=== PATIENT | male | born 1950 | race Caucasian/White ===

== ENCOUNTER 2019-10-02 00:32 | Outpatient (CLI) | payer BC, SELFPAY ==
[2019-10-02 18:07] LABS: SARS-CoV-2 RNA PCR Negative
== END 2019-10-02 00:33 | disposition home or self-care (01) ==
LOC: ANHCOVIDDT 00:34
PROVIDERS: PCP Family Medicine Adolescent Medicine; Visit Provider Internal Medicine Gastroenterology
DX: Z01.812 Encounter for preprocedural laboratory examination (principal); Z11.59 Encounter for screening for other viral diseases
CPT/HCPCS: 87635; C9803; U0003

== ENCOUNTER 2019-10-04 02:11 | Day surgery (SDC) | payer BC, SELFPAY ==
[2019-09-30 14:53] VITALS: BMI 40.6
[2019-10-04 06:29] VITALS: BMI 42.0
[2019-10-04] MEDS: LACTATED RINGERS 1,000 ML 150 ML IV CONT (06:42)
--- NOTE | 2019-10-04 07:08 | WPDANESEPPF ---
Anes - Initial Pre Proc Eval Procedure: Operation Date: 10/04/19 07:30 Proposed Procedures p Esophagogastroduodenoscopy - Jethro Hand MD Date/Time: 10/04/19 07:08 Surgeon: Jethro Hand MD Pre Op Diagnosis: dyspepsia, GERD Patient Data Age: 69 Gender: M Height: 5 ft 9 in Weight: 129 kg Allergies Allergy/AdvReac Type Severity Reaction Status Date / Time Penicillins Allergy Severe PASSED Verified 10/04/19 06:27 OUT codeine Allergy Unknown SEVERE Verified 10/04/19 06:27 ITCHING Home Medications Medication Instructions Recorded Confirmed Type aspirin [Adult Low Dose Aspirin] 81 mg PO DAILY 09/30/19 09/30/19 History buprenorphine-naloxone 1 tablet SUBLINGUAL DAILY 09/30/19 09/30/19 History bupropion HCl 450 mg PO DAILY 09/30/19 09/30/19 History carvedilol 6.25 mg PO BID 09/30/19 09/30/19 History lisinopril 5 mg PO DAILY 09/30/19 09/30/19 History lorazepam [Ativan] 1 mg PO TID PRN 09/30/19 09/30/19 History pantoprazole 40 mg PO BID 09/30/19 09/30/19 History tamsulosin 0.4 mg PO DAILY 09/30/19 09/30/19 History Patient hx anesthesia problems: none Family hx anesthesia problems: none PMFSH Past Medical History Medical History Arthritis Colonic polyp Depression DVT (deep venous thrombosis) GERD (gastroesophageal reflux disease) Gout Hemorrhoids Hiatal hernia Melena Pulmonary embolism Shingles Ulcer Surgical History Surgical History H/O hemorrhoidectomy History of right hip replacement Hx of appendectomy Hx of tonsillectomy Social History Social History Smoking status: Never smoker Anes - Eval Final PreProcedure Day of Procedure 10/04/19 07:08 Patient weight: morbidly obese Heart: regular rate and rhythm Lungs: clear to auscultation Airway: Mallampati scale class II Neurological: alert and oriented Last oral intake: >/= 8 hours ASA classification: III Emergent: no Anesthetic plan: proceed Anesthesia type and monitoring: general GIVS and standard monitoring Informed Consent: The patient's anesthetic plan and its attendant risks and benefits were discussed with the patient/family/POA. Questions were solicited and answers provided to the satisfaction of the patient/family/POA.
--- NOTE | 2019-10-04 07:36 | WPDGICN ---
Assessment and Plan Assessment and plan (1) Dyspepsia: Code(s): R10.13 - Epigastric pain Status: Acute Assessment and Plan: Patient has ongoing acid indigestion nocturnal regurgitation heartburn and nausea despite taking Protonix 40 mg p.o. b.i.d.. Plan is to evaluate further with an EGD. Alternate PPI may be of some benefit. Current we will allow an acid supplementation in addition to PPI. Strict anti-reflux measures encouraged. (2) GERD (gastroesophageal reflux disease): Code(s): K21.9 - Gastro-esophageal reflux disease without esophagitis Status: Acute (3) Colonic polyp: Code(s): K63.5 - Polyp of colon Status: Acute Assessment and Plan: Patient has a history of colon polyps in follow-up colonoscopy every 5 years is anticipated. GI Consult Note Consult date/time: 10/04/19 07:36 HPI: Robinson Mendoza is a 69 year old male seen in evaluation at the request of Dr Almazan.Patient has a history of GE reflux disease. She has a long history of abdominal pain acid indigestion. He has been treated with Protonix for 4 years. Symptoms have persisted despite taking this medication. He will supplement with oral an acids however this fails to control his symptoms he has rather persistent nausea. Briefly improved with oral an acids. He notices acid regurgitation at night. For these reasons he presents for follow-up EGD. Patient denies any bleeding or weight loss. Review of Systems Review of Systems: All systems reviewed & are unremarkable except as noted in HPI and below PMFSH Past Medical History Medical History Arthritis Colonic polyp Depression DVT (deep venous thrombosis) GERD (gastroesophageal reflux disease) Gout Hemorrhoids Hiatal hernia Melena Pulmonary embolism Shingles Ulcer Surgical History Surgical History H/O hemorrhoidectomy History of right hip replacement Hx of appendectomy Hx of tonsillectomy Social History Social History Smoking status: Never smoker Meds Home Medications and Allergies Home Medications Medication Instructions Recorded Confirmed Type aspirin [Adult Low Dose Aspirin] 81 mg PO DAILY 09/30/19 09/30/19 History buprenorphine-naloxone 1 tablet SUBLINGUAL DAILY 09/30/19 09/30/19 History bupropion HCl 450 mg PO DAILY 09/30/19 09/30/19 History carvedilol 6.25 mg PO BID 09/30/19 09/30/19 History lisinopril 5 mg PO DAILY 09/30/19 09/30/19 History lorazepam [Ativan] 1 mg PO TID PRN 09/30/19 09/30/19 History pantoprazole 40 mg PO BID 09/30/19 09/30/19 History tamsulosin 0.4 mg PO DAILY 09/30/19 09/30/19 History Allergies Allergy/AdvReac Type Severity Reaction Status Date / Time Penicillins Allergy Severe PASSED Verified 10/04/19 06:27 OUT codeine Allergy Unknown SEVERE Verified 10/04/19 06:27 ITCHING Exam Narrative: Exam Narrative: Physical exam reveals patient to be alert. Vital signs stable. HEENT exam unremarkable. Lungs are clear to auscultation and percussion. Heart is without murmur or extra sounds. Abdominal exam bowel sounds are present soft nontender with no organomegaly. Digital external rectal exam is deferred today.
[2019-10-04 07:38] VITALS: BP 104/51; PULSE 64; RESP 13; O2SAT 95
[2019-10-04 07:48] VITALS: BP 95/49; PULSE 59; RESP 17; O2SAT 95
[2019-10-04 07:58] VITALS: BP 91/41; PULSE 57; RESP 15; O2SAT 97
== END 2019-10-04 08:24 | disposition home or self-care (01) ==
PROVIDERS: PCP Family Medicine Adolescent Medicine; Visit Provider Internal Medicine Gastroenterology
PROC: 0DJ08ZZ Inspection of Upper Intestinal Tract, Via Natural or Artificial Opening Endoscopic (ICD-10-PCS; CPT 43235; principal; 2019-10-04 07:30)
DX: R11.0 Nausea (principal); K21.9 Gastro-esophageal reflux disease without esophagitis; K30 Functional dyspepsia; M10.9 Gout, unspecified; F32.9 Major depressive disorder, single episode, unspecified; Z79.82 Long term (current) use of aspirin; E66.01 Morbid (severe) obesity due to excess calories; Z68.41 Body mass index [BMI] 40.0-44.9, adult
CPT/HCPCS: 43239; 87081; 87635; C9803; J2704; J7120; U0003

== ENCOUNTER → 2020-12-08 02:47 | Outpatient (CLI) | payer BC, SELFPAY ==
[2020-12-08 20:47] LABS: SARS-CoV-2 RNA PCR Negative
== END ==
PROVIDERS: PCP Family Medicine Adolescent Medicine; Visit Provider Physician Assistant
DX: J02.9 Acute pharyngitis, unspecified (principal); Z20.822 Contact with and (suspected) exposure to COVID-19
CPT/HCPCS: C9803; U0003; U0005

== ENCOUNTER 2021-03-04 10:55 | Emergency (ER) | payer BC, SELFPAY ==
[2021-03-04 11:01] VITALS: BP 166/93; PULSE 78; RESP 16; TEMP 36.6; O2SAT 96
--- NOTE | 2021-03-04 11:07 | ED.NAVMDI ---
HPI - Nausea/Vomiting/Diarrhea General Chief complaint: Nausea/Vomiting/Diarrhea Stated complaint: dizzy/nausea/weak/difficulty eating Time Seen by Provider: 03/04/21 11:08 Source: patient, family and RN notes reviewed Mode of arrival: ambulatory Limitations: no limitations History of Present Illness HPI Narrative: Robinson is a 70-year-old male patient who ambulated into the [facility]. Patient states he has had dizziness and weakness since Monday. Patient has had chronic nausea, weakness and difficulty eating for the last 10 months. Patient has seen Dr. Rosas and been followed up with GI for the same issue. Patient is on Nexium 40 twice daily and Zofran daily. 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 Patient states he felt dizzy when he was driving. It only lasted a few seconds. Patient states he was fine afterwards and continued to drive. Patient states today he has had onset of dizziness with no other symptoms. Patient states he has chronic nausea and just feels extremely weak. MD elicited complaint: nausea Related Data Home Medications Medication Instructions Recorded Confirmed bupropion HCl 450 mg PO DAILY 09/30/19 03/04/21 carvedilol 6.25 mg PO BID 09/30/19 03/04/21 lorazepam [Ativan] 1 mg PO TID PRN 09/30/19 03/04/21 buprenorphine 8 mg-naloxone 2 mg 1 film SUBLINGUAL DAILY 01/19/21 03/04/21 sublingual film losartan 100 mg tablet 100 mg PO DAILY 01/19/21 03/04/21 ondansetron 4 mg disintegrating 4 mg PO Q8H 01/19/21 03/04/21 tablet Allergies Allergy/AdvReac Type Severity Reaction Status Date / Time Penicillins Allergy Severe PASSED Verified 03/04/21 11:01 OUT codeine Allergy Unknown SEVERE Verified 03/04/21 11:01 ITCHING Review of Systems Review of Systems: CONSTITUTIONAL: Denies body aches, fever, chills, or sweats. EYES: Denies visual changes, redness, or discharge. ENT: Denies rhinorrhea, + congestion, sore throat, or otalgia. CARDIOVASCULAR: Denies chest pain, palpitations, or edema. RESPIRATORY: Denies cough or dyspnea. GASTROINTESTINAL: Denies abdominal pain, nausea, vomiting, or diarrhea. GENITOURINARY: Denies dysuria or hematuria. SKIN: Denies rash, itching, or wounds. MUSCULOSKELETAL: Denies back pain, joint pain, or myalgia. NEUROLOGIC: Denies headache, numbness, tingling, or weakness. PSYCH: Denies depression or anxiety + dizziness All systems reviewed & are unremarkable except as noted in HPI and below PMFSH Past Medical History Medical History Arthritis Colonic polyp Depression DVT (deep venous thrombosis) GERD (gastroesophageal reflux disease) Gout Hemorrhoids Hiatal hernia HTN (hypertension) Melena Pulmonary embolism Shingles Ulcer Surgical History Surgical History H/O hemorrhoidectomy History of right hip replacement Hx of appendectomy Hx of tonsillectomy Social History Social History Smoking status: Never smoker Comments At time of signature, I have reviewed and agree with nursing past medical, surgical, social and family history unless otherwise noted. Please see nursing chart for further information. There is no relevant family history pertinent to the presenting complaint Exam Narrative: GENERAL: Well-appearing, over-nourished, and in no acute distress. HEAD: Normocephalic, atraumatic. EYES: EOMI. No redness or drainage. Conjunctivae normal. ENT: Mucous membranes pink and moist. Nares clear. No rhinorrhea. TMs normal bilaterally. Throat normal. Uvula midline. NECK: Normal AROM. Supple. No lymphadenopathy. CHEST: No respiratory distress. Clear to auscultation. HEART: Regular rate and rhythm. No murmur appreciated. Normal peripheral pulses. ABDOMEN: Soft, nontender, nondistended, normal active bowel sounds. MUSCULOSKELETA
--- NOTE | 2021-03-04 15:12 | ECG_ITS ---
Measurements Intervals [place] Rate: 70 P: 22 OK: 192 QRS: -26 QRSD: 105 T: -9 QT: 398 QTc: 430 Interpretive Statements SINUS RHYTHM BORDERLINE ST-T WAVE ABNORMALITY- INFERIOR LEADS BASELINE WANDER- V4-V5 BORDERLINE ECG Electronically Signed On 03-04-2021 16:41:15 NURSERYPERSON by Kaushik Gupta D.O.
== END 2021-03-04 12:27 | disposition home or self-care (01) ==
PROVIDERS: Emergency Provider Nurse Practitioner Family; PCP Family Medicine Adolescent Medicine
DX: R11.0 Nausea (principal); R42 Dizziness and giddiness; Z96.651 Presence of right artificial knee joint; M19.90 Unspecified osteoarthritis, unspecified site; Z86.73 Personal history of transient ischemic attack (TIA), and cerebral infarction without residual deficits; K21.9 Gastro-esophageal reflux disease without esophagitis; M10.9 Gout, unspecified; I10 Essential (primary) hypertension; Z86.711 Personal history of pulmonary embolism
CPT/HCPCS: 81003; 93005; 99213; G0463

== ENCOUNTER 2021-05-27 01:12 | Day surgery (SDC) | payer BC, SELFPAY ==
[2021-05-13 13:43] VITALS: BMI 43.2
[2021-05-27 07:55] VITALS: BP 100/80; PULSE 70; RESP 20; TEMP 36.2; O2SAT 95; BMI 42.2
[2021-05-27] MEDS: LACTATED RINGERS 1,000 ML 150 ML IV CONT (08:09)
--- NOTE | 2021-05-27 08:26 | P.PNAN_ITS ---
Anes - Initial Pre Proc Eval Procedure: Operation Date: 05/27/21 09:15 Proposed Procedures p Esophagogastroduodenoscopy & Screening Colonoscopy - Jethro Hand MD Date/Time: 05/27/21 08:26 Surgeon: Jethro Hand MD Pre Op Diagnosis: neoplasm screening, nausea Patient Data Age: 70 Gender: M Height: 1.75 m Weight: 129.7 kg Last Vital Signs Temp 36.2 C L 05/27/21 07:55 Pulse 70 05/27/21 07:55 Resp 20 05/27/21 07:55 BP 100/80 05/27/21 07:55 Pulse Ox 95 05/27/21 07:55 Allergies Allergy/AdvReac Type Severity Reaction Status Date / Time Penicillins Allergy Severe PASSED Verified 05/27/21 07:55 OUT codeine Allergy Unknown SEVERE Verified 05/27/21 07:55 ITCHING Home Medications Medication Instructions Recorded Confirmed Type bupropion HCl 450 mg PO DAILY 09/30/19 05/13/21 History carvedilol 6.25 mg PO BID 09/30/19 05/13/21 History buprenorphine 8 mg-naloxone 2 mg 1 film SUBLINGUAL DAILY 01/19/21 05/13/21 History sublingual film losartan 100 mg tablet 100 mg PO DAILY 01/19/21 05/13/21 History lorazepam 1 mg tablet 1 mg PO TID PRN #90 tablet 04/27/21 05/13/21 Rx ibuprofen 800 mg PO TID PRN 05/13/21 05/13/21 History ondansetron 4 mg PO Q8H PRN 05/13/21 05/13/21 History Patient hx anesthesia problems: none Family hx anesthesia problems: none Results Review: All pre-operative results and documents have been reviewed as part of the pre-operative evaluation. [facility] Past Medical History Medical History (Updated 05/27/21 @ 08:27 by Lupillo Bartholomew DO) Arthritis Cardiomyopathy Colonic polyp Depression DVT (deep venous thrombosis) GERD (gastroesophageal reflux disease) Gout Hemorrhoids Hiatal hernia HTN (hypertension) Melena Pulmonary embolism Shingles Ulcer Surgical History Surgical History H/O hemorrhoidectomy History of right hip replacement Hx of appendectomy Hx of tonsillectomy Social History Social History (Updated 05/12/21 @ 10:56 by Esther Salazar CMA) Smoking status: Never smoker Alcohol intake: former Substance use: former Last use: 1974 Living arrangements: with family Spiritual care concerns: No Anes - Eval Final PreProcedure Day of Procedure 05/27/21 08:26 Patient weight: morbidly obese Heart: regular rate and rhythm Lungs: clear to auscultation and normal air movement Airway: Mallampati scale class II Neurological: alert and oriented Last oral intake: >/= 8 hours ASA classification: III Emergent: no Anesthetic plan: proceed Anesthesia type and monitoring: general GIVS and standard monitoring Results Review: All pre-operative results and documents have been reviewed as part of the pre-operative evaluation. Informed Consent: The patient's anesthetic plan and its attendant risks and benefits were discussed with the patient/family/POA. Questions were solicited and answers provided to the satisfaction of the patient/family/POA.
--- NOTE | 2021-05-27 08:50 | WPDHPUPDATE1 ---
History and Physical Update Update Date/Time: 05/27/21 08:50 History and Physical has been reviewed, including an updated exam of the patient. There are NO changes in the patient's condition. Risks, benefits, and alternatives have been discussed and questions answered. Patient agrees to proceed with procedure.
[2021-05-27] MEDS: BENZOCAINE (*SP) 60 ML SPRAY CAN (HURRICAINE) 1 SPRAY MUCOUS MEM (09:43)
[2021-05-27 10:14] VITALS: BP 94/61; PULSE 64; RESP 20; O2SAT 97
[2021-05-27 10:24] VITALS: BP 112/71; PULSE 62; RESP 18; O2SAT 98
[2021-05-27 10:34] VITALS: BP 113/69; PULSE 64; RESP 18; O2SAT 98
--- NOTE | 2021-05-27 10:55 | SUR.OPER ---
EGD start 945 end 947, Colon start 956 end 1007.
== END 2021-05-27 10:51 | disposition home or self-care (01) ==
PROVIDERS: PCP Family Medicine Adolescent Medicine; Visit Provider Internal Medicine Gastroenterology
PROC: 0DJ08ZZ Inspection of Upper Intestinal Tract, Via Natural or Artificial Opening Endoscopic (ICD-10-PCS; CPT 43235; principal; 2021-05-27 09:15)
DX: Z12.11 Encounter for screening for malignant neoplasm of colon (principal); D12.2 Benign neoplasm of ascending colon; R11.0 Nausea; K64.8 Other hemorrhoids; Z86.718 Personal history of other venous thrombosis and embolism; F41.8 Other specified anxiety disorders; K21.9 Gastro-esophageal reflux disease without esophagitis; M10.9 Gout, unspecified; K44.9 Diaphragmatic hernia without obstruction or gangrene; I26.99 Other pulmonary embolism without acute cor pulmonale; F41.1 Generalized anxiety disorder; I11.9 Hypertensive heart disease without heart failure; I43 Cardiomyopathy in diseases classified elsewhere; E66.01 Morbid (severe) obesity due to excess calories; Z68.41 Body mass index [BMI] 40.0-44.9, adult; R53.81 Other malaise; R53.1 Weakness
CPT/HCPCS: 45380; 43239; 87081; 88305; J2704; J7120

== ENCOUNTER 2021-11-16 12:36 | Observation (INO) | payer BC, SELFPAY ==
[2021-11-16] VITALS (24 sets, daily range): BP systolic 111–148; BP diastolic 73–105; PULSE 69–102; RESP 7–16; TEMP 36.7–37.5; O2SAT 91–98; BMI 41.3
--- NOTE | ~2021-11-16 | XR_ITS ---
EXAMINATION: XR chest 2V DATE: 11/16/2021 13:44 INDICATION: Chest pain. TECHNIQUE: Frontal and lateral views of the chest were obtained. COMPARISON: Chest 2 views 03/13/2019 FINDINGS: There is no pneumonia, pleural effusion, or pneumothorax. The heart size is normal. IMPRESSION: 1. No acute cardiopulmonary disease. Reviewed, dictated and finalized at location A.
--- NOTE | ~2021-11-16 | CT_ITS ---
EXAMINATION: CTA brain carotid DATE: 11/16/2021 14:08 INDICATION: Dizziness. TECHNIQUE: Computed tomographic angiography (CTA) of the head was performed without and with 100 mL O mnipaque-350 intravenous contrast. CTA of the neck was performed with intravenous contrast. Automated exposure control and iterative reconstruction technique were employed. The dose-length product was 1 776.62 mGy-cm. Maximum intensity projection and volume rendered 3D-reconstructions were created by pradeep howard technologist on a separate workstation. COMPARISON: Head CT 08/17/2005 FINDINGS: HEAD CTA: There is an infarct in left parietal lobe. There is no intracranial hemorrhage or abnormal mass lesion. The ventricles are normal in size. The mastoid air cells are normal. There is mucosal th ickening in the paranasal sinuses. There are likely changes of ocular lens replacement surgeries. Lef t vertebral artery is dominant. There is no significant stenosis of basilar artery or the posterior c erebral arteries. There is no significant stenosis of the intracranial internal carotid arteries or a nterior or middle cerebral arteries. Anterior communicating artery is normal. The posterior communica ting arteries are normal. There is no aneurysm. NECK CTA: A calcified right lung nodule is consistent with old granulomas disc disease. There is a 10 mm nodule left thyroid lobe, likely not clinically significant. There are no pathologically enlarged lymph nodes. There is a senior stenosis of the vertebral arteries. There is plaque in the proximal i nternal carotid arteries. There is 0% stenosis of the proximal right internal carotid artery relative to normal distal artery lumen diameter (NASCET criteria). There is 0% stenosis of the proximal left internal carotid artery relative to normal distal artery lumen diameter. There is severe cervical spo ndylosis. IMPRESSION: 1. Infarct in left parietal lobe, likely acute or subacute. 2. No aneurysm or significant intracranial arterial stenosis. 3. 0% stenosis of the proximal internal carotid arteries relative to normal distal artery lumen diame ters (NASCET criteria). Reviewed, dictated and finalized at location A. IMPRESSION: 1. Infarct in left parietal lobe, likely acute or subacute. 2. No aneurysm or significant intracranial arterial stenosis. 3. 0% stenosis of the proximal internal carotid arteries relative to normal dis magalys artery lumen diameters (NASCET criteria).
--- NOTE | ~2021-11-16 | MR_ITS ---
EXAMINATION: MR brain/brain stem wo/w con DATE: 11/17/2021 08:34 INDICATION: Acute stroke. TECHNIQUE: Magnetic resonance imaging (MRI) of the brain and brainstem was performed without and with 20 mL MultiHance intravenous contrast. COMPARISON: Head CT 11/16/2021 FINDINGS: There is a small old infarct in left parietal lobe. There are scattered areas of nonspecifi c increased T2-weighted signal intensity in the cerebral white matter, which is within normal limits for the patient's age. There is no intracranial hemorrhage, acute infarction, or abnormal intracrania l mass lesion. The ventricles are normal in size. There is mucosal thickening in the paranasal sinuse s. There are likely changes of ocular lens replacement surgeries. The mastoid air cells are normal. IMPRESSION: 1. Small old infarct in left parietal lobe. Reviewed, dictated and finalized at location A.
--- NOTE | 2021-11-16 12:44 | ECG_ITS ---
Measurements Intervals [place] Rate: 82 P: 7 NM: 175 QRS: -41 QRSD: 105 T: -19 QT: 377 QTc: 442 Interpretive Statements SINUS RHYTHM BASELINE ARTIFACT LEFT AXIS DEVIATION ST ABNORMALITY INFERIOR LEADS CONSIDER ISCHEMIA ABNORMAL ECG COMPARED TO ECG 03/04/2021 11:34:13 NO SIGNIFICANT CHANGE Electronically Signed On 11-16-2021 18:27:57 CDT by Brendon Casillas M.D.
[2021-11-16] MEDS: LORazepam (*CRX) 0.5 MG TABLET PO ×2 (13:05→16:13)
[2021-11-16] MEDS: MECLIZINE HCL 25 MG TABLET PO (13:05)
[2021-11-16 13:27] LABS: Basophils Percent Auto 0.5 % (0.2-1.2); Eosinophils Absolute Auto 0.2 K/mm3 (0-0.3); Eosinophils Percent Auto 1.8 % (0-4.4); Hematocrit 46.3 % (42.0-52.0); Hemoglobin 15.2 g/dL (14.0-18.0); Immature Granulocyte Absolute 0.03 K/mm3 (0.00-0.031); Immature Granulocyte Percent A 0.4 % (0-0.5); Lymphocytes Absolute Auto 1.41 K/mm3 (0.9-3.2); Lymphocytes Percent Auto 16.6 % (18.3-44.2); Mean Corpuscular HGB Conc 32.8 g/dl (32-36); Mean Corpuscular Hemoglobin 26.9 pg (26-34); Mean Corpuscular Volume 81.9 fl (80-100); Mean Platelet Volume 8.8 fl (7.4-10.4); Monocytes Absolute Auto 0.5 K/mm3 (0.1-0.6); Monocytes Percent Auto 5.4 % (2.6-8.5); Neutrophils Absolute Auto 6.4 K/mm3 (1.3-6.7); Neutrophils Percent Auto 75.3 % (45.5-73.1); Platelet Count Result 190 k/mm3 (150-375); Red Blood Count 5.65 M/mm3 (4.6-6.20); Red Cell Distribution Width 12.1 % (11.5-14.5); White Blood Count 8.5 K/mm3 (4.5-10.0)
[2021-11-16 13:36] LABS: Alanine Aminotransferase 34 U/L (6-50); Albumin Level 4.4 g/dL (3.5-5.1); Alkaline Phosphatase 90 U/L (38-126); Anion Gap 11 mmol/L (8-16); Aspartate Amino Transferase 33 U/L (17-59); Bilirubin,Total 0.7 mg/dL (0.2-1.3); Blood Urea Nitrogen 14 mg/dL (9-20); Calcium 9.2 mg/dL (8.4-10.2); Carbon Dioxide 28 mmol/L (22-30); Chloride 100 mmol/L (98-107); Estimated CRCL calculation 89 ml/min; Estimated Glomerular Filt Rate > 60; Glucose 121 mg/dL (65-110); INR 1.1; Potassium 4.1 mmol/L (3.4-5.0); Prothrombin Time 13.6 Seconds (11.1-14.7); Sodium 139 mmol/L (137-145)
[2021-11-16 13:37] LABS: Partial Thromboplastin Time 36.7 SECONDS (22.3-36.8)
[2021-11-16 13:48] LABS: Troponin I < 0.012 ng/mL (0.000-0.034)
--- NOTE | 2021-11-16 14:55 | ED.GENADULT ---
HPI - General Adult General Chief complaint: Dizziness Stated complaint: CP, from Time Seen by Provider: 11/16/21 12:39 History of Present Illness HPI narrative: Patient is a 71-year-old male who presents ER with chest pain and dizziness. Patient has history of chronic vertigo and has been seen by PT. He is scheduled to see neurology at [facility] on December 17. Reports he had severe intensity of his dizziness this rotational in nature at 8 AM. He was having difficulty walking and was stumbling. He developed some central chest tightness at that time as well. He went to an urgent care where they referred him here. He was put in the ambulance and given aspirin. Patient has had no imaging of his head or neck. He has been seen by ENT in the past. Patient has no chest pain at this time. Related Data Home Medications Medication Instructions Recorded Confirmed bupropion HCl 150 mg 24 hr tablet, 450 mg PO DAILY 09/30/19 11/16/21 extended release carvedilol 6.25 mg tablet 6.25 mg PO BID 09/30/19 11/16/21 losartan 100 mg tablet 100 mg PO DAILY 01/19/21 11/16/21 ondansetron 4 mg disintegrating 4 mg PO Q8H PRN Nausea 05/13/21 11/16/21 tablet buprenorphine 8 mg-naloxone 2 mg 0.5 tablet sublingual BID 11/16/21 11/16/21 sublingual tablet metoclopramide HCl 10 mg tablet 10 mg PO QHS 11/16/21 11/16/21 Allergies Allergy/AdvReac Type Severity Reaction Status Date / Time Penicillins Allergy Severe PASSED Verified 11/10/21 13:03 OUT codeine Allergy Unknown SEVERE Verified 11/10/21 13:03 ITCHING Review of Systems Review of Systems: All systems reviewed & are unremarkable except as noted in HPI and below Constitutional: Constitutional: Denies chills and Denies fever(s) ENT: Denies nasal congestion and Denies sore throat Cardiovascular: Cardiovascular: Reports chest pain, Denies rapid heart rate and Denies radiating jaw, neck or arm pain Respiratory: Respiratory: Denies cough, Denies dyspnea and Denies wheezing Gastrointestinal: Gastrointestinal: Denies abdominal pain, Denies nausea and Denies vomiting Neurologic: Reports dizziness, Denies headache(s), Denies focal weakness and Reports numbness PMFSH Past Medical History Medical History (Updated 11/16/21 @ 21:50 by Aicha Mulligan PA-C) Anxiety Colonic polyp Deep venous thrombosis Depression Gastroesophageal reflux disease Gout Hemorrhoids Hiatal hernia Hypertension Non-ischemic cardiomyopathy Poorly documented. Pulmonary embolism Shingles Ulcer Surgical History Surgical History (Updated 11/16/21 @ 17:15 by Aicha Mulligan PA-C) History of appendectomy History of hemorrhoidectomy History of right hip replacement History of tonsillectomy Family History Family History Mother Lung cancer Diabetes mellitus Father Lung cancer Depression Social History Social History (Updated 11/16/21 @ 17:18 by Aicha Mulligan PA-C) Social History: Surrogate medical decision maker: Natasha Mendoza, spouse. Code status: Full code. 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 Substance use: former Substance use type: former substance user Last use: 1994 Additional living arrangements comments: Lives with in [place]. Spiritual care concerns: No Agree to blood products: Yes Exam Narrative: GENERAL: Well-appearing, overweight, and in no acute distress. HEAD: Normocephalic, atraumatic. EYES: PERRL and EOMI. ENT: Mucous membranes moist. CHEST: Clear to auscultation. No respiratory distress. HEART: Regular rate and rhythm. Normal peripheral pulses. ABDOMEN: Soft, nontender, nondistended. EXTREMITIES: Normal range of motion. No edema. SKIN: Warm, dry, no rash. NEURO: NIH stroke scale of 0. No upper or lower extremity
--- NOTE | 2021-11-16 15:45 | PM.IMHP ---
H&P: HPI History of Present Illness Date/Time: 11/16/21 15:45 Chief Complaint: Dizziness. Narrative: This is a very pleasant 71-year-old male with history of non-ischemic cardiomyopathy, DVT, pulmonary embolism, hypertension, and anxiety who presented to the ED from home for evaluation of dizziness. He has suffered from dizziness and nausea on a daily basis for going on about 1 year for which he has previously been evaluated by his primary doctor as well as GI and ENT specialties. From the time he opens his eyes in the morning he feels dizzy (further qualify as lightheadedness) and nauseated, some days are much worse than others. On rare occasions he feels as though he may pass out but he has not had a syncopal episode. At times however it sounds like he suffers from vertigo as well which tend to occur with position changes. He has also had tinnitus, mainly on the right side, but that is not very frequent. He was referred for vestibular therapy several months ago and that seemed to help only a little bit. He believes that he has tried meclizine is well without much benefit. He has also been prescribed metoclopramide at nighttime which seems to help somewhat with the nausea. Due to ongoing symptoms, he was referred to Neurology at [facility] and he has an upcoming appointment with them on December 17. 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 Of note he also mentioned an episode this morning where he had left anterior chest pressure briefly while sitting down reading the newspaper. It was self-limiting, did not radiate, and was not associated with any other symptoms. He is not currently having any chest pain. He also denies headache, visual changes, focal weakness, paresthesias, facial droop, dysarthria, and dysphagia. Review of Systems Review of Systems: Twelve systems were reviewed. No fever, chills, or sweats. No recent cold or flu symptoms. No syncope. He has not had any head trauma recently. Appetite has been okay. Occasional nausea as above. No vomiting. No diarrhea. No dysuria. Except as documented, all other systems were reviewed and are negative. [facility] Past Medical History Medical History (Updated 11/16/21 @ 21:50 by Aicha Mulligan PA-C) Anxiety Colonic polyp Deep venous thrombosis Depression Gastroesophageal reflux disease Gout Hemorrhoids Hiatal hernia Hypertension Non-ischemic cardiomyopathy Poorly documented. Pulmonary embolism Shingles Ulcer Surgical History Surgical History (Updated 11/16/21 @ 17:15 by Aicha Mulligan PA-C) History of appendectomy History of hemorrhoidectomy History of right hip replacement History of tonsillectomy Family History Family History Mother Lung cancer Diabetes mellitus Father Lung cancer Depression Social History Social History (Updated 11/16/21 @ 17:18 by Aicha Mulligan PA-C) Social History: Surrogate medical decision maker: Natasha Mendoza, spouse. Code status: Full code. 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 Substance use: former Substance use type: former substance user Last use: 1994 Additional living arrangements comments: Lives with in [place]. Spiritual care concerns: No Agree to blood products: Yes Meds Home Medications and Allergies Home Medications Medication Instructions Recorded Confirmed Type bupropion HCl 150 mg 24 hr tablet, 450 mg PO DAILY 09/30/19 11/16/21 History extended release carvedilol 6.25 mg tablet 6.25 mg PO BID 09/30/19 11/16/21 History losartan 100 mg tablet 100 mg PO DAILY 01/19/21 11/16/21 History ondansetron 4 mg disintegrating 4 mg PO Q8H PRN Nausea 05/13/21 11/16/21 Histor
[2021-11-16] MEDS: CLOPIDOGREL BISULFATE 75 MG TABLET PO (15:53)
[2021-11-16 17:10] LABS: Troponin I < 0.012 ng/mL (0.000-0.034)
--- NOTE | 2021-11-16 17:23 | ADMGEN ---
This patient, Robinson Mendoza, was admitted to IMU Room 213-01 @ 1700 Patient/family oriented to hospital policies and general routines including ID bracelet, bed and alarms, visiting hours, pain management, procedures, bathroom and other care routines, personal items, smoking policy, room service/diet, and visiting hours. Information on how to activate the Rapid Response Team has been discussed. Patient/Family are encouraged to report perceived risks to care and to ask questions if they do not understand what they are told or what they should do.
[2021-11-16 17:58] LABS: Troponin I < 0.012 ng/mL (0.000-0.034)
[2021-11-16] MEDS: ACETAMINOPHEN 325 MG TABLET 650 MG PO (19:21)
[2021-11-16] MEDS: ONDANSETRON INJ 4 MG/2 ML VIAL IV PUSH (19:21)
[2021-11-16] MEDS: HYDROcodone/acetaminophen (*CRX) 5-325 MG TABLET 1 TAB PO (21:02)
[2021-11-16] MEDS: LORazepam (*CRX) 1 MG TABLET PO (21:29)
[2021-11-16] MEDS: carvediloL 6.25 MG TABLET PO (21:50)
[2021-11-16] MEDS: METOCLOPRAMIDE HCL 10 MG TABLET PO (21:50)
--- NOTE | 2021-11-16 22:15 | PHAR ---
Buprenorphine-Naloxone 8-2 mg tablet, sublingual DISSOLVE 1 TAB UNDER THE TONGUE EVERY DAY EVERY MORNING DIRECTED. Verified in pharmacy and sent back to floor. (11/16/21 @ 22:15)
[2021-11-17] VITALS (10 sets, daily range): BP systolic 123–144; BP diastolic 45–82; PULSE 62–83; RESP 15–18; TEMP 36.2–36.8; O2SAT 94–96
--- NOTE | 2021-11-17 | ECHO_ITS ---
Patient Info Name: Robinson Mendoza Age: 71 years : 1950 Gender: Male Ht: 69 in Wt: 283 lbs BSA: 2.56 m2 HR: 71 bpm BP: 123 / 45 mmHg Heart Rhythm: Sinus Rhythm Technical Quality: Fair Exam Date: 11/17/2021 10:09 AM Exam Location: [facility] Card Pulmonary Patient Status: Inpatient Admit Date: 11/16/2021 Staff Ordering Physician: Aicha Mulligan PA-C Customer Associate: Svetlana Henderson RDCS Attending Provider: Gracy Rodriguez MD Referring Physician: Isaak RODRIGUEZ; Exam Type: CA echo doppler w bubble study Study Info Indications - stroke Complete two-dimensional, color flow and Doppler transthoracic echocardiogram is performed with agitated saline. Contrast/Agitated Saline Contrast/Ag. Saline: Agitated Saline Amount: 20.00 ml Administered By: Frances Archuleta RDCS Existing IV Access: Yes IV Access Condition: patent with no signs of infiltration Summary 1. Left ventricular chamber dimension is normal. 2. Left ventricular systolic function is normal, estimated at 65-70%. 3. There is mild asymmetric septal increased left ventricular wall thickness. 4. Left ventricular septal wall motion is abnormal with septal motion related to bundle branch block. 5. The left ventricular diastolic function is grade I diastolic dysfunction. 6. Injection of agitated saline reveals xlwlq-zg-pimu shunt with Valsalva only with faint bubbles crossing at approximately 3-4 beats suggestive of small patent foramen ovale. Clinical correlation advised. 7. There is no aortic valve stenosis. 8. There is trace mitral valve regurgitation. 9. There is trace tricuspid valve regurgitation. 10. No pulmonary hypertension, estimated pulmonary arterial systolic pressure is 16 mmHg. Left Ventricle Left ventricular chamber dimension is normal. Left ventricular systolic function is normal, estimated at 65-70%. There is mild asymmetric septal increased left ventricular wall thickness. Left ventricular septal wall motion is abnormal with septal motion related to bundle branch block. The left ventricular diastolic function is grade I diastolic dysfunction. Right Ventricle Right ventricular chamber dimension is normal. Right ventricular systolic function is normal. Left Atria Left atrial chamber dimension is mildly enlarged. Right Atria Right atrial chamber dimension is mildly enlarged. Atrial Septum Injection of agitated saline reveals fkxbw-gi-oqxk shunt with Valsalva only with faint bubbles crossing at approximately 3-4 beats suggestive of small patent foramen ovale. Clinical correlation advised. Aortic Valve The aortic valve is trileaflet. There is no aortic valve stenosis. There is no aortic valve regurgitation. Pulmonic Valve The pulmonic valve is normal. There is trace pulmonic regurgitation. Mitral Valve The mitral valve has normal leaflets. There is trace mitral valve regurgitation. The mitral valve annulus is mildly calcified. Tricuspid Valve The tricuspid valve leaflets are normal. There is trace tricuspid valve regurgitation. No pulmonary hypertension, estimated pulmonary arterial systolic pressure is 16 mmHg. Pericardium/Pleural The pericardium appears normal. There is trivial pericardial effusion. Inferior Vena Cava Normal inferior vena cava with >50% collapse upon inspiration consistent with normal right atrial pressure, 5 mmHg. Aorta The aortic root size at the sinus of Valsalva is normal.
[2021-11-17 05:17] LABS: Hemoglobin 14.4 g/dL (14.0-18.0); Mean Corpuscular HGB Conc 32.7 g/dl (32-36); Mean Corpuscular Volume 82.4 fl (80-100); Mean Platelet Volume 8.9 fl (7.4-10.4); Platelet Count Result 165 k/mm3 (150-375); Red Blood Count 5.34 M/mm3 (4.6-6.20); Red Cell Distribution Width 12.4 % (11.5-14.5); White Blood Count 7.4 K/mm3 (4.5-10.0)
[2021-11-17 05:30] LABS: Alanine Aminotransferase 28 U/L (6-50); Albumin Level 3.8 g/dL (3.5-5.1); Alkaline Phosphatase 79 U/L (38-126); Anion Gap 7 mmol/L (8-16); Aspartate Amino Transferase 25 U/L (17-59); Bilirubin,Total 0.7 mg/dL (0.2-1.3); Blood Urea Nitrogen 13 mg/dL (9-20); Calcium 8.8 mg/dL (8.4-10.2); Carbon Dioxide 28 mmol/L (22-30); Chloride 100 mmol/L (98-107); Cholesterol 180 mg/dL (0-200); Estimated CRCL calculation 88 ml/min; Estimated Glomerular Filt Rate > 60; Glucose 113 mg/dL (65-110); HDL Direct 34 mg/dL; Magnesium 2.1 mg/dL (1.6-2.3); Potassium 3.4 mmol/L (3.4-5.0); Sodium 135 mmol/L (137-145); Triglycerides 110 mg/dL (<150)
[2021-11-17 05:40] LABS: LDL Cholesterol Direct 93 mg/dL
[2021-11-17] MEDS: ONDANSETRON INJ 4 MG/2 ML VIAL IV PUSH (07:46)
[2021-11-17] MEDS: LORazepam (*CRX) 1 MG TABLET PO (07:48)
[2021-11-17] MEDS: CLOPIDOGREL BISULFATE 75 MG TABLET PO (08:50)
[2021-11-17] MEDS: buPROPion HCL XL (24 HR) 150 MG TABCR 450 MG PO (08:50)
[2021-11-17] MEDS: ENOXAPARIN 40 MG/0.4 ML SYRINGE SUB-Q (08:51)
[2021-11-17] MEDS: LOSARTAN POTASSIUM 100 MG TABLET PO (08:51)
[2021-11-17 09:56] LABS: Hemoglobin A1C 5.8 % (<5.7)
--- NOTE | 2021-11-17 10:21 | PM.IMPN ---
Progress Note: A&P Assessment and Plan (1) Cerebrovascular accident: Code(s): I63.9 - Cerebral infarction, unspecified Status: Acute Assessment and Plan: 11/16 CTA head/neck demonstrating acute versus subacute infarct in left parietal lobe, no LVO. MRI done 11/17 that shows small old infarct in left parietal lobe. Lipid panel done that shows total cholesterol of 180 with an LDL of 93. A1c 5.8%. Telemetry showing normal sinus rhythm. Echo pending. Neurology on consult. Patient started on Plavix, will also start aspirin and low-dose statin. (2) Dizziness: Code(s): R42 - Dizziness and giddiness Status: Acute Assessment and Plan: Orthostatics negative. Neurology following. Patient reports improvement (3) Non-ischemic cardiomyopathy: Code(s): I42.8 - Other cardiomyopathies Status: Acute Assessment and Plan: Echo pending. Continue carb a long losartan (4) Anxiety: Code(s): F41.9 - Anxiety disorder, unspecified Status: Acute Assessment and Plan: Continue bupropion and Ativan p.r.n. Subjective Date/time seen: 11/17/21 10:21 Patient examined, chart reviewed. Patient reports significant improvement and dizziness today, has not had any other episodes. Patient just returned back from MRI. Review of Systems Review of Systems: Ten point ROS reviewed, negative unless otherwise specified in subjective Exam Narrative: General: Well-developed male sitting up in bed no distress. HEENT: Normocephalic, atraumatic. PERRL, EOMI. Conjunctivae anicteric. Oral mucosa moist. Oropharynx is crowded. Neck: Supple. No carotid bruits. Respiratory: Lungs are clear to auscultation bilaterally. Cardiovascular: Regular rate and rhythm with S1-S2. No tenderness to palpation over the chest wall. Gastrointestinal: Abdomen is soft, obese, nontender, and nondistended with positive bowel sounds. Skin: Warm and dry. No rash or lesions on limited exam. Extremities: No cyanosis, clubbing, or edema. Radial and pedal pulses intact. Neurological: Alert and oriented x4 Cranial nerves 2-12 are grossly intact. Speech is clear. No facial asymmetry. No pronator drift. Normal hkiubz-zg-hcid, rapid alternating movements, and heel to morales. Strength 5/5 in upper and lower extremities. Neurovascularly intact. Gait not assessed. Psychiatric: Pleasant and cooperative with normal mood and affect. Judgment and insight intact. Objective Data Vital Signs Vital Signs: Vital Signs - 24 hr 11/16/21 12:36 11/16/21 12:44 11/16/21 13:22 Temperature 98.1 F 98.1 F Pulse Rate 82 77 73 Respiratory Rate 9 L 9 L Blood Pressure 137/97 H 148/91 H 132/78 Pulse Oximetry 95 96 Oxygen Delivery Autopap 11/16/21 13:23 11/16/21 13:25 11/16/21 13:27 Temperature Pulse Rate 72 92 102 H Respiratory Rate 16 Blood Pressure 134/83 147/98 H 147/98 H Pulse Oximetry Oxygen Delivery 11/16/21 14:16 11/16/21 14:40 11/16/21 14:17 Temperature Pulse Rate 69 73 74 Respiratory Rate 14 9 L Blood Pressure 137/73 125/83 Pulse Oximetry 95 94 94 Oxygen Delivery 11/16/21 14:30 11/16/21 14:31 11/16/21 14:45 Temperature Pulse Rate 74 Respiratory Rate 10 L Blood Pressure 125/83 Pulse Oximetry 92 94 95 Oxygen Delivery 11/16/21 15:00 11/16/21 15:49 11/16/21 16:00 Temperature Pulse Rate 79 74 76 Respiratory Rate 7 L 7 L Blood Pressure Pulse Oximetry 96 Oxygen Delivery 11/16/21 16:12 11/16/21 18:00 11/16/21 19:00 Temperature Pulse Rate 76 83 85 Respiratory Rate 11 L Blood Pressure 147/105 H Pulse Oximetry 98 Oxygen Delivery 11/16/21 19:30 11/16/21 20:00 11/16/21 20:00 Temperature 98.9 F Pulse Rate 79 78 Respiratory Rate 14 Blood Pressure 127/74 Pulse Oximetry 91 Oxygen Delivery Room Air 11/16/21 21:50 11/16/21 22:00 11/16/21 23:45 Temperature Pulse Rate 71 73 Respiratory Rate Blood Pressure
--- NOTE | 2021-11-17 12:52 | WPDNEURCNPN ---
Assessment and Plan Assessment and plan (1) Dizziness: Code(s): R42 - Dizziness and giddiness Status: Acute (2) Cerebrovascular accident: Code(s): I63.9 - Cerebral infarction, unspecified Status: Acute (3) Non-ischemic cardiomyopathy: Code(s): I42.8 - Other cardiomyopathies Status: Acute (4) Type 2 diabetes mellitus without complications: Onset Date: ~2016 Code(s): E11.9 - Type 2 diabetes mellitus without complications Status: Acute (5) HTN (hypertension): Code(s): I10 - Essential (primary) hypertension Status: Acute Plan History of chronic dizziness mainly orthostatics after getting out the bed and lasting for several min no dizziness while laying in bed turning from side to side no history of double vision but also concerns about history of so-called cerebellar ataxia in the family at this stage MRI shows only old stroke which clear what time it happened echocardiogram is pending patient does have appointment sent to [facility] for vestibular dysfunction I encouraged him to keep that appointment but all the pros and cons of dizziness were explained he is already getting Antivert while in the hospital once the echocardiogram report is available he will be discharged to be followed by physician at sleep Consult date: 11/17/21 Time Seen: 11:00 HPI: Robinson Mendoza is a 71 year old male admitted to the hospital through the emergency room for the complaints of chest pain with dizziness in addition to the history of chronic vertigo for which he is scheduled to see neurology at [facility] for the complaints of dizziness rotational in nature difficulties in walking and stumbling he was given aspirin in the ambulance has also been seen by the ENT physician in the past and his outpatient medications included Wellbutrin 150 mg daily carvedilol 6.25 mg twice a day losartan 100 mg daily metoclopramide 10 mg at night , carries the diagnosis of anxiety, DVT, depression, gout, hypertension, and nonischemic cardiomyopathy which is poorly documented and history of pulmonary embolism and shingles never a smoker but recovering alcoholic lasting in 1994 and initial exam in the emergency room documented normal with normal vital signs normal CBC and BMP troponin less than 0.012 chest x-ray negative CTA normal with negative stenosis of the vertebral arteries But with subacute left parietal lobe infarct documented by MRI of the head again negatives CTA for the stenosis Review of Systems Review of Systems: All systems reviewed & are unremarkable except as noted in HPI and below PMFSH Past Medical History Medical History Anxiety Colonic polyp Deep venous thrombosis Depression Gastroesophageal reflux disease Gout Hemorrhoids Hiatal hernia Hypertension Non-ischemic cardiomyopathy Poorly documented. Pulmonary embolism Shingles Ulcer Surgical History Surgical History History of appendectomy History of hemorrhoidectomy History of right hip replacement History of tonsillectomy Family History Family History Mother Lung cancer Diabetes mellitus Father Lung cancer Depression Social History Social History Social History: Surrogate medical decision maker: Natasha Mendoza, spouse. Code status: Full code. 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 Substance use: former Substance use type: former substance user Last use: 1994 Additional living arrangements comments: Lives with in [place]. Spiritual care concerns: No Agree to blood products: Yes Meds Home Medications and Allergies Home Medications Medicati
[2021-11-17] MEDS: carvediloL 6.25 MG TABLET PO (13:17)
[2021-11-17] MEDS: MECLIZINE HCL 25 MG TABLET PO (13:17)
--- NOTE | 2021-11-17 15:46 | PM.DS ---
DS: Admitting Diagnosis Discharge Date 11/18/2019 to Admitting Diagnosis Dizziness DS: Summary Hospital Course Hospital Course: Presented with severe dizziness, which has been ongoing for the past year. He reports that this episode was much more severe and came to the emergency room for further evaluation. 11/16 CTA head/neck demonstrated acute versus subacute infarct in the left parietal lobe, no LVO. Neurology consulted, MRI done 11/17 that showed small old infarct in the left parietal lobe. Patient was started on Plavix, to be continued for 3 more weeks. Other lab work remarkable for a total cholesterol of 180 with an LDL of 93, A1c 5.8%. Patient started on low-dose statin and aspirin as well. Echo results pending, telemetry showing normal sinus rhythm. Patient reports his dizziness improved with meclizine. The patient has an appointment with a neurologist at [facility], will follow-up with this neurologist as an outpatient and explore vestibular therapies at their facility. Patient discharged in stable condition. Time Spent with Patient Time attestation: Total time spent providing and/or coordinating discharge services: Exam Const: General: cooperative, comfortable and no acute distress Nutritional Appearance: overweight Orientation/consciousness: oriented to person, oriented to place and oriented to time Limitations: physical limitations HENMT: Head: normocephalic Ears: hearing grossly normal bilaterally General nose exam: Normal external nose present Face and sinus: normal facial exam Eyes: General: appearance normal, both eyes and all related structures Visual Oleary: normal visual oleary by confrontation Alignment and Position: alignment normal Periorbital: periorbital findings normal Eyelids: eyelids normal Conjunctivae: conjunctivae normal Sclera: sclerae normal Cornea: corneas normal Pupils: Equal, round and reactive pupils present EOM: EOMs intact bilaterally Neck: Neck: full ROM Resp: Effort & Inspection: able to speak in complete sentences Auscultation: clear to auscultation bilaterally Cardio: Jugular venous distension: no JVD Rate: regular rate Rhythm: regular rhythm Skin: General skin exam: no rashes or lesions noted Neuro: General: oriented to person, oriented to place and oriented to time Cranial nerves: Yes CN's II-XII intact bilaterally Cognition (Neuro): normal cognition Speech: normal speech Motor exam (neuro): 5/5 motor strength present throughout, Pronator motor function not present, No tremor noted and No asterixis Sensory Exam: normal sensation Deep tendon reflexes (DTR's): Right triceps reflex intensity grade: 1+, Left triceps reflex intensity grade: 1+, Rt Biceps (C5, C6): 1+, Left biceps reflex intensity grade: 1+, Right brachioradialis reflex intensity grade: 1+, Left brachioradialis reflex intensity grade: 1+, Right patellar reflex intensity grade: 1+, Left patellar reflex intensity grade: 1+, Right ankle reflex intensity grade: 1+ and Left ankle reflex intensity grade: 1+ Plantar Reflex Responses: downgoing: bilateral Coordination: [id number] test normal Psych: Appearance: grossly normal Mental Status: mental status grossly normal Speech and movement: Normal speech and movement present Affect: normal affect Attitude: cooperative Thought process: Normal thought process present Thought content: Yes Normal thought content present Insight: Good insight present (Psych) Judgement: Good judgement present (Psych) DS: Data Data Completed and Pending Labs on day of discharge: Labs from last 24 hours 11/17/21 11/17/21 11/17/21 05:03 05:03 05:03 WBC 7.4 RBC 5.34 Hgb 14.4 Hct 44.0 MCV 82.4 MCH 27.0 MCHC 32.7 RDW 12.4 Plt Count 165 MPV 8.9 Sodium 135 L Potassium 3.4 Chloride 100 Carbon Dioxide 28 Anion Gap 7 L BUN 13 Creatinine 0.90 Estim Creat Clear Calc 88 Estimated GFR > 60 Glucose 113 H Hemoglobin A1c 5.8 H
== END 2021-11-17 16:21 | disposition home or self-care (01) ==
LOC: ANHED 15:32 → ANHIMU 16:53
PROVIDERS: Physician Assistant; Admitting Provider Family Medicine; Emergency Provider Emergency Medicine; PCP Family Medicine Adolescent Medicine; Visit Provider Internal Medicine
DX: I63.9 Cerebral infarction, unspecified (principal); R42 Dizziness and giddiness; R07.9 Chest pain, unspecified; K21.9 Gastro-esophageal reflux disease without esophagitis; I10 Essential (primary) hypertension; Z86.711 Personal history of pulmonary embolism; Z86.718 Personal history of other venous thrombosis and embolism; F41.9 Anxiety disorder, unspecified; I42.8 Other cardiomyopathies
CPT/HCPCS: 36415; 70496; 70498; 70553; 71046; 80053; 80061; 83036; 83735; 84484; 85025; 85027; 85610; 85730; 93005; 93306; 96372; 96374; 96375; 96376; 99285; A9270; A9577; G0378; J1650; J2405; Q9967

== ENCOUNTER 2022-11-09 11:37 | Outpatient (CLI) | payer MEDICARE, SELFPAY ==
--- NOTE | ~2022-11-09 | XR_ITS ---
EXAMINATION: XR chest 2V DATE: 11/09/2022 12:12 INDICATION: Dyspnea TECHNIQUE: PA and lateral views of the chest were obtained. COMPARISON: Chest radiograph dated 11/16/2021 FINDINGS: The lungs remain clear with no focal airspace opacities, pulmonary edema, pleural effusion or pneumot horax. The cardiomediastinal silhouette is normal. Visualized bones and soft tissues are unremarkable . IMPRESSION: 1. No acute cardiopulmonary disease. Reviewed, dictated and finalized at location A.
== END 2022-11-09 11:38 ==
PROVIDERS: PCP Family Medicine Adolescent Medicine; Visit Provider Family Medicine Adolescent Medicine
DX: R06.00 Dyspnea, unspecified (principal)
CPT/HCPCS: 71046

== ENCOUNTER 2023-03-27 11:24 | Emergency (ER) | payer MEDICARE, SELFPAY ==
--- NOTE | ~2023-03-27 | XR_ITS ---
EXAMINATION: XR knee RT 3V DATE: 03/27/2023 12:20 INDICATION: Right knee pain and swelling. Fall one week ago. TECHNIQUE: 3 views of right knee were obtained. COMPARISON: None. FINDINGS: There is lateral subluxation of patella. No fracture. There is severe osteoarthritis of pat ellofemoral compartment, moderate osteoarthritis of medial compartment, and mild osteoarthritis of la teral compartment. No knee joint effusion. There is prepatellar and superficial infrapatellar soft ti ssue swelling. IMPRESSION: 1. Severe right knee osteoarthritis. Reviewed, dictated and finalized at location A. L RESEARCHER
[2023-03-27 11:47] VITALS: BP 183/101; PULSE 106; RESP 16; TEMP 36.9; O2SAT 98
--- NOTE | 2023-03-27 11:48 | ED.EXTPRO ---
HPI - Extremity Problem General Chief complaint: Extremity Injury, Lower Stated complaint: rt knee and left ankle swollen, hurting Time Seen by Provider: 03/27/23 12:00 Source: patient and RN notes reviewed Mode of arrival: ambulatory Limitations: no limitations History of Present Illness HPI Narrative: 72-year-old male presents with concern for injury to his right knee. Reports 1 week ago he tripped over his grandchild and fall fell landing on his right knee. He reports he has had swelling, bruising, pain since then that is not getting better. He reports prior to this happening he was recently started on furosemide for swelling in his bilateral ankles. MD Complaint: extremity swelling Related Data Home Medications Medication Instructions Recorded Confirmed carvedilol 6.25 mg tablet 6.25 mg PO BID 09/30/19 03/27/23 losartan 100 mg tablet 100 mg PO DAILY 01/19/21 03/27/23 buprenorphine 8 mg-naloxone 2 mg 0.5 tablet sublingual BID 11/16/21 03/27/23 sublingual tablet bupropion HCl 150 mg 24 hr tablet, 300 mg PO DAILY 03/06/23 03/27/23 extended release atorvastatin 20 mg tablet 20 mg PO DAILY 03/27/23 03/27/23 Allergies Allergy/AdvReac Type Severity Reaction Status Date / Time Penicillins Allergy Severe PASSED Verified 03/27/23 11:42 OUT codeine Allergy Unknown SEVERE Verified 03/27/23 11:42 ITCHING Review of Systems Review of Systems: CONSTITUTIONAL: Denies malaise, chills, sweats, or fever. SKIN: Denies rash or itching, open skin, laceration, abrasion, redness, warmth MUSCULOSKELETAL: Reports right knee pain, swelling, bruising. Reports left ankle swelling NEUROLOGIC: Denies numbness, weakness All systems reviewed & are unremarkable except as noted in HPI and below PMFSH Past Medical History Medical History Cerebrovascular accident Colonic polyp Deep venous thrombosis Depression Gout Hemorrhoids Hiatal hernia Non-ischemic cardiomyopathy Poorly documented. Pulmonary embolism Shingles Ulcer Surgical History Surgical History History of appendectomy History of hemorrhoidectomy History of right hip replacement History of tonsillectomy Family History Family History Mother Lung cancer Diabetes mellitus Father Lung cancer Depression Social History Social History (Updated 11/09/22 @ 10:47 by [place] [facility]) Social History: Surrogate medical decision maker: Natasha Mendoza, spouse. Code status: Full code. 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 Substance use: former Substance use type: former substance user Last use: 1994 Lack of Transportation: No Lack of Food: Never True Current Housing: I Have Housing Concerned About Future Housing: No Difficulty Paying Gas/Electric Bills: No Difficulty Paying for Meds: No Currently Unemployed: No Education: Associate Degree Difficulty w/ Childcare or Family Care: No Living arrangements: with family Additional living arrangements comments: Lives with in [place]. Occupation/Education: retired Spiritual care concerns: No Agree to blood products: Yes Comments At time of signature, agree with nursing past medical, surgical, social and family history. There is no relevant family history pertinent to the presenting complaint Exam Narrative: GENERAL: Well-appearing, well-nourished, and in no acute distress. HEAD: Normocephalic, atraumatic. EYES: PERRLA, conjunctivae clear NECK: Supple. CHEST: Speaks in full sentences. No respiratory distress. HEART: Regular rate and rhythm. Normal and equal peripheral pulses. EXTREMITIES: Right lower extremity has grossly normal sensation, grossly normal range of
[2023-03-27 12:57] VITALS: BP 166/94; O2SAT 89
== END 2023-03-27 13:06 | disposition home or self-care (01) ==
PROVIDERS: Emergency Provider Nurse Practitioner; PCP Family Medicine Adolescent Medicine
DX: S83.011A Lateral subluxation of right patella, initial encounter (principal); W03.XXXA Other fall on same level due to collision with another person, initial encounter; M10.9 Gout, unspecified; I42.8 Other cardiomyopathies; Z86.718 Personal history of other venous thrombosis and embolism; Z86.711 Personal history of pulmonary embolism; Z86.73 Personal history of transient ischemic attack (TIA), and cerebral infarction without residual deficits
CPT/HCPCS: 73562; 99213; G0463

== ENCOUNTER 2023-04-20 11:29 | Outpatient (CLI) | payer MEDICARE, SELFPAY ==
--- NOTE | ~2023-04-20 | XR_ITS ---
Left ankle Technique: AP and lateral views were obtained. Clinical History: Pain Findings: No acute fracture or dislocation is seen. Chronic avulsion fracture present at the medial m alleolus. Osseous alignment is anatomic. Ankle mortise and other visualized joint spaces are preserve d. There is mild diffuse subcutaneous soft tissue edema. Impression: No acute osseous or articular abnormality. Chronic probable avulsion fracture fragment at the tip of the medial malleolus. Diffuse subcutaneous soft tissue edema, nonspecific. Reviewed, dictated and finalized at location . ECTIONS AND ARCHIVES DIRECTOR Impression: No acute osseous or articular abnormality. Chronic probable avulsion fracture fragment at the tip of the medial malleolus. Diffuse subcutaneous soft tissue edema, nonspecific.
== END 2023-04-20 11:30 ==
PROVIDERS: PCP Family Medicine Adolescent Medicine; Visit Provider Family Medicine Adolescent Medicine
DX: M25.572 Pain in left ankle and joints of left foot (principal); E29.1 Testicular hypofunction
CPT/HCPCS: 73600

== ENCOUNTER 2024-04-12 00:25 | Day surgery (SDC) | payer MEDICARE, SELFPAY ==
[2024-04-11 16:00] VITALS: BMI 42.9
--- NOTE | ~2024-04-12 | BM_ITS ---
EXAMINATION: CCL bone marrow asp w bx diag DATE: 04/12/2024 10:24 INDICATION: Monoclonal gammopathies. TECHNIQUE: A time-out was performed to verify the patient's name, date of , and procedure to b e performed. The procedure including the risks, benefits, and alternatives was discussed with the pat ient. Risks discussed included bleeding and infection. The patient understood the risks and agreed to proceed. The skin overlying the right ilium was prepped and draped in usual sterile fashion. Anest hetic was administered with 1% lidocaine subcutaneously. Moderate sedation was achieved with 1 mg Dimple sed IV and 100 mcg fentanyl IV. An 11 gauge needle was inserted into the ilium with fluoroscopic jeyson dance. Bone marrow was aspirated. An 8 gauge needle was then inserted into the ilium with fluoroscopi c guidance. A core bone marrow biopsy was obtained. There were no immediate complications. Fluoroscop y exposure time was 0.0 minutes. The total number of images was 1. FINDINGS: Real-time fluoroscopy demonstrates a marker overlying the right posterior superior iliac sp ine. IMPRESSION: 1. Fluoro-guided bone marrow aspiration. 2. Fluoro-guided bone marrow core biopsy. Reviewed, dictated and finalized at location A. ICATION INTEGRATION ARCHITECT
[2024-04-12 07:56] VITALS: BP 112/83; PULSE 85; RESP 14; TEMP 36.9; O2SAT 95; BMI 42.9
[2024-04-12 08:27] LABS: Basophils Percent Auto 0.5 % (0.2-1.2); Eosinophils Absolute Auto 0.2 K/mm3 (0-0.3); Eosinophils Percent Auto 2.8 % (0-4.4); Hematocrit 53.1 % (42.0-52.0); Hemoglobin 16.4 g/dL (14.0-18.0); Immature Granulocyte Absolute 0.11 K/mm3 (0.00-0.031); Immature Granulocyte Percent A 1.4 % (0-0.5); Lymphocytes Absolute Auto 1.56 K/mm3 (0.9-3.2); Lymphocytes Percent Auto 19.5 % (18.3-44.2); Mean Corpuscular HGB Conc 30.9 g/dl (32-36); Mean Corpuscular Hemoglobin 23.8 pg (26-34); Mean Corpuscular Volume 77.2 fl (80-100); Mean Platelet Volume 9.3 fl (7.4-10.4); Monocytes Absolute Auto 0.6 K/mm3 (0.1-0.6); Monocytes Percent Auto 6.9 % (2.6-8.5); Neutrophils Absolute Auto 5.5 K/mm3 (1.3-6.7); Neutrophils Percent Auto 68.9 % (45.5-73.1); Platelet Count Result 178 k/mm3 (150-375); Red Blood Count 6.88 M/mm3 (4.6-6.20); Red Cell Distribution Width 17.2 % (11.5-14.5)
--- NOTE | 2024-04-12 09:27 | WPDMODSED ---
Moderate Sedation Note-Pt Data Patient Data Diagnosis: Monoclonal gammopathies. Present Complaint: Monoclonal gammopathies. Procedure to be performed/Plan: Fluoro-guided bone marrow biopsy of ilium. Allergies Allergy/AdvReac Type Severity Reaction Status Date / Time Penicillins Allergy Severe PASSED Verified 04/12/24 07:54 OUT codeine Allergy Unknown SEVERE Verified 04/12/24 07:54 ITCHING sacubitril (From Entresto) AdvReac Intermediate Nausea Verified 04/12/24 07:54 valsartan (From Entresto) AdvReac Intermediate Nausea Verified 04/12/24 07:54 Home Medications ?Medication ?Instructions ?Recorded ?Confirmed ?Type carvedilol 6.25 mg tablet 6.25 mg PO BID 09/30/19 04/11/24 History losartan 100 mg tablet 100 mg PO DAILY 01/19/21 04/11/24 History buprenorphine 8 mg-naloxone 2 mg 0.5 tablet sublingual BID 11/16/21 04/11/24 History sublingual tablet bupropion HCl 150 mg 24 hr tablet, 300 mg PO DAILY 03/06/23 04/11/24 History extended release atorvastatin 20 mg tablet 20 mg PO DAILY 03/27/23 04/11/24 History compr.stocking,thigh,reg,x-lrg #2 ea 03/27/23 04/03/24 Rx clopidogrel 75 mg tablet See Rx Instructions .Route 05/27/23 04/11/24 Rx .COMPLEX #90 tabs pantoprazole 40 mg tablet,delayed 40 mg PO DAILY #90 tabs 06/28/23 04/11/24 Rx release ibuprofen 800 mg tablet 800 mg PO TID PRN pain #90 tabs 10/09/23 04/11/24 Rx tamsulosin 0.4 mg capsule 0.4 mg PO DAILY #90 caps 10/13/23 04/12/24 Rx furosemide 20 mg tablet See Rx Instructions .Route 10/23/23 04/12/24 Rx .COMPLEX #90 tabs semaglutide 1 mg/dose (4 mg/3 mL) 1 mg (0.75 mL) subcut WEEKLY #3 mL 11/02/23 04/11/24 Rx subcutaneous pen injector (Ozempic) ondansetron 4 mg disintegrating 4 mg PO Q8H PRN Nausea #30 tabs 12/10/23 04/11/24 Rx tablet spironolactone 50 mg tablet 50 mg PO DAILY #90 tabs 02/07/24 04/11/24 Rx lorazepam 1 mg tablet 1 mg PO TID PRN anxiety #90 tabs 03/09/24 04/11/24 Rx testosterone cypionate 200 mg/mL 300 mg (1.5 mL) IM .every 10 days 03/28/24 04/11/24 Rx intramuscular oil #9 mL empagliflozin 10 mg tablet 10 mg PO DAILY 04/03/24 04/11/24 History (Jardiance) Sedation/Anesthesia: No previous sedation/anesthesia problems (including family history). REPLACED BY [facility] Past Medical History Medical History Cerebrovascular accident Colonic polyp Deep venous thrombosis Depression Gout Hemorrhoids Hiatal hernia Non-ischemic cardiomyopathy Poorly documented. Pulmonary embolism Shingles Ulcer Surgical History Surgical History History of appendectomy History of hemorrhoidectomy History of right hip replacement History of tonsillectomy Family History Family History Mother Lung cancer Diabetes mellitus Father Lung cancer Depression Social History Social History Social History: Surrogate medical decision maker: Natasha Mendoza, spouse. Code status: Full code. 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 Substance use: former Substance use type: former substance user Last use: 1994 Lack of Transportation: No Lack of Food: Never True Current Housing: I Have Housing Concerned About Future Housing: No Difficulty Paying Gas/Electric Bills: No Difficulty Paying for Meds: No Currently Unemployed: No Education: Associate Degree Difficulty w/ Childcare or Family Care: No Living arrangements: with family Additional living arrangements comments: Lives with in [place]. natasha [phone] Occupation/Education: retired Spiritual care concerns: No Agree to blood products: Yes Mod Sed Physical Exam Physical Exam Pre Procedural Exam: Normal: Lungs, Heart Rate, Heart Rhythm and Abdomen and Variation: Appearance (obese) Hours since solid foods: 12 Hours since liquid intake: 12 Mallampati Classification: class II Internal Medicine - PN: Obj Da Vital Signs Vital Signs: Vital Signs - 24 hr 04/12/24 07:56 Temperature 36.9 C Pulse Rate 85 Respiratory Rate 14 Blood Pressure 112/83 Pulse Oximetry 95 Oxygen Delivery Room Air Labs 04/12/24 07:54 Labs: Laboratory Results - last 24 hr 04/12/24 07:54 WBC 8.0 RBC 6.88 H Hgb 16.4 Hct 53.1 H MCV 77.2 L MCH 23.8 L MCHC 30.9 L RDW 17.2 H Plt Count 178 MPV 9.3 Immature Gran % (Auto) 1.4 H Neut % (Auto) 68.9 Lymph % (Auto) 19.5 [place] % (Auto) 6.9 Eos % (Auto) 2.8 Baso % (Auto) 0.5 Lymph # (Auto) 1.56 [place] # (Auto) 0.6 Eos # (Auto) 0.2 Baso # (Auto) 0.0 Abs Immat Gran (auto) 0.11 H Absolute Neuts (auto) 5.5 Absolute Nucleated RBC 0.000 Nucleated RBC % 0.0 ASA Classification/Sedation ASA Classification/Sedation ASA Class: II Emergent: No Risks: Risks, benefits and alternatives explained and patient/family accepted plan for sedation. Patient re-evaluated immediately prior to sedation.
[2024-04-12 09:50] LABS: INR 1.1; Prothrombin Time 14.4 Seconds (11.1-14.7)
[2024-04-12 10:05] VITALS: BP 133/75; PULSE 77; RESP 14; O2SAT 93
[2024-04-12 10:15] VITALS: BP 117/65; PULSE 84; RESP 17; O2SAT 94
[2024-04-12 10:30] VITALS: BP 101/58; PULSE 76; RESP 14; O2SAT 93
[2024-04-12 10:45] VITALS: BP 102/61; PULSE 71; RESP 19; O2SAT 95
[2024-04-12 11:00] VITALS: BP 101/68; PULSE 86; RESP 15; O2SAT 94
--- OUTSIDE RECORDS SUMMARY | 2024-04-18 04:50 | XMS_ITS | Referral Summary ---
Author Organization [facility] Address [address] [place] [address] Care Team Providers Care Jailer Name Role Phone Kamar Almazan MD Primary Care Provider + Source Comments [facility],non-owned Affiliates and Associated Physician Practices is amultiple site organization consisting of ambulatory clinics and hospital sitesin [place], [place], [place] and [place]. This disclosure is being madepursuant to the Care Everywhere program and may not contain all information available regarding this patient. Last updated 17.[facility] Encounters Date Type Department Care Team Description 04/15/2024 Lab Requisition [facility] - Pathology Lab [address] [place] [address] Castro Garza MD Illness, unspecified 04/12/2024 Lab Requisition [facility] - Pathology Lab [address] [place] [address] Castro Garza MD Monoclonal gammopathy from Last 3 Months Allergies Active Allergy Reactions Criticality Noted Date Comments Codeine Urticaria,Itching,Rash,GI Discomfort Medium 08/05/2010 Penicillins Nausea and/or Vomiti ng,Shortness of Breath,Dizziness,Vomiting High 08/05/2010 Medications * Be aware that medications may not be up to date on this document. Alwaysverify current medications with the patient. Medication Sig Dispensed Refills Start Date End Date Status clopidogrel (plaVIX) 75 MG tablet Take 75 mg by mouth every morning 12/13/2021 Active atorvastatin (Lipitor) 20 MG tablet Take 20 mg by mouth once daily 12/13/2021 Active SM Aspirin Adult Low Strength 81 MG tablet Take 81 mg by mouth once daily 11/17/2021 Active buPROPion XL 24hr (Wellbutrin-XL) 150 MG tablet Take 150 mg by mouth every morning 12/10/2021 Active buPROPion XL 24hr (Wellbutrin-XL) 300 MG tablet Take 300 mg by mouth every morning 12/10/2021 Active carvedilol (Coreg) 6.25 MG tablet Take 1 tablet by mouth 2 times daily with morning and evening meal 02/08/2021 Active LORazepam (Ativan) 1 MG tablet Take 1 mg by mouth 3 times daily 12/02/2021 Active ondansetron, disintegrating, (Zofran ODT) 4 MG tablet Take 4 mg by mouth once daily 12/02/2021 Active meclizine (Antivert) 25 MG tablet Take 25 mg by mouth 3 times daily as needed for Dizziness Active Active Problems Problem Noted Date Diagnosed Date Dizziness 07/17/2021 Chronic fatigue 01/04/2021 Excessive daytime sleepiness 01/04/2021 History of 2019 novel coronavirus disease (COVID -19) 04/07/2020 GERD (gastroesophageal reflux disease) Malaise and fatigue 01/18/2020 Hypotension due to drugs 01/13/2020 Anxiety 08/06/2018 Morbid obesity with BMI of 40.0-44.9, adult 07/25 Risk factors for obstructive sleep apnea 019 Abnormal echocardiogram 05/24/2018 Cardiomyopathy 05/24/2018 Precordial pain 05/24/2018 SOB (shortness of breath) 05/24/2018 Arthralgia of hip 08/05/2010 Immunizations Name Administration Dates Next Due INFLUENZA A Q7D4-77 VACCINE 01/25/2009 INFLUENZA VACCINE, QUADR. (A FLURIA, FLUZONE QUADRIVALENT; 6MO+) (IIV4) 01/25/2009 INFLUENZA VACCINE, QUADR. (F LUZONE; FLULAVAL; FLUARIX; AFLURIA QUADRIVALENT; 6MO+), 0.5 ML (IIV4) 01/11/2019 Social History Tobacco Use Types Packs/Day Years Used Date Smoking Tobacco: Never Smokeless Tobacco: Never Alcohol Use Standard Drinks/Week Comments Never 0 (1 standard drink = 0.6 oz pur e alcohol) Sex and Gender Information Value Date Recorded Sex Assigned at Not on file Gender Identity Not on file Sexual Orientation Not on file Last Filed Vital Signs Vital Sign Reading Time Taken Comments Blood Pressure 126/87 12/17/2021 10:32 AM CDT Pulse 92 12/17/2021 10:32 AM CDT Temperature 36.9 ??C (98.4 ??F) 12/17/2021 10:32 AM C DT Respiratory Rate - - Oxygen Saturation 92% 12/17/2021 10:32 AM CDT Inhaled Oxygen Concentration - - Weight 130.2 kg (287 lb) 12/17/2021 10:32 AM CDT Height 172.7 cm (5' 8 ) 12/17/2021 10:32 AM CDT Body Mass Index 43.64 12/17/2021 10:32 AM CDT Plan of Treatment Not on file Procedures Procedure Name Priority Date/Time Associated Diagnosis Comments BONE MARROW BIOPSY (STL) Routine 04/12/2024 9:45 AM [employer] Illness, unspecified FLOW CYTOMETRY BONE MARROW Routine 04/12/2024 9:45 AM [employer] Monoclonal gammopathy from Last 3 Months Results * FLOW CYTOMETRY BONE MARROW (04/12/2024 9:45 AM [employer]) Case Report Flow Cytometry ?Case: [id number] ? Authorizing Provider: ??Castro Garza ? Collected: ? 04/12/2024 09:45 AM ? MD Maximo ? Ordering Location: ? [facility] - ??Received: ?04/12/2024 01:16 PM ? Pathology Lab ? Pathologist: ? Jem Mora MD ? Specimen: ?Bone Marrow ? 04/12/2024 4:06 PM [facility] Final Diagnosis Bone marrow, flow cytometry: - No overtly clonal plasma cell, clonal B-cell, or increased blast population detected 04/12/2024 4:06 PM [facility] Flow Cytometry Interpretation Viability: 98% B-cells: polytypic, kappa:lambda ratio 2:1 T-cells: not increased Blasts: not increased, <2% of overall events. Plasma cells: polytypic, kappa:lambda ratio 2:1 no immunophenotypic aberrancy detected A bone marrow aspirate smear prepared from the flow cytometry specimen has been reviewed for director of quality control purposes. 04/12/2024 4:06 PM [facility] Flow Cytometry Results Differential Result Comment Flow Cell Count /uL 23,000 Total Viability % 98.0 Lymphocytes % 13 Dim CD45 Region % 5 Monocytes % 11 Granulocytes % 71 04/12/2024 4:06 PM [facility] Reason for test Monoclonal gammopathy 273.1 04/12/2024 4:06 PM [facility] Client Specimen ID # [id number] 04/12/2024 4:06 PM [facility] Number of markers 14 were performed. A-2 Flow CD10 A-3 Flow CD13 A-5 Flow CD20 A-13 Flow CD117 A-14 FLOW CD138 A-1 Flow CD5 A-4 Flow CD19 A-6 Flow CD33 A-7 Flow CD34 A-8 Flow CD45 A-11 Flow CD38 A-12 Flow CD56 A-9 [place]+CD19+ A-10 Lambda+CD19+ 04/12/2024 4:06 PM [facility] Pathologist Location at [facility] 04/12/2024 4:06 PM [facility] Disclaimer Test performed at [facility], [address] [place] [address], [facility]. *The established laboratory minimum viability is 70%. Values below the minimum may result in the failure to find an abnormal population of cells. This test was developed and its performance characteristics determined by the Flow Cytometry Laboratory. It has not been cleared by the [place] Food and Drug Administration (FDA). The FDA has determined that such clearance or approval is not necessary. This test is used for clinical purposes. It should not be regarded as investigational or for research. This laboratory is regulated under the Clinical Laboratory Improvement Amendments of 1998 (CLIA) as a qualified to perform high complexity clinical testing. 04/12/2024 4:06 PM [facility] Embedded Images 4:06 PM [facility] Pathology/Cytolo gy BONE MARROW SPECIMEN / Unknown 04/12/2024 9:45 AM [employer] 04/12/2024 1:16 PM [employer] Castro Garza MD LAB - PATHO LOGY/CYTOLOGY ORDERABLES [facility] [address] [place] [address]. [place] [address], [facility] [phone] * BONE MARROW BIOPSY (STL) (04/12/2024 9:45 AM [employer]) Case Report Bone Marrow Patholog y Report ?Case: [id number] ? Authorizing Provider: ??Castro Garza ? Collected: ? 04/12/2024 09:45 AM ? MD Maximo ? Ordering Location: ? [facility] - ??Received: ?04/15/2024 04:19 PM ? Pathology Lab ? Pathologist: ? Marylin Florez MD ? Specimens: ?? A) - Bone Marrow Clot ? B) - Bone Marrow Core ? 04/17/2024 12:36 PM [facility] Final Diagnosis Bone marrow, iliac crest, core biopsy, clot section, and aspirate: - Hypercellular bone marrow (70% cellular) with erythroid hyperplasia and no morphologic or flow cytometric evidence of a plasma cell neoplasm - Trilineage hematopoiesis with no evidence of a high-grade myeloid neoplasm, lymphoma, or metastasis - Markedly decreased iron stores - Patchy and mild increase in reticulin fibrosis (MF-1) 04/17/2024 12:36 PM [facility] Comment Please correlate wit h relevant cytogenetic, FISH, and molecular data. 04/17/2024 12:36 PM [facility] Peripheral Smear Description The patient's CBC performed on 04/12/2024 shows a white count of 8000/mcL, hemoglobin 16.4 g/dL, hematocrit 53.1%, MCV 77.2 fL, and a platelet count of 178,000/mcL. The white cell differential shows 68.9% neutrophils, 19.5% lymphocytes, 6.9% monocytes, 2.8% eosinophils, and 0.5% basophils. 1.4% immature granulocytes are also noted. A peripheral blood smear is not provided for review. 04/17/2024 12:36 PM [facility] Bone Marrow Aspirate Differential count (200 cells): 0.5% blasts, 59.5% maturing myeloid precursors, 21% erythroid progenitors, 5% monocytes, 2.5% eosinophils, 9.5% lymphocytes, 2% plasma cells. Specimen quality: markedly suboptimal. Spicules: present; a single, very small spicule is identified. Trilineage Hematopoiesis: present. Myeloid:Erythroid ratio: normal. Myeloid Maturation: normal. Erythroid Maturation: normal. Megakaryocyte morphology: too few in number to adequately assess morphology. Storage iron (by special stain): decreased. Stain is likely noncontributory due to the lack of cellular spicules. Sideroblastic iron (by special stain): no ring sideroblasts. 04/17/2024 12:36 PM [facility] Bone Marrow Core Biopsy and Clot Section Description Specimen quality: adequate with 2.5 cm of evaluable marrow. Cellularity: 70% Trilineage Hematopoiesis: present. Myeloid to Erythroid ratio: decreased. Myeloid maturation and localization: normal. Erythroid maturation and localization: normal. Megakaryocyte number: increased. Megakaryocyte distribution: small, loose clusters. Lymphoid aggregates: small. Bone trabeculae: normal. Blood vessels: normal. Other: no evidence of lymphoma, granulomata, or extrinsic tumor cells. Plasma cells: normal. Clot section marrow particles: present. Clot section morphology: similar to core biopsy. 04/17/2024 12:36 PM [facility] Flow Cytometry Summary Flow cytometry revealed no overtly clonal plasma cell, clonal B-cell, or increased blast population ([id number]). 04/17/2024 12:36 PM [facility] Clinical History Monoclonal gammopathy. [place] lambda light chain ratio normal at 1.3 04/17/2024 12:36 PM [facility] Materials Received Received are 18 slide(s) labeled and 3 block(s) [id number] along with a copy of the outside pathology report. [place] [address]. All original materials are returned to the referring institution, along with a copy of our final report. 04/17/2024 12:36 PM [facility] Microscopic Description Immunohistochemistry and special stains are performed on the core biopsy and/or clot section to further characterize the marrow. Immunohistochemistry stains are performed in addition to flow cytometry given the cellular heterogeneity marrow. All stains reacted with appropriate controls. Immunohistochemistry and in situ hybridization stains are performed on the core biopsy and clot section, show similar histologic features between the two sites, and are described collectively. CD138, marker of plasma cells, highlights approximately 5% of total cells. Plasma cells are primarily aligned along blood vessels, their normal anatomic distribution. Rare plasma cells percolate through the interstitium. Large sheets of plasma cells are not present. [place] and lambda in situ hybridization stains highlight a polyclonal population of plasma cells in the clot section. In situ hybridization staining is not adequate for evaluation on the core biopsy, likely due to the decalcification process. An iron stain of the core biopsy is essentially negative. A reticulin stain of the core biopsy highlights a patchy and mild increase in reticulin fibrosis. Iron stains of the clot sections highlight markedly decreased stores. 04/17/2024 12:36 PM [facility] Pathologist Location at [facility] 04/17/2024 12:36 PM [facility] Disclaimer The performance characteristics of all immunohistochemical and indirect immunofluorescence stains (if any) cited in this report were determined by the Histopathology Laboratory [facility]. Some of these tests were developed by our own laboratory and have not been cleared or approved by the US Food and Drug Administration. The FDA does not require this test to go through premarket FDA review. These tests are used for clinical purposes. They should not be regarded as investigational or for research. This laboratory is certified under the Clinical Laboratory Improvement Amendments (CLIA) as qualified to perform high complexity clinical laboratory testing. This case has been personally reviewed and interpreted by the attending (teaching) pathologist. 04/17/2024 12:36 PM [facility] Embedded Images 04/17/2024 12:36 PM [facility] Pathology/Cytology BONE MARROW SPECIMEN / Unknown 04/12/2024 9:45 AM [employer] [employer] 04/15/2024 4:19 PM [employer] Miscellaneous samples (specimen) BONE MARROW SPECIMEN / Unknown 04/12/2024 9:45 AM [employer] 04/15/2024 4:19 PM [employer] Castro Garza MD LAB - PATHO LOGY/CYTOLOGY ORDERABLES [facility] [address] [place] [address], [facility] [phone] from Last 3 Months Care Teams Jailer Relationship Specialty Start Date End Date Kamar Almazan MD [address] [facility] [address] [place] [address] PCP - General 05/28/21
--- OUTSIDE RECORDS SUMMARY | 2024-04-18 04:50 | XMS_ITS ---
Author Organization [facility] [employer] [facility] Address [facility] [address] [address] Care Team Providers Care Parent Partner Name Role Phone Kamar Almazan MD Primary Care Provider Lakeisha mehnazlinetteOmar Arias Unavailable [phone] REASON FOR VISIT Test result Social History Sex Assigned At : Social History Observation Description Sex Assigned At Male Encounters Encounter Location Date Provider Diagnosis [facility] [employer] [place] [id number] [facility] [address] [address] 02/23/2024 Omar Hart Plan Of Treatment Next Appt Details Provider Name:Omar Hart , 04/22/2024 01:00:00 PM, [facility] [place] [address], [address], [address], Provider Name:Omar Hart , 08/21/2024 01:00:00 PM, [address] [place] [address], [phone], Progress Notes * NEFTALI BRITT RDOB: [birth year] (73 yo M)Acc No.[id number]:02/23/2024 Patient:?NEFTALI BRITT :1950???Age:73 Y???Sex:Male Address:[address] [place], [address] * true * Date:? Generated for Printi ng/Famehdig/eTransmitting on:?04/18/2024 04:50 AM LOOM INSPECTOR
--- OUTSIDE RECORDS SUMMARY | 2024-04-18 04:50 | XMS_ITS | CONTINUITY OF CARE DOCUMENT ---
Author Name ramyandreahossein Address Unknown Organization [facility] Address [address] [facility] [address] [place] [address] Phone [phone] Care Team Providers Care Piece Worker Name Role Phone Evonne ALICEA, Cecil Unavailable HOLLY KAPLAN MD Unavailable HOLLY KAPLAN MD Unavailable [phone] INSURANCE PROVIDERS Payer name Policy type / Coverage type [employer] party ID [facility] [id number]
--- OUTSIDE RECORDS SUMMARY | 2024-04-18 04:50 | XMS_ITS | Clinical Summary ---
Author Organization [facility] Address [address] [place] [address] Care Team Providers Care Instrument Panel Assembler Name Role Phone Kamar Almazan MD Primary Care Provider + Source Comments [facility],non-owned Affiliates and Associated Physician Practices is amultiple site organization consisting of ambulatory clinics and hospital sitesin [place], [place], [place] and [place]. This disclosure is being madepursuant to the Care Everywhere program and may not contain all information available regarding this patient. Last updated 17.[facility] Allergies Active Allergy Reactions Criticality Noted Date [...] of breath) 05/24/2018 Arthralgia of hip 08/05/2010 Encounters Date Type Department Care Team Description 04/15/2024 Lab Requisition [facility] - Pathology Lab [facility] [place] [address] Castro Garza MD Illness, unspecified 04/12/2024 Lab Requisition [facility] - Pathology Lab [address] [place] [address] Castro Garza MD Monoclonal gammopathy from Last 3 Months Immunizations Name Administration Dates Next Due INFLUENZA A F1P0-41 VACCINE 01/25/2009 INFLUENZA VACCINE, QUADR. (A FLURIA, [...] 12/17/2021 10:32 AM CDT Plan of Treatment Health Maintenance Due Date Last Done Comments COLOGUARD (AGES 45-75) - COL ON CA SCREENING 1950 COLON MONITORING 1950 COLONOSCOPY - COLON CA SCREENING 1950 CT COLONOGRAPHY - COLON CA SCREENING 1950 Colorectal Cancer Screening 1950 FIT - COLON CA SCREENING 1950 FLEX SIG - COLON CA SCREENING 1950 HEPATITIS C SCREENING 07/09/1969 DTAP/TDAP/TD VACCINES (1 - Tdap) 07/13/1970 PNEUMOCOCCAL VACCINE 50+ (1 of 1 - PCV) 07/13/2001 ZOSTER VACCINE (1 of 2) 07/13/2001 Respiratory Syncytial Virus (RSV) Vaccine Pt: or over 60 yrs (1 - Risk 60-74 years 1-dose series) 2011 SCREENING FOR DIABETES 12/17/2021 COVID-19 VACCINE (1 - 2023-2 5 season) 2023 INFLUENZA VACCINE (#1) 2023 9, 01/25/2009, 01/25/2009 DEPRESSION SCREENING 03/27/2024 MEDICARE AWV ? CALENDAR YEAR 2024 HEPATITIS B VACCINE Aged Out No longe r eligible based on patient's age to complete this topic HIB VACCINE Aged Out No longer eligi ble based on patient's age to complete this topic HPV VACCINE Aged Out No longer eligi ble based on patient's age to complete this topic MENINGOCOCCAL (Group B) VACCINE Aged Out No longer eligible b ased on patient's age to complete this topic MENINGOCOCCAL VACCINE Aged Out No ngozi maria victoria eligible based on patient's age to complete this topic Procedures Procedure Name Priority Date/Time Associated Diagnosis Comments BONE MARROW BIOPSY (STL) Routine 04/12/2024 9:45 AM SUPERVISOR FINISHING DEPARTMENT Illness, unspecified FLOW CYTOMETRY BONE MARROW Routine 04/12/2024 9:45 AM SUPERVISOR FINISHING DEPARTMENT Monoclonal gammopathy from Last 3 Months Results * FLOW CYTOMETRY BONE MARROW (04/12/2024 9:45 AM SUPERVISOR FINISHING DEPARTMENT) Case Report Flow Cytometry ?Case: [id number] ? Authorizing Provider: ??Castro Garza ? Collected: ? 04/12/2024 09:45 AM ? MD Maximo ? Ordering Location: ? [facility] - ??Received: ?04/12/2024 01:16 PM ? Pathology Lab ? Pathologist: ? Jem Mora MD ? Specimen: ?Bone Marrow ? 04/12/2024 4:06 PM [facility] Final Diagnosis Bone marrow, flow cytometry: - No overtly clonal plasma cell, clonal B-cell, or increased blast population detected 04/12/2024 4:06 PM [facility] Flow Cytometry Interpretation Viability: 98% B-cells: polytypic, kappa:lambda ratio 2:1 T-cells: not increased Blasts: not increased, <2% of overall events. Plasma cells: polytypic, kappa:lambda ratio 2:1 no immunophenotypic aberrancy detected A bone marrow aspirate smear prepared from the flow cytometry specimen has been reviewed for quality technician purposes. 04/12/2024 4:06 PM [facility] Flow Cytometry Results Differential Result Comment Flow Cell Count /uL 23,000 Total Viability % 98.0 Lymphocytes % 13 Dim CD45 Region % 5 Monocytes % 11 Granulocytes % 71 04/12/2024 4:06 PM [facility] Reason for test Monoclonal gammopathy 273.1 04/12/2024 4:06 PM [facility] Client Specimen ID # [id number] 04/12/2024 4:06 PM [facility] Number of markers 14 were performed. A-2 Flow CD10 A-3 Flow CD13 A-5 Flow CD20 A-13 Flow CD117 A-14 FLOW CD138 A-1 Flow CD5 A-4 Flow CD19 A-6 Flow CD33 A-7 Flow CD34 A-8 Flow CD45 A-11 Flow CD38 A-12 Flow CD56 A-9 [place]+CD19+ A-10 Lambda+CD19+ 04/12/2024 4:06 PM [facility] Pathologist Location at [facility] 04/12/2024 4:06 PM [facility] Disclaimer Test performed at [facility], [address] [place] [address], [id number]. *The established laboratory minimum viability is 70%. [...] high complexity clinical testing. 04/12/2024 4:06 PM [facility] Embedded Images 4:06 PM [facility] Pathology/Cytolo gy BONE MARROW SPECIMEN / Unknown 04/12/2024 9:45 AM SUPERVISOR FINISHING DEPARTMENT 04/12/2024 1:16 PM SUPERVISOR FINISHING DEPARTMENT Castro Garza MD LAB - PATHO LOGY/CYTOLOGY ORDERABLES Performing Organization Address [facility]/State/[facility] Co de Phone Number [facility] [address] [place] [address]. [place] [address], [facility] [phone] * BONE MARROW BIOPSY (STL) (04/12/2024 9:45 AM SUPERVISOR FINISHING DEPARTMENT) Case Report Bone Marrow Patholog y Report ?Case: [id number] ? Authorizing Provider: ??Castro Garza ? Collected: ? 04/12/2024 09:45 AM ? MD Maximo ? Ordering Location: ? [facility] - ??Received: ?04/15/2024 04:19 PM ? Pathology Lab ? Pathologist: ? Marylin Florez, MD ? Specimens: ?? A) - Bone Marrow Clot ? B) - Bone Marrow Core ? 04/17/2024 12:36 PM SUPERVISOR FINISHING DEPARTMENT [facility] Final Diagnosis Bone marrow, iliac [...] in reticulin fibrosis (MF-1) 04/17/2024 12:36 PM [facility] Comment Please correlate wit h relevant cytogenetic, FISH, and molecular data. 04/17/2024 12:36 PM [facility] Peripheral Smear Description The patient's [...] not provided for review. 04/17/2024 12:36 PM [facility] Bone Marrow Aspirate Differential count [...] stain): no ring sideroblasts. 04/17/2024 12:36 PM [facility] Bone Marrow Core Biopsy and [...] similar to core biopsy. 04/17/2024 12:36 PM [facility] Flow Cytometry Summary Flow cytometry revealed no overtly clonal plasma cell, clonal B-cell, or increased blast population ([id number]). 04/17/2024 12:36 PM [facility] Clinical History Monoclonal gammopathy. [place] lambda light chain ratio normal at 1.3 04/17/2024 12:36 PM [facility] Materials Received Received are 18 slide(s) labeled and 3 block(s) [id number] along with a copy of the outside pathology report[place] [address]. All original materials are returned to the referring institution, along with a copy of our final report. 04/17/2024 12:36 PM [facility] Microscopic Description Immunohistochemistry and special [...] sheets of plasma cells are not present. [place] and lambda in situ hybridization stains highlight [...] highlight markedly decreased stores. 04/17/2024 12:36 PM [facility] Pathologist Location at [facility] 04/17/2024 12:36 PM [facility] Disclaimer The performance characteristics of all immunohistochemical and indirect immunofluorescence stains (if any) cited in this report were determined by the Histopathology Laboratory of [facility]. Some of these tests were developed by [...] the attending (teaching) pathologist. 04/17/2024 12:36 PM SUPERVISOR FINISHING DEPARTMENT [facility] Embedded Images 04/17/2024 12:36 PM SUPERVISOR FINISHING DEPARTMENT [facility] Pathology/Cytology BONE MARROW SPECIMEN / Unknown 04/12/2024 9:45 AM SUPERVISOR FINISHING DEPARTMENT 04/15/2024 4:19 PM SUPERVISOR FINISHING DEPARTMENT Miscellaneous samples (specimen) BONE MARROW SPECIMEN / Unknown 04/12/2024 9:45 AM SUPERVISOR FINISHING DEPARTMENT 04/15/2024 4:19 PM SUPERVISOR FINISHING DEPARTMENT Castro Garza MD LAB - PATHO LOGY/CYTOLOGY ORDERABLES Performing Organization Address City/State/[facility] Co de Phone Number [facility] [address] [facility] [phone] from Last 3 Months Care Teams Instrument Panel Assembler Relationship Specialty Start Date End Date Kamar Almazan MD [address] [address] PCP - General 05/28/21
--- OUTSIDE RECORDS SUMMARY | 2024-04-18 04:50 | XMS_ITS | Patient Health Summary ---
Author Organization [facility] Address [address] [place] [address] Care Team Providers Care Gut Snatcher Name Role Phone Kamar Almazan MD Primary Care Provider + Note from [facility],non-owned Affiliates and Associated Physician Practices is amultiple site organization consisting of ambulatory clinics and hospital sitesin [place], [place], [place] and [place]. This disclosure is being madepursuant to the Care Everywhere program and may not contain all information available regarding this patient. Last updated 17.[facility] Allergies * Codeine(Urticaria,Itching,Rash,GI Discomfort) -Medium Criticality * Penicillins(Nausea and/or Vomiting,Shortness of Breath,Dizziness,Vomiting) - High Criticality Medications * Be aware that medications may not be up to date on this document. Alwaysverify current medications with the patient. * clopidogrel (plaVIX) 75 MG tablet(Started 12/13/2021) Take 75 mg by mouth every morning * atorvastatin (Lipitor) 20 MG tablet(Started 12/13/2021) Take 20 mg by mouth once daily * SM Aspirin Adult Low Strength 81 MG tablet(Started 11/17/2021) Take 81 mg by mouth once daily * buPROPion XL 24hr (Wellbutrin-XL) 150 MG tablet(Started 12/10/2021) Take 150 mg by mouth every morning * buPROPion XL 24hr (Wellbutrin-XL) 300 MG tablet(Started 12/10/2021) Take 300 mg by mouth every morning * carvedilol (Coreg) 6.25 MG tablet(Started 02/08/2021) Take 1 tablet by mouth 2 times daily with morning and evening meal * LORazepam (Ativan) 1 MG tablet(Started 12/02/2021) Take 1 mg by mouth 3 times daily * ondansetron, disintegrating, (Zofran ODT) 4 MG tablet(Started 12/02/2021) Take 4 mg by mouth once daily * meclizine (Antivert) 25 MG tablet Take 25 mg by mouth 3 times daily as needed for Dizziness Active Problems Problem Noted Date Diagnosed Date Dizziness 07/17/2021 Chronic fatigue 01/04/2021 Excessive daytime sleepiness 01/04/2021 History of 2019 novel coronavirus disease (COVID -19) 04/07/2020 GERD (gastroesophageal reflux disease) 0 Malaise and fatigue 01/18/2020 Hypotension due to drugs 01/13/2020 Anxiety 08/06/2018 Morbid obesity with BMI of 40.0-44.9, adult 07/25 Risk factors for obstructive sleep apnea 019 Abnormal echocardiogram 05/24/2018 Cardiomyopathy 05/24/2018 Precordial pain 05/24/2018 SOB (shortness of breath) 05/24/2018 Arthralgia of hip 08/05/2010 Immunizations * INFLUENZA A [id number] VACCINE(Given 01/25/2009) * INFLUENZA VACCINE, QUADR. (AFLURIA, FLUZONE QUADRIVALENT; 6MO+) (IIV4)(Given 01/25/2009) * INFLUENZA VACCINE, QUADR. (FLUZONE; FLULAVAL; FLUARIX; AFLURIA QUADRIVALENT; 6MO+), 0.5 ML (IIV4)(Given 01/11/2019) Social History Tobacco Use Types Packs/Day Years [...] Mass Index 43.64 12/17/2021 10:32 AM CDT Procedures * BONE MARROW BIOPSY (STL)(Performed 04/12/2024) Performed for Illness, unspecified * FLOW CYTOMETRY BONE MARROW(Performed 04/12/2024) Performed for Monoclonal gammopathy Results * FLOW CYTOMETRY BONE MARROW (04/12/2024 9:45 AM FIELD SUPPORT REPRESENTATIVE) Case Report Flow Cytometry ?Case: [id number] ? Authorizing Provider: ??Castro Garza ? Collected: ? 04/12/2024 09:45 AM ? MD Maximo ? Ordering Location: ? [facility] - ??Received: ?04/12/2024 01:16 PM ? Pathology Lab ? Pathologist: ? Jem Mora MD ? Specimen: ?Bone Marrow ? 04/12/2024 4:06 PM [facility] Final Diagnosis Bone marrow, flow cytometry: - No overtly clonal plasma cell, clonal B-cell, or increased blast population detected 04/12/2024 4:06 PM [facility] Flow Cytometry Interpretation Viability: 98% B-cells: polytypic, kappa:lambda ratio 2:1 T-cells: not increased Blasts: not increased, <2% of overall events. Plasma cells: polytypic, kappa:lambda ratio 2:1 no immunophenotypic aberrancy detected A bone marrow aspirate smear prepared from the flow cytometry specimen has been reviewed for software quality analyst purposes. 04/12/2024 4:06 PM [facility] Flow Cytometry Results Differential Result Comment Flow Cell Count /uL 23,000 Total Viability % 98.0 Lymphocytes % 13 Dim CD45 Region % 5 Monocytes % 11 Granulocytes % 71 04/12/2024 4:06 PM [facility] Reason for test Monoclonal gammopathy 273.1 04/12/2024 4:06 PM [facility] Client Specimen ID # [id number] 04/12/2024 4:06 PM [facility] Number of markers 14 were performed. A-2 Flow CD10 A-3 Flow CD13 A-5 Flow CD20 A-13 Flow CD117 A-14 FLOW CD138 A-1 Flow CD5 A-4 Flow CD19 A-6 Flow CD33 A-7 Flow CD34 A-8 Flow CD45 A-11 Flow CD38 A-12 Flow CD56 A-9 [place]+CD19+ A-10 Lambda+CD19+ 04/12/2024 4:06 PM [facility] Pathologist Location at [facility] 04/12/2024 4:06 PM [facility] Disclaimer Test performed at [facility], [address] [place] [address], [id number]. *The established laboratory minimum viability is 70%. [...] high complexity clinical testing. 04/12/2024 4:06 PM [facility] Embedded Images 4:06 PM [facility] Pathology/Cytolo gy BONE MARROW SPECIMEN / Unknown 04/12/2024 9:45 AM FIELD SUPPORT REPRESENTATIVE 04/12/2024 1:16 PM FIELD SUPPORT REPRESENTATIVE Castro Garza MD LAB - PATHO LOGY/CYTOLOGY ORDERABLES Performing Organization Address [facility]/State/ZIP Co de Phone Number [facility] [address] [place] [address]. [place] [address], [facility] [phone] * BONE MARROW BIOPSY (STL) (04/12/2024 9:45 AM FIELD SUPPORT REPRESENTATIVE) Case Report Bone Marrow Patholog y Report ?Case: [id number] ? Authorizing Provider: ??Castro Garza ? Collected: ? 04/12/2024 09:45 AM ? MD Maximo ? Ordering Location: ? [facility] - ??Received: ?04/15/2024 04:19 PM ? Pathology Lab ? Pathologist: ? Marylin Florez, ? Specimens: ?? A) - Bone Marrow Clot ? B) - Bone Marrow Core ? 04/17/2024 12:36 PM FIELD SUPPORT REPRESENTATIVE [facility] Final Diagnosis Bone marrow, [...] in reticulin fibrosis (MF-1) 04/17/2024 12:36 PM [facility] Comment Please correlate wit h relevant cytogenetic, FISH, and molecular data. 04/17/2024 12:36 PM [facility] Peripheral Smear Description The patient's [...] not provided for review. 04/17/2024 12:36 PM [facility] Bone Marrow Aspirate Differential count [...] stain): no ring sideroblasts. 04/17/2024 12:36 PM [facility] Bone Marrow Core Biopsy and [...] similar to core biopsy. 04/17/2024 12:36 PM [facility] Flow Cytometry Summary Flow cytometry revealed no overtly clonal plasma cell, clonal B-cell, or increased blast population ([id number]). 04/17/2024 12:36 PM [facility] Clinical History Monoclonal gammopathy. [place] lambda light chain ratio normal at 1.3 04/17/2024 12:36 PM [facility] Materials Received Received are 18 slide(s) labeled and 3 block(s) [id number] along with a copy of the outside pathology report. [place] [address]. All original materials are returned to the referring institution, along with a copy of our final report. 04/17/2024 12:36 PM [facility] Microscopic Description Immunohistochemistry and special [...] sheets of plasma cells are not present. [place] and lambda in situ hybridization stains highlight [...] highlight markedly decreased stores. 04/17/2024 12:36 PM [facility] Pathologist Location at [facility] 04/17/2024 12:36 PM [facility] Disclaimer The performance characteristics of all immunohistochemical and indirect immunofluorescence stains (if any) cited in this report were determined by the Histopathology Laboratory of [facility]. Some of these tests were developed [...] the attending (teaching) pathologist. 04/17/2024 12:36 PM FIELD SUPPORT REPRESENTATIVE [facility] Embedded Images 04/17/2024 12:36 PM FIELD SUPPORT REPRESENTATIVE [facility] Pathology/Cytology BONE MARROW SPECIMEN / Unknown 04/12/2024 9:45 AM FIELD SUPPORT REPRESENTATIVE 04/15/2024 4:19 PM FIELD SUPPORT REPRESENTATIVE Miscellaneous samples (specimen) BONE MARROW SPECIMEN / Unknown 04/12/2024 9:45 AM FIELD SUPPORT REPRESENTATIVE 04/15/2024 4:19 PM FIELD SUPPORT REPRESENTATIVE Castro Garza MD LAB - PATHO LOGY/CYTOLOGY ORDERABLES Performing Organization Address City/State/[facility] Co de Phone Number [facility] [address] [phone] Care Teams Gut Snatcher Relationship Specialty Start Date End Date Kamar Almazan MD [address] [place] [id number] PCP - General 05/28/21
--- OUTSIDE RECORDS SUMMARY | 2024-04-18 04:50 | XMS_ITS ---
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 Role Phone Kamar Almazan MD Primary Care Provider Lakeisha Mandeep Siddiqui Unavailable [phone] Allergies Allergen (clinical drug ingredient) Drug/Non Drug Allergy documented on EMR Reaction Allergy Type Onset Date Status codeine Codeine Unknown Drug Allergy 06/28/2023 Active Substance with penicillin structure and antibacterial mechanism of action (substance) Penicillins Unknown Drug Allergy 06/28/2023 Active REASON FOR VISIT Follow up medication evaluation, MIPS PHQ less than 5 Positive with f/u doc, Depression screening positive, MIPS with Diagnosis of HTN, Dementia MIPS Medications Medication SIG (Take, Route, Frequency, Duration) Notes Start Date End Date Status Buprenorphine HCl-Naloxone HCl 8-2 MG 1 tablet under the tongue and allow to dissolve Sublingual once a day for 30 days 02/23/2024 Active Carvedilol 6.25 MG TAKE 1 TABLET BY OK TH TWICE DAILY Oral for 90 Days Active Testosterone Cypionate 200 MG/ML INJECT 1.5 ML IN THE MUSCLE EVERY 10 DAYS A SINGLE DOSE Intramuscular for 30 Days Active Furosemide 20 MG TAKE 1 TABLET BY OK TH EVERY MORNING Oral for 30 Days Active Clopidogrel Bisulfate 75 MG TAKE 1 TABLET BY MOUTH EVERY MORNING Oral for 90 Days Active buPROPion HCl ER (XL) 300 MG 1 tablet in the morning Orally Once a day for 90 days Active Social History Sex Assigned At : Social History Observation Description Sex Assigned At Male Problems Problem Type SNOMED Code ICD Code Onset Dates Problem Status W/U Status Risk Notes Problem Mental disorder (36734798) 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) Active confirmed Vital Signs BMI 43.41 kg/m2 02/23/2024 Blood pressure systolic 150 mm Hg 02/23/20 24 Blood pressure diastolic 77 mm Hg 024 Heart Rate 97 /min 02/23/2024 Height 69.00 in 02/23/2024 Weight 294.0 lbs 02/23/2024 Height-cm 175.26 cm 02/23/2024 Weight-kg 133.36 kg 02/23/2024 Encounters Encounter Location Date Provider Diagnosis [facility] [employer] [address] [place] [address] 02/23/2024 Mandeep Upton Opioid use disorder, severe, in sustained remission F11.21 ; Major depressive disorder, recurrent, mild F33.0 ; SUE (generalized anxiety disorder) F41.1 ; Mixed hyperlipidemia E78.2 ; Low testosterone R79.89 ; Anxiety disorder due to multiple medical problems F06.8 and Senile dementia F03.90 Assessments Encounter Date Diagnosis (ICD Code) Assessment Notes Treatment Notes Treatment Clinical Notes Section Notes 02/23/2024 Opioid use disorder, severe, in sustained remission (ICD-10 - F11.21) Cardiomyopathy and Reduced Ejection Fraction - Assessment: Ejection fraction dropped from 50 to 41. Patient has a history of ejection fraction dropping in the past. Current blood pressure reading is 150/normal. - Plan: - Continue spironolactone as prescribed by Dr. Sparks. - Discontinue Entresto due to adverse effects (nausea, fatigue, dizziness). - Resume losartan as advised by the on-call doctor. - Monitor blood pressure regularly. - Follow up with Elsa (Dr. Cantrell) at [facility] group. Pre-diabetes - Assessment: Patient is on the cusp of diabetes, but not yet diagnosed. Reports losing 12 pounds in 12 days. - Plan: - Discuss with Elsa about starting Jardiance. - Monitor for hypoglycemia as advised by Elsa. - Perform daily weight checks. Mild Cognitive Impairment (MCI) - Assessment: Cancer MCI test on January 25 showed normal memory and fluency but lower executive functioning (16th percentile). Slump score of 25, indicating mild cognitive impairment. Patient reports difficulty with day-to-day activities and planning. - Plan: - Repeat the cancer MCI test in 6 months. - Encourage engagement in hobbies and creative activities to keep the mind active. Memory Issues - Assessment: Patient reports difficulty recalling recent conversations and needing to write things down to remember them. - Plan: - Write down important information to aid memory retention. - Acknowledge that emotional memories are remembered more clearly. Opioid Use Disorder Management - Assessment: Patient reports needing medication refill. - Plan: - Continue suboxoen and naltrexone 8-2. - Monitor medication adherence and effectiveness. Vivid Dreams - Assessment: Patient experiences vivid dreams and occasional recall of dreams from 30 years ago. - Plan: - Reassure the patient that recalling dreams or creating stories from them is a normal cognitive process. 02/23/2024 Major depressive disorder, recurrent, mild (ICD-10 - F33.0) Cardiomyopathy and Reduced Ejection Fraction - Assessment: Ejection fraction dropped from 50 to 41. Patient has a history of ejection fraction dropping in the past. Current blood pressure reading is 150/normal. - Plan: - Continue spironolactone as prescribed by Dr. Sparks. - Discontinue Entresto due to adverse effects (nausea, fatigue, dizziness). - Resume losartan as advised by the on-call doctor. - Monitor blood pressure regularly. - Follow up with Elsa (Dr. Cantrell) at [facility] Cardio group. Pre-diabetes - Assessment: Patient is on the cusp of diabetes, but not yet diagnosed. Reports losing 12 pounds in 12 days. - Plan: - Discuss with Elsa about starting Jardiance. - Monitor for hypoglycemia as advised by Elsa. - Perform daily weight checks. Mild Cognitive Impairment (MCI) - Assessment: Cancer MCI test on January 25 showed normal memory and fluency but lower executive functioning (16th percentile). Slump score of 25, indicating mild cognitive impairment. Patient reports difficulty with day-to-day activities and planning. - Plan: - Repeat the cancer MCI test in 6 months. - Encourage engagement in hobbies and creative activities to keep the mind active. Memory Issues - Assessment: Patient reports difficulty recalling recent conversations and needing to write things down to remember them. - Plan: - Write down important information to aid memory retention. - Acknowledge that emotional memories are remembered more clearly. Opioid Use Disorder Management - Assessment: Patient reports needing medication refill. - Plan: - Continue suboxoen and naltrexone 8-2. - Monitor medication adherence and effectiveness. Vivid Dreams - Assessment: Patient experiences vivid dreams and occasional recall of dreams from 30 years ago. - Plan: - Reassure the patient that recalling dreams or creating stories from them is a normal cognitive process. 02/23/2024 SUE (generalized anxiety disorder) (ICD-10 - F41.1) Cardiomyopathy and Reduced Ejection Fraction - Assessment: Ejection fraction dropped from 50 to 41. Patient has a history of ejection fraction dropping in the past. Current blood pressure reading is 150/normal. - Plan: - Continue spironolactone as prescribed by Dr. Sparks. - Discontinue Entresto due to adverse effects (nausea, fatigue, dizziness). - Resume losartan as advised by the on-call doctor. - Monitor blood pressure regularly. - Follow up with Elsa (Dr. Cantrell) at [facility] Cardio group. Pre-diabetes - Assessment: Patient is on the cusp of diabetes, but not yet diagnosed. Reports losing 12 pounds in 12 days. - Plan: - Discuss with Elsa about starting Jardiance. - Monitor for hypoglycemia as advised by Elsa. - Perform daily weight checks. Mild Cognitive Impairment (MCI) - Assessment: Cancer MCI test on January 25 showed normal memory and fluency but lower executive functioning (16th percentile). Slump score of 25, indicating mild cognitive impairment. Patient reports difficulty with day-to-day activities and planning. - Plan: - Repeat the cancer MCI test in 6 months. - Encourage engagement in hobbies and creative activities to keep the mind active. Memory Issues - Assessment: Patient reports difficulty recalling recent conversations and needing to write things down to remember them. - Plan: - Write down important information to aid memory retention. - Acknowledge that emotional memories are remembered more clearly. Opioid Use Disorder Management - Assessment: Patient reports needing medication refill. - Plan: - Continue suboxoen and naltrexone 8-2. - Monitor medication adherence and effectiveness. Vivid Dreams - Assessment: Patient experiences vivid dreams and occasional recall of dreams from 30 years ago. - Plan: - Reassure the patient that recalling dreams or creating stories from them is a normal cognitive process. 02/23/2024 Mixed hyperlipidemia (ICD-10 - E78.2) Cardiomyopathy and Reduced Ejection Fraction - Assessment: Ejection fraction dropped from 50 to 41. Patient has a history of ejection fraction dropping in the past. Current blood pressure reading is 150/normal. - Plan: - Continue spironolactone as prescribed by Dr. Sparks. - Discontinue Entresto due to adverse effects (nausea, fatigue, dizziness). - Resume losartan as advised by the on-call doctor. - Monitor blood pressure regularly. - Follow up with Elsa Cantrell) at [facility] Cardio group. Pre-diabetes - Assessment: Patient is on the cusp of diabetes, but not yet diagnosed. Reports losing 12 pounds in 12 days. - Plan: - Discuss with Elsa about starting Jardiance. - Monitor for hypoglycemia as advised by Elsa. - Perform daily weight checks. Mild Cognitive Impairment (MCI) - Assessment: Cancer MCI test on January 25 showed normal memory and fluency but lower executive functioning (16th percentile). Slump score of 25, indicating mild cognitive impairment. Patient reports difficulty with day-to-day activities and planning. - Plan: - Repeat the cancer MCI test in 6 months. - Encourage engagement in hobbies and creative activities to keep the mind active. Memory Issues - Assessment: Patient reports difficulty recalling recent conversations and needing to write things down to remember them. - Plan: - Write down important information to aid memory retention. - Acknowledge that emotional memories are remembered more clearly. Opioid Use Disorder Management - Assessment: Patient reports needing medication refill. - Plan: - Continue suboxoen and naltrexone 8-2. - Monitor medication adherence and effectiveness. Vivid Dreams - Assessment: Patient experiences vivid dreams and occasional recall of dreams from 30 years ago. - Plan: - Reassure the patient that recalling dreams or creating stories from them is a normal cognitive process. 02/23/2024 Low testosterone (ICD-10 - R79.89) Cardiomyopathy and Reduced Ejection Fraction - Assessment: Ejection fraction dropped from 50 to 41. Patient has a history of ejection fraction dropping in the past. Current blood pressure reading is 150/normal. - Plan: - Continue spironolactone as prescribed by Dr. Sparks. - Discontinue Entresto due to adverse effects (nausea, fatigue, dizziness). - Resume losartan as advised by the on-call doctor. - Monitor blood pressure regularly. - Follow up with Elsa Cantrell) at [facility] Cardio group. Pre-diabetes - Assessment: Patient is on the cusp of diabetes, but not yet diagnosed. Reports losing 12 pounds in 12 days. - Plan: - Discuss with Elsa about starting Jardiance. - Monitor for hypoglycemia as advised by Elsa. - Perform daily weight checks. Mild Cognitive Impairment (MCI) - Assessment: Cancer MCI test on January 25 showed normal memory and fluency but lower executive functioning (16th percentile). Slump score of 25, indicating mild cognitive impairment. Patient reports difficulty with day-to-day activities and planning. - Plan: - Repeat the cancer MCI test in 6 months. - Encourage engagement in hobbies and creative activities to keep the mind active. Memory Issues - Assessment: Patient reports difficulty recalling recent conversations and needing to write things down to remember them. - Plan: - Write down important information to aid memory retention. - Acknowledge that emotional memories are remembered more clearly. Opioid Use Disorder Management - Assessment: Patient reports needing medication refill. - Plan: - Continue suboxoen and naltrexone 8-2. - Monitor medication adherence and effectiveness. Vivid Dreams - Assessment: Patient experiences vivid dreams and occasional recall of dreams from 30 years ago. - Plan: - Reassure the patient that recalling dreams or creating stories from them is a normal cognitive process. 02/23/2024 Anxiety disorder due to multiple medical problems (ICD-10 - F06.8) Cardiomyopathy and Reduced Ejection Fraction - Assessment: Ejection fraction dropped from 50 to 41. Patient has a history of ejection fraction dropping in the past. Current blood pressure reading is 150/normal. - Plan: - Continue spironolactone as prescribed by Dr. Sparks. - Discontinue Entresto due to adverse effects (nausea, fatigue, dizziness). - Resume losartan as advised by the on-call doctor. - Monitor blood pressure regularly. - Follow up with Elsa (Dr. Cantrell) at [facility] Cardio group. Pre-diabetes - Assessment: Patient is on the cusp of diabetes, but not yet diagnosed. Reports losing 12 pounds in 12 days. - Plan: - Discuss with Elsa about starting Jardiance. - Monitor for hypoglycemia as advised by Elsa. - Perform daily weight checks. Mild Cognitive Impairment (MCI) - Assessment: Cancer MCI test on January 25 showed normal memory and fluency but lower executive functioning (16th percentile). Slump score of 25, indicating mild cognitive impairment. Patient reports difficulty with day-to-day activities and planning. - Plan: - Repeat the cancer MCI test in 6 months. - Encourage engagement in hobbies and creative activities to keep the mind active. Memory Issues - Assessment: Patient reports difficulty recalling recent conversations and needing to write things down to remember them. - Plan: - Write down important information to aid memory retention. - Acknowledge that emotional memories are remembered more clearly. Opioid Use Disorder Management - Assessment: Patient reports needing medication refill. - Plan: - Continue suboxoen and naltrexone 8-2. - Monitor medication adherence and effectiveness. Vivid Dreams - Assessment: Patient experiences vivid dreams and occasional recall of dreams from 30 years ago. - Plan: - Reassure the patient that recalling dreams or creating stories from them is a normal cognitive process. 02/23/2024 Senile dementia (ICD-10 - F03.90) Cardiomyopathy and Reduced Ejection Fraction - Assessment: Ejection fraction dropped from 50 to 41. Patient has a history of ejection fraction dropping in the past. Current blood pressure reading is 150/normal. - Plan: - Continue spironolactone as prescribed by Dr. Sparks. - Discontinue Entresto due to adverse effects (nausea, fatigue, dizziness). - Resume losartan as advised by the on-call doctor. - Monitor blood pressure regularly. - Follow up with Elsa (Dr. Cantrell) at [facility] Cardio group. Pre-diabetes - Assessment: Patient is on the cusp of diabetes, but not yet diagnosed. Reports losing 12 pounds in 12 days. - Plan: - Discuss with Elsa about starting Jardiance. - Monitor for hypoglycemia as advised by Elsa. - Perform daily weight checks. Mild Cognitive Impairment (MCI) - Assessment: Cancer MCI test on January 25 showed normal memory and fluency but lower executive functioning (16th percentile). Slump score of 25, indicating mild cognitive impairment. Patient reports difficulty with day-to-day activities and planning. - Plan: - Repeat the cancer MCI test in 6 months. - Encourage engagement in hobbies and creative activities to keep the mind active. Memory Issues - Assessment: Patient reports difficulty recalling recent conversations and needing to write things down to remember them. - Plan: - Write down important information to aid memory retention. - Acknowledge that emotional memories are remembered more clearly. Opioid Use Disorder Management - Assessment: Patient reports needing medication refill. - Plan: - Continue suboxoen and naltrexone 8-2. - Monitor medication adherence and effectiveness. Vivid Dreams - Assessment: Patient experiences vivid dreams and occasional recall of dreams from 30 years ago. - Plan: - Reassure the patient that recalling dreams or creating stories from them is a normal cognitive process. 02/23/2024 Other referral to the local chapter or national office of the Alzheimer's Association (0-418-305-117 0; http://www.alz .org), the Alzheimer's Disease Education and Referral Center (ADEAR) (6-442-924-534 0; http://www.deo .nih.gov/Alzhe imers/), Cardiomyopathy and Reduced Ejection Fraction - Assessment: Ejection fraction dropped from 50 to 41. Patient has a history of ejection fraction dropping in the past. Current blood pressure reading is 150/normal. - Plan: - Continue spironolactone as prescribed by Dr. Sparks. - Discontinue Entresto due to adverse effects (nausea, fatigue, dizziness). - Resume losartan as advised by the on-call doctor. - Monitor blood pressure regularly. - Follow up with Elsa (Dr. Cantrell) at [facility] Cardio group. Pre-diabetes - Assessment: Patient is on the cusp of diabetes, but not yet diagnosed. Reports losing 12 pounds in 12 days. - Plan: - Discuss with Elsa about starting Jardiance. - Monitor for hypoglycemia as advised by Elsa. - Perform daily weight checks. Mild Cognitive Impairment (MCI) - Assessment: Cancer MCI test on January 25 showed normal memory and fluency but lower executive functioning (16th percentile). Slump score of 25, indicating mild cognitive impairment. Patient reports difficulty with day-to-day activities and planning. - Plan: - Repeat the cancer MCI test in 6 months. - Encourage engagement in hobbies and creative activities to keep the mind active. Memory Issues - Assessment: Patient reports difficulty recalling recent conversations and needing to write things down to remember them. - Plan: - Write down important information to aid memory retention. - Acknowledge that emotional memories are remembered more clearly. Opioid Use Disorder Management - Assessment: Patient reports needing medication refill. - Plan: - Continue suboxoen and naltrexone 8-2. - Monitor medication adherence and effectiveness. Vivid Dreams - Assessment: Patient experiences vivid dreams and occasional recall of dreams from 30 years ago. - Plan: - Reassure the patient that recalling dreams or creating stories from them is a normal cognitive process. Plan Of Treatment Medication Medication Name Sig Start Date Stop Date Notes Buprenorphine HCl-Naloxone H Cl 8-2 MG 1 tablet under the tongue and allow to dissolve Sublingual once a day for 30 days 02/23/2024 buPROPion HCl ER (XL) 300 MG 1 tablet in the morning Orally Once a day for 90 days Treatment Notes Assessment Notes Other referral to the local chapter or national office of the Alzheimer's Association ( ; http://www.alz.org), the Alzheimer's Disease Education and Referral Center (ADEAR) ( ; http://www.deo.nih.gov/Alzheimers/), Next Appt Details Follow Up: 2 Months, Reason: Provider Name:Mandeep Upton , 04/22/2024 01:00:00 PM, [address] [facility], [address], [address], Provider Name:Mandeep Upton , 08/21/2024 01:00:00 PM, [address], [facility] [address] [place], [address], Progress Notes * NEFTALI BRITT RDOB: [birth year] (73 yo M)Acc No.[id number]:02/23/2024 Patient:?NEFTALI BRITT Provider:?MANDEEP UPTON MD :1950???Age:73 Y???Sex:Male Ajay e:02/23/2024 [id number] Pcp:Kamar Almazan MD Subjective: * Chief Complaints: * ???Follow up medication eval uationMIPS PHQ less than 5 Positive with f/u docDepression screening positiveMIPS with Diagnosis of HTNDementia MIPS * HPI: ???Depression screening:? The note is transcribed using speech recognition software. It is a reflection of a visit with the patient. It might have some inaccuracy, including medication names and transcribing errors, though efforts have been made to correct them. Chief Complaint: Cardiac issues and memory concerns Cardiac Health: The patient underwent an echocardiogram, which revealed a drop in ejection fraction from [address] Sparks prescribed spironolactone, and the patient's heart doctor switched them to Entresto while discontinuing losartan. However, the patient experienced severe side effects from Entresto, including nausea, fatigue, and dizziness. These symptoms improved after stopping Entresto and resuming losartan. The patient has a history of cardiomyopathy and was previously managed with medication when their ejection fraction dropped around 2021. Weight Loss: The patient has lost 12 pounds in 12 days. Current Health Status: The patient reports feeling good today, but a little weak. Cognitive Function: A recent cancer MCI test showed normal memory and fluency but lower executive functioning (16th percentile), with a slump score of 25, indicating mild cognitive impairment. The patient reports experiencing memory shifts, with difficulty recalling recent conversations and needing to write down important information. They mention that emotional memories are remembered more clearly. Dream Patterns: The patient reports vivid dreams and sometimes recalls dreams from 30 years ago, questioning whether they are truly recalling the dream or if their mind is making up a story. Medications: The patient is currently taking bupropion and naltrexone 8-2 and requires a refill of bupropion XL. They have not yet started Jardiance. Other Health Concerns: The patient is not diabetic but is on the cusp. Memory Concerns: The patient mentions that their memory has shifted and that they and their friends sometimes have difficulty remembering recent conversations. ?PHQ-9?Little interest or pleasure in doing things?Not at all,?Feeling down, depressed, or hopeless?Several days,?Trouble falling or staying asleep, or sleeping too much?Several days,?Feeling tired or having little energy?Several days,?Poor appetite or overeating?Several days,?Feeling bad about yourself or that you are a failure, or have let yourself or your family down?Several days,?Trouble concentrating on things, such as reading the newspaper or watching television?Not at all,?Moving or speaking so slowly that other people could have noticed; or the opposite, being so fidgety or restless that you have been moving around a lot more than usual?Not at all,?Thoughts that you would be better off or of hurting yourself in some way?Not at all,?Total Score 5,?Interpretation?Mild Depression.?Intervention?Depression Screening Findings?Positve,?Follow-Up for Depression?Mental health treatment assessment, Patient follow-up to return when and if necessary,?Suicide Risk Assessment Performed? ,?Additional Evaluation for Depression?Psychiatric interview and evaluation,?Name of the standardized tool used for adult depression screening:?Patient Health Questionnaire (PHQ-9).?Depression Screening:?SUE-7 (2018 Edition)?Feeling nervous, anxious, or on edge?Not at all,?Not being able to stop or control worrying?Several days,?Worrying too much about different things?Not at all,?Trouble relaxing?Not at all,?Being so restless that it is hard to sit still?Not at all,?Becoming easily annoyed or irritable?Not at all,?Feeling afraid as if something awful might happen?Several days,?Total SUE-7 Score?2,?If you checked any problems, how difficult have they made it for you to do your work, take care of things at home, or get along with other people??Not difficult at all,?Interpretation of Total?(0 to 4) No Anxiety.? * Medical History:? * Surgical History:? * Hospitalization/Major Diagno stic Procedure:? * Medications:?TakingbuPROPion HCl ER (XL) 300 MG Tablet Extended Release 24 Hour 1 tablet in the morning Orally Once a day Buprenorphine HCl-Naloxone HCl 8-2 MG Tablet Sublingual 1 tablet under the tongue and allow to dissolve Sublingual once a day Testosterone Cypionate 200 MG/ML Solution INJECT 1.5 ML IN THE MUSCLE EVERY 10 DAYS A SINGLE DOSE Intramuscular Furosemide 20 MG Tablet TAKE 1 TABLET BY MOUTH EVERY MORNING Oral Clopidogrel Bisulfate 75 MG Tablet TAKE 1 TABLET BY MOUTH EVERY MORNING Oral Carvedilol 6.25 MG Tablet TAKE 1 TABLET BY MOUTH TWICE DAILY Oral Medication List reviewed and reconciled with the patientTaking buPROPion HCl ER (XL) 300 MG Tablet Extended Release 24 Hour 1 tablet in the morning Orally Once a day Taking Buprenorphine HCl-Naloxone HCl 8-2 MG Tablet Sublingual 1 tablet under the tongue and allow to dissolve Sublingual once a day Taking Testosterone Cypionate 200 MG/ML Solution INJECT 1.5 ML IN THE MUSCLE EVERY 10 DAYS A SINGLE DOSE Intramuscular Taking Furosemide 20 MG Tablet TAKE 1 TABLET BY MOUTH EVERY MORNING Oral Taking Clopidogrel Bisulfate 75 MG Tablet TAKE 1 TABLET BY MOUTH EVERY MORNING Oral Taking Carvedilol 6.25 MG Tablet TAKE 1 TABLET BY MOUTH TWICE DAILY Oral Medication List reviewed and reconciled with the patient * Allergies:?Codeine: Allergy - Onset Date 06/28/2023enicillins: Allergy - Onset Date 06/28/2023no[Allergies Verified] Objective: * Vitals:?BP:150/77mm Hg, HR:9 7/min, Wt:294.0lbs, Wt-k.36 kg, Ht: 69.00 in, Ht-cm: 175.26 cm, BMI:43.41Index, Body Surface Area: 2.55. * Examination: ???General Examination: ???Mental Status Examination: Patient reported experiencing nausea, fatigue, and dizziness after medication changes, which improved after medication adjustment. Described recent severe illness but currently feels better, albeit still a bit weak. Expressed concerns about memory changes, noting difficulty in recalling recent conversations and the need to write things down to remember important details. Reported vivid dreams and questioned the authenticity of long-term memory of dreams. Patient acknowledged long-standing issues with day-to-day planning and organization. Vital Signs: Blood pressure noted as 150/normal. Physical Examination: General: Patient reports feeling weak but is currently stable. Reports losing 12 pounds in 12 days. Cardiovascular: History of cardiomyopathy and recent changes in heart medication due to altered ejection fraction. Previously underwent femoral arteriography. Neurological: Patient reports mild cognitive impairment with specific deficits in executive functioning. All Relevant Diagnostic Test Results and Labs: Echocardiogram: Documented decrease in ejection fraction from 50 to 41 (no specific date provided). Cancer MCI test (January 26, 2024): Normal memory and fluency, lower executive functioning at the 16th percentile, SLUMS score of 25 indicating mild cognitive impairment. Medications: Current: Spironolactone, Losartan. Discontinued: Entresto (due to adverse effects). Planned: Jardiance (to be started). Continuing: Bupropion-naltrexone 8-2, Bupropion XL. ???Functional Assessment: ?Bardales Index of ADL?.?Physical Functioning?.?1 point for independence, 0 for help. ???Psychiatry: ?Dementia?.?Neurology: ?Cognition Assessment Tools Used?.? Assessment: * Assessment: 1.?Opioid use disorder, meghna re, in sustained remission - F11.21 (Primary)???2.?Major depressive disorder, recurrent, mild - F33.0???3.?SUE (generalized anxiety disorder) - F41.1???4.?Mixed hyperlipidemia - E78.2???5. 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 Cardiomyopathy and Reduced E jection Fraction - Assessment: Ejection fraction dropped from 50 to 41. Patient has a history of ejection fraction dropping in the past. Current blood pressure reading is 150/normal. - Plan: - Continue spironolactone as prescribed by Dr. Sparks. - Discontinue Entresto due to adverse effects (nausea, fatigue, dizziness). - Resume losartan as advised by the on-call doctor. - Monitor blood pressure regularly. - Follow up with Elsa (Dr. Cantrell) at [facility]. Pre-diabetes - Assessment: Patient is on the cusp of diabetes, but not yet diagnosed. Reports losing 12 pounds in 12 days. - Plan: - Discuss with Elsa about starting Jardiance. - Monitor for hypoglycemia as advised by Elsa. - Perform daily weight checks. Mild Cognitive Impairment (MCI) - Assessment: Cancer MCI test on January 25 showed normal memory and fluency but lower executive functioning (16th percentile). Slump score of 25, indicating mild cognitive impairment. Patient reports difficulty with day-to-day activities and planning. - Plan: - Repeat the cancer MCI test in 6 months. - Encourage engagement in hobbies and creative activities to keep the mind active. Memory Issues - Assessment: Patient reports difficulty recalling recent conversations and needing to write things down to remember them. - Plan: - Write down important information to aid memory retention. - Acknowledge that emotional memories are remembered more clearly. Opioid Use Disorder Management - Assessment: Patient reports needing medication refill. - Plan: - Continue suboxoen and naltrexone 8-2. ? - Monitor medication adherence and effectiveness. Vivid Dreams - Assessment: Patient experiences vivid dreams and occasional recall of dreams from 30 years ago. - Plan: - Reassure the patient that recalling dreams or creating stories from them is a normal cognitive process. Plan: * Treatment: 2.?Major depressive disorder , recurrent, mild? Continue buPROPion HCl ER (XL) Tablet Extended Release 24 Hour, 300 MG, 1 tablet in the morning, Orally, Once a day, 90 days, 90 Tablet, Refills 0.?? 3.?Others? Notes: referral to the [facility] office of the Alzheimer's Association ( ;http://www.alz.org), the Alzheimer'sDisease Education [facility] Referral [facility] ([facility]) ( ;http://www.edo.nih.gov/Alz heimers/), ?? * Procedure Codes:?63119 BEHAV ASSMT W/SCORE & DOCD/STAND INSTRUMENT * Preventive Medicine:? ??Counseling:?BP Management:?FIRST HYPERTENSIVE BP READING FOLLOW-UP PLAN:?Follow-up 1 month Follow up with your PCP,?LIFESTYLE RECOMMENDATION:?Lifestyle education, REFERRAL TO ALTERNATIVE / PRIMARY CARE PROVIDER:?Referral to general medical service ____.? * Follow Up:?2 Months * Billing Information: * Visit Code:? 38781 OFFICE OUTPATIENT VISIT 25 MINUTES DETAILED HISTORY AND EXAM/MODERATE MEDICAL DECISION MAKING. * Procedure Codes:? 27527 BEHAV ASSMT W/SCORE & DOCD/STAND INSTRUMENT. * CRUSHER Sign off status: Completed true * Provider:?MANDEEP UPTON MD Date:?02/22 Generated for Peter barrera/Roberta/Jae on:?04/18/2024 04:50 AM ORE CRUSHER History and Physical Notes * HPI (History of Present Illness) Category Sub-Category Detail Notes Category Not es Depression screening PHQ-9 Little inte rest or pleasure in doing things: Not at all Feeling down, depressed, or hopeless: Se veral days Trouble falling or staying asleep, or sl eeping too much: Several days Feeling tired or having little energy: S everal days Poor appetite or overeating: Several day s Feeling bad about yourself o r that you are a failure, or have let yourself or your family down: Several days Trouble concentrating on thi ngs, such as reading the newspaper or watching television: Not at all Moving or speaking so slowly that other people could have noticed; or the opposite, being so fidgety or restless that you have been moving around a lot more than usual: Not at all Thoughts that you would be b claudio off or of hurting yourself in some way: Not at all Total Score: 5 Interpretation: Mild Depression Intervention Depression Screening Findings: P ositve Follow-Up for Depression: [facility] treatment assessment, Patient follow-up to return when and if necessary Suicide Risk Assessment Performed: Additional Evaluation for De pression: Psychiatric interview and evaluation Name of the standardized too l used for adult depression screening:: Patient Health Questionnaire (PHQ-9) Depression Screening SUE-7 (2018 Edition) Feelin g nervous, anxious, or on edge: Not at all Not being able to stop or control worryi ng: Several days Worrying too much about different things : Not at all Trouble relaxing: Not at all Being so restless that it is hard to sit still: Not at all Becoming easily annoyed or irritable: No t at all Feeling afraid as if something awful deirdre ht happen: Several days Total SUE-7 Score: 2 If you checked any problems, how difficult have they made it for you to do your work, take care of things at home, or get along with other people?: Not difficult at all Interpretation of Total: (0 to 4) No Anx iety Examination Category Sub-Category Detail Notes Category Not es Neurology Cognition Assessment Tools Used Total score SLUMS: 25 Psychiatry Dementia Safety concern s creening for dangerousness to self and environment risks provided:: Yes ?What action was taken to mitigate the r isk?: Education provided ?Topics discussed for enviro nmental risks:: Home safety risks that could arise from cooking or smoking, Access to firearms or other weapons, Access to potentially dangerous chemicals and other materials ?Topics discussed for danger ousness to self:: Medication misuse, Financial mismanagement ?Safety concern mitigation recommendatio n provided:: Not required ?Screening Result:: Negative Caregiver education and support provided : Yes General Examination Mental Status Examination: Patient reported experiencing nausea, fatigue, and dizziness after medication changes, which improved after medication adjustment. Described recent severe illness but currently feels better, albeit still a bit weak. Expressed concerns about memory changes, noting difficulty in recalling recent conversations and the need to write things down to remember important details. Reported vivid dreams and questioned the authenticity of long-term memory of dreams. Patient acknowledged long-standing issues with day-to-day planning and organization. Vital Signs: Blood pressure noted as 150/normal. Physical Examination: General: Patient reports feeling weak but is currently stable. Reports losing 12 pounds in 12 days. Cardiovascular: History of cardiomyopathy and recent changes in heart medication due to altered ejection fraction. Previously underwent femoral arteriography. Neurological: Patient reports mild cognitive impairment with specific deficits in executive functioning. All Relevant Diagnostic Test Results and Labs: Echocardiogram: Documented decrease in ejection fraction from 50 to 41 (no specific date provided). Cancer MCI test (January 26, 2024): Normal memory and fluency, lower executive functioning at the 16th percentile, SLUMS score of 25 indicating mild cognitive impairment. Medications: Current: Spironolactone, Losartan. Discontinued: Entresto (due to adverse effects). Planned: Jardiance (to be started). Continuing: Bupropion-naltrexone 8-2, Bupropion XL. Functional Assessment Bardales Index of ADL Score:: 6 1 point for independence, 0 for help 1 point for independence , 0 for help Physical Functioning Personal hygiene: i ncluding combing hair, brushing teeth, shaving, applying makeup, washing/drying face and hands (exclude baths and showers): Independent Bathing: how client takes fu ll-body bath/shower or sponge bath (exclude washing of back and hair). Includes how each part of body is bathed: arms, upper and lower legs, chest, abdomen, perineal area. (code for most dependent episode in last 7 days): Independent Dressing upper body: how cli ent dresses and undresses (street clothes, underwear) above the waist, includes prostheses, orthotics, fasteners, pullovers, etc.: Independent Eating - Including taking in food by any method, including tube feedings: Independent Toilet use: including using the toilet room or commode, bedpan, urinal, transferring on/off toilet, cleaning self after toilet use or incontinent episode, changing pad, managing any special devices required (ostomy or catheter), and adjusting clothes.: Independent Transfer: including moving t o and between surfaces--to/from bed, chair, wheelchair, standing position (excludes to/from bath/toilet): Independent Continence:: Independent (1)
--- OUTSIDE RECORDS SUMMARY | 2024-04-18 04:51 | XMS_ITS | Continuity of Care Document ---
Author Organization [facility] Address [address] [place] [address] Phone Care Team Providers Care Linux System Administrator Name Role Phone [facility] Unavailable Unavailable Advance Directives Directive Yes / No Effective Date File Name No Information Encounters Encounter Description Practice Location Reason(s) For Visit Diagnoses Date Provider Providers Copied on Encounter [facility], [address], [place], [place], [id number], [place] tel:[phone] [facility] No Information [facility]. [address], [address], [place], [place], [id number], [place]. tel:[phone] Referring Provider: Kamar Sparks, [address] [place] [address], [id number]. tel:[phone] Family History Family Member Type Diagnosis Age At Onset No Information Payers Payer name Insurance type Covered democrat ID Authoriza tion(s) No Information Social History [...]
--- OUTSIDE RECORDS SUMMARY | 2024-04-18 04:51 | XMS_ITS | Referral Summary ---
Author Organization [facility] [place] [address] [place] [address] [address] [place] [address] Care Team Providers Care Wallcovering Texturer Name Role Phone Kamar Almazan MD Primary Care Prov ider Encounters Date Type Department Care Team Description 04/15/2024 Telephone [facility] [address] [place] [address] Elsa Cantrell NP samples 04/08/2024 Telephone [facility] [address] [facility] [address] [place] [phone] Elsa Cantrell NP 04/05/2024 Telephone [facility] [address] [facility] [address] [place] [address] Elsa Cantrell NP evaluating cardiomyopathy 03/25/2024 10:00 AM BREAD MOLDER - 03/25/2024 11:59 PM BREAD MOLDER Hospital Encounter [facility] [address] [place] [address] Dilated cardiomyopathy (CMS/HCC) (HCC) Discharge Disposition: Discharge to home or self care 03/18/2024 Telephone [facility] [address] [facility] [address] [place] [address] Ronak Flores MD 03/15/2024 3:00 PM BREAD MOLDER Office Visit [facility] [address] [place] [address] Elsa Cantrell NP Dilated cardiomyopathy (CMS/HCC) ([facility]) (Primary Dx); Abnormal echocardiogram; Abnormal laboratory test result 02/16/2024 Telephone [facility] [address] [place] [address] [place] [phone] Elsa Cantrell NP Med Management 02/13/[address] [phone] Rosmery Boggs 02/09/2024 1:00 PM BREAD MOLDER Office Visit [address] [phone] Elsa Cantrell NP Dilated cardiomyopathy ([facility]) ([facility]) (Primary Dx); Abnormal echocardiogram; H/O: stroke; Morbid obesity with BMI of 45.0-49.9, adult ([facility]) 02/06/2024 11:15 AM BREAD MOLDER Ancillary Procedure [place] [address] [place] [phone] Other ill-defined heart diseases from Last 3 Months Allergies Active Allergy Reactions Criticality Noted Date Comments Codeine Hives,Itching,Rash,Stomach upset Medium 02/2011 Penicillins Shortness of breath, Stomach upset,Syncope,Nausea only,Vomiting High 08/05/2010 Medications LORazepam (ATIVAN) 1 mg tablet take 1 tablet by oral route 3 times every day as needed 0 0 4 Active buPROPion XL (WELLBUTRIN XL) 300 mg 24 hr tablet take 1 tablet (300MG) by ORAL route every day 0 0 Active ibuprofen (ADVIL,MOTRIN) 800 mg tablet as needed 9 Active triamcinolone (KENALOG) 0.1 % cream 9 Active nystatin-triamcino lone creamIndications:c utaneous candidiasis Apply topically as needed Active buprenorphine-nalo xone (SUBOXONE) 8-2 mg per SL tablet 2 Active clopidogreL (PLAVIX) 75 mg tablet 2 Active dicyclomine (BENTYL) 10 mg capsule 2 Active ondansetron ODT (ZOFRAN-ODT) 4 mg disintegrating tablet 2 Active testosterone cypionate (DEPO-TESTOTERONE) 200 mg/mL injection INJECT 1.5 ML IN THE MUSCLE EVERY 21 DAYS 3 Active furosemide (LASIX) 20 mg tablet Take 1 tablet (20 mg total) by mouth every morning [address] (PROTONIX) 40 mg EC tablet Take 1 tablet (40 mg total) by mouth daily 4 Active atorvastatin (LIPITOR) 20 mg tabletIndications: H/O: stroke Take 1 tablet (20 mg total) by mouth daily 90 tablet 3 4 Active carvediloL (COREG) 6.25 mg tabletIndications: Dilated cardiomyopathy (CMS/HCC) (HCC) Take 1 tablet (6.25 mg total) by mouth 2 (two) times a day 360 tablet 1 4 Active spironolactone (ALDACTONE) 50 mg tablet Take 1 tablet (50 mg total) by mouth daily 4 Active Ozempic 1 mg/dose (4 mg/3 mL) pen injector injection ADMINISTER 1 MG UNDER THE SKIN WEEKLY 4 Active losartan (COZAAR) 100 mg tabletIndications: Dilated cardiomyopathy (CMS/HCC) (HCC) Take 1 tablet (100 mg total) by mouth daily 4 Active empagliflozin (JARDIANCE) 10 mg tabletIndications: Dilated cardiomyopathy (CMS/HCC) (HCC) Take 1 tablet (10 mg total) by mouth daily 30 tablet 11 4 025 Active Active Problems Problem Noted Date Diagnosed Date Low testosterone 02/01/2023 History of DVT (deep vein thrombosis) 02/01/2023 H/O: stroke 08/01/2022 Muscle weakness 08/01/2022 Mixed hyperlipidemia 08/01/2022 Dizziness 07/17/2021 Chronic fatigue 01/04/2021 Excessive daytime sleepiness 01/04/2021 History of 2019 novel coronavirus disease (COVID -19) 04/07/2020 Malaise and fatigue 01/18/2020 GERD (gastroesophageal reflux disease) 0 Hypotension due to drugs 01/13/2020 Anxiety 08/06/2018 Class 3 obesity 08/06/2018 Risk factors for obstructive sleep apnea 019 SOB (shortness of breath) 05/24/2018 Abnormal echocardiogram 05/24/2018 Cardiomyopathy 05/24/2018 Precordial pain 05/24/2018 Knee pain 02/28/2011 Arthralgia of hip 08/05/2010 Resolved Problems Problem Noted Date Diagnosed Date Resolved Date Acute deep vein thrombosis ( DVT) of lower extremity 05/24/2018 05/24/2018 Immunizations Name Administration Dates Next Due H1N1 All Forms 01/25/2009 Influenza, Quadrivalent, Spl it, Preservative Free, Intramuscular 01/11/2019 Influenza, Split 01/25/2009 Social History Tobacco Use Types Packs/Day Years Used Date Smoking Tobacco: Never Smokeless Tobacco: Never Tobacco Cessation:Counseling Given: Not Answered Alcohol Use Standard Drinks/Week Comments No 0 (1 standard drink = 0.6 oz pur e alcohol) recovering Sex and Gender Information Value Date Recorded Sex Assigned at Not on file Legal Sex Male 1:23 AM BREAD MOLDER Gender Identity Not on file Sexual Orientation Not on file 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 on file Not on file Last Filed Vital Signs Vital Sign Reading Time Taken Comments Blood Pressure 112/68 03/15/2024 2:57 PM BREAD MOLDER Pulse 86 03/15/2024 2:57 PM BREAD MOLDER Temperature 36.4 ??C (97.5 ??F) 04/02/2020 3:10 PM CS T Respiratory Rate - - Oxygen Saturation 94% 03/15/2024 2:57 PM BREAD MOLDER Inhaled Oxygen Concentration - - Weight 132.5 kg (292 lb) 03/15/2024 2:57 PM BREAD MOLDER Height 172.7 cm (5' 8 ) 03/15/2024 2:57 PM BREAD MOLDER Body Mass Index 44.4 03/15/2024 2:57 PM BREAD MOLDER Plan of Treatment Not on file Procedures Procedure Name Priority Date/Time Associated Diagnosis Comments MRI CARDIAC M&FUNC W WO CONTRAST Schedule Routine, Read Routine (OP Routine) 03/25/2024 11:53 AM BREAD MOLDER Dilated cardiomyopathy (CMS/HCC) (HCC) KAPPA/LAMBDA LIGHT CHAINS FREE WITH RATIO, SERUM Routine 03/06/2024 11:48 AM BREAD MOLDER PROTEIN, TOTAL AND PROTEIN ELECTROPHORESIS WITH IMMUNOFIXATION (ALMA DELIA), SERUM Routine 03/06/2024 11:48 AM BREAD MOLDER Dilated cardiomyopathy (CMS/HCC) (HCC) IMMUNOFIXATION, URINE Routine 03/06/2024 11:48 AM BREAD MOLDER Dilated cardiomyopathy (CMS/HCC) (HCC) TRANSTHORACIC ECHO (TTE) COMPLETE W DOPPLER/CF WO CONTRAST Routine 02/06/2024 11:39 AM BREAD MOLDER Other ill-defined heart diseases LIPID PANEL Routine 02/01/2024 from Last 3 Months Results * MRI Cardiac M&F W WO Contrast (03/25/2024 11:53 AM BREAD MOLDER) Anatomical Region Laterality Modality Body N/A Magnetic Resonan ce 03/25/2024 12:2 7 PM BREAD MOLDER Impressions 03/25/2024 1:51 PM BREAD MOLDER 1. ??Borderline biventricular enlargement with mildly reduced global biventricular systolic function (LVEF = 42%, RVEF = 42%). 2. ??No delayed gadolinium enhancement suggestive of an infiltrative cardiomyopathy or infarct. Dictated by: Sadiq Price MD, PHD The radiology attending physician has personally reviewed this study, and had reviewed and/or edited this written report and agrees with it. Electronically signed by: Hever Ann M.D. Narrative 03/25/2024 1:51 PM BREAD MOLDER EXAM: MRI CARDIAC M/T/FUNC W WO CONTRAST HISTORY: Cardiomyopathy. TECHNIQUE: Multiplanar MR imaging of the heart utilizing HASTE and TRUEFISP imaging sequences was performed before and after the administration of 20 mL intravenous gadolinium contrast agent according to a custom monitored protocol. 3-D postprocessing was subsequently performed on a dedicated 3-D workstation. COMPARISON: None available FINDINGS: Atria are normal in size. ??Borderline biventricular enlargement. Mildly dyssynchronous contraction pattern and mildly reduced global biventricular systolic function. 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 Functional information: Left ventricle: Ejection fraction: 42% End diastolic volume: 228 mL (90 mL/m2, indexed) End systolic volume: 131 mL (50 to mL/m2, indexed) Stroke volume: 97 mL (38 mL/m2, indexed) Cardiac output: 7.4 L/min Cardiac index: 2.9 L/min/m2 Right ventricle: Ejection fraction: 42% End diastolic volume: 224 mL (89 mL/m2, indexed) End systolic volume: 130 mL (50 to mL/m2, indexed) Stroke volume: 94 mL (37 mL/m2, indexed) Cardiac output: 7.1 L/min Cardiac index: 2.8 L/min/m2 Valves: ?? Mitral valve: normal Tricuspid valve: normal Pulmonic valve: normal Aortic valve: normal Late gadolinium enhancement: No delayed gadolinium enhancement to suggest infiltrative cardiomyopathy or infarct. No signal abnormalities on the T1 or T2 maps. Flow Quantification: Aorta above valve: Heart rate: 79 bpm Peak velocity: 1.3 m/sec Peak pressure gradient: 7 mmHg Fwd flow: 92 mL Rev flow: 6 mL Net flow: 86 mL Regurgitant fraction: 7% Pulmonary artery above valve: Heart rate: 71 bpm Peak velocity: 1.3 m/sec Peak pressure gradient: 7 mmHg Fwd flow: 92 mL Rev flow: 12 mL Net flow: 80 mL Regurgitant fraction: 13% Procedure Note Hever Ann MD - 03/25/2024 EXAM: MRI CARDIAC M/T/FUNC W WO CONTRAST HISTORY: Cardiomyopathy. TECHNIQUE: Multiplanar MR imaging of the heart utilizing HASTE and TRUEFISP imaging sequences was performed before and after the administration of 20 mL intravenous gadolinium contrast agent according to a custom monitored protocol. 3-D postprocessing was subsequently performed on a dedicated 3-D workstation. COMPARISON: None available FINDINGS: Atria are normal in size. Borderline biventricular enlargement. Mildly dyssynchronous contraction pattern and mildly reduced global biventricular systolic function. 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 Functional information: Left ventricle: Ejection fraction: 42% End diastolic volume: 228 mL (90 mL/m2, indexed) End systolic volume: 131 mL (50 to mL/m2, indexed) Stroke volume: 97 mL (38 mL/m2, indexed) Cardiac output: 7.4 L/min Cardiac index: 2.9 L/min/m2 Right ventricle: Ejection fraction: 42% End diastolic volume: 224 mL (89 mL/m2, indexed) End systolic volume: 130 mL (50 to mL/m2, indexed) Stroke volume: 94 mL (37 mL/m2, indexed) Cardiac output: 7.1 L/min Cardiac index: 2.8 L/min/m2 Valves: Mitral valve: normal Tricuspid valve: normal Pulmonic valve: normal Aortic valve: normal Late gadolinium enhancement: No delayed gadolinium enhancement to suggest infiltrative cardiomyopathy or infarct. No signal abnormalities on the T1 or T2 maps. Flow Quantification: Aorta above valve: Heart rate: 79 bpm Peak velocity: 1.3 m/sec Peak pressure gradient: 7 mmHg Fwd flow: 92 mL Rev flow: 6 mL Net flow: 86 mL Regurgitant fraction: 7% Pulmonary artery above valve: Heart rate: 71 bpm Peak velocity: 1.3 m/sec Peak pressure gradient: 7 mmHg Fwd flow: 92 mL Rev flow: 12 mL Net flow: 80 mL Regurgitant fraction: 13% IMPRESSION: 1. Borderline biventricular enlargement with mildly reduced global biventricular systolic function (LVEF = 42%, RVEF = 42%). 2. No delayed gadolinium enhancement suggestive of an infiltrative cardiomyopathy or infarct. Dictated by: Sadiq Price MD, PHD The radiology attending physician has personally reviewed this study, and had reviewed and/or edited this written report and agrees with it. Electronically signed by: Hever Ann M.D. Elsa Cantrell NP [facility] MRI PROCEDURES Final Result * (ABNORMAL) KAPPA/LAMBDA LIGHT CHAINS FREE WITH RATIO, SERUM (03/06/2024 11:48 AM BREAD MOLDER) [place] light chain, free 29.1(H) 3.3 - 19.4 mg/L [facility] Lambda light chain, free 22.1 5.7 - 26.3 mg/L [facility] [place]/Lambda light chains free with ratio 1.32 0.26 - 1.65 [facility] Comment: Free kappa/lambda ratio in serum of normal individuals is 0.26-1.65. Excess production of free kappa or lambda chains can alter this ratio. Monoclonal free light chains are found in serum of patients with multiple myeloma, Waldenstrom's macroglobulinemia, mu-heavy chain disease, primary amyloidosis, light chain deposition disease, monoclonal gammopathy of undetermined significance, and lymphoproliferative disorders. Measurement of free light chain concentration in serum is useful for diagnosis, prognosis, monitoring disease activity and following response to therapy of these disorders. 03/06/2024 11:4 8 AM BREAD MOLDER 03/06/2024 11:49 AM BREAD MOLDER Elsa Cantrell NP LAB BLOOD ORDERABLES Jayla l Result [facility] [address] [place] [address] * (ABNORMAL) Protein, Total and Protein Electrophoresis with Immunofixation (ALMA DELIA), Serum (03/06/2024 11:48 AM BREAD MOLDER) Protein, sr 7.4 6.1 - 8.1 g/dL [facility] Immunofixation [facility] Comment:IgG lambda monoclona l band present. ALBUMIN 4.2 3.8 - 4.8 g/dL [facility] Alpha-1 Globulin 0.3 0.2 - 0.3 g/dL [facility] Alpha-2 Globuliin 0.8 0.5 - 0.9 g/dL [facility] Beta-1 globulin 0.5 0.4 - 0.6 g/dL [facility] Beta 2 globulin 0.4 0.2 - 0.5 g/dL [facility] Gamma globulin 1.2 0.8 - 1.7 g/dL [facility] Abnormal protein band 0.4(H) NONE DETECTED g/dL [facility] SPE, interp [facility] Comment: Faint restricted band (M-spike) migrating in the gamma region. Consider serum immunofixation to rule out a monoclonal protein if clinically indicated. Blood 03/06/2024 11:4 8 AM BREAD MOLDER 03/06/2024 11:49 AM BREAD MOLDER Elsa Soraya Tamia MACHINE GUNNER LAB BLOOD ORDERABLES Jayla l Result Performing Organization Address City/[facility]/ZIP Co de Phone Number [email or web address] [address] [place] [address] * Immunofixation, urine (03/06/2024 11:48 AM BREAD MOLDER) ALMA DELIA interp, ur [facility] Comment: No monoclonal immunoglobulin detected. The supplier of the testing reagents for this assay has changed. ??Detection of small monoclonal proteins may vary by test system. Urine 03/06/2024 11:4 8 AM BREAD MOLDER 03/06/2024 11:49 AM BREAD MOLDER Elsa Lira Tamia MACHINE GUNNER LAB URINE ORDERABLES Jayla l Result Performing Organization Address [facility] Co de Phone Number [email or web address] [address] [place] [address] * TRANSTHORACIC ECHO (TTE) COMPLETE W DOPPLER/CF WO CONTRAST (02/06/2024 11:39 AM BREAD MOLDER) Anatomical Region Laterality Modality Ultrasound 02/06/2024 11:3 2 AM BREAD MOLDER Narrative 02/06/2024 2:09 PM BREAD MOLDER [facility] [address] [facility] [address] [address] [address] [facility] [address], [place] [address] P:[phone] P:[phone] Echocardiographic Report Patient Name: ROBINSON BRITT R : 1950 Study Date: 02/06/2024 11:32:35 AM Gender: M Tech: Location: [place] Ref Provider: KAMAR ALMAZAN ?Height(Cm): 173 BSA: 2.58 Weight(Kg): 138.8 Heart Rate: 91 BP: 140 / 84 Quality: Good Order Provider: KAMAR ALMAZAN PROCEDURES: Echocardiographic Report: Transthoracic echocardiogram with complete 2D, M-Mode, and color Doppler examination. With Strain Analysis. INDICATIONS: I51.89 Other ill-defined heart diseases. Measurements: 2D/M Mode ?Doppler Measurement ?Value ?Normal Range ?Measurement ?Value ?Normal Range LVIDd 2D ? 5.77 ? [ 4.20 - 5.80 ] cm ?MELVINA Vmax ? 2.09 ? [ 2.00 - 4.00 ] cm2 LVIDs 2D ? 4.02 ? [ 2.50 - 4.00 ] cm ?AV Mean PG ? 5 ?mmHg LVPWd 2D ? 1.42 ? [ 0.60 - 1.00 ] cm ?AV Peak Santy ?1.48 ? [ 1.00 - 1.70 ] m/s IVSd 2D ?1.42 ? [ 0.60 - 1.00 ] cm ?AV Peak PG ? 9 ?mmHg LA Volume Index ?33 ? [ 16 - 34 ] cc/m2 ? AV VTI ? 24.34 ?cm LVOT Diam ?1.96 ?[ 1.70 - 2.10 ] cm LVOT Peak Santy ?1.02 ?[ 0.70 - 1.10 ] m/s LVOT VTI ? 19.99 ? cm MV E Peak Santy ?0.66 ?[ 0.60 - 1.30 ] m/s MV A Peak Santy ?0.79 ?[ 1.00 - 1.20 ] m/s MV Decel Time ?188 ? [ 104 - 258 ] msec Lateral E` ? 0.10 ?[ 0.10 - 0.15 ] m/s E` ? 0.08 ?m/s E/E` ? 7 Measurement ?Value ?Normal Range ?Measurement ?Value ?Normal Range 2D/M Mode ?Doppler - FINDINGS: Interpretation Site: Exam was interpreted at [facility]. Left Ventricle: Mild enlargement of left ventricle cavity. Mild global left ventricular systolic dysfunction. Impaired diastolic relaxation Grade I. Ejection fraction is visually estimated at 40 %. Ejection fraction is measured at 47 %. Global Longitudinal Strain is -12 %. Right Ventricle: Normal right ventricular size. Left Atrium: Left atrial size is within upper limits of normal. Right Atrium: The right atrium is normal in size. Atrial Septum: Normal atrial septum. Mitral Valve: Normal appearance of the mitral valve. Trivial regurgitation of the mitral valve. Aortic Valve: Normal appearance of the aortic valve. Tricuspid Valve: Normal appearance of the tricuspid valve. Pulmonic Valve: Normal appearance of the pulmonic valve. Pericardium: Normal pericardium with no significant pericardial effusion. Aorta: Normal aortic root. IVC: Normal size and normal respiratory collapse consistent with normal right atrial pressure (<5 mmHg). Pulmonary Artery: Normal pulmonary artery size. CONCLUSIONS: Mild enlargement of left ventricle cavity. Mild global left ventricular systolic dysfunction. Impaired diastolic relaxation Grade I. Ejection fraction is visually estimated at 40 %. Ejection fraction is measured at 47 %. Global Longitudinal Strain is -12 %. Left atrial size is within upper limits of normal. Normal appearance of the mitral valve. Trivial regurgitation of the mitral valve. Electronically Signed By: Hever Patel MD, [facility] 2024-02-06 14:08:14 BREAD MOLDER Procedure Note Hever Patel MD - 02/06/2024 [facility] [address] [facility] [address] [address] [address] [facility] [address], [place] [address] P:[phone] P:[phone] Echocardiographic Report Patient Name: ROBINSON BRITT R : 1950 Study Date: 02/06/2024 11:32:35 AM Gender: M Tech: Location: [facility] Provider: KAMAR ALMAZAN Height(Cm): 173 BSA: 2.58 Weight(Kg): 138.8 Heart Rate: 91 BP: 140 / 84 Quality: Good Order Provider: KAMAR ALMAZAN PROCEDURES: Echocardiographic Report: Transthoracic echocardiogram with complete 2D, M-Mode, and color Dopplerexamination. With Strain Analysis. INDICATIONS: I51.89 Other ill-defined heart diseases. Measurements: 2D/M ModeDoppler Measurement Value Normal Range MeasurementValue Normal Range LVIDd 2D 5.77 [ 4.20 - 5.80 ] cm MELVINA Vmax2.09 [ 2.00 - 4.00 ] cm2 LVIDs 2D 4.02 [ 2.50 - 4.00 ] cm AV Mean PG5 mmHg LVPWd 2D 1.42 [ 0.60 - 1.00 ] cm AV Peak Vel1.48 [ 1.00 - 1.70 ] m/s IVSd 2D 1.42 [ 0.60 - 1.00 ] cm AV Peak PG9 mmHg LA Volume Index 33 [ 16 - 34 ] cc/m2 AV VTI24.34 cm LVOT Diam 1.96 [ 1.70 - 2.10 ] cm LVOT Peak Santy 1.02 [ 0.70 - 1.10 ] m/s LVOT VTI 19.99 cm MV E Peak Santy 0.66 [ 0.60 - 1.30 ] m/s MV A Peak Santy 0.79 [ 1.00 - 1.20 ] m/s MV Decel Time 188 [ 104 - 258 ] msec Lateral E` 0.10 [ 0.10 - 0.15 ] m/s E` 0.08 m/s E/E` 7 Measurement Value Normal Range MeasurementValue Normal Range 2D/M ModeDoppler - FINDINGS: Interpretation Site: Exam was interpreted at [facility]. Left Ventricle: Mild enlargement of left ventricle cavity. Mild global left ventricularsystolic dysfunction. Impaired diastolic relaxation Grade I. Ejection fraction isvisually estimated at 40 %. Ejection fraction is measured at 47 %. GlobalLongitudinal Strain is -12 %. Right Ventricle: Normal right ventricular size. Left Atrium: Left atrial size is within upper limits of normal. Right Atrium: The right atrium is normal in size. Atrial Septum: Normal atrial septum. Mitral Valve: Normal appearance of the mitral valve. Trivial regurgitation of the mitralvalve. Aortic Valve: Normal appearance of the aortic valve. Tricuspid Valve: Normal appearance of the tricuspid valve. Pulmonic Valve: Normal appearance of the pulmonic valve. Pericardium: Normal pericardium with no significant pericardial effusion. Aorta: Normal aortic root. IVC: Normal size and normal respiratory collapse consistent with normal rightatrial pressure (<5 mmHg). Pulmonary Artery: Normal pulmonary artery size. CONCLUSIONS: Mild enlargement of left ventricle cavity. Mild global left ventricularsystolic dysfunction. Impaired diastolic relaxation Grade I. Ejection fraction isvisually estimated at 40 %. Ejection fraction is measured at 47 %. GlobalLongitudinal Strain is -12 %. Left atrial size is within upper limits of normal. Normal appearance of the mitral valve. Trivial regurgitation of the mitralvalve. Electronically Signed By: Hever Patel MD, [facility] 2024-02-06 14:08:14 BREAD MOLDER Kamar Almazan MD CV ECHO PROCEDURES Final Result * Lipid panel (02/01/2024) SCRIBED Cholesterol, Total 89 < - 200 [facility] SCRIBED HDL 30 > - 40 [facility] SCRIBED LDL 40 < - 100 [facility] SCRIBED Triglycerides 109 < - 150 [facility] Blood 02/01/2024 Historical Provider LAB BLOOD ORDERABLES Jayla norton Result [facility] from Last 3 Months Insurance [facility] MEDICARE Address[facility] [address] [place] [address] MEDICARE [facility] [employer] Care Teams Wallcovering Texturer Relationship Specialty Start Date End Date Kamar Almazan MD [address] [place] [phone] [facility] - General 09/08/09
--- OUTSIDE RECORDS SUMMARY | 2024-04-18 04:51 | XMS_ITS | Encounter Summary ---
Author Organization [facility] Address [address] [place] [address] Care Team Providers Care [employer] H[employer] Instructor Name Role Phone Kamar Almazan MD Primary Care Provider [phone] Encounter Details Date Type Department Care Team (Late Contact Info) Description 08/16/2000 Inpatient Historical [facility] Jasvir rFeed MD [address] [place] [phone] Opioid type dependence, continuous (CMS/HCC) (Primary Dx) Social History Tobacco Use Types Packs/Day Years Used Date Smoking Tobacco: Never Assessed Sex and Gender Information Value Date Recorded Sex Assigned at Not on file Legal Sex Male 3:36 AM BUSINESS EMPLOYMENT SPECIALIST Gender Identity Not on file Sexual Orientation Not on file documented as of this encounter Plan of Treatment Upcoming Encounters Date Type Department Care Team (Late Contact Info) Description 04/29/2024 2:45 PM BUSINESS EMPLOYMENT SPECIALIST Office Visit [facility] Oncology and Hematology - [place] [address] [facility] [address] [address] Rom Mcconnell MD [address] [facility] [address] [place] [address] documented as of this encounter Visit Diagnoses Diagnosis Opioid type dependence, continuous (CMS/HCC)- Primary Opioid type dependence, continuous documented in this encounter Care Teams [employer] H[employer] In[employer] Relationship Specialty Start Date End Date Kamar Almazan MD [address] [place] [address] [address] [place] [address] PCP - General Family Practice 04/05/24 documented as of this encounter
--- OUTSIDE RECORDS SUMMARY | 2024-04-18 04:51 | XMS_ITS | Encounter Summary ---
Author Organization [facility] Address [address] [place] [address] Care Team Providers Care Cargo Station Worker Name Role Phone Kamar Almaazn MD Primary Care Provider +1- [phone] Encounter Details Date Type Department Care Team (Late Contact Info) Description 02/03/1999 Inpatient Historical HIS Jasvir Freed MD [address] [place] [address] Opioid type dependence, continuous (CMS/HCC) (Primary Dx) Social History Tobacco Use Types Packs/Day Years Used Date Smoking Tobacco: Never Assessed Sex and Gender Information Value Date Recorded Sex Assigned at Not on file Legal Sex Male 3:36 AM MEDICAL RADIATION THERAPIST Gender Identity Not on file Sexual Orientation Not on file documented as of this encounter Plan of Treatment Upcoming Encounters Date Type Department Care Team (Late Contact Info) Description 04/29/2024 2:45 PM MEDICAL RADIATION THERAPIST Office Visit [facility] Oncology and Hematology - [place] 2227 [facility] [address] [address] Rom Mcconnell MD 2227 [facility] [address] [place] [address] documented as of this encounter Visit Diagnoses Diagnosis Opioid type dependence, continuous (CMS/HCC)- Primary Opioid type dependence, continuous documented in this encounter Care Teams Cargo Station Worker Relationship Specialty Start Date End Date Kamar Almazan MD [address] [place] [address] [address] [place] [address] PCP - General Family Practice 04/05/24 documented as of this encounter
--- OUTSIDE RECORDS SUMMARY | 2024-04-18 04:51 | XMS_ITS | Encounter Summary ---
Author Organization [facility] Address [address] [place] [address] Care Team Providers Care Magistrate Judge Name Role Phone Kamar Almazan MD Primary Care Provider +1- [phone] Encounter Details Date Type Department Care Team (Latest Contact Info) Description 08/22/2000 Outpatient Historical HIS [facility] Jasvir Freed MD [address] [place] [address] Opioid type dependence, unspecified (CMS/HCC) (Primary Dx) Social History Tobacco Use Types Packs/Day Years Used Date Smoking Tobacco: Never Assessed Sex and Gender Information Value Date Recorded Sex Assigned at Not on file Legal Sex Male 3:36 AM COREMAKER SUPERVISOR Gender Identity Not on file Sexual Orientation Not on file documented as of this encounter Plan of Treatment Upcoming Encounters Date Type Department Care Team (Late st Contact Info) Description 04/29/2024 2:45 PM COREMAKER SUPERVISOR Office Visit [facility] Oncology and Hematology - [place] 2227 [facility] [address] [place] [address] Rom Mcconnell MD 2227 [facility] [address] [place] [address] documented as of this encounter Visit Diagnoses Diagnosis Opioid type dependence, unspecified (CMS/HCC)- Primary Opioid type dependence, unspecified documented in this encounter Care Teams Magistrate Judge Relationship Specialty Start Date End Date Kamar Almazan MD 531 [facility] [address] [place] [address] PCP - General Family Practice 04/05/24 documented as of this encounter
--- OUTSIDE RECORDS SUMMARY | 2024-04-18 04:51 | XMS_ITS | Encounter Summary ---
Author Organization [facility] Address [address] [place] [address] Care Team Providers Care Pocket And Pulley Machine Operator Name Role Phone Kamar Almazan MD Primary Care Provider +1- [phone] Encounter Details Date Type Department Care Team (Late st Contact Info) Description 04/10/2024 External Device Data [facility] ABSTRACTION Provider, Abstract NO ADDRESS ON FILE Social History Tobacco Use Types Packs/Day Years Used Date Smoking Tobacco: Never Smokeless Tobacco: Never Alcohol Use Standard Drinks/Week Comments Never 0 (1 standard drink = 0.6 oz pur e alcohol) Sex and Gender Information Value Date Recorded Sex Assigned at Not on file Legal Sex Male 3:36 AM DIABETES NURSE Gender Identity Not on file Sexual Orientation Not on file documented as of this encounter Plan of Treatment Upcoming Encounters Date Type Department Care Team (Late st Contact Info) Description 04/29/2024 2:45 PM DIABETES NURSE Office Visit [facility] Oncology and Hematology - [place] 2227 [facility] 200 [place] [address] Rom Mcconnell MD 2227 [facility] [address] [place] [address] documented as of this encounter Visit Diagnoses Not on filedocumented in this encounter Care Teams Pocket And Pulley Machine Operator Relationship Specialty Start Date End Date Kamar Almazan MD 531 [facility] [address] [place] [address] PCP - General Family Practice 04/05/24 documented as of this encounter
--- OUTSIDE RECORDS SUMMARY | 2024-04-18 04:51 | XMS_ITS | Encounter Summary ---
Author Organization [facility] Address 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 LAND SURVEYING SURVEY WORKER Gender Identity Not on file Sexual Orientation Not on file documented as of this encounter Plan of Treatment Upcoming Encounters Date Type Department Care Team (Late st Contact Info) Description 04/29/2024 2:45 PM LAND SURVEYING SURVEY WORKER Office Visit [facility] Oncology and Hematology - [place] 2227 [facility] 200 [place] [address] Rom Mcconnell MD [address] [facility] [address] [place] [address] documented as of this encounter Visit Diagnoses Diagnosis Opioid type dependence, unspecified (CMS/HCC)- Primary Opioid type dependence, unspecified documented in this encounter Care Teams Online Merchandising Manager Relationship Specialty Start Date End Date Kamar Almazan MD [address] [place] [address] [address] [place] [address] PCP - General Family Practice 04/05/24 documented as of this encounter
--- OUTSIDE RECORDS SUMMARY | 2024-04-18 04:51 | XMS_ITS | Encounter Summary ---
Author Organization [facility] Address [address] [place] [address] Care Team Providers Care Tar Pot Worker Name Role Phone Kamar Almazan MD Primary Care Provider +1- [phone] Encounter Details Date Type Department Care Team (Latest Contact Info) Description 07/20/2000 Outpatient Historical HIS [facility] Conversion, History Opioid type dependence, unspecified (CMS/HCC) (Primary Dx) Social History Tobacco Use Types Packs/Day Years Used Date Smoking Tobacco: Never Assessed Sex and Gender Information Value Date Recorded Sex Assigned at Not on file Legal Sex Male 3:36 AM HOME FIRE ALARM INSTALLER Gender Identity Not on file Sexual Orientation Not on file documented as of this encounter Plan of Treatment Upcoming Encounters Date Type Department Care Team (Late st Contact Info) Description 04/29/2024 2:45 PM HOME FIRE ALARM INSTALLER Office Visit [facility] Oncology and Hematology - [place] 2227 [facility] 200 [place] [address] Rom Mcconnell MD 2227 [facility] 100 [place] [address] documented as of this encounter Visit Diagnoses Diagnosis Opioid type dependence, unspecified (CMS/HCC)- Primary Opioid type dependence, unspecified documented in this encounter Care Teams Tar Pot Worker Relationship Specialty Start Date End Date Kamar Almazan MD 531 [facility] 100 [place] [address] PCP - General Family Practice 04/05/24 documented as of this encounter
--- OUTSIDE RECORDS SUMMARY | 2024-04-18 04:51 | XMS_ITS | Clinical Summary ---
Author Organization [facility] Address [address] [place] [address] Care Team Providers Care Wood Lathe Operator Name Role Phone Kamar Almazan MD Primary Care Provider +1- [phone] Allergies Active Allergy Reactions Criticality Noted Date Comments Codeine Itching,Nausea and Vomiting Low 03/26/20 24 Penicillins Nausea and Vomiting Low 03/26/2024 Medications atorvastatin (LIPITOR) 20 mg tablet Take 20 mg by mouth daily. 2 Active buprenorphine- nalOXone (SUBOXONE) 8-2 mg Tablet, Sublingual Place 1 Tablet under tongue daily. Active buPROPion HCL (WELLBUTRIN XL) 300 mg Extended Release 24 hour tablet Take 300 mg by mouth daily in the morning. Active carvediloL (COREG) 6.25 mg tablet Take 6.25 mg by mouth 2 times daily. Active clopidogreL (PLAVIX) 75 mg Tablet Take 75 mg by mouth daily in the morning. Active empagliflozin (JARDIANCE) 10 mg tablet Take 10 mg by mouth daily. 4 02/26/20 25 Active ibuprofen (MOTRIN) 800 mg tablet Take 800 mg by mouth Continuous as needed for Pain. 4 Active LORazepam (ATIVAN) 1 mg tablet Take 1 mg by mouth 3 times daily as needed for Anxiety. Active losartan (COZAAR) 100 mg tablet Take 100 mg by mouth daily. 4 Active ondansetron (ZOFRAN ODT) 4 mg Tablet, Rapid Dissolve Take 4 mg by mouth every 8 hours as needed for Nausea. Active pantoprazole (PROTONIX) 40 mg Tablet, Delayed Release (E.C.) Take 40 mg by mouth daily. Active semaglutide (Ozempic) 1 mg/dose (4 mg/3 mL) Pen Injector Inject 1 mg by subcutaneous injection every 7 days. 4 Active spironolactone (ALDACTONE) 50 mg tablet Take 50 mg by mouth daily. 4 Active testosterone cypionate (DEPO-TESTOSTE VLAD) 200 mg/mL Oil Inject 200 mg by intramuscular injection every 2 weeks. 3 Active Active Problems Problem Noted Date Diagnosed Date Dyspnea 03/26/2024 Elevated blood protein 03/26/2024 Encounters Date Type Department Care Team Description 04/17/2024 External Device Data STL ABSTRACTION Provider, Abstract 04/17/2024 Telephone [facility] [address] [place] [address] Rom Mcconnell MD Lab Results 04/17/2024 Telephone [facility] [address] [place] [address] Rom Mcconnell MD labs for upcoming appointment 04/17/2024 Orders Only [facility] [address] [place] [address] Rom Mcconnell MD Dyspnea, unspecified type (Primary Dx); Elevated blood protein 04/10/2024 External Device Data STL ABSTRACTION Provider, Abstract 04/02/2024 External Device Data STL ABSTRACTION Provider, Abstract 03/26/2024 11:00 AM SSIS DEVELOPER Office Visit [facility] [address] [place] [address] Sisi Jimenez MD Monoclonal gammopathies (Primary Dx); Other congestive heart failure (CMS/HCC); Morbid obesity with body mass index (BMI) of 40.0 or higher (CMS/HCC); Dyspnea, unspecified type; Elevated blood protein from Last 3 Months Family History Medical History Relation Name Comments No Known Problems Child Cancer - Other Father Lung Cancer Mother No Known Problems Sister 1 No Known Problems Sister 2 No Known Problems Sister 3 Relation Name Status Comments Child Alive Father Mother Sister 1 Alive Sister 2 Alive Sister 3 Alive Social History Tobacco Use Types Packs/Day Years Used Date Smoking Tobacco: Never Smokeless Tobacco: Never Alcohol Use Standard Drinks/Week Comments Never 0 (1 standard drink = 0.6 oz pur e alcohol) Sex and Gender Information Value Date Recorded Sex Assigned at Not on file Legal Sex Male 3:36 AM SSIS DEVELOPER Gender Identity Not on file Sexual Orientation Not on file Last Filed Vital Signs Vital Sign Reading Time Taken Comments Blood Pressure 112/62 03/26/2024 10:53 AM SSIS DEVELOPER Pulse 85 03/26/2024 10:39 AM SSIS DEVELOPER Temperature 36.1 ??C (97 ??F) 03/26/2024 10: 39 AM SSIS DEVELOPER Respiratory Rate 16 03/26/2024 10:3 9 AM SSIS DEVELOPER Oxygen Saturation 94% 03/26/2024 10: 39 AM SSIS DEVELOPER Inhaled Oxygen Concentration - - Weight 133.9 kg (295 lb 3.2 oz) 024 10:39 AM SSIS DEVELOPER Height 175.3 cm (5' 9 ) 03/26/2024 10:3 9 AM SSIS DEVELOPER Body Mass Index 43.59 03/26/2024 10:39 AM SSIS DEVELOPER Plan of Treatment Upcoming Encounters Date Type Department Care Team (Late st Contact Info) Description 04/29/2024 2:45 PM SSIS DEVELOPER Office Visit [facility] Oncology and Hematology - [place] [address] [place] [address] [facility] 200 [place] [address] Rom Mcconnell MD 2227 [facility] [address] [place] [address] Health Maintenance Due Date Last Done Comments DTAP/TDAP/TD VACCINES (1 - Tdap) 07/13/1970 COLORECTAL SCREENING 07/13/1996 Colorectal Cancer Screening 07/13/1996 FIT-DNA Q 3 years 07/13/1996 FIT/FOBT Q 1 year 07/13/1996 Flex Sig/CT Colonography Q 5 years 07/13/1996 PNEUMOCOCCAL VACCINE 65+ YEA RS (1 of 1 - PCV) 07/13/2001 ZOSTER VACCINE (1 of 2) 07/13/2001 RSV VACCINE (60+ or ) (1 - Risk 60-74 years 1-dose series) 2011 INFLUENZA VACCINE (#1) 2023 01/11/2019, 2008 Medicare [place] ([place]) Prev entative Visit/Annual Wellness Visit 03/27/2024 Insurance [facility] [id number] Care Teams Wood Lathe Operator Relationship Specialty Start Date End Date Kamar Almazan MD [address] [address] PCP - General Family Practice 04/05/24
--- OUTSIDE RECORDS SUMMARY | 2024-04-18 04:51 | XMS_ITS | Encounter Summary ---
Author Organization [facility] Address [address] [place] [address] Care Team Providers Care Dinkey Mechanic Name Role Phone Kamar Almazan MD Primary Care Provider +1- [phone] Encounter Details Date Type Department Care Team (Latest Contact Info) Description 10/01/2000 Outpatient Historical HIS [facility] Conversion, History Unspecified drug dependence, unspecified (CMS/HCC) (Primary Dx) Social History Tobacco Use Types Packs/Day Years Used Date Smoking Tobacco: Never Assessed Sex and Gender Information Value Date Recorded Sex Assigned at Not on file Legal Sex Male 3:36 AM SOUNDSCRIBER MECHANIC Gender Identity Not on file Sexual Orientation Not on file documented as of this encounter Plan of Treatment Upcoming Encounters Date Type Department Care Team (Late st Contact Info) Description 04/29/2024 2:45 PM SOUNDSCRIBER MECHANIC Office Visit [facility] Oncology and Hematology - [place] 2227 [facility] 200 [place] [address] Rom Mcconnell MD 2227 [facility] 100 [place] [address] documented as of this encounter Visit Diagnoses Diagnosis Unspecified drug dependence, unspecified (CMS/HCC)- Primary Unspecified drug dependence, unspecified documented in this encounter Care Teams Dinkey Mechanic Relationship Specialty Start Date End Date Kamar Almazan MD [address] [phone] PCP - General Family Practice 04/05/24 documented as of this encounter
--- OUTSIDE RECORDS SUMMARY | 2024-04-18 04:51 | XMS_ITS | Encounter Summary ---
Author Organization [facility] Address [address] [place] [address] Care Team Providers Care Kids Club Attendant Name Role Phone Kamar Almazan MD Primary Care Provider +1- [phone] Encounter Details Date Type Department Care Team (Latest Contact Info) Description 05/17/2000 Outpatient Historical HIS [facility] Conversion, History Opioid type dependence, unspecified (CMS/HCC) (Primary Dx) Social History Tobacco Use Types Packs/Day Years Used Date Smoking Tobacco: Never Assessed Sex and Gender Information Value Date Recorded Sex Assigned at Not on file Legal Sex Male 3:36 AM MACHINE FITTER Gender Identity Not on file Sexual Orientation Not on file documented as of this encounter Plan of Treatment Upcoming Encounters Date Type Department Care Team (Late st Contact Info) Description 04/29/2024 2:45 PM MACHINE FITTER Office Visit [facility] Oncology and Hematology - [place] 2227 [facility] 200 [place] [address] Rom Mcconnell MD 2227 [facility] 100 [place] [address] documented as of this encounter Visit Diagnoses Diagnosis Opioid type dependence, unspecified (CMS/HCC)- Primary Opioid type dependence, unspecified documented in this encounter Care Teams Kids Club Attendant Relationship Specialty Start Date End Date Kamar Almazan MD 531 [facility] 100 [place] [address] PCP - General Family Practice 04/05/24 documented as of this encounter
--- OUTSIDE RECORDS SUMMARY | 2024-04-18 04:51 | XMS_ITS | Encounter Summary ---
Author Organization [facility] Address [address] [place] [address] Care Team Providers Care Blister Packaging Machine Operator Name Role Phone Kamar Almazan MD Primary Care Provider +1- [phone] Encounter Details Date Type Department Care Team (Latest Contact Info) Description 04/25/2000 Outpatient Historical HIS CD PARTIAL Jasvir Freed MD [address] [place] [address] Opioid type dependence, unspecified (CMS/HCC) (Primary Dx) Social History Tobacco Use Types Packs/Day Years Used Date Smoking Tobacco: Never Assessed Sex and Gender Information Value Date Recorded Sex Assigned at Not on file Legal Sex Male 3:36 AM MACHINE SHOP WORKER Gender Identity Not on file Sexual Orientation Not on file documented as of this encounter Plan of Treatment Upcoming Encounters Date Type Department Care Team (Late st Contact Info) Description 04/29/2024 2:45 PM MACHINE SHOP WORKER Office Visit [facility] Oncology and Hematology - [place] [address] [facility] 200 [place] [address] Rom Mcconnell MD 2227 [facility] [address] [place] [address] documented as of this encounter Visit Diagnoses Diagnosis Opioid type dependence, unspecified (CMS/HCC)- Primary Opioid type dependence, unspecified documented in this encounter Care Teams Blister Packaging Machine Operator Relationship Specialty Start Date End Date Kamar Almazan MD 531 [facility] [address] [place] [address] PCP - General Family Practice 04/05/24 documented as of this encounter
--- OUTSIDE RECORDS SUMMARY | 2024-04-18 04:51 | XMS_ITS | Encounter Summary ---
Author Organization [facility] Address [address] [place] [address] Care Team Providers Care Auto Suspension And Steering Mechanic Name Role Phone Kamar Almazan MD Primary Care Provider +1- [phone] Encounter Details Date Type Department Care Team (Late st Contact Info) Description 04/19/2000 Outpatient Historical HIS [facility] Social History Tobacco Use Types Packs/Day Years Used Date Smoking Tobacco: Never Assessed Sex and Gender Information Value Date Recorded Sex Assigned at Not on file Legal Sex Male 3:36 AM SIDE DOOR MAN Gender Identity Not on file Sexual Orientation Not on file documented as of this encounter Plan of Treatment Upcoming Encounters Date Type Department Care Team (Late st Contact Info) Description 04/29/2024 2:45 PM SIDE DOOR MAN Office Visit [facility] Oncology and Hematology - [place] 2227 [facility] 200 [place] [address] Rom Mcconnell MD 2227 [facility] [address] [place] [address] documented as of this encounter Visit Diagnoses Not on filedocumented in this encounter Care Teams Auto Suspension And Steering Mechanic Relationship Specialty Start Date End Date Kamar Almazan MD 531 [facility] [address] [place] [address] PCP - General Family Practice 04/05/24 documented as of this encounter
--- OUTSIDE RECORDS SUMMARY | 2024-04-18 04:51 | XMS_ITS | Encounter Summary ---
Author Organization [facility] Address [address] [place] [address] Care Team Providers Care Retail Loss Prevention Specialist Name Role Phone Kamar Almazan MD Primary Care Provider +1- [phone] Encounter Details Date Type Department Care Team (Latest Contact Info) Description 02/08/1999 Outpatient Historical HIS CD PARTIAL Jasvir Freed MD [address] [place] [address] Opioid type dependence, unspecified (CMS/HCC) (Primary Dx) Social History Tobacco Use Types Packs/Day Years Used Date Smoking Tobacco: Never Assessed Sex and Gender Information Value Date Recorded Sex Assigned at Not on file Legal Sex Male 3:36 AM AUTOMAT CAR ATTENDANT Gender Identity Not on file Sexual Orientation Not on file documented as of this encounter Plan of Treatment Upcoming Encounters Date Type Department Care Team (Late st Contact Info) Description 04/29/2024 2:45 PM AUTOMAT CAR ATTENDANT Office Visit [facility] Oncology and Hematology - [place] 2227 [facility] 200 [place] [address] Rom Mcconnell MD 2227 [facility] [address] [place] [address] documented as of this encounter Visit Diagnoses Diagnosis Opioid type dependence, unspecified (CMS/HCC)- Primary Opioid type dependence, unspecified documented in this encounter Care Teams Retail Loss Prevention Specialist Relationship Specialty Start Date End Date Kamar Almazan MD 531 [facility] [address] [place] [phone] PCP - General Family Practice 04/05/24 documented as of this encounter
--- OUTSIDE RECORDS SUMMARY | 2024-04-18 04:51 | XMS_ITS | Encounter Summary ---
Author Organization [facility] Address [address] [place] [address] Care Team Providers Care Fiberglass Tube Molder Name Role Phone Kamar Almazan MD Primary Care Provider +1- [phone] Encounter Details Date Type Department Care Team (Late st Contact Info) Description 11/02/2000 Outpatient Historical HIS [facility] Conversion, History Social History Tobacco Use Types Packs/Day Years Used Date Smoking Tobacco: Never Assessed Sex and Gender Information Value Date Recorded Sex Assigned at Not on file Legal Sex Male 3:36 AM RN WOUND Gender Identity Not on file Sexual Orientation Not on file documented as of this encounter Plan of Treatment Upcoming Encounters Date Type Department Care Team (Late st Contact Info) Description 04/29/2024 2:45 PM RN WOUND Office Visit [facility] Oncology and Hematology - [place] 2227 [facility] 200 [place] [address] Rom Mcconnell MD 2227 [facility] [address] [place] [address] documented as of this encounter Visit Diagnoses Not on filedocumented in this encounter Care Teams Fiberglass Tube Molder Relationship Specialty Start Date End Date Kamar Almazan MD [address] [facility] [address] [place] [address] PCP - General Family Practice 04/05/24 documented as of this encounter
--- OUTSIDE RECORDS SUMMARY | 2024-04-18 04:51 | XMS_ITS | Encounter Summary ---
Author Organization [facility] Address [address] [place] [address] Care Team Providers Care Railroad Mechanic Name Role Phone Kamar Almazan MD Primary Care Provider +1- [phone] Encounter Details Date Type Department Care Team (Latest Contact Info) Description 08/30/2000 Outpatient Historical [facility] Conversion, History Unspecified drug dependence, unspecified (CMS/HCC) (Primary Dx) Social History Tobacco Use Types Packs/Day Years Used Date Smoking Tobacco: Never Assessed Sex and Gender Information Value Date Recorded Sex Assigned at Not on file Legal Sex Male 3:36 AM SENIOR ADMINISTRATIVE ASSISTANT Gender Identity Not on file Sexual Orientation Not on file documented as of this encounter Plan of Treatment Upcoming Encounters Date Type Department Care Team (Late st Contact Info) Description 04/29/2024 2:45 PM SENIOR ADMINISTRATIVE ASSISTANT Office Visit [facility] Oncology and Hematology - [place] [address] [facility] 200 [place] [address] Rom Mcconnell MD 2[address] [facility] [address] [place] [address] documented as of this encounter Visit Diagnoses Diagnosis Unspecified drug dependence, unspecified (CMS/HCC)- Primary Unspecified drug dependence, unspecified documented in this encounter Care Teams Railroad Mechanic Relationship Specialty Start Date End Date Kamar Almazan MD [address] [phone] PCP - General Family Practice 04/05/24 documented as of this encounter
--- OUTSIDE RECORDS SUMMARY | 2024-04-18 04:51 | XMS_ITS | Encounter Summary ---
Author Organization [facility] Address [address] [place] [address] Care Team Providers Care It Lead Name Role Phone Kamar Almazan MD Primary Care Provider +1- [phone] Encounter Details Date Type Department Care Team (Late st Contact Info) Description 08/21/2000 Outpatient Historical [facility] Conversion, History Social History Tobacco Use Types Packs/Day Years Used Date Smoking Tobacco: Never Assessed Sex and Gender Information Value Date Recorded Sex Assigned at Not on file Legal Sex Male 3:36 AM DIGITAL ASSOCIATE MEDIA DIRECTOR Gender Identity Not on file Sexual Orientation Not on file documented as of this encounter Plan of Treatment Upcoming Encounters Date Type Department Care Team (Late st Contact Info) Description 04/29/2024 2:45 PM DIGITAL ASSOCIATE MEDIA DIRECTOR Office Visit [facility] Oncology and Hematology - [place] [address] [facility] 200 [place] [address] Rom Mcconnell MD [address] [facility] [address] [place] [address] documented as of this encounter Visit Diagnoses Not on filedocumented in this encounter Care Teams It Lead Relationship Specialty Start Date End Date Kamar Almazan MD [address] [facility] [address] [place] [address] PCP - General Family Practice 04/05/24 documented as of this encounter
--- OUTSIDE RECORDS SUMMARY | 2024-04-18 04:51 | XMS_ITS | Clinical Summary ---
Author Organization [facility] [address] Address [address] [place] [address] Care Team Providers Care Brim Presser Name Role Phone Kamar Almazan MD Primary Care Prov ider Allergies Active Allergy Reactions Criticality Noted Date [...] ( DVT) of lower extremity 05/24/2018 05/24/2018 Encounters Date Type Department Care Team Description 04/15/2024 Telephone [place] [address] [place] [address] Elsa Cantrell NP samples 04/08/2024 Telephone [facility] [address] [facility] [address] [place] [address] lEsa Cantrell NP 04/05/2024 Telephone [place] [address] [place] [address] Elsa Cantrell NP evaluating cardiomyopathy 03/25/2024 10:00 AM FLEET MAINTENANCE MANAGER - 03/25/2024 11:59 PM FLEET MAINTENANCE MANAGER Hospital Encounter [facility] [address] [place] [address] Dilated cardiomyopathy (CMS/HCC) (HCC) Discharge Disposition: Discharge to home or self care 03/18/2024 Telephone [place] [address] [place] [phone] Ronak Flores MD 03/15/2024 3:00 PM FLEET MAINTENANCE MANAGER Office Visit [place] [address] [place] [phone] Elsa Cantrell NP Dilated cardiomyopathy (CMS/HCC) (HCC) (Primary Dx); Abnormal echocardiogram; Abnormal laboratory test result 02/16/2024 Telephone [place] [address] [place] [phone] Elsa Cantrell NP Med Management 02/13/2024 Telephone [place] [address] [place] [phone] Rosmery Boggs 02/09/2024 1:00 PM FLEET MAINTENANCE MANAGER Office Visit [facility]iology [address] [place] [phone] Elsa Cantrell NP Dilated cardiomyopathy ([facility]) ([facility]) (Primary Dx); Abnormal echocardiogram; H/O: stroke; Morbid obesity with BMI of 45.0-49.9, adult ([facility]) 02/06/2024 11:15 AM FLEET MAINTENANCE MANAGER Ancillary Procedure [facility] Cardiology [address] [place] [address] Other ill-defined heart diseases from Last 3 Months Immunizations Name Administration Dates Next Due H1N1 All Forms 01/25/2009 Influenza, Quadrivalent, Spl it, Preservative Free, Intramuscular 01/11/2019 Influenza, Split 01/25/2009 Surgical History Surgery Date Site/Laterality Comments HIP ARTHROPLASTY Hip replacement OTHER SURGICAL HISTORY rright hip replacement x2 OTHER SURGICAL HISTORY hhemorrhoidectomy KNEE ARTHROSCOPY arthroscopic knee surgery APPENDECTOMY Appendectomy HIP SURGERY APPENDECTOMY JOINT REPLACEMENT KNEE SURGERY KNEE ARTHROSCOPY Medical History Medical History Date Comments Hx Other Medical hiatal hernia Gastroesophageal reflux disease GERD Depression Depression Osteoarthritis osteoarthritis Gout gout Hx Other Medical anxiety/depress ion Adiposity obesity Hx Other Medical DVT Hx Other Medical bilateral PE Hx Other Medical pulmonary hyper tension Cataracts, bilateral Arthritis Deep vein thrombosis (CMS/HCC) ([facility]) 2013 Pulmonary emboli ([facility]) 2013 Caused pu lmonary hypertension Addiction to drug (CMS/HCC) ([facility]) Anxiety Family History Medical History Relation Name Comments Arthritis Father Cancer Father cancer; Cause o f : cancer Gout Father Stroke Father Cancer Mother Diabetes Mother Hypertension Mother Other Mother ccancer; Cause of : ccancer Lung cancer Other 1 Family history of Cancer -lung; Other Other 2 Family history of Cancer -skin; Relation Name Status Comments Father (Age 70) from skin cancer Mother (Age 80) of ol d cell cancer to liver Other 1 Other 2 Social History Tobacco Use Types Packs/Day Years Used Date Smoking Tobacco: Never Smokeless Tobacco: Never Tobacco Cessation:Counseling Given: Not Answered Alcohol Use Standard Drinks/Week Comments No 0 (1 standard drink = 0.6 oz pur e alcohol) recovering Sex and Gender Information Value Date Recorded Sex Assigned at Not on file Legal Sex Male 1:23 AM FLEET MAINTENANCE MANAGER Gender Identity Not on file Sexual Orientation Not on file 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 on file Not on file Obstetrics History Last Filed Vital Signs Vital Sign Reading Time Taken Comments Blood Pressure 112/68 03/15/2024 2:57 PM FLEET MAINTENANCE MANAGER Pulse 86 03/15/2024 2:57 PM FLEET MAINTENANCE MANAGER Temperature 36.4 ??C (97.5 ??F) 04/02/2020 3:10 PM CS T Respiratory Rate - - Oxygen Saturation 94% 03/15/2024 2:57 PM FLEET MAINTENANCE MANAGER Inhaled Oxygen Concentration - - Weight 132.5 kg (292 lb) 03/15/2024 2:57 PM FLEET MAINTENANCE MANAGER Height 172.7 cm (5' 8 ) 03/15/2024 2:57 PM FLEET MAINTENANCE MANAGER Body Mass Index 44.4 03/15/2024 2:57 PM FLEET MAINTENANCE MANAGER Plan of Treatment Health Maintenance Due Date Last Done Comments Colon Cancer Screening-Colonoscopy 1950 Depression Screening 1950 Fall Risk Assessment 1950 Hepatitis C Screening 1950 DTaP/Tdap/Td Vaccine (1 - Tdap) 07/13/1962 Hepatitis B Screening 07/13/1969 Zoster Vaccine (1 of 2) 07/13/2001 Pneumococcal vaccine 65+ (1 of 1 - PCV) 07/13/2016 Well Visit 65+ 07/13/2016 Influenza Vaccine (#1) 2023 01/11/2019, 2008 Procedures Procedure Name Priority Date/Time Associated Diagnosis Comments MRI CARDIAC M&FUNC W WO CONTRAST Schedule Routine, Read Routine (OP Routine) 03/25/2024 11:53 AM FLEET MAINTENANCE MANAGER Dilated cardiomyopathy (CMS/HCC) (HCC) KAPPA/LAMBDA LIGHT CHAINS FREE WITH RATIO, SERUM Routine 03/06/2024 11:48 AM FLEET MAINTENANCE MANAGER PROTEIN, TOTAL AND PROTEIN ELECTROPHORESIS WITH IMMUNOFIXATION (ALMA DELIA), SERUM Routine 03/06/2024 11:48 AM FLEET MAINTENANCE MANAGER Dilated cardiomyopathy (CMS/HCC) (HCC) IMMUNOFIXATION, URINE Routine 03/06/2024 11:48 AM FLEET MAINTENANCE MANAGER Dilated cardiomyopathy (CMS/HCC) (HCC) TRANSTHORACIC ECHO (TTE) COMPLETE W DOPPLER/CF WO CONTRAST Routine 02/06/2024 11:39 AM FLEET MAINTENANCE MANAGER Other ill-defined heart diseases LIPID PANEL Routine 02/01/2024 from Last 3 Months Results * MRI Cardiac M&F W WO Contrast (03/25/2024 11:53 AM FLEET MAINTENANCE MANAGER) Anatomical Region Laterality Modality Body N/A Magnetic Resonan ce 03/25/2024 12:2 7 PM FLEET MAINTENANCE MANAGER Impressions 03/25/2024 1:51 PM FLEET MAINTENANCE MANAGER 1. ??Borderline biventricular enlargement with mildly reduced [...] Hever Ann M.D. Narrative 03/25/2024 1:51 PM FLEET MAINTENANCE MANAGER EXAM: MRI CARDIAC M/T/FUNC W WO CONTRAST [...] by: Hever Ann M.D. Elsa Cantrell NP IMG MRI PROCEDURES Final Result * (ABNORMAL) KAPPA/LAMBDA LIGHT CHAINS FREE WITH RATIO, SERUM (03/06/2024 11:48 AM FLEET MAINTENANCE MANAGER) Fruita light chain, free 29.1(H) 3.3 - 19.4 mg/L [facility] Lambda light chain, free 22.1 5.7 - 26.3 mg/L [facility] Fruita/Lambda light chains free with ratio 1.32 0.26 - 1.65 [facility] Comment: Free kappa/lambda ratio in serum of [...] of these disorders. 03/06/2024 11:4 8 AM FLEET MAINTENANCE MANAGER 03/06/2024 11:49 AM FLEET MAINTENANCE MANAGER Elsa Cantrell NP LAB BLOOD ORDERABLES Jayla l Result [facility] [address] [address] [place] [address] * (ABNORMAL) Protein, Total and Protein Electrophoresis with Immunofixation (ALMA DELIA), Serum (03/06/2024 11:48 AM FLEET MAINTENANCE MANAGER) Protein, sr 7.4 6.1 - 8.1 g/dL [facility] Immunofixation [facility] Comment:IgG lambda monoclona l band present. ALBUMIN 4.2 3.8 - 4.8 g/dL [facility] Alpha-1 Globulin 0.3 0.2 - 0.3 g/dL [facility] Alpha-2 Globuliin 0.8 0.5 - 0.9 g/dL [facility] Beta-1 globulin 0.5 0.4 - 0.6 g/dL [facility] Beta 2 globulin 0.4 0.2 - 0.5 g/dL [facility] Gamma globulin 1.2 0.8 - 1.7 g/dL [facility] Abnormal protein band 0.4(H) NONE DETECTED g/dL [facility] SPE, interp [facility] Comment: Faint restricted band (M-spike) migrating in the gamma region. Consider serum immunofixation to rule out a monoclonal protein if clinically indicated. Blood 03/06/2024 11:4 8 AM FLEET MAINTENANCE MANAGER 03/06/2024 11:49 AM FLEET MAINTENANCE MANAGER Elsa Cantrell MARSHMALLOW MAKER LAB BLOOD ORDERABLES Jayla l Result [facility] [address] [facility] [address] * Immunofixation, urine (03/06/2024 11:48 AM FLEET MAINTENANCE MANAGER) ALMA DELIA interp, ur [facility] Comment: No monoclonal immunoglobulin detected. The supplier of the testing reagents for this assay has changed. ??Detection of small monoclonal proteins may vary by test system. Urine 03/06/2024 11:4 8 AM FLEET MAINTENANCE MANAGER 03/06/2024 11:49 AM FLEET MAINTENANCE MANAGER us Elsa Cantrell NP LAB URINE ORDERABLES Jayla cierra Result [facility] [employer] [facility] [address] [place] [address] * TRANSTHORACIC ECHO (TTE) COMPLETE W DOPPLER/CF WO CONTRAST (02/06/2024 11:39 AM FLEET MAINTENANCE MANAGER) Anatomical Region Laterality Modality Ultrasound 02/06/2024 11:3 2 AM FLEET MAINTENANCE MANAGER Narrative 02/06/2024 2:09 PM FLEET MAINTENANCE MANAGER [facility] Medical Group Cardiology [address] [facility] [address], [place] [address] [address], [place] [address] P:[phone] P:[phone] Echocardiographic Report Patient Name: ROBINSON BRITT R : 1950 Study Date: 02/06/2024 11:32:35 AM Gender: M Tech: Location: [facility] Provider: KAMAR ALMAZAN ?Height(Cm): 173 BSA: 2.58 [...] FINDINGS: Interpretation Site: Exam was interpreted at [facility]. Left Ventricle: Mild enlargement of left ventricle [...] valve. Electronically Signed By: Hever Patel MD, [facility] 2024-02-06 14:08:14 FLEET MAINTENANCE MANAGER Procedure Note Hever Patel MD - 02/06/2024 [facility] Medical Group Cardiology [address] [facility] [address] [address] [address] [facility] [address] [place], [place] [address] P:[phone] P:[phone] Echocardiographic Report Patient Name: ROBINSON BRITT R : 1950 Study Date: 02/06/2024 11:32:35 AM Gender: M Tech: Location: [facility] Provider: KAMAR ALMAZAN Height(Cm): 173 BSA: 2.58 [...] FINDINGS: Interpretation Site: Exam was interpreted at [facility]. Left Ventricle: Mild enlargement of left ventricle [...] mitralvalve. Electronically Signed By: Hever Patel MD, [facility] 2024-02-06 14:08:14 FLEET MAINTENANCE MANAGER Kamar Almazan MD CV ECHO PROCEDURES Final Result * Lipid panel (02/01/2024) SCRIBED Cholesterol, Total 89 < - 200 [facility] HDL 30 > - 40 [facility] LDL 40 < - 100 [facility] Triglycerides 109 < - 150 [facility] Blood 02/01/2024 us Historical Provider LAB BLOOD ORDERABLES Jayla norton Result [facility] from Last 3 Months Insurance MEDICARE SOL[employer]IONS [facility] MEDIC[facility] Address: [address] [address] [place] [address] MEDICARE [employer] Care Teams Brim Presser Relationship Specialty Start Date End Date Kamar Almazan MD 1 [place] [address] PCP - General 09/08/09
--- OUTSIDE RECORDS SUMMARY | 2024-04-18 04:51 | XMS_ITS ---
Author Organization [facility] [employer] Address [address] [place] [address] Care Team Providers Care Hospice Music Therapist Name Role Phone Kamar Almazan MD Primary Care Provider Lakeisha Micheal Siddiquijay Unavailable [phone] Allergies Allergen (clinical drug ingredient) Drug/Non Drug Allergy documented on EMR Reaction Allergy Type Onset Date Status codeine Codeine Unknown Drug Allergy 06/28/2023 Active Substance with penicillin structure and antibacterial mechanism of action (substance) Penicillins Unknown Drug Allergy 06/28/2023 Active REASON FOR VISIT [facility] Medications Medication SIG (Take, Route, Frequency, Duration) Notes Start Date End Date Status Buprenorphine HCl-Naloxone HCl 8-2 MG 1 tablet under the tongue and allow to dissolve Sublingual once a day for 30 days 12/27/2023 Active Clopidogrel Bisulfate 75 MG TAKE 1 TABLET BY MOUTH EVERY MORNING Oral for 90 Days Active Carvedilol 6.25 MG TAKE 1 TABLET BY OK TH TWICE DAILY Oral for 90 Days Active Testosterone Cypionate 200 MG/ML INJECT 1.5 ML IN THE MUSCLE EVERY 10 DAYS A SINGLE DOSE Intramuscular for 30 Days Active Furosemide 20 MG TAKE 1 TABLET BY OK TH EVERY MORNING Oral for 30 Days Active buPROPion HCl ER (XL) 300 MG 1 tablet in the morning Orally Once a day for 90 days Active Social History Sex Assigned At : Social History Observation Description Sex Assigned At Male Vital Signs Height 69.00 in 02/05/2024 Height-cm 175.26 cm 02/05/2024 Encounters Encounter Location Date Provider Diagnosis [facility] [employer] [facility] [address] [place] [address] 02/05/2024 Omar Peckam Senile dementia F03.90 Assessments Encounter Date Diagnosis (ICD Code) Assessment Notes Treatment Notes Treatment Clinical Notes Section Notes 02/05/2024 Senile dementia (ICD-10 - F03.90) Plan Of Treatment Next Appt Details Follow Up: 02/23/2024 @ 1:00 pm, Reason: Provider Name:Omar Upton , 04/22/2024 01:00:00 PM, [address], [place] [address], [place], [address], Provider Name:Omar Upton , 08/21/2024 01:00:00 PM, [address], [place] [address], [place], [address], Progress Notes * NEFTALI BRITT RDOB: [birth year] (73 yo M)Acc No.[id number]:02/05/2024 Patient:?NEFTALI BRITT Provider:?OMAR UPTON MD :1950???Age:73 Y???Sex:Male Ajay e:02/05/2024 Address:[address] [place], [place] [address] Pcp:Kamar Almazan MD Subjective: * Chief Complaints: * ???Cans-mci * HPI: ???Transition of Care:?Patient is here to take the cans-mci test for cognition impairment as ordered by Dr Upton. * Medical History:? * Surgical History:?Reconstruc tive surgery Cataract surgery (75251) 2020ppendectomy (64195) 12/10/1979 * Hospitalization/Major Diagno stic Procedure:?Denies Past Hospitalization * Family History:?Father: Alco hol abuse .? * Social History:?Migrated Social History:?Migrated Social History: Alcohol Intake: None 12/01/2022,Tobacco Years: Never smoker 12/01/2022. * Medications:?TakingbuPROPion HCl ER (XL) 300 MG [...] - Onset Date 06/28/2023no[Allergies Verified] Objective: * Vitals:?Ht: 69.00 in, Ht-cm: 175.26 cm. Assessment: * Assessment: 1.?Senile dementia - F03.90? ?? Plan: * Treatment: * Procedure Codes:?40948 EACH ADDITIONAL 30 MINUTES (ADD-ON CODE)89221 PSYCHOLOGICAL OR NEUROPSYCHOLOGICAL TEST ADMINISTRATION AND SCORING. * Follow Up:?02/23/2024 @ 1:00 pm * Billing Information: * Visit Code:? * Procedure Codes:? 88965 EACH ADDITIONAL 30 MINUTES (ADD-ON CODE). 81277 PSYCHOLOGICAL OR NEUROPSYCHOLOGICAL TEST ADMINISTRATION AND SCORING.. * E RIDING COACH OR INSTRUCTOR Electronically co-signed by Omar Upton MD on 02/07/2024 at 03:54 PM HORSE RIDING COACH OR INSTRUCTOR Sign off status: Completed true * Provider:?OMAR UPTON MD Date:?02/04 Generated for Peter barrera/Roberta/eTransmitting on:?04/18/2024 04:50 AM HORSE RIDING COACH OR INSTRUCTOR History and Physical Notes * HPI (History of Present Illness) Category Sub-Category Detail Notes Category Not es Transition of Care Patient i s here to take the cans-mci test for cognition impairment as ordered by Dr Upton
--- OUTSIDE RECORDS SUMMARY | 2024-04-18 04:51 | XMS_ITS | Encounter Summary ---
Author Organization [facility] Address [address] [place] [address] Care Team Providers Care Elevator Erector Name Role Phone Kamar Almazan MD Primary Care Prov ider Encounter Details Date Type Department Care Team (Late st Contact Info) Description 03/18/2024 Telephone [facility] Medical Group Cardiology [address] [place] [address] Ronak Flores MD [facility] [place] [id number] Social History Tobacco Use Types Packs/Day Years Used Date Smoking Tobacco: Never Smokeless Tobacco: Never Alcohol Use Standard Drinks/Week Comments No 0 (1 standard drink = 0.6 oz pur e alcohol) recovering Sex and Gender Information Value Date Recorded Sex Assigned at Not on file Legal Sex Male 1:23 AM MEDICAL DOCTOR MD/MEDICAL DIRECTOR Gender Identity Not on file Sexual Orientation Not on file 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 Mcconnell office states she received referral from our office but did not receive demographics or insurance card info. Requesting it be faxed. Thank you. Contact: CAL DOCTOR MD/MEDICAL DIRECTOR documented in this encounter Plan of Treatment Not on file documented as of this encounter Visit Diagnoses Not on filedocumented in this encounter Care Teams Elevator Erector Relationship Specialty Start Date End Date Kamar Almazan MD [address] [place] [address] PCP - General 09/08/09 documented as of this encounter
--- OUTSIDE RECORDS SUMMARY | 2024-04-18 04:51 | XMS_ITS | Encounter Summary ---
Author Organization [facility] Address [address] [place] [address] Care Team Providers Care Surface Water Technician Name Role Phone Kamar Almazan MD Primary Care Provider +1- [phone] Encounter Details Date Type Department Care Team (Latest Contact Info) Description 06/18/2000 Outpatient Historical [facility] Conversion, History Opioid type dependence, unspecified (CMS/HCC) (Primary Dx) Social History Tobacco Use Types Packs/Day Years Used Date Smoking Tobacco: Never Assessed Sex and Gender Information Value Date Recorded Sex Assigned at Not on file Legal Sex Male 3:36 AM BRIAR SHOP SUPERVISOR Gender Identity Not on file Sexual Orientation Not on file documented as of this encounter Plan of Treatment Upcoming Encounters Date Type Department Care Team (Late st Contact Info) Description 04/29/2024 2:45 PM BRIAR SHOP SUPERVISOR Office Visit [facility] Oncology and Hematology - [place] [address] [facility] [address] [place] [address] Rom Mcconnell MD [address] [facility] 100 [place] [address] documented as of this encounter Visit Diagnoses Diagnosis Opioid type dependence, unspecified (CMS/HCC)- Primary Opioid type dependence, unspecified documented in this encounter Care Teams Surface Water Technician Relationship Specialty Start Date End Date Kamar Almazan MD [address] [facility] 100 [place] [phone] PCP - General Family Practice 04/05/24 documented as of this encounter
== END 2024-04-12 11:05 | disposition home or self-care (01) ==
PROVIDERS: PCP Family Medicine Adolescent Medicine; Visit Provider Radiology Diagnostic Radiology
DX: D47.2 Monoclonal gammopathy (principal); I42.8 Other cardiomyopathies; F32.A Depression, unspecified; Z79.02 Long term (current) use of antithrombotics/antiplatelets; Z79.1 Long term (current) use of non-steroidal anti-inflammatories (NSAID); Z79.85 Long-term (current) use of injectable non-insulin antidiabetic drugs; Z79.84 Long term (current) use of oral hypoglycemic drugs; Z98.890 Other specified postprocedural states; Z86.73 Personal history of transient ischemic attack (TIA), and cerebral infarction without residual deficits; Z86.0100 Personal history of colon polyps, unspecified; Z86.718 Personal history of other venous thrombosis and embolism; Z86.711 Personal history of pulmonary embolism; Z80.1 Family history of malignant neoplasm of trachea, bronchus and lung
CPT/HCPCS: 36415; 38222; 85025; 85610; 88184; 88185; 88305; 88311; 88313; 88342; 88364; 88365; J1644; J2003; J2250; J3010; J7050

== ENCOUNTER 2024-06-11 07:46 | Outpatient (CLI) | payer MEDICARE, SELFPAY ==
--- OUTSIDE RECORDS SUMMARY | 2024-05-09 10:48 | XMS_ITS | Encounter Summary ---
Author Organization [facility] Address [address] [place] [address] Care Team Providers Care Cook Vacuum Kettle Name Role Phone Kamar Almazan MD Primary Care Provider +1- [phone] Encounter Details Date Type Department Care Team (Latest Contact Info) Description 08/22/2000 Outpatient Historical [facility] Jasvir Freed MD [address] [place] [id number] Opioid type dependence, unspecified (CMS/HCC) (Primary Dx) Social History Tobacco Use Types Packs/Day Years Used Date Smoking Tobacco: Never Assessed Sex and Gender Information Value Date Recorded Sex Assigned at Not on file Legal Sex Male 3:36 AM ROBOTICS SOFTWARE ENGINEER Gender Identity Not on file Sexual Orientation Not on file documented as of this encounter Plan of Treatment Upcoming Encounters Date Type Department Care Team (Late st Contact Info) Description 10/28/2024 1:15 PM CDT [facility] Visit [facility] Oncology and Hematology - [place] [address] [facility] [address] [place] [address] Rom Mcconnell MD [address] [facility] [address] [place] [address] documented as of this encounter Visit Diagnoses Diagnosis Opioid type dependence, unspecified (CMS/HCC)- Primary Opioid type dependence, unspecified documented in this encounter Care Teams Cook Vacuum Kettle Relationship Specialty Start Date End Date Kamar Almazan MD [address] [facility] [address] [place] [address] PCP - General Family Practice 04/05/24 documented as of this encounter
--- OUTSIDE RECORDS SUMMARY | 2024-05-09 10:48 | XMS_ITS | Encounter Summary ---
Author Organization [facility] Address [address] [place] [address] Care Team Providers Care Railcar Mechanic Name Role Phone Kamar Almazan MD Primary Care Provider +1- [phone] Encounter Details Date Type Department Care Team (Latest Contact Info) Description 08/30/2000 Outpatient Historical [facility] Conversion, History Unspecified drug dependence, unspecified (CMS/HCC) (Primary Dx) Social History Tobacco Use Types Packs/Day Years Used Date Smoking Tobacco: Never Assessed Sex and Gender Information Value Date Recorded Sex Assigned at Not on file Legal Sex Male 3:36 AM ASSISTANT SHIFT SUPERVISOR Gender Identity Not on file Sexual Orientation Not on file documented as of this encounter Plan of Treatment Upcoming Encounters Date Type Department Care Team (Late st Contact Info) Description 10/28/2024 1:15 PM CDT Office Visit [facility] Oncology and Hematology - [place] [address] [facility] 200 [place] [address] Rom cMconnell MD [address] [facility] [address] [place] [address] documented as of this encounter Visit Diagnoses Diagnosis Unspecified drug dependence, unspecified (CMS/HCC)- Primary Unspecified drug dependence, unspecified documented in this encounter Care Teams Railcar Mechanic Relationship Specialty Start Date End Date Kamar Almazan MD [address] [facility] [address] [place] [address] PCP - General Family Practice 04/05/24 documented as of this encounter
--- OUTSIDE RECORDS SUMMARY | 2024-05-09 10:48 | XMS_ITS | Encounter Summary ---
Author Organization [facility] Address [address] [place] [address] Care Team Providers Care Display Trimmer Name Role Phone Kamar Almazan MD Primary Care Provider +1- [phone] Encounter Details Date Type Department Care Team (Latest Contact Info) Description 02/08/1999 Outpatient Historical [facility] Jasvir Freed MD [address] [place] [id number] Opioid type dependence, unspecified (CMS/HCC) (Primary Dx) Social History Tobacco Use Types Packs/Day Years Used Date Smoking Tobacco: Never Assessed Sex and Gender Information Value Date Recorded Sex Assigned at Not on file Legal Sex Male 3:36 AM BOARD WRITER Gender Identity Not on file Sexual Orientation Not on file documented as of this encounter Plan of Treatment Upcoming Encounters Date Type Department Care Team (Late st Contact Info) Description 10/28/2024 1:15 PM CDT Office Visit [facility] Oncology and Hematology - [place]atoliy [address] [facility] 200 [place] [address] Rom Mcconnell MD [address] [facility] [address] [place] [address] documented as of this encounter Visit Diagnoses Diagnosis Opioid type dependence, unspecified (CMS/HCC)- Primary Opioid type dependence, unspecified documented in this encounter Care Teams Display Trimmer Relationship Specialty Start Date End Date Kamar Almazan MD [address] [facility] [address] [place] [address] PCP - General Family Practice 04/05/24 documented as of this encounter
--- OUTSIDE RECORDS SUMMARY | 2024-05-09 10:48 | XMS_ITS | Encounter Summary ---
Author Organization [facility] Address [address] [place] [address] Care Team Providers Care Padding Machine Operator Name Role Phone Kamar Almazan MD Primary Care Provider +1- [phone] Encounter Details Date Type Department Care Team (Latest Contact Info) Description 05/17/2000 Outpatient Historical [facility] Conversion, History Opioid type dependence, unspecified (CMS/HCC) (Primary Dx) Social History Tobacco Use Types Packs/Day Years Used Date Smoking Tobacco: Never Assessed Sex and Gender Information Value Date Recorded Sex Assigned at Not on file Legal Sex Male 3:36 AM SUPERINTENDENT GENERATING PLANT Gender Identity Not on file Sexual Orientation Not on file documented as of this encounter Plan of Treatment Upcoming Encounters Date Type Department Care Team (Late st Contact Info) Description 10/28/2024 1:15 PM CDT Office Visit [facility] Oncology and Hematology - [place]at[place]y [address] [facility] 200 [place] [address] Rom Mcconnell MD [address] [facility] 100 [place] [address] documented as of this encounter Visit Diagnoses Diagnosis Opioid type dependence, unspecified (CMS/HCC)- Primary Opioid type dependence, unspecified documented in this encounter Care Teams Padding Machine Operator Relationship Specialty Start Date End Date Kamar Almazan MD [address] [facility] 100 [place] [address] PCP - General Family Practice 04/05/24 documented as of this encounter
--- OUTSIDE RECORDS SUMMARY | 2024-05-09 10:48 | XMS_ITS | Encounter Summary ---
Author Organization [facility] Address 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 Gender Identity Not on file Sexual Orientation Not on file documented as of this encounter Plan of Treatment Upcoming Encounters Date Type Department Care Team (Late st Contact Info) Description 10/28/2024 1:15 PM CDT Office Visit [facility] Oncology and Hematology - Anatoliy [address] [facility] 200 [place] [address] Rom Mcconnell MD [address] [facility] [address] [place] [address] documented as of this encounter Visit Diagnoses Not on filedocumented in this encounter Care Teams Unemployment Benefits Claims Taker Relationship Specialty Start Date End Date Kamar Almazan MD [address] [facility] [address] [place] [address] PCP - General Family Practice 04/05/24 documented as of this encounter
--- OUTSIDE RECORDS SUMMARY | 2024-05-09 10:48 | XMS_ITS | Encounter Summary ---
Author Organization [facility] Address 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 Gender Identity Not on file Sexual Orientation Not on file documented as of this encounter Plan of Treatment Upcoming Encounters Date Type Department Care Team (Late st Contact Info) Description 10/28/2024 1:15 PM CDT Office Visit [facility] Oncology and Hematology - [place] [address] [facility] 200 [place] [address] Rom Mcconnell MD [address] [facility] [address] [place] [address] documented as of this encounter Visit Diagnoses Not on filedocumented in this encounter Care Teams Jewelry Engraver Relationship Specialty Start Date End Date Kamar Almazan MD [address] [facility] [address] [place] [address] PCP - General Family Practice 04/05/24 documented as of this encounter
--- OUTSIDE RECORDS SUMMARY | 2024-05-09 10:48 | XMS_ITS | Encounter Summary ---
Author Organization [facility] Address 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 Gender Identity Not on file Sexual Orientation Not on file documented as of this encounter Plan of Treatment Upcoming Encounters Date Type Department Care Team (Late st Contact Info) Description 10/28/2024 1:15 PM CDT Office Visit [facility] Oncology and Hematology - Anat[place]y [address] [facility] 200 [place] [address] Rom Mcconnell MD [address] [facility] [address] [place] [address] documented as of this encounter Visit Diagnoses Diagnosis Unspecified drug dependence, unspecified (CMS/HCC)- Primary Unspecified drug dependence, unspecified documented in this encounter Care Teams Sales And Service Officer Relationship Specialty Start Date End Date Kamar Almazan MD [address] [facility] [address] [place] [address] PCP - General Family Practice 04/05/24 documented as of this encounter
--- OUTSIDE RECORDS SUMMARY | 2024-05-09 10:48 | XMS_ITS | Encounter Summary ---
Author Organization [facility] Address 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 Gender Identity Not on file Sexual Orientation Not on file documented as of this encounter Plan of Treatment Upcoming Encounters Date Type Department Care Team (Late Contact Info) Description 10/28/2024 1:15 PM CDT Office Visit [facility] Oncology and Hematology - [place] [address] [place] [address] [facility] 200 [place] [address] Rom Mcconnell MD [address] [facility] [address] [place] [address] documented as of this encounter Visit Diagnoses Diagnosis Opioid type dependence, continuous (CMS/HCC)- Primary Opioid type dependence, continuous documented in this encounter Care Teams Flight Engineer Helicopter Relationship Specialty Start Date End Date Kamar Almazan MD [address] [place] [address] [address] [place] [address] PCP - General Family Practice 04/05/24 documented as of this encounter
--- OUTSIDE RECORDS SUMMARY | 2024-05-09 10:48 | XMS_ITS | Encounter Summary ---
Author Organization [facility] Address [address] [place] [address] Care Team Providers Care Iron Assorter Name Role Phone Kamar Almazan MD Primary Care Provider + Encounter Details Date Type Department Care Team (Late st Contact Info) Description 04/12/2024 Lab Requisition [facility] - Pathology Lab [address] [place] [address] Castro Garza MD [address] [facility] [address] [place] [id number] Monoclonal gammopathy Social History Tobacco Use Types Packs/Day Years Used Date Smoking Tobacco: Never Smokeless Tobacco: Never Alcohol Use Standard Drinks/Week Comments Never 0 (1 standard drink = 0.6 oz pur e alcohol) Sex and Gender Information Value Date Recorded Sex Assigned at Not on file Gender Identity Not on file Sexual Orientation Not on file documented as of this encounter Plan of Treatment Not on file documented as of this encounter Procedures Procedure Name Priority Date/Time Associated Diagnosis Comments FLOW CYTOMETRY BONE MARROW Routine 04/12/2024 9:45 AM SWISS TYPE SCREW MACHINE OPERATOR Monoclonal gammopathy documented in this encounter Results * FLOW CYTOMETRY BONE MARROW (04/12/2024 9:45 AM SWISS TYPE SCREW MACHINE OPERATOR) Case Report Flow Cytometry Case: [id number] Authorizing Provider: Castro Garza Collected: 04/12/2024 09:45 AM MD Maximo Ordering Location: [facility] - Received: 04/12/2024 01:16 PM Pathology Lab Pathologist: Jem Mora MD Specimen: Bone Marrow 04/12/2024 4:06 PM [facility] Final Diagnosis Bone marrow, flow cytometry: - No overtly clonal plasma cell, clonal B-cell, or increased blast population detected 04/12/2024 4:06 PM [facility] Flow Cytometry Interpretation Viability: 98% B-cells: polytypic, kappa:lambda ratio 2:1 T-cells: not increased Blasts: not increased, <2% of overall events. Plasma cells: polytypic, kappa:lambda ratio 2:1 no immunophenotypic aberrancy detected A bone marrow aspirate smear prepared from the flow cytometry specimen has been reviewed for vice president quality assurance purposes. 04/12/2024 4:06 PM [facility] Flow Cytometry Results Differential Result Comment Flow Cell Count /uL 23,000 Total Viability % 98.0 Lymphocytes % 13 Dim CD45 Region % 5 Monocytes % 11 Granulocytes % 71 04/12/2024 4:06 PM [facility] Reason for test Monoclonal gammopathy 273.1 04/12/2024 4:06 PM [facility] Client Specimen ID # [id number] 04/12/2024 4:06 PM [facility] Number of markers 14 were performed. A-2 Flow CD10 A-3 Flow CD13 A-5 Flow CD20 A-13 Flow CD117 A-14 FLOW CD138 A-1 Flow CD5 A-4 Flow CD19 A-6 Flow CD33 A-7 Flow CD34 A-8 Flow CD45 A-11 Flow CD38 A-12 Flow CD56 A-9 [place]+CD19+ A-10 Lambda+CD19+ 04/12/2024 4:06 PM [facility] Pathologist Location at [facility] 04/12/2024 4:06 PM [facility] Disclaimer Test performed at [facility], [address] [place] [address], [address]. *The established laboratory minimum viability is 70%. [...] high complexity clinical testing. 04/12/2024 4:06 PM SWISS TYPE SCREW MACHINE OPERATOR [facility] PATHOLOGY LAB Embedded Images 4:06 PM SWISS TYPE SCREW MACHINE OPERATOR [facility] PATHOLOG[facility] LAB Pathology/Cytolo gy BONE MARROW SPECIMEN / Unknown 04/12/2024 9:45 AM SWISS TYPE SCREW MACHINE OPERATOR 04/12/2024 1:16 PM SWISS TYPE SCREW MACHINE OPERATOR Castro Garza MD LAB - PATHO LOGY/CYTOLOGY ORDERABLES Performing Organization Address City/State/[facility] Co de Phone Number [facility] [address] [phone] documented in this encounter Visit Diagnoses Diagnosis Monoclonal gammopathy Monoclonal paraproteinemia documented in this encounter Care Teams Iron Assorter Relationship Specialty Start Date End Date Kamar Almazan MD [address] [address] PCP - General 05/28/21 documented as of this encounter
--- OUTSIDE RECORDS SUMMARY | 2024-05-09 10:48 | XMS_ITS | Clinical Summary ---
Author Organization [email or web address] Address [address] [place] [address] Care Team Providers Care Patrol Captain Name Role Phone Kamar Almazan MD Primary Care Provider + Source Comments [email or web address],non-owned Affiliates and Associated Physician Practices is amultiple site organization consisting of ambulatory clinics and hospital sitesin [place], [place], [place] and [place]. This disclosure is being madepursuant to the Care Everywhere program and may not contain all information available regarding this patient. Last updated 17.[email or web address] Allergies Active Allergy Reactions Criticality Noted Date [...] Department Care Team Description 04/15/[address] [facility] - Pathology Lab [facility] [place] [address] Castro Garza MD Illness, unspecified 04/12/[address] [facility] - Pathology Lab [address] [place] [address] Castro Garza MD Monoclonal gammopathy from Last 3 Months Immunizations Name Administration Dates Next Due INFLUENZA A E3A3-51 VACCINE 01/25/2009 INFLUENZA VACCINE, QUADR. (A FLURIA, [...] 92 12/17/2021 10:32 AM CDT Temperature 36.9 C (98.4 F) 12/17/2021 10:32 AM CDT Respiratory Rate - - Oxygen Saturation 92% [...] 2011 SCREENING FOR DIABETES 12/17/2021 COVID-19 VACCINE ( - 2023-2 5 season) 2023 INFLUENZA VACCINE (#1) 2023 9, 01/25/2009, 01/25/2009 DEPRESSION SCREENING 03/27/2024 MEDICARE AWV CALENDAR YEAR 2024 HEPATITIS B VACCINE Aged [...] MARROW BIOPSY (STL) Routine 04/12/2024 9:45 AM FACER OPERATOR Illness, unspecified FLOW CYTOMETRY BONE MARROW Routine 04/12/2024 9:45 AM FACER OPERATOR Monoclonal gammopathy from Last 3 Months Results * FLOW CYTOMETRY BONE MARROW (04/12/2024 9:45 AM FACER OPERATOR) Case Report Flow Cytometry Case: [id number] Authorizing Provider: Castro Garza Collected: 04/12/2024 09:45 AM MD Maximo Ordering Location: [facility] - Received: 04/12/2024 01:16 PM Pathology Lab Pathologist: Jem Mora MD Specimen: Bone Marrow 04/12/2024 4:06 PM [facility] Final Diagnosis Bone marrow, flow cytometry: - No overtly clonal plasma cell, clonal B-cell, or increased blast population detected 04/12/2024 4:06 PM [facility] Flow Cytometry Interpretation Viability: 98% B-cells: polytypic, kappa:lambda ratio 2:1 T-cells: not increased Blasts: not increased, <2% of overall events. Plasma cells: polytypic, kappa:lambda ratio 2:1 no immunophenotypic aberrancy detected A bone marrow aspirate smear prepared from the flow cytometry specimen has been reviewed for housing quality standard inspector purposes. 04/12/2024 4:06 PM [facility] Flow Cytometry Results Differential Result Comment Flow Cell Count /uL 23,000 Total Viability % 98.0 Lymphocytes % 13 Dim CD45 Region % 5 Monocytes % 11 Granulocytes % 71 04/12/2024 4:06 PM [facility] Reason for test Monoclonal gammopathy 273.1 04/12/2024 4:06 PM [facility] Client Specimen ID # [id number] 04/12/2024 4:06 PM [facility] Number of markers 14 were performed. A-2 Flow CD10 A-3 Flow CD13 A-5 Flow CD20 A-13 Flow CD117 A-14 FLOW CD138 A-1 Flow CD5 A-4 Flow CD19 A-6 Flow CD33 A-7 Flow CD34 A-8 Flow CD45 A-11 Flow CD38 A-12 Flow CD56 A-9 [place]+CD19+ A-10 Lambda+CD19+ 04/12/2024 4:06 PM [facility] Pathologist Location at [facility] 04/12/2024 4:06 PM [facility] Disclaimer Test performed at [facility], [address] [place] [address], [address]. *The established laboratory minimum viability is 70%. [...] high complexity clinical testing. 04/12/2024 4:06 PM [facility] Embedded Images 4:06 PM [facility] Pathology/Cytolo gy BONE MARROW SPECIMEN / Unknown 04/12/2024 9:45 AM FACER OPERATOR 04/12/2024 1:16 PM FACER OPERATOR Castro Garza MD LAB - PATHO LOGY/CYTOLOGY ORDERABLES [facility] [address] [place] [address]. [place] [address], [facility] [phone] * BONE MARROW BIOPSY (STL) (04/12/2024 9:45 AM FACER OPERATOR) Case Report Bone Marrow Patholog y Report Case: [id number] Authorizing Provider: Castro Garza Collected: 04/12/2024 09:45 AM MD Maximo Ordering Location: [facility] Received: 04/15/2024 04:19 PM Pathology Lab Pathologist: Marylin Florez MD Specimens: A) - Bone Marrow Clot B) - Bone Marrow Core 04/17/2024 12:36 PM [facility] Final Diagnosis Bone marrow, iliac [...] in reticulin fibrosis (MF-1) 04/17/2024 12:36 PM [facility] Comment Please correlate wit h relevant cytogenetic, FISH, and molecular data. 04/17/2024 12:36 PM [facility] Peripheral Smear Description The patient's [...] not provided for review. 04/17/2024 12:36 PM [facility] Bone Marrow Aspirate Differential count [...] stain): no ring sideroblasts. 04/17/2024 12:36 PM [facility] Bone Marrow Core Biopsy and [...] similar to core biopsy. 04/17/2024 12:36 PM [facility] Flow Cytometry Summary Flow cytometry revealed no overtly clonal plasma cell, clonal B-cell, or increased blast population ([id number]). 04/17/2024 12:36 PM [facility] Clinical History Monoclonal gammopathy. [place] lambda light chain ratio normal at 1.3 04/17/2024 12:36 PM [facility] Materials Received Received are 18 slide(s) labeled and 3 block(s) [id number] along with a copy of the outside pathology report. [place] [address]. All original materials are returned to the referring institution, along with a copy of our final report. 04/17/2024 12:36 PM [facility] Microscopic Description Immunohistochemistry and special [...] sheets of plasma cells are not present. [place] and lambda in situ hybridization stains highlight [...] highlight markedly decreased stores. 04/17/2024 12:36 PM [facility] Pathologist Location at [facility] 04/17/2024 12:36 PM [facility] Disclaimer The performance characteristics of [...] the attending (teaching) pathologist. 04/17/2024 12:36 PM [facility] Embedded Images 04/17/2024 12:36 PM [facility] Pathology/Cytology BONE MARROW SPECIMEN / Unknown 04/12/2024 9:45 AM FACER OPERATOR 04/15/2024 4:19 PM FACER OPERATOR Miscellaneous samples (specimen) BONE MARROW SPECIMEN / Unknown 04/12/2024 9:45 AM FACER OPERATOR 04/15/2024 4:19 PM FACER OPERATOR Castro Garza MD LAB - PATHO LOGY/CYTOLOGY ORDERABLES Performing Organization Address City/State/[facility] Co de Phone Number [facility] [address] [phone] from Last 3 Months Care Teams Patrol Captain Relationship Specialty Start Date End Date Kamar Almazan MD [address] [facility] [address] [place] [address] PCP - General 05/28/21
--- OUTSIDE RECORDS SUMMARY | 2024-05-09 10:48 | XMS_ITS | Encounter Summary ---
Author Organization [facility] Address [address] [place] [address] Care Team Providers Care Brush Holder Inspector Name Role Phone Kamar Almazan MD Primary Care Provider + Encounter Details Date Type Department Care Team (Late st Contact Info) Description 04/15/2024 Lab Requisition [facility] - Pathology Lab [address] [place] [id number] Castro Garza MD [address] [address] Illness, unspecified Social History Tobacco Use Types Packs/Day Years [...] MARROW BIOPSY (STL) Routine 04/12/2024 9:45 AM MARINE ELECTRONICS TECHNICIAN Illness, unspecified documented in this encounter Results * BONE MARROW BIOPSY (STL) (04/12/2024 9:45 AM MARINE ELECTRONICS TECHNICIAN) Case Report Bone Marrow Patholog y Report Case: [id number] Authorizing Provider: Castro Garza Collected: 04/12/2024 09:45 AM MD Maximo Ordering Location: [facility] - Received: 04/15/2024 04:19 PM Pathology Lab Pathologist: Marylin Florez MD Specimens: A) - Bone Marrow Clot B) - Bone Marrow Core 04/17/2024 12:36 PM [facility] Final Diagnosis Bone marrow, iliac [...] in reticulin fibrosis (MF-1) 04/17/2024 12:36 PM [facility] Comment Please correlate wit h relevant cytogenetic, FISH, and molecular data. 04/17/2024 12:36 PM [facility] Peripheral Smear Description The patient's [...] not provided for review. 04/17/2024 12:36 PM [facility] Bone Marrow Aspirate Differential count [...] stain): no ring sideroblasts. 04/17/2024 12:36 PM [facility] Bone Marrow Core Biopsy and [...] similar to core biopsy. 04/17/2024 12:36 PM [facility] Flow Cytometry Summary Flow cytometry revealed no overtly clonal plasma cell, clonal B-cell, or increased blast population ([id number]). 04/17/2024 12:36 PM [facility] Clinical History Monoclonal gammopathy. [place] lambda light chain ratio normal at 1.3 04/17/2024 12:36 PM [facility] Materials Received Received are 18 slide(s) labeled and 3 block(s) [id number] along with a copy of the outside pathology report. [place] [address]. All original materials are returned to the referring institution, along with a copy of our final report. 04/17/2024 12:36 PM [facility] Microscopic Description Immunohistochemistry and special [...] sheets of plasma cells are not present. [place] and lambda in situ hybridization stains highlight [...] highlight markedly decreased stores. 04/17/2024 12:36 PM [facility] Pathologist Location at [facility] 04/17/2024 12:36 PM [facility] Disclaimer The performance characteristics of all immunohistochemical and indirect immunofluorescence stains (if any) cited in this report were determined by the Histopathology Laboratory of [facility]. Some of these tests were developed by [...] the attending (teaching) pathologist. 04/17/2024 12:36 PM [facility] Embedded Images 04/17/2024 12:36 PM [facility] Pathology/Cytology BONE MARROW SPECIMEN / Unknown 04/12/2024 9:45 AM MARINE ELECTRONICS TECHNICIAN 04/15/2024 4:19 PM MARINE ELECTRONICS TECHNICIAN Miscellaneous samples (specimen) BONE MARROW SPECIMEN / Unknown 04/12/2024 9:45 AM MARINE ELECTRONICS TECHNICIAN 04/15/2024 4:19 PM MARINE ELECTRONICS TECHNICIAN Castro Garza MD LAB - PATHO LOGY/CYTOLOGY ORDERABLES Performing Organization Address City/State/[facility] Co de Phone Number [facility] [address] [phone] documented in this encounter Visit Diagnoses Diagnosis Illness, unspecified documented in this encounter Care Teams Brush Holder Inspector Relationship Specialty Start Date End Date Kamar Almazan MD [address] [address] PCP - General 05/28/21 documented as of this encounter
--- OUTSIDE RECORDS SUMMARY | 2024-05-09 10:48 | XMS_ITS | Encounter Summary ---
Author Organization [facility] Address [address] [place] [address] Care Team Providers Care Patient Companion Name Role Phone Kamar Almazan MD Primary Care Provider +1- [phone] Encounter Details Date Type Department Care Team (Late st Contact Info) Description 11/02/2000 Outpatient Historical [facility] Conversion, History Social History Tobacco Use Types Packs/Day Years Used Date Smoking Tobacco: Never Assessed Sex and Gender Information Value Date Recorded Sex Assigned at Not on file Legal Sex Male 3:36 AM REFUSE DRIVER Gender Identity Not on file Sexual Orientation Not on file documented as of this encounter Plan of Treatment Upcoming Encounters Date Type Department Care Team (Late st Contact Info) Description 10/28/2024 1:15 PM CDT Office Visit [facility] Oncology and Hematology - [place] [address] [facility] [address] [place] [address] Rom Mcconnell MD [address] [facility] [address] [place] [address] documented as of this encounter Visit Diagnoses Not on filedocumented in this encounter Care Teams Patient Companion Relationship Specialty Start Date End Date Kamar Almazan MD [address] [facility] [address] [place] [address] PCP - General Family Practice 04/05/24 documented as of this encounter
--- OUTSIDE RECORDS SUMMARY | 2024-05-09 10:48 | XMS_ITS | Clinical Summary ---
Author Organization [facility] Yousuf Altamirano Address [address] [place] [address] Care Team Providers Care Veterinary Parasitologist Name Role Phone Kamar Almazan MD Primary Care Provider +1- [phone] Allergies Active Allergy Reactions Criticality Noted Date [...] Encounters Date Type Department Care Team Description 04/29/2024 2:45 PM LUBE MAN Office Visit [facility] Oncology and Hematology [facility] [address] [place] [address] Rom Mcconnell MD Monoclonal gammopathies (Primary Dx) 04/23/2024 External Device Data STL ABSTRACTION Provider, Abstract 04/18/2024 Orders Only [facility] Oncology and Hematology [place] [address] [place] [address] Rom Mcconnell MD 04/17/2024 External Device Data STL ABSTRACTION Provider, Abstract 04/17/2024 External Device Data STL ABSTRACTION Provider, Abstract 04/17/2024 Telephone [facility] Oncology and Hematology [facility] [address] [place] [address] Rom Mcconnell MD Lab Results 04/17/2024 Telephone [facility] Oncology and Hematology [place] [address] [place] [address] Rom Mcconnell MD labs for upcoming appointment 04/17/2024 Orders Only [facility] Oncology and Hematology [facility] [address] [place] [address] Rom Mcconnell MD Dyspnea, unspecified type (Primary Dx); Elevated blood protein 04/10/2024 External Device Data STL ABSTRACTION Provider, Abstract 04/02/2024 External Device Data STL ABSTRACTION Provider, Abstract 03/26/2024 11:00 AM LUBE MAN Office Visit [facility] Oncology and Hematology [place] [address] [place] [address] Sisi Jimenez MD Monoclonal gammopathies (Primary Dx); [...] Not Answered Alcohol Use Standard Drinks/Week Comments Never 0 (1 standard drink = 0.6 oz pur e alcohol) Sex and Gender Information Value Date Recorded Sex Assigned at Not on file Legal Sex Male 3:36 AM LUBE MAN Gender Identity Not on file Sexual Orientation Not on file Last Filed Vital Signs Vital Sign Reading Time Taken Comments Blood Pressure 128/94 04/29/2024 2:34 PM LUBE MAN Pulse 94 04/29/2024 2:34 PM LUBE MAN Temperature 35.6 C (96 F) 04/29/2024 2:34 PM LUBE MAN Respiratory Rate 16 04/29/2024 2:34 PM LUBE MAN Oxygen Saturation 96% 04/29/2024 2:34 PM LUBE MAN Inhaled Oxygen Concentration - - Weight 133.8 kg (295 lb) 04/29/2024 2:34 PM LUBE MAN Height 175.3 cm (5' 9 ) 03/26/2024 10:39 AM LUBE MAN Body Mass Index 43.56 03/26/2024 10:39 AM LUBE MAN Plan of Treatment Upcoming Encounters Date Type Department Care Team (Late st Contact Info) Description 10/28/2024 1:15 PM CDT Office Visit [facility] Oncology and Hematology [place] [address] [place] [address] Rom Mcconnell MD [address] [facility] [address] [place] [address] Health Maintenance Due Date Last [...] VACCINE (#1) 2023 01/11/2019, 2008 Medicare [place]vantage ([place] Prev entative Visit/Annual Wellness Visit 03/27/2024 Procedures Procedure Name Priority Date/Time Associated Diagnosis Comments COMPREHENSIVE METABOLIC PANEL Routine 04/19/2024 1:16 PM LUBE MAN Dyspnea, unspecified type CBC WITH DIFFERENTIAL Routine 04/19/2024 1:16 PM LUBE MAN Dyspnea, unspecified type PROTEIN ELECTROPHORESIS W/REFLEX,SERUM Routine 04/19/2024 1:16 PM LUBE MAN Elevated blood protein BONE MARROW ASPIRATION & BIOPSY Routine 04/12/2024 8:33 AM LUBE MAN from Last 3 Months Results * (ABNORMAL) CBC WITH DIFFERENTIAL (04/19/2024 1:16 PM LUBE MAN) WBC 8.7 3.8 - 10.8 Thousand/ uL [facility] RBC 6.98(H) 4.20 - 5.80 Million/u L [facility] HEMOGLOBIN 16.9 13.2 - 17.1 g/dL [facility] HEMATOCRIT 54.4(H) 38.5 - 50.0 % [facility] MCV 77.9(L) 80.0 - 100.0 fL [facility] MCH 24.2(L) 27.0 - 33.0 pg [facility] MCHC 31.1(L) 32.0 - 36.0 g/dL [facility] Comment: For adults, a slight decrease in the calculated MCHC value (in the range of 30 to 32 g/dL) is most likely not clinically significant; however, it should be interpreted with caution in correlation with other red cell parameters and the patient's clinical condition. RDW 17.1(H) 11.0 - 15.0 % [facility] PLATELETS 202 140 - 400 Thousand/ uL [facility] MPV 9.9 7.5 - 12.5 fL [facility] NEUTROPHIL ABSOLUTE 6,508 1,500 - 7,800 cells/uL [facility] LYMPHOCYTE ABSOLUTE 1,357 850 - 3,900 cells/uL [facility] MONOCYTE ABSOLUTE 557 200 - 950 cells/uL [facility] EOSINOPHIL ABSOLUTE 235 15 - 500 cells/uL [facility] BASOPHILS ABSOLUTE 44 0 - 200 cells/uL [facility] NEUTROPHIL 74.8 % [facility] LYMPHOCYTES 15.6 % [facility] MONOCYTE 6.4 % [facility] EOSINOPHILS 2.7 % [facility] BASOPHILS 0.5 % [facility] Comment: Test Performed at: [facility] [address] [place] [id number] Marizol Alcazar Blood 04/19/2024 1:16 PM LUBE MAN 04/19/2024 1:18 PM LUBE MAN us Rom Mcconnell MD HEMATOLOGY ORDERABLES Final Res ult [facility] [phone] [facility] [place] [address] [place] [address] * (ABNORMAL) PROTEIN ELECTROPHORESIS W/REFLEX,SERUM (04/19/2024 1:16 PM LUBE MAN) TOTAL PROTEIN 7.2 6.1 - 8.1 g/dL [facility] ALBUMIN SPE 4.2 3.8 - 4.8 g/dL [facility] ALPHA 1 GLOBULIN SPE 0.3 0.2 - 0.3 g/dL [facility] ALPHA 2 GLOBULIN SPE 0.7 0.5 - 0.9 g/dL [facility] Beta 1 Globulin 0.5 0.4 - 0.6 g/dL [facility] Beta 2 Globulin 0.4 0.2 - 0.5 g/dL [facility] GAMMA GLOBULIN 1.1 0.8 - 1.7 g/dL [facility] ABNORMAL PROTEIN BAND SPE 0.3(H) NONE DETECTED g/dL [facility] SPE INTERP [facility] Comment: Faint restricted band (M-spike) migrating in the gamma region. Consider serum immunofixation to rule out a monoclonal protein if clinically indicated. Test Performed at: [facility] [address] [place] [address] Marizol Alcazar MD Blood 04/19/2024 1:16 PM LUBE MAN 04/19/2024 1:18 PM LUBE MAN us Rom Mcconnell MD CHEMISTRY ORDERABLES Final Resu lt [facility] [phone] [facility] [address] [place] [address] * (ABNORMAL) COMPREHENSIVE METABOLIC PANEL (04/19/2024 1:16 PM LUBE MAN) GLUCOSE 97 65 - 99 mg/dL [facility] Comment: Fasting reference interval BUN 30(H) 7 - 25 mg/dL [facility] CREATININE 1.41(H) 0.70 - 1.28 mg/dL [facility] [place] GFR 53(L) > OR = 60 mL/min/1. 73m2 [facility] [place] BUN/CREAT RATIO 21 6 - 22 (calc) [facility] SODIUM 134(L) 135 - 146 mmol/L [facility] [place] POTASSIUM 4.7 3.5 - 5.3 mmol/L [facility] [place] CHLORIDE 99 98 - 110 mmol/L [facility] CO2 30 20 - 32 mmol/L [facility] [place] CALCIUM 9.5 8.6 - 10.3 mg/dL [facility] [place] TOTAL PROTEIN 7.3 6.1 - 8.1 g/dL [facility] ALBUMIN 4.4 3.6 - 5.1 g/dL [facility] [place] GLOBULIN 2.9 1.9 - 3.7 g/dL (calc) [facility] ALBUMIN/GLOBULIN RATIO 1.5 1.0 - 2.5 (calc) [facility] [place] BILIRUBIN TOTAL 0.8 0.2 - 1.2 mg/dL [facility] [place] ALKALINE PHOSPHATASE 81 35 - 144 U/L [facility] AST 27 10 - 35 U/L [facility] [place] ALT 34 9 - 46 U/L [facility] Comment: Test Performed at: [place] [address] [place] [id number] [facility]ay[facility] Ananya Alcazar Blood 04/19/2024 1:16 PM LUBE MAN 04/19/2024 1:18 PM LUBE MAN Rom Mcconnell MD CHEMISTRY ORDERABLES Final Resu lt [facility] [phone] [facility] [place] [address] [place] [id number] * BONE MARROW ASPIRATION AND BIOPSY (04/12/2024 8:33 AM LUBE MAN) Bone marrow Rom Mcconnell MD PATH/CYTO ORDERABLES COM Final Result from Last 3 Months Insurance [facility] [id number] Member Subscriber Plan / Payer (Ef fective 2023-Present) Name:Robinson Mendoza Relation to Subscriber:Self Name:Robinson Mendoza Payer ID:[id number] (NAIC) Type:PPO Address: [place] [id number] Care Teams Veterinary Parasitologist Relationship Specialty Start Date End Date Kamar Almazan MD [address] [address] PCP - General Family Practice 04/05/24
--- OUTSIDE RECORDS SUMMARY | 2024-05-09 10:48 | XMS_ITS | Encounter Summary ---
Author Organization [facility] Address 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 [address] [place] [address] documented as of this encounter Visit Diagnoses Diagnosis Opioid type dependence, unspecified (CMS/HCC)- Primary Opioid type dependence, unspecified documented in this encounter Care Teams Veterinary Radiologist Relationship Specialty Start Date End Date Kamar Almazan MD [address] [facility] [address] [place] [address] PCP - General Family Practice 04/05/24 documented as of this encounter
--- OUTSIDE RECORDS SUMMARY | 2024-05-09 10:48 | XMS_ITS | Encounter Summary ---
Author Organization [facility] Address 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 Gender Identity Not on file Sexual Orientation Not on file documented as of this encounter Plan of Treatment Upcoming Encounters Date Type Department Care Team (Late st Contact Info) Description 10/28/2024 1:15 PM CDT Office Visit [facility] Oncology and Hematology - [place] [address] [facility] [address] [place] [address] Rom Mcconnell MD [address] [facility] [address] [place] [address] documented as of this encounter Visit Diagnoses Diagnosis Opioid type dependence, unspecified (CMS/HCC)- Primary Opioid type dependence, unspecified documented in this encounter Care Teams Tinware Lithograph Press Operator Relationship Specialty Start Date End Date Kamar Almazan MD [address] [facility] [address] [place] [address] PCP - General Family Practice 04/05/24 documented as of this encounter
--- OUTSIDE RECORDS SUMMARY | 2024-05-09 10:48 | XMS_ITS | Encounter Summary ---
Author Organization [facility] Address 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 Gender Identity Not on file Sexual Orientation Not on file documented as of this encounter Plan of Treatment Upcoming Encounters Date Type Department Care Team (Late Contact Info) Description 10/28/2024 1:15 PM CDT Office Visit [facility] Oncology and Hematology - [place] [address] [place] [address] [facility] [address] [place] [address] Rom Mcconnell MD [address] [facility] [address] [place] [address] documented as of this encounter Visit Diagnoses Diagnosis Opioid type dependence, continuous (CMS/HCC)- Primary Opioid type dependence, continuous documented in this encounter Care Teams Clinical Rn Liaison Relationship Specialty Start Date End Date Kamar Almazan MD [address] [place] [address] [address] [place] [address] PCP - General Family Practice 04/05/24 documented as of this encounter
--- OUTSIDE RECORDS SUMMARY | 2024-05-09 10:48 | XMS_ITS | Referral Summary ---
Author Organization [facility] Address [address] [place] [address] Care Team Providers Care Personal Attendant Name Role Phone Kamar Almazan MD Primary Care Provider + Source Comments [facility],non-owned Affiliates and Associated Physician Practices is amultiple site organization consisting of ambulatory clinics and hospital sitesin [place], [place] and [place]. This disclosure is being madepursuant to the Care Everywhere program and may not contain all information available regarding this patient. Last updated 17.[facility] Encounters Date Type Department Care Team Description 04/15/2024 Lab Requisition [facility] - Pathology Lab [address] [place] [address] Castro Garza MD Illness, unspecified 04/12/2024 Lab Requisition [facility] - Pathology Lab [address] [place] [address] Castro Garza MD Monoclonal gammopathy from Last [...] Name Administration Dates Next Due INFLUENZA A C5R8-98 VACCINE 01/25/2009 INFLUENZA VACCINE, QUADR. (A FLURIA, [...] MARROW BIOPSY (STL) Routine 04/12/2024 9:45 AM FURNITURE ASSOCIATE Illness, unspecified FLOW CYTOMETRY BONE MARROW Routine 04/12/2024 9:45 AM FURNITURE ASSOCIATE Monoclonal gammopathy from Last 3 Months Results * FLOW CYTOMETRY BONE MARROW (04/12/2024 9:45 AM FURNITURE ASSOCIATE) Case Report Flow Cytometry Case: [id number] Authorizing Provider: Castro Garza Collected: 04/12/2024 09:45 AM MD Maximo Ordering Location: [facility] - Received: 04/12/2024 01:16 PM Pathology Lab Pathologist: Jem Mora MD Specimen: Bone Marrow 04/12/2024 4:06 PM [facility] Final Diagnosis Bone marrow, flow cytometry: - No overtly clonal plasma cell, clonal B-cell, or increased blast population detected 04/12/2024 4:06 PM [facility] Flow Cytometry Interpretation Viability: 98% B-cells: polytypic, kappa:lambda ratio 2:1 T-cells: not increased Blasts: not increased, <2% of overall events. Plasma cells: polytypic, kappa:lambda ratio 2:1 no immunophenotypic aberrancy detected A bone marrow aspirate smear prepared from the flow cytometry specimen has been reviewed for senior supplier quality engineer purposes. 04/12/2024 4:06 PM [facility] Flow Cytometry Results Differential Result Comment Flow Cell Count /uL 23,000 Total Viability % 98.0 Lymphocytes % 13 Dim CD45 Region % 5 Monocytes % 11 Granulocytes % 71 04/12/2024 4:06 PM [facility] Reason for test Monoclonal gammopathy 273.1 04/12/2024 4:06 PM [facility] Client Specimen ID # [id number] 04/12/2024 4:06 PM [facility] Number of markers 14 were performed. A-2 Flow CD10 A-3 Flow CD13 A-5 Flow CD20 A-13 Flow CD117 A-14 FLOW CD138 A-1 Flow CD5 A-4 Flow CD19 A-6 Flow CD33 A-7 Flow CD34 A-8 Flow CD45 A-11 Flow CD38 A-12 Flow CD56 A-9 [place]+CD19+ A-10 Lambda+CD19+ 04/12/2024 4:06 PM [facility] Pathologist Location at [facility] 04/12/2024 4:06 PM [facility] Disclaimer Test performed at [facility], [address] [place] [address], [address]. *The established laboratory minimum viability is 70%. [...] high complexity clinical testing. 04/12/2024 4:06 PM [facility] Embedded Images 4:06 PM [facility] Pathology/Cytolo gy BONE MARROW SPECIMEN / Unknown 04/12/2024 9:45 AM FURNITURE ASSOCIATE 04/12/2024 1:16 PM FURNITURE ASSOCIATE Castro Garza MD LAB - PATHO LOGY/CYTOLOGY ORDERABLES [facility] [address] [phone] * BONE MARROW BIOPSY (STL) (04/12/2024 9:45 AM FURNITURE ASSOCIATE) Case Report Bone Marrow Patholog y Report Case: [id number] Authorizing Provider: Castro Garza Collected: 04/12/2024 09:45 AM MD Maximo Ordering Location: [facility] - Received: 04/15/2024 04:19 PM Pathology Lab Pathologist: Marylin Florez MD Specimens: A) - Bone Marrow Clot B) - Bone Marrow Core 04/17/2024 12:36 PM [facility] Final Diagnosis Bone marrow, iliac [...] in reticulin fibrosis (MF-1) 04/17/2024 12:36 PM [facility] Comment Please correlate wit h relevant cytogenetic, FISH, and molecular data. 04/17/2024 12:36 PM [facility] Peripheral Smear Description The [...] not provided for review. 04/17/2024 12:36 PM [facility] Bone Marrow Aspirate Differential [...] stain): no ring sideroblasts. 04/17/2024 12:36 PM [facility] Bone Marrow Core Biopsy [...] similar to core biopsy. 04/17/2024 12:36 PM [facility] Flow Cytometry Summary Flow cytometry revealed no overtly clonal plasma cell, clonal B-cell, or increased blast population ([id number]). 04/17/2024 12:36 PM [facility] Clinical History Monoclonal gammopathy. [place] lambda light chain ratio normal at 1.3 04/17/2024 12:36 PM [facility] Materials Received Received are 18 slide(s) labeled and 3 block(s) [id number] along with a copy of the outside pathology report. [place] [address]. All original materials are returned to the referring institution, along with a copy of our final report. 04/17/2024 12:36 PM [facility] Microscopic Description Immunohistochemistry and [...] sheets of plasma cells are not present. [place] and lambda in situ hybridization stains highlight [...] highlight markedly decreased stores. 04/17/2024 12:36 PM [facility] Pathologist Location at [facility] 04/17/2024 12:36 PM [facility] Disclaimer The performance characteristics of all immunohistochemical and indirect immunofluorescence stains (if any) cited in this report were determined by the Histopathology Laboratory of [facility]. Some of these tests were developed [...] the attending (teaching) pathologist. 04/17/2024 12:36 PM [facility] Embedded Images 04/17/2024 12:36 PM [facility] Pathology/Cytology BONE MARROW SPECIMEN / Unknown 04/12/2024 9:45 AM FURNITURE ASSOCIATE 04/15/2024 4:19 PM FURNITURE ASSOCIATE Miscellaneous samples (specimen) BONE MARROW SPECIMEN / Unknown 04/12/2024 9:45 AM FURNITURE ASSOCIATE 04/15/2024 4:19 PM FURNITURE ASSOCIATE Castro Garza MD LAB - PATHO LOGY/CYTOLOGY ORDERABLES [facility] [address] [place] [address], [facility] [phone] from Last 3 Months Care Teams Personal Attendant Relationship Specialty Start Date End Date Kamar Almazan MD [address] [place] [address] PCP - General 05/28/21
--- OUTSIDE RECORDS SUMMARY | 2024-05-09 10:48 | XMS_ITS | Patient Health Summary ---
Author Organization [facility] Address [address] [place] [address] Care Team Providers Care Etl Software Engineer Name Role Phone Kamar Almazan MD Primary Care Provider + Note from [facility],non-owned Affiliates and Associated Physician Practices is amultiple site organization consisting of ambulatory clinics and hospital sitesin [place], [place], [place] and [place]. This disclosure is being madepursuant to the Care Everywhere program and may not contain all information available regarding this patient. Last updated 17.[facility] Allergies * Codeine(Urticaria,Itching,Rash,GI Discomfort) -Medium Criticality * [...] of hip 08/05/2010 Immunizations * INFLUENZA A C4K7-85 VACCINE(Given 01/25/2009) * INFLUENZA VACCINE, QUADR. (AFLURIA, [...] FLOW CYTOMETRY BONE MARROW (04/12/2024 9:45 AM WEB DEVELOPMENT INSTRUCTOR) Case Report Flow Cytometry Case: [id number] Authorizing Provider: Castro Garza Collected: 04/12/2024 09:45 AM MD Maximo Ordering Location: [facility] - Received: 04/12/2024 01:16 PM Pathology Lab Pathologist: Jem Mora MD Specimen: Bone Marrow 04/12/2024 4:06 PM [facility] Final Diagnosis Bone marrow, flow cytometry: - No overtly clonal plasma cell, clonal B-cell, or increased blast population detected 04/12/2024 4:06 PM [facility] Flow Cytometry Interpretation Viability: 98% B-cells: polytypic, kappa:lambda ratio 2:1 T-cells: not increased Blasts: not increased, <2% of overall events. Plasma cells: polytypic, kappa:lambda ratio 2:1 no immunophenotypic aberrancy detected A bone marrow aspirate smear prepared from the flow cytometry specimen has been reviewed for quality assurance test program manager purposes. 04/12/2024 4:06 PM [facility] Flow Cytometry Results Differential Result Comment Flow Cell Count /uL 23,000 Total Viability % 98.0 Lymphocytes % 13 Dim CD45 Region % 5 Monocytes % 11 Granulocytes % 71 04/12/2024 4:06 PM [facility] Reason for test Monoclonal gammopathy 273.1 04/12/2024 4:06 PM [facility] Client Specimen ID # [id number] 04/12/2024 4:06 PM [facility] Number of markers 14 were performed. A-2 Flow CD10 A-3 Flow CD13 A-5 Flow CD20 A-13 Flow CD117 A-14 FLOW CD138 A-1 Flow CD5 A-4 Flow CD19 A-6 Flow CD33 A-7 Flow CD34 A-8 Flow CD45 A-11 Flow CD38 A-12 Flow CD56 A-9 [place]+CD19+ A-10 Lambda+CD19+ 04/12/2024 4:06 PM [facility] Pathologist Location at [facility] 04/12/2024 4:06 PM [facility] Disclaimer Test performed at [facility], [address] [place] [address], [address]. *The established laboratory minimum viability is 70%. [...] high complexity clinical testing. 04/12/2024 4:06 PM [facility] Embedded Images 4:06 PM [facility] Pathology/Cytolo gy BONE MARROW SPECIMEN / Unknown 04/12/2024 9:45 AM WEB DEVELOPMENT INSTRUCTOR 04/12/2024 1:16 PM WEB DEVELOPMENT INSTRUCTOR Castro Garza MD LAB - PATHO LOGY/CYTOLOGY ORDERABLES [facility] [address] [place] [address]. [place] [address], [facility] [phone] * BONE MARROW BIOPSY (STL) (04/12/2024 9:45 AM WEB DEVELOPMENT INSTRUCTOR) Case Report Bone Marrow Patholog y Report Case: [id number] Authorizing Provider: Castro Garza Collected: 04/12/2024 09:45 AM MD Maximo Ordering Location: [facility] - Received: 04/15/2024 04:19 PM Pathology Lab Pathologist: Marylin Florez MD Specimens: A) - Bone Marrow Clot B) - Bone Marrow Core 04/17/2024 12:36 PM [facility] Final Diagnosis Bone marrow, iliac [...] in reticulin fibrosis (MF-1) 04/17/2024 12:36 PM [facility] Comment Please correlate wit h relevant cytogenetic, FISH, and molecular data. 04/17/2024 12:36 PM [facility] Peripheral Smear Description [...] not provided for review. 04/17/2024 12:36 PM [facility] Bone Marrow Aspirate [...] stain): no ring sideroblasts. 04/17/2024 12:36 PM [facility] Bone Marrow Core [...] similar to core biopsy. 04/17/2024 12:36 PM [facility] Flow Cytometry Summary Flow cytometry revealed no overtly clonal plasma cell, clonal B-cell, or increased blast population ([id number]). 04/17/2024 12:36 PM [facility] Clinical History Monoclonal gammopathy. [place] lambda light chain ratio normal at 1.3 04/17/2024 12:36 PM [facility] Materials Received Received are 18 slide(s) labeled and 3 block(s) [id number] along with a copy of the outside pathology report. [place] [address]. All original materials are returned to the referring institution, along with a copy of our final report. 04/17/2024 12:36 PM [facility] Microscopic Description Immunohistochemistry [...] sheets of plasma cells are not present. [place] and lambda in situ hybridization stains highlight [...] highlight markedly decreased stores. 04/17/2024 12:36 PM [facility] Pathologist Location at [facility] 04/17/2024 12:36 PM [facility] Disclaimer The performance characteristics of all immunohistochemical and indirect immunofluorescence stains (if any) cited in this report were determined by the Histopathology Laboratory of [facility]. Some of these tests were developed by [...] the attending (teaching) pathologist. 04/17/2024 12:36 PM [facility] Embedded Images 04/17/2024 12:36 PM [facility] Pathology/Cytology BONE MARROW SPECIMEN / Unknown 04/12/2024 9:45 AM WEB DEVELOPMENT INSTRUCTOR 04/15/2024 4:19 PM WEB DEVELOPMENT INSTRUCTOR Miscellaneous samples (specimen) BONE MARROW SPECIMEN / Unknown 04/12/2024 9:45 AM WEB DEVELOPMENT INSTRUCTOR 04/15/2024 4:19 PM WEB DEVELOPMENT INSTRUCTOR Castro Garza MD LAB - PATHO LOGY/CYTOLOGY ORDERABLES [facility] [address] [phone] Care Teams Etl Software Engineer Relationship Specialty Start Date End Date Kamar Almazan MD [address] [address] PCP - General 05/28/21
--- OUTSIDE RECORDS SUMMARY | 2024-05-09 10:48 | XMS_ITS | Encounter Summary ---
Author Organization [facility] Address 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 Gender Identity Not on file Sexual Orientation Not on file documented as of this encounter Plan of Treatment Upcoming Encounters Date Type Department Care Team (Late st Contact Info) Description 10/28/2024 1:15 PM CDT Office Visit [facility] Oncology and Hematology - [place] [address] [facility] [address] [place] [address] Rom Mcconnell MD [address] [facility] [address] [place] [address] documented as of this encounter Visit Diagnoses Diagnosis Opioid type dependence, unspecified (CMS/HCC)- Primary Opioid type dependence, unspecified documented in this encounter Care Teams Grief Counselor Relationship Specialty Start Date End Date Kamar Almazan MD [address] [facility] [address] [place] [phone] PCP - General Family Practice 04/05/24 documented as of this encounter
--- OUTSIDE RECORDS SUMMARY | 2024-05-09 10:48 | XMS_ITS | Continuity of Care Document ---
Author Organization [facility] Address [address] [place] [address] Phone Care Team Providers Care After School Program Director Name Role Phone [facility] Unavailable Unavailable Advance Directives Directive Yes / No Effective Date File Name No Information Encounters Encounter Description Practice Location Reason(s) For Visit Diagnoses Date Provider Providers Copied on Encounter [facility], [address], [place], [place], [id number], [place] tel:[phone] [facility] No Information [facility]. [address] [facility], [address], [place], [place], [id number], [place]. tel:[phone] Referring Provider: Kamar Sparks, [address] [place] [address], [address]. tel:[phone] Family History Family Member Type Diagnosis Age At Onset No Information Payers Payer name Insurance type Covered libertarian ID Authoriza tion(s) No Information Social History [...]
--- OUTSIDE RECORDS SUMMARY | 2024-06-11 07:51 | XMS_ITS | Encounter Summary ---
Author Organization [facility] Address 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 Gender Identity Not on file Sexual Orientation Not on file documented as of this encounter Plan of Treatment Upcoming Encounters Date Type Department Care Team (Late Contact Info) Description 10/28/2024 1:15 PM CDT Office Visit [facility] Oncology and Hematology - [place] [address] [place] [address] [facility] [address] [place] [address] Rom Mcconnell MD [address] [facility] [address] [place] [address] documented as of this encounter Visit Diagnoses Diagnosis Opioid type dependence, continuous (CMS/HCC)- Primary Opioid type dependence, continuous documented in this encounter Care Teams Crystal Attacher Relationship Specialty Start Date End Date Kamar Almazan MD [address] [place] [address] [address] [place] [address] PCP - General Family Practice 04/05/24 documented as of this encounter
--- OUTSIDE RECORDS SUMMARY | 2024-06-11 07:51 | XMS_ITS | Encounter Summary ---
Author Organization [facility] Address 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 Gender Identity Not on file Sexual Orientation Not on file documented as of this encounter Plan of Treatment Upcoming Encounters Date Type Department Care Team (Late st Contact Info) Description 10/28/2024 1:15 PM CDT Office Visit [facility] Oncology and Hematology - [place] [address] [facility] 200 [place] [address] Rom Mcconnell MD [address] [facility] 100 [place] [address] documented as of this encounter Visit Diagnoses Diagnosis Opioid type dependence, unspecified (CMS/HCC)- Primary Opioid type dependence, unspecified documented in this encounter Care Teams Marketing Underwriter Relationship Specialty Start Date End Date Kamar Almazan MD [address] [facility] 100 [place] [address] PCP - General Family Practice 04/05/24 documented as of this encounter
--- OUTSIDE RECORDS SUMMARY | 2024-06-11 07:51 | XMS_ITS | Encounter Summary ---
Author Organization [facility] Address 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 200 [place] [address] Rom Mcconnell MD [address] [facility] [address] [place] [address] documented as of this encounter Visit Diagnoses Diagnosis Opioid type dependence, unspecified (CMS/HCC)- Primary Opioid type dependence, unspecified documented in this encounter Care Teams Transplant Nurse Relationship Specialty Start Date End Date Kamar Almazan MD [address] [facility] [address] [place] [address] PCP - General Family Practice 04/05/24 documented as of this encounter
--- OUTSIDE RECORDS SUMMARY | 2024-06-11 07:51 | XMS_ITS | Encounter Summary ---
Author Organization [facility] Address 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 Gender Identity Not on file Sexual Orientation Not on file documented as of this encounter Plan of Treatment Upcoming Encounters Date Type Department Care Team (Late st Contact Info) Description 10/28/2024 1:15 PM CDT Office Visit [facility] Oncology and Hematology - [place] [address] [facility] 200 [place] [address] Rom Mcconnell MD [address] [facility] 100 [place] [address] documented as of this encounter Visit Diagnoses Diagnosis Opioid type dependence, unspecified (CMS/HCC)- Primary Opioid type dependence, unspecified documented in this encounter Care Teams Golf Stud Riveter Relationship Specialty Start Date End Date Kamar Almazan MD [address] [facility] 100 [place] [phone] PCP - General Family Practice 04/05/24 documented as of this encounter
--- OUTSIDE RECORDS SUMMARY | 2024-06-11 07:51 | XMS_ITS | Encounter Summary ---
Author Organization [facility] Address 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 Gender Identity Not on file Sexual Orientation Not on file documented as of this encounter Plan of Treatment Upcoming Encounters Date Type Department Care Team (Late st Contact Info) Description 10/28/2024 1:15 PM CDT Office Visit [facility] Oncology and Hematology - [place] [address] [facility] 200 [place] [address] Rom Mcconnell MD [address] [facility] [address] [place] [address] documented as of this encounter Visit Diagnoses Not on filedocumented in this encounter Care Teams Drilling Machine Runner Relationship Specialty Start Date End Date Kamar Almazan MD [address] [facility] [address] [place] [address] PCP - General Family Practice 04/05/24 documented as of this encounter
--- OUTSIDE RECORDS SUMMARY | 2024-06-11 07:51 | XMS_ITS | Encounter Summary ---
Author Organization [facility] Address 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 Gender Identity Not on file Sexual Orientation Not on file documented as of this encounter Plan of Treatment Upcoming Encounters Date Type Department Care Team (Late Contact Info) Description 10/28/2024 1:15 PM CDT Office Visit [facility] Oncology and Hematology - [place] [address] [place] [address] [facility] [address] [place] [address] Rom Mcconnell MD [address] [facility] [address] [place] [address] documented as of this encounter Visit Diagnoses Diagnosis Opioid type dependence, continuous (CMS/HCC)- Primary Opioid type dependence, continuous documented in this encounter Care Teams Staff Occupational Therapist Relationship Specialty Start Date End Date Kamar Almazan MD [address] [place] [address] [address] [place] [address] PCP - General Family Practice 04/05/24 documented as of this encounter
--- OUTSIDE RECORDS SUMMARY | 2024-06-11 07:51 | XMS_ITS | Encounter Summary ---
Author Organization [facility] Address 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 Gender Identity Not on file Sexual Orientation Not on file documented as of this encounter Plan of Treatment Upcoming Encounters Date Type Department Care Team (Late st Contact Info) Description 10/28/2024 1:15 PM CDT Office Visit [facility] Oncology and Hematology - [place] [address] [facility] [address] [place] [address] Rom Mcconnell MD [address] [facility] [address] [place] [address] documented as of this encounter Visit Diagnoses Diagnosis Opioid type dependence, unspecified (CMS/HCC)- Primary Opioid type dependence, unspecified documented in this encounter Care Teams Air Traffic Control Supervisor Relationship Specialty Start Date End Date Kamar Almazan MD [address] [facility] [address] [place] [id number] PCP - General Family Practice 04/05/24 documented as of this encounter
--- OUTSIDE RECORDS SUMMARY | 2024-06-11 07:51 | XMS_ITS | Encounter Summary ---
Author Organization [facility] Address 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 Gender Identity Not on file Sexual Orientation Not on file documented as of this encounter Plan of Treatment Upcoming Encounters Date Type Department Care Team (Late st Contact Info) Description 10/28/2024 1:15 PM CDT Office Visit [facility] Oncology and Hematology - [place] [address] [facility] [address] [place] [address] Rom Mcconnell MD [address] [facility] [address] [place] [address] documented as of this encounter Visit Diagnoses Diagnosis Opioid type dependence, unspecified (CMS/HCC)- Primary Opioid type dependence, unspecified documented in this encounter Care Teams Drywall Finishing Foreman Relationship Specialty Start Date End Date Kamar Almazan MD [address] [place] [address] [address] [place] [id number] PCP - General Family Practice 04/05/24 documented as of this encounter
--- OUTSIDE RECORDS SUMMARY | 2024-06-11 07:51 | XMS_ITS | Encounter Summary ---
Author Organization [facility] Address 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 Gender Identity Not on file Sexual Orientation Not on file documented as of this encounter Plan of Treatment Upcoming Encounters Date Type Department Care Team (Late st Contact Info) Description 10/28/2024 1:15 PM CDT Office Visit [facility] Oncology and Hematology - [place]y [address] [facility] [address] [place] [address] Rom Mcconnell MD [address] [facility] [address] [place] [address] documented as of this encounter Visit Diagnoses Diagnosis Opioid type dependence, unspecified (CMS/HCC)- Primary Opioid type dependence, unspecified documented in this encounter Care Teams Mandrel Puller Relationship Specialty Start Date End Date Kamar Almazan MD [address] [facility] [address] [place] [address] PCP - General Family Practice 04/05/24 documented as of this encounter
--- OUTSIDE RECORDS SUMMARY | 2024-06-11 07:51 | XMS_ITS ---
Author Organization [facility] [employer] Address [address] [place] [address] Care Team Providers Care Trailer Truck Driver Name Role Phone Kamar Almazan MD Primary Care Provider Lakeisha Lisa Siddiquiy Unavailable [phone] Allergies Allergen (clinical drug ingredient) Drug/Non Drug Allergy documented on EMR Reaction Allergy Type Onset Date Status codeine Codeine Unknown Drug Allergy 06/28/2023 Active Substance with penicillin structure and antibacterial mechanism of action (substance) Penicillins Unknown Drug Allergy 06/28/2023 Active REASON FOR VISIT 2 month f/u, phq less than 5, MIPS BP NORMAL Medications Medication SIG (Take, Route, Frequency, Duration) Notes Start Date End Date Status buPROPion HCl ER (XL) 300 MG 1 tablet in the morning Orally Once a day for 90 days Active Clopidogrel Bisulfate 75 MG TAKE 1 TABLET BY MOUTH EVERY MORNING Oral for 90 Days Active Furosemide 20 MG TAKE 1 TABLET BY OK TH EVERY MORNING Oral for 30 Days Active Carvedilol 6.25 MG TAKE 1 TABLET BY OK TH TWICE DAILY Oral for 90 Days Active Testosterone Cypionate 200 MG/ML INJECT 1.5 ML IN THE MUSCLE EVERY 10 DAYS A SINGLE DOSE Intramuscular for 30 Days Active buPROPion HCl ER (XL) 300 MG 1 tablet in the morning Orally Once a day for 90 days Active Buprenorphine HCl-Naloxone HCl 8-2 MG 1 tablet under the tongue and allow to dissolve Sublingual once a day for 30 days 04/22/2024 Active Social History Tobacco Use: Social History Observation Description Date Details (start date - stop date) Former Smoker NA - NA Sex Assigned At : Social History Observation Description Sex Assigned At Male Tobacco Control (Standard) Question Answer Notes Tobacco use: Former smoker Vital Signs Blood pressure systolic 130 mm Hg 04/22/19 25 Blood pressure diastolic 84 mm Hg 025 Heart Rate 89 /min 04/22/2024 Height 69.00 in 04/22/2024 Height-cm 175.26 cm 04/22/2024 Encounters Encounter Location Date Provider Diagnosis [facility] [employer] [address] [place] [address] 04/22/2024 Omar Upton Opioid use disorder, severe, in sustained remission F11.21 ; Major depressive disorder, recurrent, mild F33.0 ; Cardiomyopathy I42.9 ; SUE (generalized anxiety disorder) F41.1 and Mixed hyperlipidemia E78.2 Assessments Encounter Date Diagnosis (ICD Code) Assessment Notes Treatment Notes Treatment Clinical Notes Section Notes 04/22/2024 Opioid use disorder, severe, in sustained remission (ICD-10 - F11.21) 04/22/2024 Major depressive disorder, recurrent, mild (ICD-10 - F33.0) 04/22/2024 Cardiomyopathy (ICD-10 - I42.9) 04/22/2024 SUE (generalized anxiety disorder) (ICD-10 - F41.1) 04/22/2024 Mixed hyperlipidemia (ICD-10 - E78.2) 04/22/2024 Other Dilated Cardiomyopathy and Abnormal Echocardiogram - Plan: - Continue current medications for cardiomyopathy. - Follow up with storage brine worker, Elsa Cantrell [facility]. - Complete tests recommended by storage brine worker, including MRI with contrast dye and sleep apnea test. - Monitor ejection fraction and consider device implantation if necessary. High Protein in Blood - Plan: - Follow up with cooker helper, Dr. Riley, on the . - Continue blood work as needed. Low Testosterone - Plan: - Continue monitoring symptoms and discuss potential treatment options with primary care physician if symptoms worsen. Depression and Exhaustion - Plan: - Continue Wellbutrin at 300 mg. - Consider attending AA meetings for additional support. - Monitor mental health and discuss any changes with primary care physician. Opioid Dependence - Plan: - Continue Suboxone at the current dosage for 2 months. - Reevaluate the need for Suboxone at the next appointment. Memory Test - Plan: - Continue cognitive assessments as needed and discuss any concerns with primary care physician. Caregiver Support - Plan: - Encourage the patient to seek additional support, such as caregiver support groups or counseling, to help manage stress and maintain mental health. - Acknowledge patient's efforts in caregiving and maintaining his own health. Plan Of Treatment Medication Medication Name Sig Start Date Stop Date Notes buPROPion HCl ER (XL) 300 MG 1 tablet in the morning Orally Once a day for 90 days Buprenorphine HCl-Naloxone H Cl 8-2 MG 1 tablet under the tongue and allow to dissolve Sublingual once a day for 30 days 04/22/2024 Next Appt Details Follow Up: 2 Months, Reason: Provider Name:Omar Upton , 06/17/2024 01:15:00 PM, [address], [place] [address], [place], [address], Provider Name:Omar Upton , 08/21/2024 01:00:00 PM, [address], [place] [address], [place], [address], Progress Notes * NEFTALI BRITT RDOB: [birth year] (73 yo M)Acc No.[id number]:04/22/2024 Patient: Dana SALGADONEFTALI SEGURA R Provider: Ruth UPTON MD :1950 A ge:73 Y S ex:Male Date:04/22/2024 Address:[address] [place], [place] [id number] Pcp:Kamar Almazan MD Subjective: * Chief Complaints: * 2 month f/uPhq less than 5MIPS BP NORMAL * HPI: D epression Screening: The note is transcribed using speech recognition software. It is a reflection of a visit with the patient. It might have some inaccuracy, including medication names and transcribing errors, though efforts have been made to correct them. Chief Complaint: Decline in ejection fraction and fatigue Medical History: The patient has a known history of dilated cardiomyopathy. Recent echocardiogram shows a decline in ejection fraction from 51 to 42. Extensive workup including bone marrow tests, lumbar scan, MRI, and urinalysis has been performed. Amyloidosis was ruled out. The patient also reports low testosterone. Ongoing Evaluations: The patient is scheduled for further cardiac imaging with contrast-enhanced MRI and a sleep study to evaluate for sleep apnea. Symptoms: The patient reports fatigue attributed to cardiomyopathy and feeling weaker. He expresses concern about high protein levels in blood and urine. Medications: - Wellbutrin 300mg - Suboxone 1 tablet once daily The patient requests continuation of Suboxone. Mental Health: The patient discloses returning to AA meetings. He expresses feelings of exhaustion and occasionally feeling like giving up but states he feels good about being alive today. He acknowledges struggling with his disease of addiction and the importance of staying active to combat this. Social History: The patient is and reports financial strain due to his spouse's recent health issues. He mentions difficulty scheduling tests due to his 's health issues, which require him to assist her with daily activities and medication. Additional Notes: The patient expresses feeling pretty pumped up about being alive despite the challenges. He acknowledges the importance of staying active to combat his addiction. SUE-7 (2018 Edition) F eeling nervous, anxious, or on edge?Not at all, N ot being able to stop or control worrying N ot at all, W orrying too much about different things N ot at all, T rouble relaxing N ot at all, B eing so restless that it is hard to sit still N ot at all, B ecoming easily annoyed or irritable S everal days, F eeling afraid as if something awful might happen S ever, T otal SUE-7 Score 2 , I f you checked any problems, how difficult have they made it for you to do your work, take care of things at home, or get along with other people? S omewhat difficult, I nterpretation of Total ( 0 to 4) No Anxiety. D epression screening: PHQ-9 L ittle interest or pleasure in doing things N ot at all, F eeling down, depressed, or hopeless N ot at all, T rouble falling or staying asleep, or sleeping too much N ot at all, F eeling tired or having little energy N ot at all, P oor appetite or overeating S everal days, F eeling bad about yourself or that you are a failure, or have let yourself or your family down S everal days, T rouble concentrating on things, such as reading the newspaper or watching television N ot at all, M oving or speaking so slowly that other people could have noticed; or the opposite, being so fidgety or restless that you have been moving around a lot more than usual N ot at all, T houghts that you would be better off or of hurting yourself in some way N ot at all, T otal Score 2 , Interpretation M inimal Depression. I ntervention D epression Screening Findings?Negative, S uicide Risk Assessment Performed . F unctional Status: The patient had multiple encounters with healthcare providers from February 2024 to March 2024. On 03/15/2024, the patient visited Elsa Cantrell NP at [facility], where they were diagnosed with dilated cardiomyopathy and had an abnormal echocardiogram and laboratory test result. The patient was hospitalized on 03/25/2024 due to dilated cardiomyopathy. On 03/26/2024, the patient visited Dr. Sisi Jimenez at [facility], where they were diagnosed with dyspnea, elevated blood protein, monoclonal gammopathies, morbid obesity with a BMI of 40.0 or higher, and other congestive heart failure. On 04/12/2024, the patient had a lab requisition with Dr. Castro Garza at [facility] for monoclonal gammopathy. The patient also had several telephone consultations with Elsa Cantrell NP at [facility] and Ronak Flores MD at [facility]. The patient's data was also recorded by an external device at [facility] on multiple occasions in March 2024.View MoreExternal ResultsTest Name: BONE MARROW ASPIRATION AND BIOPSY Date Performed: 2024-04-12 08:33:07 Results: Data not interpretable Test Name: BONE MARROW BIOPSY (STL) Facility: [facility] Date Performed: 2024-04-17 12:36:57 Results: Borderline biventricular enlargement with mildly reduced global biventricular systolic function (LVEF = 42%, RVEF = 42%). No delayed gadolinium enhancement suggestive of an infiltrative cardiomyopathy or infarct. Test Name: FLOW CYTOMETRY BONE MARROW Facility: [facility] Date Performed: 2024-04-12 09:45:00 Results: No overly clonal plasma cell, clonal B-cell, or increased blast population detected. Test Name: Immunofixation, urine Facility: [facility] Date Performed: 2024-03-12 09:43:00 Results: Data not interpretable Test Name: KAPPA/LAMBDA LIGHT CHAINS FREE WITH RATIO, SERUM Facility: [facility] Date Performed: 2024-03-12 09:43:00 Results: [place]/Lambda light chains free with ratio 1.32 (0.26 - 1.65), Lambda light chain, free 22.1 mg/L (5.7 mg/L - 26.3 mg/L), [place] light chain, free 29.1 mg/L (3.3 mg/L - 19.4 mg/L) - High Test Name: MRI Cardiac M&F W WO Contrast Date Performed: 2024-03-25 12:27:01 Results: Borderline biventricular enlargement with mildly reduced global biventricular systolic function (LVEF = 42%, RVEF = 42%). No delayed gadolinium enhancement suggestive of an infiltrative cardiomyopathy or infarct. Test Name: Protein, Total and Protein Electrophoresis with Immunofixation (ALMA DELIA), Serum Facility: [facility] Date Performed: 2024-03-12 09:43:00 Results: Alpha-1 Globulin 0.3 g/dL (0.2 g/dL - 0.3 g/dL), Beta 2 globulin 0.4 g/dL (0.2 g/dL - 0.5 g/dL), Abnormal protein band 0.4 g/dL - High, Beta-1 globulin 0.5 g/dL (0.4 g/dL - 0.6 g/dL), Alpha-2 Globuliin 0.8 g/dL (0.5 g/dL - 0.9 g/dL), Gamma globulin 1.2 g/dL (0.8 g/dL - 1.7 g/dL), ALBUMIN 4.2 g/dL (3.8 g/dL - 4.8 g/dL), Protein, sr 7.4 g/dL (6.1 g/dL - 8.1 g/dL). * ROS: P erformance Met: N ormal blood pressure reading documented, follow-up not required ( G8783). * Medical History: * Surgical History: * Hospitalization/Major Diagno stic Procedure: * Social History: T obacco Use: T obacco Control (Standard) T obacco use: F ormer smoker. M igrated Social History: M igrated Social History: Alcohol Intake: None 12/01/2022,Tobacco Years: Never smoker 12/01/2022. * Medications: T akingTestosterone Cypionate 200 MG/ML Solution INJECT 1.5 ML IN THE MUSCLE EVERY 10 DAYS A SINGLE DOSE Intramuscular Furosemide 20 MG Tablet TAKE 1 TABLET BY MOUTH EVERY MORNING Oral Clopidogrel Bisulfate 75 MG Tablet TAKE 1 TABLET BY MOUTH EVERY MORNING Oral Carvedilol 6.25 MG Tablet TAKE 1 TABLET BY MOUTH TWICE DAILY Oral Buprenorphine HCl-Naloxone HCl 8-2 MG Tablet Sublingual 1 tablet under the tongue and allow to dissolve Sublingual once a day buPROPion HCl ER (XL) 300 MG Tablet Extended Release 24 Hour 1 tablet in the morning Orally Once a day Medication List reviewed and reconciled with the patientTaking Testosterone Cypionate 200 MG/ML Solution INJECT 1.5 ML IN THE MUSCLE EVERY 10 DAYS A SINGLE DOSE Intramuscular Taking Furosemide 20 MG Tablet TAKE 1 TABLET BY MOUTH EVERY MORNING Oral Taking Clopidogrel Bisulfate 75 MG Tablet TAKE 1 TABLET BY MOUTH EVERY MORNING Oral Taking Carvedilol 6.25 MG Tablet TAKE 1 TABLET BY MOUTH TWICE DAILY Oral Taking Buprenorphine HCl-Naloxone HCl 8-2 MG Tablet Sublingual 1 tablet under the tongue and allow to dissolve Sublingual once a day Taking buPROPion HCl ER (XL) 300 MG Tablet Extended Release 24 Hour 1 tablet in the morning Orally Once a day Medication List reviewed and reconciled with the patient * Allergies: C odeine: Allergy - Onset Date 06/28/2023enicillins: Allergy - Onset Date 06/28/2023no[Allergies Verified] Objective: * Vitals: B P:130/84mm Hg, HR:89/min, Ht: 69.00 in, Ht-cm: 175.26 cm. * Examination: G eneral Examination: M ental Status Examination: Patient expressed feelings of exhaustion and occasional despair, but also a sense of resilience. He is actively seeking support through AA and is engaged in ongoing medical care. Patient demonstrated good memory recall, mentioning a previous memory test with improved results. Vital Signs: review note for vitals Physical Examination: Patient reports symptoms associated with dilated cardiomyopathy, including fatigue. He is involved in caregiving for his , which he reports as physically demanding but manageable. Patient mentions feeling weaker and experiencing tiredness, which he attributes to his cardiomyopathy. Diagnostic Test Results and Labs: Echocardiogram shows a history of dilated cardiomyopathy with a recent decrease in ejection fraction from 51 to 42. Bone Marrow Tests, Lumbar Scan, MRI, Urine Protein were conducted to investigate potential leukemia, but results were negative for leukemia as per Dr. Sparks. Blood Work was conducted on a recent Monday (date unspecified), specifics of results not documented. Patient mentions high protein in the blood. Future diagnostic plans include a scheduled MRI with contrast to examine arteries and a sleep study to assess for sleep apnea. Patient reports multiple encounters in February and March, including visits to storage brine worker Elsa Cantrell at [facility]. Assessment: * Assessment: 1. M ajor depressive disorder, recurrent, mild - F33.0 (Primary) 2 . C ardiomyopathy - I42.9 3 . O pioid use disorder, severe, in sustained remission - F11.21 4 . G AD (generalized anxiety disorder) - F41.1 5 . M ixed hyperlipidemia - E78.2 Plan: * Treatment: 2. O pioid use disorder, severe, in sustained remission Refill Buprenorphine HCl-Naloxone HCl Tablet Sublingual, 8-2 MG, 1 tablet under the tongue and allow to dissolve, Sublingual, once a day, 30 days, 30 Tablet, Refills 1. 3. O thers Clinical Notes: Dilated Cardiomyopathy and Abnormal Echocardiogram - Plan: - Continue current medications for cardiomyopathy. - Follow up with storage brine worker, Elsa Cantrell, [facility]. - Complete tests recommended by storage brine worker, including MRI with contrast dye and sleep apnea test. - Monitor ejection fraction and consider device implantation if necessary. High Protein in Blood - Plan: - Follow up with cooker helper, Dr. Riley, on the . - Continue blood work as needed. Low Testosterone - Plan: - Continue monitoring symptoms and discuss potential treatment options with primary care physician if symptoms worsen. Depression and Exhaustion - Plan: - Continue Wellbutrin at 300 mg. - Consider attending AA meetings for additional support. - Monitor mental health and discuss any changes with primary care physician. Opioid Dependence - Plan: - Continue Suboxone at the current dosage for 2 months. - Reevaluate the need for Suboxone at the next appointment. Memory Test - Plan: - Continue cognitive assessments as needed and discuss any concerns with primary care physician. Caregiver Support - Plan: - Encourage the patient to seek additional support, such as caregiver support groups or counseling, to help manage stress and maintain mental health. - Acknowledge patient's efforts in caregiving and maintaining his own health. * Procedure Codes: 9 6127 BEHAV ASSMT W/SCORE & DOCD/STAND [id number] NORMAL BP READING DOC F/U NOT RQR * Follow Up: 2 Months * Billing Information: * Visit Code: 43889 OFFICE OUTPATIENT VISIT 25 MINUTES DETAILED HISTORY AND EXAM/MODERATE MEDICAL DECISION MAKING. * Procedure Codes: 27516 BEHAV ASSMT W/SCORE & DOCD/STAND INSTRUMENT. G8783 NORMAL BP READING DOC F/U NOT RQR. * OBLASTER Sign off status: Completed true * Provider: Ruth UPTON MD Date: 04/22/2024 Generated for Peter barrera/Roberta/eTransmitting on: 0 06/11/2024 07:51 AM CDT History and Physical Notes * HPI (History of Present Illness) Category Sub-Category Detail Notes Category Not es Depression screening PHQ-9 Little inte rest or pleasure in doing things: Not at all Feeling down, depressed, or hopeless: No t at all Trouble falling or staying asleep, or sl eeping too much: Not at all Feeling tired or having little energy: N ot at all Poor appetite or overeating: Several day s [...] some way: Not at all Total Score: 2 Interpretation: Minimal Depression Intervention Depression Screening Findings: N egative Suicide Risk Assessment Performed: ____ Depression Screening SUE-7 (2018 Edition) Feelin g nervous, anxious, or on edge: Not at all Not being able to stop or control worryi ng: Not at all Worrying too much about different things : Not at all Trouble relaxing: Not at all Being so restless that it is hard to sit still: Not at all Becoming easily annoyed or irritable: Se veral days Feeling afraid as if something awful deirdre ht happen: Several days Total SUE-7 Score: 2 If you checked any problems, how difficult have they made it for you to do your work, take care of things at home, or get along with other people?: Somewhat difficult Interpretation of Total: (0 to 4) No Anx iety Examination Category Sub-Category Detail Notes Category Not es General Examination Mental Status Examination: Patient expressed feelings of exhaustion and occasional despair, but also a sense of resilience. He is actively seeking support through AA and is engaged in ongoing medical care. Patient demonstrated good memory recall, mentioning a previous memory test with improved results. Vital Signs: review note for vitals Physical Examination: Patient reports symptoms associated with dilated cardiomyopathy, including fatigue. He is involved in caregiving for his , which he reports as physically demanding but manageable. Patient mentions feeling weaker and experiencing tiredness, which he attributes to his cardiomyopathy. Diagnostic Test Results and Labs: Echocardiogram shows a history of dilated cardiomyopathy with a recent decrease in ejection fraction from 51 to 42. Bone Marrow Tests, Lumbar Scan, MRI, Urine Protein were conducted to investigate potential leukemia, but results were negative for leukemia as per Dr. Sparks. Blood Work was conducted on a recent Monday (date unspecified), specifics of results not documented. Patient mentions high protein in the blood. Future diagnostic plans include a scheduled MRI with contrast to examine arteries and a sleep study to assess for sleep apnea. Patient reports multiple encounters in February and March, including visits to storage brine worker Elsa Cantrell at [facility].
--- OUTSIDE RECORDS SUMMARY | 2024-06-11 07:52 | XMS_ITS | CONTINUITY OF CARE DOCUMENT ---
Author Name ramyandreahossein Address Unknown Organization [facility] Address [address] [place] [address] Phone [phone] Care Team Providers Care Sports Team Manager Name Role Phone Evonne ALICEA, Cecil Unavailable HOLLY KAPLAN MD Unavailable HOLLY KAPLAN MD Unavailable [phone] INSURANCE PROVIDERS Payer name Policy type / Coverage type [place] red republican ID [facility] [id number]
--- OUTSIDE RECORDS SUMMARY | 2024-06-11 07:52 | XMS_ITS | Encounter Summary ---
Author Organization [facility] Address 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 [facility] [address] [place] [address] Rom Mcconnell MD [address] [place] [address] documented as of this encounter Visit Diagnoses Not on filedocumented in this encounter Care Teams Police Chief Relationship Specialty Start Date End Date Kamar Almazan MD [address] [place] [address] PCP - General Family Practice 04/05/24 documented as of this encounter
--- OUTSIDE RECORDS SUMMARY | 2024-06-11 07:52 | XMS_ITS | Encounter Summary ---
Author Organization [facility] Address 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 Gender Identity Not on file Sexual Orientation Not on file documented as of this encounter Plan of Treatment Upcoming Encounters Date Type Department Care Team (Late st Contact Info) Description 10/28/2024 1:15 PM CDT Office Visit [facility] Oncology and Hematology - [place] [address] [facility] [address] [place] [address] Rom Mcconnell MD [address] [address] [place] [address] documented as of this encounter Visit Diagnoses Diagnosis Opioid type dependence, unspecified (CMS/HCC)- Primary Opioid type dependence, unspecified documented in this encounter Care Teams Staffing Associate Relationship Specialty Start Date End Date Kamar Almazan MD [address] [place] [address] PCP - General Family Practice 04/05/24 documented as of this encounter
--- OUTSIDE RECORDS SUMMARY | 2024-06-11 07:52 | XMS_ITS | Clinical Summary ---
Author Organization [facility] Yousuf Altamirano Address [address] [place] [address] Care Team Providers Care Credit Administration Officer Name Role Phone Kamar Almazan MD Primary Care Provider +1- [phone] Allergies Active Allergy Reactions Criticality Noted Date [...] Encounters Date Type Department Care Team Description 06/03/2024 External Device Data STL ABSTRACTION Provider, Abstract 05/21/2024 External Device Data STL ABSTRACTION Provider, Abstract 04/29/2024 2:45 PM ACCOUNT SERVICE REPRESENTATIVE Office Visit [facility] On[facility] Hemat[facility] [address] [place] [address] Rom Mcconnell MD Monoclonal gammopathies (Primary Dx) 04/23/2024 External Device Data STL ABSTRACTION Provider, Abstract 04/18/2024 Orders Only [facility] [address] [place] [address] Rom Mcconnell MD 04/17/2024 External Device Data STL ABSTRACTION Provider, Abstract 04/17/2024 External Device Data STL ABSTRACTION Provider, Abstract 04/17/2024 Telephone [facility] [address] [place] [id number] Rom Mcconnell MD Lab Results 04/17/2024 Telephone [facility] [address] [place] [address] Rom Mcconnell MD labs for upcoming appointment 04/17/2024 Orders Only [facility] [place] [address] [place] [address] Rom Mcconnell MD Dyspnea, unspecified type (Primary Dx); Elevated blood protein 04/10/2024 External Device Data STL ABSTRACTION Provider, Abstract 04/02/2024 External Device Data STL ABSTRACTION Provider, Abstract 03/26/2024 11:00 AM ACCOUNT SERVICE REPRESENTATIVE Office Visit [facility] [address] [place] [address] Sisi Jimenez MD Monoclonal gammopathies [...] on file Legal Sex Male 3:36 AM ACCOUNT SERVICE REPRESENTATIVE Gender Identity Not on file Sexual Orientation Not on file Last Filed Vital Signs Vital Sign Reading Time Taken Comments Blood Pressure 128/94 04/29/2024 2:34 PM ACCOUNT SERVICE REPRESENTATIVE Pulse 94 04/29/2024 2:34 PM ACCOUNT SERVICE REPRESENTATIVE Temperature 35.6 C (96 F) 04/29/2024 2:34 PM ACCOUNT SERVICE REPRESENTATIVE Respiratory Rate 16 04/29/2024 2:34 PM ACCOUNT SERVICE REPRESENTATIVE Oxygen Saturation 96% 04/29/2024 2:34 PM ACCOUNT SERVICE REPRESENTATIVE Inhaled Oxygen Concentration - - Weight 133.8 kg (295 lb) 04/29/2024 2:34 PM ACCOUNT SERVICE REPRESENTATIVE Height 175.3 cm (5' 9 ) 03/26/2024 10:39 AM ACCOUNT SERVICE REPRESENTATIVE Body Mass Index 43.56 03/26/2024 10:39 AM ACCOUNT SERVICE REPRESENTATIVE Plan of Treatment Upcoming Encounters Date Type Department Care Team (Late st Contact Info) Description 10/28/2024 1:15 PM CDT [facility] Visit [facility] [place] [address] [place] [phone] Rom Mcconnell MD [address] [facility] [address] [place] [address] Health Maintenance Due Date Last Done Comments DTAP/TDAP/TD VACCINES (1 - Tdap) 07/13/1970 COLORECTAL SCREENING 07/13/1996 Colorectal Cancer Screening 07/13/1996 FIT-DNA Q 3 years 07/13/1996 FIT/FOBT Q 1 year 07/13/1996 Flex Sig/CT Colonography Q 5 years 07/13/1996 PNEUMOCOCCAL VACCINE 50+ YEA RS (1 of 1 - PCV) 07/13/2001 ZOSTER VACCINE (1 of 2) 07/13/2001 RSV VACCINE (60+ or ) (1 - Risk 60-74 years 1-dose series) 2011 INFLUENZA VACCINE (#1) 2023 01/11/2019, 2008 [place] Prev entative Visit/Annual Wellness Visit 03/27/2024 Procedures Procedure Name Priority Date/Time Associated Diagnosis Comments COMPREHENSIVE METABOLIC PANEL Routine 04/19/2024 1:16 PM ACCOUNT SERVICE REPRESENTATIVE Dyspnea, unspecified type CBC WITH DIFFERENTIAL Routine 04/19/2024 1:16 PM ACCOUNT SERVICE REPRESENTATIVE Dyspnea, unspecified type PROTEIN ELECTROPHORESIS W/REFLEX,SERUM Routine 04/19/2024 1:16 PM ACCOUNT SERVICE REPRESENTATIVE Elevated blood protein BONE MARROW ASPIRATION & BIOPSY Routine 04/12/2024 8:33 AM ACCOUNT SERVICE REPRESENTATIVE from Last 3 Months Results * (ABNORMAL) CBC WITH DIFFERENTIAL (04/19/2024 1:16 PM ACCOUNT SERVICE REPRESENTATIVE) WBC 8.7 3.8 - 10.8 Thousand/ uL [...] [facility] [place] Comment: Test Performed at: [facility] [address] [place] [address] Marizol Alcazar Blood 04/19/2024 1:16 PM ACCOUNT SERVICE REPRESENTATIVE 04/19/2024 1:18 PM ACCOUNT SERVICE REPRESENTATIVE us Rom Mcconnell MD HEMATOLOGY ORDERABLES Final Res ult [facility] [phone] [facility] [place] [address] [address] [place] [address] * (ABNORMAL) PROTEIN ELECTROPHORESIS W/REFLEX,SERUM (04/19/2024 1:16 PM ACCOUNT SERVICE REPRESENTATIVE) TOTAL PROTEIN 7.2 6.1 - 8.1 g/dL [facility] [place] ALBUMIN SPE 4.2 3.8 - 4.8 g/dL [facility] [place] ALPHA 1 GLOBULIN SPE 0.3 0.2 - 0.3 g/dL [facility] [place] ALPHA 2 GLOBULIN SPE 0.7 0.5 - 0.9 g/dL [facility] [place] Beta 1 Globulin 0.5 0.4 - 0.6 g/dL [facility] [place] Beta 2 Globulin 0.4 0.2 - 0.5 g/dL [facility] [place] GAMMA GLOBULIN 1.1 0.8 - 1.7 g/dL [facility] [place] ABNORMAL PROTEIN BAND SPE 0.3(H) NONE DETECTED g/dL [facility] [place] SPE INTERP [facility] [place] Comment: Faint restricted band (M-spike) migrating in the gamma region. Consider serum immunofixation to rule out a monoclonal protein if clinically indicated. Test Performed at: [facility] [place] [address] Marizol Alcazar MD Blood 04/19/2024 1:16 PM ACCOUNT SERVICE REPRESENTATIVE 04/19/2024 1:18 PM ACCOUNT SERVICE REPRESENTATIVE Rom Mcconnell MD CHEMISTRY ORDERABLES Final Resu lt [facility] [phone] [facility] [place] [address] * (ABNORMAL) COMPREHENSIVE METABOLIC PANEL (04/19/2024 1:16 PM ACCOUNT SERVICE REPRESENTATIVE) GLUCOSE 97 65 - 99 mg/dL [facility] [place] Comment: Fasting reference interval BUN 30(H) 7 - 25 mg/dL [facility] [place] CREATININE 1.41(H) 0.70 - 1.28 mg/dL [facility] [place] GFR 53(L) > OR = 60 mL/min/1. 73m2 [facility] [place] BUN/CREAT RATIO 21 6 - 22 (calc) Sarah [facility] [place] SODIUM 134(L) 135 - 146 mmol/L [facility] yoav [place] POTASSIUM 4.7 3.5 - 5.3 mmol/L [facility] [place] CHLORIDE 99 98 - 110 mmol/L Sarah Gann yoav [place] CO2 30 20 - 32 mmol/L [facility] [place] CALCIUM 9.5 8.6 - 10.3 mg/dL [facility] yoav [place] TOTAL PROTEIN 7.3 6.1 - 8.1 g/dL [facility] [place] ALBUMIN 4.4 3.6 - 5.1 g/dL [facility] [place] GLOBULIN 2.9 1.9 - 3.7 g/dL (calc) [facility] [place] ALBUMIN/GLOBULIN RATIO 1.5 1.0 - 2.5 (calc) [facility] [place] BILIRUBIN TOTAL 0.8 0.2 - 1.2 mg/dL [facility] yoav [place] ALKALINE PHOSPHATASE 81 35 - 144 U/L [facility] yoav [place] AST 27 10 - 35 U/L [facility] yoav [place] ALT 34 9 - 46 U/L [facility] [employer] yoav [place] Comment: Test Performed at: [place] [address] [address] [place] [address] KateKary Alcazar Blood 04/19/2024 1:16 PM ACCOUNT SERVICE REPRESENTATIVE 04/19/2024 1:18 PM ACCOUNT SERVICE REPRESENTATIVE Rom Mcconnell MD CHEMISTRY ORDERABLES Final Resu lt [facility] [phone] [place] [address] [address] [place] [address] * BONE MARROW ASPIRATION AND BIOPSY (04/12/2024 8:33 AM ACCOUNT SERVICE REPRESENTATIVE) Bone marrow Rom Mcconnell MD PATH/CYTO ORDERABLES COM Final Result from Last 3 Months Insurance [facility] [id number] Member Subscriber Plan / Payer (Ef fective 2023-Present) Name:Robinson Mendoza Relation to Subscriber:Self Name:Robinson Mendoza Payer ID:[id number] (NAIC) Type:PPO Address: [place] [id number] Care Teams Credit Administration Officer Relationship Specialty Start Date End Date Kamar Almazan MD [address] [address] PCP - General Family Practice 04/05/24
--- OUTSIDE RECORDS SUMMARY | 2024-06-11 07:52 | XMS_ITS | Encounter Summary ---
Author Organization [facility] Address [address] [place] [address] Care Team Providers Care Generalist Name Role Phone Kamar Almazan MD Primary Care Provider +1- [phone] Encounter Details Date Type Department Care Team (Latest Contact Info) Description 08/30/2000 Outpatient Historical [facility] Conversion, History Unspecified drug dependence, unspecified (CMS/HCC) (Primary Dx) Social History Tobacco Use Types Packs/Day Years Used Date Smoking Tobacco: Never Assessed Sex and Gender Information Value Date Recorded Sex Assigned at Not on file Legal Sex Male 3:36 AM TOOL SETTER APPRENTICE Gender Identity Not on file Sexual Orientation Not on file documented as of this encounter Plan of Treatment Upcoming Encounters Date Type Department Care Team (Late st Contact Info) Description 10/28/2024 1:15 PM CDT Office Visit [facility] Oncology and Hematology - [place] [address] [facility] [address] [place] [address] Rom Mcconnell MD [address] [facility] [address] [place] [address] documented as of this encounter Visit Diagnoses Diagnosis Unspecified drug dependence, unspecified (CMS/HCC)- Primary Unspecified drug dependence, unspecified documented in this encounter Care Teams Generalist Relationship Specialty Start Date End Date Kamar Almazan MD [address] [facility] [address] [place] [address] PCP - General Family Practice 04/05/24 documented as of this encounter
--- OUTSIDE RECORDS SUMMARY | 2024-06-11 07:52 | XMS_ITS | Encounter Summary ---
Author Organization [facility] Address [address] [place] [address] Care Team Providers Care Wine Blender Name Role Phone Kamar Almazan MD Primary Care Provider + Encounter Details Date Type Department Care Team (Late st Contact Info) Description 04/15/2024 Lab Requisition [facility] - Pathology Lab [address] [place] [phone] Castro Garza MD [address] [address] Illness, unspecified Social History Tobacco [...] MARROW BIOPSY (STL) Routine 04/12/2024 9:45 AM ASP DEVELOPER Illness, unspecified documented in this encounter Results * BONE MARROW BIOPSY (STL) (04/12/2024 9:45 AM ASP DEVELOPER) Case Report Bone Marrow Patholog y Report Case: [id number] Authorizing Provider: Castro Garza Collected: 04/12/2024 09:45 AM MD Maximo Ordering Location: [facility] - Received: 04/15/2024 04:19 PM Pathology Lab Pathologist: Marylin Florez MD Specimens: A) - Bone Marrow Clot B) - Bone Marrow Core 04/17/2024 12:36 PM [facility] Final Diagnosis Bone marrow, 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 04/17/2024 12:36 PM [facility] Peripheral Smear Description The patient's [...] not provided for review. 04/17/2024 12:36 PM [facility] Bone Marrow Aspirate Differential count [...] stain): no ring sideroblasts. 04/17/2024 12:36 PM [facility] Bone Marrow Core Biopsy and [...] similar to core biopsy. 04/17/2024 12:36 PM [facility] Flow Cytometry Summary Flow cytometry revealed no overtly clonal plasma cell, clonal B-cell, or increased blast population ([id number]). 04/17/2024 12:36 PM [facility] Clinical History Monoclonal gammopathy. [place] lambda light chain ratio normal at 1.3 04/17/2024 12:36 PM [facility] Materials Received Received are 18 slide(s) labeled and 3 block(s) AB25-1 along with a copy of the outside pathology report. The materials [place] [address]. All original materials are returned to the referring institution, along with a copy of our final report. 04/17/2024 12:36 PM [facility] Microscopic Description Immunohistochemistry and special [...] sheets of plasma cells are not present. [place] and lambda in situ hybridization stains highlight [...] highlight markedly decreased stores. 04/17/2024 12:36 PM [facility] Pathologist Location at [facility] 04/17/2024 12:36 PM [facility] Disclaimer The performance characteristics of all immunohistochemical and indirect immunofluorescence stains (if any) cited in this report were determined by the Histopathology Laboratory of [facility]. Some of these tests were developed [...] the attending (teaching) pathologist. 04/17/2024 12:36 PM [facility] Embedded Images 04/17/2024 12:36 PM [facility] Pathology/Cytology BONE MARROW SPECIMEN / Unknown 04/12/2024 9:45 AM ASP DEVELOPER 04/15/2024 4:19 PM ASP DEVELOPER Miscellaneous samples (specimen) BONE MARROW SPECIMEN / Unknown 04/12/2024 9:45 AM ASP DEVELOPER 04/15/2024 4:19 PM ASP DEVELOPER Castro Garza MD LAB - PATHO LOGY/CYTOLOGY ORDERABLES Performing Organization Address City/State/[facility] Co de Phone Number [facility] [address] [phone] documented in this encounter Visit Diagnoses Diagnosis Illness, unspecified documented in this encounter Care Teams Wine Blender Relationship Specialty Start Date End Date Kamar Almazan MD [address] [address] PCP - General 05/28/21 documented as of this encounter
--- OUTSIDE RECORDS SUMMARY | 2024-06-11 07:52 | XMS_ITS | Encounter Summary ---
Author Organization [facility] Address [address] [place] [address] Care Team Providers Care Erp Project Manager Name Role Phone Kamar Almazan MD Primary Care Provider +1- [phone] Encounter Details Date Type Department Care Team (Latest Contact Info) Description 10/01/2000 Outpatient Historical [facility] Conversion, History Unspecified drug dependence, unspecified (CMS/HCC) (Primary Dx) Social History Tobacco Use Types Packs/Day Years Used Date Smoking Tobacco: Never Assessed Sex and Gender Information Value Date Recorded Sex Assigned at Not on file Legal Sex Male 3:36 AM ENVELOPE MAKER Gender Identity Not on file Sexual Orientation Not on file documented as of this encounter Plan of Treatment Upcoming Encounters Date Type Department Care Team (Late st Contact Info) Description 10/28/2024 1:15 PM CDT Office Visit [facility] Oncology and Hematology - [place]y [address] [facility] [address] [place] [address] Rom Mcconnell MD [address] [facility] [address] [place] [address] documented as of this encounter Visit Diagnoses Diagnosis Unspecified drug dependence, unspecified (CMS/HCC)- Primary Unspecified drug dependence, unspecified documented in this encounter Care Teams Erp Project Manager Relationship Specialty Start Date End Date Kamar Almazan MD [address] [facility] [address] [place] [address] PCP - General Family Practice 04/05/24 documented as of this encounter
--- OUTSIDE RECORDS SUMMARY | 2024-06-11 07:52 | XMS_ITS | Encounter Summary ---
Author Organization [facility] Address [address] [place] [address] Care Team Providers Care Pile Driving Superintendent Name Role Phone Kamar Almazan MD Primary Care Provider + Encounter Details Date Type Department Care Team (Late st Contact Info) Description 04/12/2024 Lab Requisition [facility] - Pathology Lab [address] [place] [phone] Castro Garza MD [address] [facility] [address] [place] [address] [id number] Monoclonal gammopathy Social History Tobacco Use Types [...] CYTOMETRY BONE MARROW Routine 04/12/2024 9:45 AM HEAD OF HUMAN RESOURCES Monoclonal gammopathy documented in this encounter Results * FLOW CYTOMETRY BONE MARROW (04/12/2024 9:45 AM HEAD OF HUMAN RESOURCES) Case Report Flow Cytometry Case: [id number] Authorizing Provider: Castro Garza Collected: 04/12/2024 09:45 AM MD Maximo Ordering Location: [facility] - Received: 04/12/2024 01:16 PM [...] flow cytometry specimen has been reviewed for type disk quality control supervisor purposes. 04/12/2024 4:06 PM [facility] [...] A-11 Flow CD38 A-12 Flow CD56 A-9 [place]+CD19+ A-10 Lambda+CD19+ 04/12/2024 4:06 PM [facility] Pathologist Location at [facility] 04/12/2024 4:06 PM [facility] Disclaimer Test performed at [facility], [address] [place] [address], [address]. *The established laboratory minimum viability is 70%. [...] high complexity clinical testing. 04/12/2024 4:06 PM HEAD OF HUMAN RESOURCES [facility] Embedded Images 4:06 PM HEAD OF HUMAN RESOURCES [facility] Pathology/Cytolo gy BONE MARROW SPECIMEN / Unknown 04/12/2024 9:45 AM HEAD OF HUMAN RESOURCES 04/12/2024 1:16 PM HEAD OF HUMAN RESOURCES Castro Garza MD LAB - PATHO LOGY/CYTOLOGY ORDERABLES Performing Organization Address City/State/[facility] Co de Phone Number [facility] [address] [phone] documented in this encounter Visit Diagnoses Diagnosis Monoclonal gammopathy Monoclonal paraproteinemia documented in this encounter Care Teams Pile Driving Superintendent Relationship Specialty Start Date End Date Kamar Almazan MD [address] [address] PCP - General 05/28/21 documented as of this encounter
--- OUTSIDE RECORDS SUMMARY | 2024-06-11 07:52 | XMS_ITS | Encounter Summary ---
Author Organization [facility] Address [address] [place] [address] Care Team Providers Care Ict Quality Assurance Engineer Name Role Phone Kamar Almazan MD Primary Care Provider +1- [phone] Encounter Details Date Type Department Care Team (Late st Contact Info) Description 08/21/2000 Outpatient Historical [facility] Conversion, History Social History Tobacco Use Types Packs/Day Years Used Date Smoking Tobacco: Never Assessed Sex and Gender Information Value Date Recorded Sex Assigned at Not on file Legal Sex Male 3:36 AM COMMERCIAL CRABBER Gender Identity Not on file Sexual Orientation Not on file documented as of this encounter Plan of Treatment Upcoming Encounters Date Type Department Care Team (Late st Contact Info) Description 10/28/2024 1:15 PM CDT Office Visit [facility] Oncology and Hematology - [place]at[place]y [address] [facility] [address] [place] [address] Rom Mcconnell MD [address] [facility] [address] [place] [address] documented as of this encounter Visit Diagnoses Not on filedocumented in this encounter Care Teams Ict Quality Assurance Engineer Relationship Specialty Start Date End Date Kamar Almazan MD [address] [facility] [address] [place] [address] PCP - General Family Practice 04/05/24 documented as of this encounter
--- OUTSIDE RECORDS SUMMARY | 2024-06-11 07:53 | XMS_ITS | Referral Summary ---
Author Organization [facility] Address [address] [place] [address] Care Team Providers Care Director University Name Role Phone Kamar Almazan MD Primary Care Provider + Source Comments [facility],non-owned Affiliates and Associated Physician Practices is amultiple site organization consisting of ambulatory clinics and hospital sitesin [place], [place], [place] and [place]. This disclosure is being madepursuant to the Care Everywhere program and may not contain all information available regarding this patient. Last updated 17.[facility] Encounters Date Type Department Care Team Description 04/15/2024 Lab Requisition [facility] - Pathology Lab [address] [place] [address] Castro Garza MD Illness, unspecified 04/12/2024 Lab Requisition [facility] - Pathology Lab [address] [place] [address] Castro Garza MD Monoclonal gammopathy from Last [...] Name Administration Dates Next Due INFLUENZA A T2G0-71 VACCINE 01/25/2009 INFLUENZA VACCINE, QUADR. (A FLURIA, [...] MARROW BIOPSY (STL) Routine 04/12/2024 9:45 AM MUSIC THERAPY SPECIALIST Illness, unspecified FLOW CYTOMETRY BONE MARROW Routine 04/12/2024 9:45 AM MUSIC THERAPY SPECIALIST Monoclonal gammopathy from Last 3 Months Results * FLOW CYTOMETRY BONE MARROW (04/12/2024 9:45 AM MUSIC THERAPY SPECIALIST) Case Report Flow Cytometry Case: [id number] Authorizing Provider: Castro Garza Collected: 04/12/2024 09:45 AM MD Maximo Ordering Location: [facility] - Received: 04/12/2024 01:16 PM Pathology Lab Pathologist: Jem Mora MD Specimen: Bone Marrow 04/12/2024 4:06 PM [facility] Final Diagnosis Bone marrow, flow cytometry: - No overtly clonal plasma cell, clonal B-cell, or increased blast population detected 04/12/2024 4:06 PM [facility] Flow Cytometry Interpretation Viability: 98% B-cells: polytypic, kappa:lambda ratio 2:1 T-cells: not increased Blasts: not increased, <2% of overall events. Plasma cells: polytypic, kappa:lambda ratio 2:1 no immunophenotypic aberrancy detected A bone marrow aspirate smear prepared from the flow cytometry specimen has been reviewed for research quality assurance analyst purposes. 04/12/2024 4:06 PM [facility] Flow Cytometry Results Differential Result Comment Flow Cell Count /uL 23,000 Total Viability % 98.0 Lymphocytes % 13 Dim CD45 Region % 5 Monocytes % 11 Granulocytes % 71 04/12/2024 4:06 PM [facility] Reason for test Monoclonal gammopathy 273.1 04/12/2024 4:06 PM [facility] Client Specimen ID # [id number] 04/12/2024 4:06 PM [facility] Number of markers 14 were performed. A-2 Flow CD10 A-3 Flow CD13 A-5 Flow CD20 A-13 Flow CD117 A-14 FLOW CD138 A-1 Flow CD5 A-4 Flow CD19 A-6 Flow CD33 A-7 Flow CD34 A-8 Flow CD45 A-11 Flow CD38 A-12 Flow CD56 A-9 [place]+CD19+ A-10 Lambda+CD19+ 04/12/2024 4:06 PM [facility] Pathologist Location at [facility] 04/12/2024 4:06 PM [facility] Disclaimer Test performed at [facility], [address] [place] [address], [id number]. *The established laboratory minimum viability is 70%. [...] high complexity clinical testing. 04/12/2024 4:06 PM [facility] Embedded Images 4:06 PM [facility] Pathology/Cytolo gy BONE MARROW SPECIMEN / Unknown 04/12/2024 9:45 AM MUSIC THERAPY SPECIALIST 04/12/2024 1:16 PM MUSIC THERAPY SPECIALIST Castro Garza MD LAB - PATHO LOGY/CYTOLOGY ORDERABLES [facility] [address] [phone] * BONE MARROW BIOPSY (STL) (04/12/2024 9:45 AM MUSIC THERAPY SPECIALIST) Case Report Bone Marrow Patholog y Report Case: [id number] Authorizing Provider: Castro Garza Collected: 04/12/2024 09:45 AM MD Maximo Ordering Location: [facility] - Received: 04/15/2024 04:19 PM Pathology Lab Pathologist: Marylin Florez MD Specimens: A) - Bone Marrow Clot B) - Bone Marrow Core 04/17/2024 12:36 PM [facility] Final Diagnosis Bone marrow, [...] in reticulin fibrosis (MF-1) 04/17/2024 12:36 PM [facility] Comment Please correlate wit h relevant cytogenetic, FISH, and molecular data. 04/17/2024 12:36 PM [facility] Peripheral Smear Description The [...] not provided for review. 04/17/2024 12:36 PM [facility] Bone Marrow Aspirate Differential [...] stain): no ring sideroblasts. 04/17/2024 12:36 PM [facility] Bone Marrow Core Biopsy [...] similar to core biopsy. 04/17/2024 12:36 PM [facility] Flow Cytometry Summary Flow cytometry revealed no overtly clonal plasma cell, clonal B-cell, or increased blast population ([id number]). 04/17/2024 12:36 PM [facility] Clinical History Monoclonal gammopathy. [place] lambda light chain ratio normal at 1.3 04/17/2024 12:36 PM [facility] Materials Received Received are 18 slide(s) labeled and 3 block(s) [id number] along with a copy of the outside pathology report. [place] [address]. All original materials are returned to the referring institution, along with a copy of our final report. 04/17/2024 12:36 PM [facility] Microscopic Description Immunohistochemistry and [...] sheets of plasma cells are not present. [place] and lambda in situ hybridization stains highlight [...] highlight markedly decreased stores. 04/17/2024 12:36 PM [facility] Pathologist Location at [facility] 04/17/2024 12:36 PM [facility] Disclaimer The performance characteristics of all immunohistochemical and indirect immunofluorescence stains (if any) cited in this report were determined by the Histopathology Laboratory of [facility]. Some of these tests were developed [...] the attending (teaching) pathologist. 04/17/2024 12:36 PM [facility] Embedded Images 04/17/2024 12:36 PM [facility] Pathology/Cytology BONE MARROW SPECIMEN / Unknown 04/12/2024 9:45 AM MUSIC THERAPY SPECIALIST 04/15/2024 4:19 PM MUSIC THERAPY SPECIALIST Miscellaneous samples (specimen) BONE MARROW SPECIMEN / Unknown 04/12/2024 9:45 AM MUSIC THERAPY SPECIALIST 04/15/2024 4:19 PM MUSIC THERAPY SPECIALIST Castor Garza MD LAB - PATHO LOGY/CYTOLOGY ORDERABLES [facility] [address] [place] [address], [facility] [phone] from Last 3 Months Care Teams Director University Relationship Specialty Start Date End Date Kamar Almazan MD [address] [place] [phone] PCP - General 05/28/21
--- OUTSIDE RECORDS SUMMARY | 2024-06-11 07:53 | XMS_ITS | Patient Health Summary ---
Author Organization [facility] Address [address] [place] [address] Care Team Providers Care Yoga Instructor Name Role Phone Kamar Almazan MD Primary Care Provider + Note from [facility],non-owned Affiliates and Associated Physician Practices is amultiple site organization consisting of ambulatory clinics and hospital sitesin [place], [place], [place] and [place]. This disclosure is being madepursuant to the Care Everywhere program and may not contain all information available regarding this patient. Last updated 17.[facility] Allergies * Codeine(Urticaria,Itching,Rash,GI Discomfort) -Medium Criticality [...] of hip 08/05/2010 Immunizations * INFLUENZA A I8O8-28 VACCINE(Given 01/25/2009) * INFLUENZA VACCINE, QUADR. (AFLURIA, [...] FLOW CYTOMETRY BONE MARROW (04/12/2024 9:45 AM SECOND BALLER) Case Report Flow Cytometry Case: [id number] Authorizing Provider: Castro Garza Collected: 04/12/2024 09:45 AM MD Maximo Ordering Location: [facility] - Received: 04/12/2024 01:16 PM Pathology Lab Pathologist: Jem Mora MD Specimen: Bone Marrow 04/12/2024 4:06 PM [facility] Final Diagnosis Bone marrow, flow cytometry: - No overtly clonal plasma cell, clonal B-cell, or increased blast population detected 04/12/2024 4:06 PM [facility] Flow Cytometry Interpretation Viability: 98% B-cells: polytypic, kappa:lambda ratio 2:1 T-cells: not increased Blasts: not increased, <2% of overall events. Plasma cells: polytypic, kappa:lambda ratio 2:1 no immunophenotypic aberrancy detected A bone marrow aspirate smear prepared from the flow cytometry specimen has been reviewed for supervisor vendor quality purposes. 04/12/2024 4:06 PM [facility] Flow Cytometry Results Differential Result Comment Flow Cell Count /uL 23,000 Total Viability % 98.0 Lymphocytes % 13 Dim CD45 Region % 5 Monocytes % 11 Granulocytes % 71 04/12/2024 4:06 PM [facility] Reason for test Monoclonal gammopathy 273.1 04/12/2024 4:06 PM [facility] Client Specimen ID # [id number] 04/12/2024 4:06 PM [facility] Number of markers 14 were performed. A-2 Flow CD10 A-3 Flow CD13 A-5 Flow CD20 A-13 Flow CD117 A-14 FLOW CD138 A-1 Flow CD5 A-4 Flow CD19 A-6 Flow CD33 A-7 Flow CD34 A-8 Flow CD45 A-11 Flow CD38 A-12 Flow CD56 A-9 [place]+CD19+ A-10 Lambda+CD19+ 04/12/2024 4:06 PM [facility] Pathologist Location at [facility] 04/12/2024 4:06 PM [facility] Disclaimer Test performed at [facility], [address] [place] [address], [id number]. *The established laboratory minimum viability is 70%. [...] high complexity clinical testing. 04/12/2024 4:06 PM [facility] Embedded Images 4:06 PM [facility] Pathology/Cytolo gy BONE MARROW SPECIMEN / Unknown 04/12/2024 9:45 AM SECOND BALLER 04/12/2024 1:16 PM SECOND BALLER Castro Garza MD LAB - PATHO LOGY/CYTOLOGY ORDERABLES [facility] [address] [place] [address]. [place] [address], [facility] [phone] * BONE MARROW BIOPSY (STL) (04/12/2024 9:45 AM SECOND BALLER) Case Report Bone Marrow Patholog y Report Case: [id number] Authorizing Provider: Castro Garza Collected: 04/12/2024 09:45 AM MD Maximo Ordering Location: [facility] - Received: 04/15/2024 04:19 PM Pathology Lab Pathologist: Marylin Florez MD Specimens: A) - Bone Marrow Clot B) - Bone Marrow Core 04/17/2024 12:36 PM [facility] Final Diagnosis Bone [...] in reticulin fibrosis (MF-1) 04/17/2024 12:36 PM [facility] Comment Please correlate wit h relevant cytogenetic, FISH, and molecular data. 04/17/2024 12:36 PM [facility] Peripheral Smear Description [...] not provided for review. 04/17/2024 12:36 PM [facility] Bone Marrow Aspirate [...] stain): no ring sideroblasts. 04/17/2024 12:36 PM [facility] Bone Marrow Core [...] similar to core biopsy. 04/17/2024 12:36 PM [facility] Flow Cytometry Summary Flow cytometry revealed no overtly clonal plasma cell, clonal B-cell, or increased blast population ([id number]). 04/17/2024 12:36 PM [facility] Clinical History Monoclonal gammopathy. [place] lambda light chain ratio normal at 1.3 04/17/2024 12:36 PM [facility] Materials Received Received are 18 slide(s) labeled and 3 block(s) [id number] along with a copy of the outside pathology report. [place] [address]. All original materials are returned to the referring institution, along with a copy of our final report. 04/17/2024 12:36 PM [facility] Microscopic Description Immunohistochemistry [...] sheets of plasma cells are not present. [place] and lambda in situ hybridization stains highlight [...] highlight markedly decreased stores. 04/17/2024 12:36 PM [facility] Pathologist Location at [facility] 04/17/2024 12:36 PM [facility] Disclaimer The performance characteristics of all immunohistochemical and indirect immunofluorescence stains (if any) cited in this report were determined by the Histopathology Laboratory of [facility]. Some of these tests were developed by [...] the attending (teaching) pathologist. 04/17/2024 12:36 PM [facility] Embedded Images 04/17/2024 12:36 PM [facility] Pathology/Cytology BONE MARROW SPECIMEN / Unknown 04/12/2024 9:45 AM SECOND BALLER 04/15/2024 4:19 PM SECOND BALLER Miscellaneous samples (specimen) BONE MARROW SPECIMEN / Unknown 04/12/2024 9:45 AM SECOND BALLER 04/15/2024 4:19 PM SECOND BALLER Castro Garza MD LAB - PATHO LOGY/CYTOLOGY ORDERABLES [facility] [address] [phone] Care Teams Yoga Instructor Relationship Specialty Start Date End Date Kamar Almazan MD [address] [address] PCP - General 05/28/21
--- OUTSIDE RECORDS SUMMARY | 2024-06-11 07:53 | XMS_ITS | Clinical Summary ---
Author Organization [facility] Address [address] [facility] [place] [address] Care Team Providers Care Tow Operator Name Role Phone Kamar Almazan MD Primary Care Provider + Source Comments [facility],non-owned Affiliates and Associated Physician Practices is amultiple site organization consisting of ambulatory clinics and hospital sitesin [place], [place], [place] and [place]. This disclosure is being madepursuant to the Care Everywhere program and may not contain all information available regarding this patient. Last updated 17.[facility] Allergies Active Allergy Reactions Criticality Noted Date [...] [facility] - Pathology Lab [facility] [place] [address] Castro Garza MD Illness, unspecified 04/12/20[address] [facility] - [facility]ology Lab [address] [place] [address] Castro Garza MD Monoclonal gammopathy from Last 3 Months Immunizations Name Administration Dates Next Due INFLUENZA A [id number] VACCINE 01/25/2009 INFLUENZA VACCINE, QUADR. (A FLURIA, [...] complete this topic MENINGOCOCCAL (Group B) VACCINE SHARED DECISION-MAKING Aged Out No longer eligible based on patient's age to complete this topic MENINGOCOCCAL GROUPS A/C/Y/W VACCINE Aged Out No longer eligible b ased on patient's age to complete this topic Procedures Procedure Name Priority Date/Time Associated Diagnosis Comments BONE MARROW BIOPSY (STL) Routine 04/12/2024 9:45 AM MOVIE STUNT PERFORMER Illness, unspecified FLOW CYTOMETRY BONE MARROW Routine 04/12/2024 9:45 AM MOVIE STUNT PERFORMER Monoclonal gammopathy from Last 3 Months Results * FLOW CYTOMETRY BONE MARROW (04/12/2024 9:45 AM MOVIE STUNT PERFORMER) Case Report Flow Cytometry Case: [id number] Authorizing Provider: Castro Garza Collected: 04/12/2024 09:45 AM MD Maximo Ordering Location: [facility] - Received: 04/12/2024 01:16 PM Pathology Lab Pathologist: Jem Mora MD Specimen: Bone Marrow 04/12/2024 4:06 PM [facility] Final Diagnosis Bone marrow, flow cytometry: - No overtly clonal plasma cell, clonal B-cell, or increased blast population detected 04/12/2024 4:06 PM [facility] Flow Cytometry Interpretation Viability: 98% B-cells: polytypic, kappa:lambda ratio 2:1 T-cells: not increased Blasts: not increased, <2% of overall events. Plasma cells: polytypic, kappa:lambda ratio 2:1 no immunophenotypic aberrancy detected A bone marrow aspirate smear prepared from the flow cytometry specimen has been reviewed for customer quality specialist purposes. 04/12/2024 4:06 PM [facility] Flow Cytometry Results Differential Result Comment Flow Cell Count /uL 23,000 Total Viability % 98.0 Lymphocytes % 13 Dim CD45 Region % 5 Monocytes % 11 Granulocytes % 71 04/12/2024 4:06 PM [facility] Reason for test Monoclonal gammopathy 273.1 04/12/2024 4:06 PM [facility] Client Specimen ID # [id number] 04/12/2024 4:06 PM [facility] Number of markers 14 were performed. A-2 Flow CD10 A-3 Flow CD13 A-5 Flow CD20 A-13 Flow CD117 A-14 FLOW CD138 A-1 Flow CD5 A-4 Flow CD19 A-6 Flow CD33 A-7 Flow CD34 A-8 Flow CD45 A-11 Flow CD38 A-12 Flow CD56 A-9 [place]+CD19+ A-10 Lambda+CD19+ 04/12/2024 4:06 PM [facility] Pathologist Location at [facility] 04/12/2024 4:06 PM [facility] Disclaimer Test performed at [facility], [address] [place] [address], [address]. *The established laboratory minimum viability is 70%. [...] high complexity clinical testing. 04/12/2024 4:06 PM [facility] Embedded Images 4:06 PM [facility] Pathology/Cytolo gy BONE MARROW SPECIMEN / Unknown 04/12/2024 9:45 AM MOVIE STUNT PERFORMER 04/12/2024 1:16 PM MOVIE STUNT PERFORMER Castro Garza MD LAB - PATHO LOGY/CYTOLOGY ORDERABLES [facility] [address] [place] [address]. [place] [address], [facility] [phone] * BONE MARROW BIOPSY (STL) (04/12/2024 9:45 AM MOVIE STUNT PERFORMER) Case Report Bone Marrow Patholog y Report Case: [id number] Authorizing Provider: Castro Garza Collected: 04/12/2024 09:45 AM MD Maximo Ordering Location: [facility] - Received: 04/15/2024 04:19 PM Pathology Lab Pathologist: Marylin Florez MD Specimens: A) - Bone Marrow Clot B) - Bone Marrow Core 04/17/2024 12:36 PM [facility] Final Diagnosis Bone marrow, iliac [...] in reticulin fibrosis (MF-1) 04/17/2024 12:36 PM [facility] Comment Please correlate wit h relevant cytogenetic, FISH, and molecular data. 04/17/2024 12:36 PM [facility] Peripheral Smear Description The patient's [...] not provided for review. 04/17/2024 12:36 PM [facility] Bone Marrow Aspirate Differential count [...] stain): no ring sideroblasts. 04/17/2024 12:36 PM [facility] Bone Marrow Core Biopsy and [...] similar to core biopsy. 04/17/2024 12:36 PM [facility] Flow Cytometry Summary Flow cytometry revealed no overtly clonal plasma cell, clonal B-cell, or increased blast population ([id number]). 04/17/2024 12:36 PM [facility] Clinical History Monoclonal gammopathy. [place] lambda light chain ratio normal at 1.3 04/17/2024 12:36 PM [facility] Materials Received Received are 18 slide(s) labeled and 3 block(s) [id number] along with a copy of the outside pathology report. [place] [address]. All original materials are returned to the referring institution, along with a copy of our final report. 04/17/2024 12:36 PM [facility] Microscopic Description Immunohistochemistry and special [...] sheets of plasma cells are not present. [place] and lambda in situ hybridization stains highlight [...] highlight markedly decreased stores. 04/17/2024 12:36 PM [facility] Pathologist Location at [facility] 04/17/2024 12:36 PM [facility] Disclaimer The performance characteristics of all immunohistochemical and indirect immunofluorescence stains (if any) cited in this report were determined by the Histopathology Laboratory of [facility]. Some of these tests were developed [...] the attending (teaching) pathologist. 04/17/2024 12:36 PM [facility] Embedded Images 04/17/2024 12:36 PM [facility] Pathology/Cytology BONE MARROW SPECIMEN / Unknown 04/12/2024 9:45 AM MOVIE STUNT PERFORMER 04/15/2024 4:19 PM MOVIE STUNT PERFORMER Miscellaneous samples (specimen) BONE MARROW SPECIMEN / Unknown 04/12/2024 9:45 AM MOVIE STUNT PERFORMER 04/15/2024 4:19 PM MOVIE STUNT PERFORMER Castro Garza MD LAB - PATHO LOGY/CYTOLOGY ORDERABLES [facility] [address] [phone] from Last 3 Months Care Teams Tow Operator Relationship Specialty Start Date End Date Kamar Almazan MD [address] [address] PCP - General 05/28/21
--- OUTSIDE RECORDS SUMMARY | 2024-06-11 07:53 | XMS_ITS | Referral Summary ---
Author Organization [facility] [address] [address] [place] [phone] Care Team Providers Care Purchasing/Receiving Name Role Phone Kamar Almazan MD Primary Care Prov ider Encounters Date Type Department Care Team Description 05/13/2024 Telephone [facility] Cardiology [address] [place] [address] [address] [place] [phone] Ronak Flores MD Med Refill; samples 04/30/2024 2:30 PM TREE THINNER Office Visit [facility] Cardiology [address] [place] [address] [address] [place] [address] Elsa Cantrell NP Dilated cardiomyopathy (HCC) (Primary Dx); Abnormal result of other cardiovascular function study; Sleep disorder, unspecified; Morbid obesity with BMI of 40.0-44.9, adult (HCC) 04/22/2024 Telephone [facility] Cardiology [address] [place] [address] [address] [place] [address] Ronak Flores MD 04/15/2024 Telephone [facility] Cardiology [address] [place] [address] [address] [place] [address] Elsa Cantrell NP samples 04/08/2024 Telephone [facility] Cardiology [address] [place] [address] [place] [phone] Elsa Cantrell NP 04/05/2024 Telephone [facility] Cardiology [address] [place] [address] Elsa Cantrell NP evaluating cardiomyopathy 03/25/2024 10:00 AM TREE THINNER - 03/25/2024 11:59 PM TREE THINNER Hospital Encounter [facility] [address] [place] [address] Dilated cardiomyopathy (HCC) Discharge Disposition: Discharge to home or self care 03/18/2024 Telephone [facility] Cardiology [address] [place] [address] Ronak Flores MD 03/15/2024 3:00 PM TREE THINNER Office Visit [facility] Cardiology [address] [facility] [address] [place] [phone] Elsa Cantrell NP Dilated cardiomyopathy (HCC) (Primary Dx); Abnormal echocardiogram; Abnormal laboratory test result from Last 3 Months Allergies Active Allergy Reactions Criticality Noted Date Comments Codeine Hives,Itching,Rash,Stomach upset Medium 02/2011 Penicillins Shortness of breath, Stomach upset,Syncope,Nausea only,Vomiting High 08/05/2010 Medications LORazepam (ATIVAN) 1 mg tablet take 1 tablet by oral route 3 times every day as needed 0 0 06/25/19 14 Active buPROPion XL (WELLBUTRIN XL) 300 mg 24 hr tablet take 1 tablet (300MG) by ORAL route every day 0 09/09/19 10 Active ibuprofen (ADVIL,MOTRIN) 800 mg tablet as needed 08/30/19 19 Active triamcinolone (KENALOG) 0.1 % cream 10/09/19 19 Active nystatin-triamcino lone creamIndications:c utaneous candidiasis Apply topically as needed Active buprenorphine-nalo xone (SUBOXONE) 8-2 mg per SL tablet 01/01/20 22 Active clopidogreL (PLAVIX) 75 mg tablet 12/14/19 22 Active dicyclomine (BENTYL) 10 mg capsule 01/27/20 22 Active ondansetron ODT (ZOFRAN-ODT) 4 mg disintegrating tablet 01/27/20 22 Active testosterone cypionate (DEPO-TESTOTERONE) 200 mg/mL injection INJECT 1.5 ML IN THE MUSCLE EVERY 21 DAYS 12/26/19 23 Active furosemide (LASIX) 20 mg tablet Take 1 tablet (20 mg total) by mouth every morning 07/22/[address] (PROTONIX) 40 mg EC tablet Take 1 tablet (40 mg total) by mouth daily 06/28/19 24 Active atorvastatin (LIPITOR) 20 mg tabletIndications: H/O: stroke Take 1 tablet (20 mg total) by mouth daily 90 tablet 3 10/23/19 24 Active carvediloL (COREG) 6.25 mg tabletIndications: Dilated cardiomyopathy (HCC) Take 1 tablet (6.25 mg total) by mouth 2 (two) times a day 360 tablet 1 11/13/19 24 Active spironolactone (ALDACTONE) 50 mg tablet Take 1 tablet (50 mg total) by mouth daily 02/07/20 24 Active Ozempic 1 mg/dose (4 mg/3 mL) pen injector injection ADMINISTER 1 MG UNDER THE SKIN WEEKLY 11/02/19 24 Active losartan (COZAAR) 100 mg tabletIndications: Dilated cardiomyopathy (HCC) Take 1 tablet (100 mg total) by mouth daily 90 tablet 1 05/13/19 25 Active empagliflozin (JARDIANCE) 10 mg tabletIndications: Dilated cardiomyopathy (HCC) Take 1 tablet (10 mg total) by mouth daily 30 tablet 11 05/13/19 25 026 Active losartan (COZAAR) 100 mg tabletIndications: Dilated cardiomyopathy (HCC) Take 1 tablet (100 mg total) by mouth daily 02/19/20 24 025 Discontin ued(Reord er) empagliflozin (JARDIANCE) 10 mg tabletIndications: Dilated cardiomyopathy (HCC) Take 1 tablet (10 mg total) by mouth daily 30 tablet 11 02/26/20 24 025 Discontin ued(Reord er) Active Problems Problem Noted Date Diagnosed Date [...] DVT) of lower extremity 05/24/2018 05/24/2018 Immunizations Immunization Administration Dates Next Due H1N1 All Forms [...] on file Legal Sex Male 1:23 AM TREE THINNER Gender Identity Not on file Sexual Orientation Not on file 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 on file Not on file Last Filed Vital Signs Vital Sign Reading Time Taken Comments Blood Pressure 116/72 04/30/2024 2:32 PM TREE THINNER Pulse 83 04/30/2024 2:32 PM TREE THINNER Temperature 36.4 C (97.5 F) 04/02/2020 3:10 PM TREE THINNER Respiratory Rate - - Oxygen Saturation 94% 04/30/2024 2:32 PM TREE THINNER Inhaled Oxygen Concentration - - Weight 134.7 kg (297 lb) 04/30/2024 2:32 PM TREE THINNER Height 172.7 cm (5' 8 ) 04/30/2024 2:32 PM TREE THINNER Body Mass Index 45.16 04/30/2024 2:32 PM TREE THINNER Plan of Treatment Not on file Procedures Procedure Name Priority Date/Time Associated Diagnosis Comments MRI CARDIAC M&FUNC W WO CONTRAST Schedule Routine, Read Routine (OP Routine) 03/25/2024 11:53 AM TREE THINNER Dilated cardiomyopathy (HCC) from Last 3 Months Results * MRI Cardiac M&F W WO Contrast (03/25/2024 11:53 AM TREE THINNER) Anatomical Region Laterality Modality Body N/A Magnetic Resonan ce 03/25/2024 12:2 7 PM TREE THINNER Impressions 03/25/2024 1:51 PM TREE THINNER 1. Borderline biventricular enlargement with mildly reduced [...] Hever Ann M.D. Narrative 03/25/2024 1:51 PM TREE THINNER EXAM: MRI CARDIAC M/T/FUNC W WO CONTRAST [...] Cantrell NP IMG MRI PROCEDURES Final Result from Last 3 Months Insurance [employer]ARE [employer] MEDICARE MED[employer]ARE [employer] Care Teams Purchasing/Receiving Relationship Specialty Start Date End Date Kamar Almazan MD [address] [place] [address] PCP - General 09/08/09
--- OUTSIDE RECORDS SUMMARY | 2024-06-11 07:53 | XMS_ITS | Clinical Summary ---
Author Organization [facility] [address] Address [address] [place] [address] Care Team Providers Care Business Development Director Name Role Phone Kamar Almazan MD Primary [...] Type Department Care Team Description 05/13/2024 Telephone [facility] Cardiology [address] [place] [address] [place] [phone] Ronak Flores MD Med Refill; samples 04/30/2024 2:30 PM LEARNING OFFICER Office Visit [place] [address] [address] [place] [phone] Elsa Cantrell NP Dilated cardiomyopathy (HCC) (Primary Dx); Abnormal result of other cardiovascular function study; Sleep disorder, unspecified; Morbid obesity with BMI of 40.0-44.9, adult (HCC) 04/22/2024 Telephone [place] [address] [address] [place] [phone] Ronak Flores MD 04/15/2024 Telephone [place] [address] [address] [place] [phone] Elsa Cantrell NP samples 04/08/2024 Telephone [facility] Cardiology [address] [place] [address] [place] [phone] Elsa Cantrell NP 04/05/2024 Telephone [place] [address] [address] [place] [phone] Elsa Cantrell NP evaluating cardiomyopathy 03/25/2024 10:00 AM LEARNING OFFICER - 03/25/2024 11:59 PM LEARNING OFFICER Hospital Encounter [facility] [address] [place] [address] Dilated cardiomyopathy (HCC) Discharge Disposition: Discharge to home or self care 03/18/2024 Telephone [facility] Cardiology [address] [place] [phone] Ronak Flores MD 03/15/2024 3:00 PM LEARNING OFFICER Office Visit [facility] Cardiology [address] [place] [address] Elsa Cantrell NP Dilated cardiomyopathy (HCC) (Primary Dx); Abnormal echocardiogram; Abnormal laboratory test result from Last 3 Months Immunizations Immunization Administration Dates Next Due H1N1 [...] tension Cataracts, bilateral Arthritis Deep vein thrombosis (HCC) 2013 Pulmonary emboli (HCC) 2013 Caused pu lmonary hypertension Addiction to drug (HCC) Anxiety Family History Medical History Relation Name [...] on file Legal Sex Male 1:23 AM LEARNING OFFICER Gender Identity Not on file Sexual Orientation Not on file 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 on file Not on file Obstetrics History Last Filed Vital Signs Vital Sign Reading Time Taken Comments Blood Pressure 116/72 04/30/2024 2:32 PM LEARNING OFFICER Pulse 83 04/30/2024 2:32 PM LEARNING OFFICER Temperature 36.4 C (97.5 F) 04/02/2020 3:10 PM LEARNING OFFICER Respiratory Rate - - Oxygen Saturation 94% 04/30/2024 2:32 PM LEARNING OFFICER Inhaled Oxygen Concentration - - Weight 134.7 kg (297 lb) 04/30/2024 2:32 PM LEARNING OFFICER Height 172.7 cm (5' 8 ) 04/30/2024 2:32 PM LEARNING OFFICER Body Mass Index 45.16 04/30/2024 2:32 PM LEARNING OFFICER Plan of Treatment Health Maintenance Due Date Last Done Comments Colon Cancer Screening-Colonoscopy 1950 Depression Screening 1950 Fall Risk Assessment 1950 Hepatitis C Screening 1950 DTaP/Tdap/Td Vaccine (1 - Tdap) 07/13/1962 Hepatitis B Screening 07/13/1969 Pneumococcal vaccine 65+ (1 of 1 - PCV) 07/13/2001 Zoster Vaccine (1 of 2) 07/13/2001 Well Visit 65+ 07/13/2016 Influenza Vaccine (#1) 2023 01/11/2019, 2008 Procedures Procedure Name Priority Date/Time Associated Diagnosis Comments MRI CARDIAC M&FUNC W WO CONTRAST Schedule Routine, Read Routine (OP Routine) 03/25/2024 11:53 AM LEARNING OFFICER Dilated cardiomyopathy (HCC) from Last 3 Months Results * MRI Cardiac M&F W WO Contrast (03/25/2024 11:53 AM LEARNING OFFICER) Anatomical Region Laterality Modality Body N/A Magnetic Resonan ce 03/25/2024 12:2 7 PM LEARNING OFFICER Impressions 03/25/2024 1:51 PM LEARNING OFFICER 1. Borderline biventricular enlargement with mildly reduced [...] Hever Ann M.D. Narrative 03/25/2024 1:51 PM LEARNING OFFICER EXAM: MRI CARDIAC M/T/FUNC W WO CONTRAST [...] signed by: Hever Ann M.D. Elsa Cantrell [employer] IMG MRI PROCEDURES Final Result from Last 3 Months Insurance MED[employer]ARE [employer] MEDICARE MED[employer]ARE [employer] Care Teams Business Development Director Relationship Specialty Start Date End Date Kamar Almazan MD [address] [place] [address] PCP - General 09/08/09
--- OUTSIDE RECORDS SUMMARY | 2024-06-11 07:53 | XMS_ITS | Continuity of Care Document ---
Author Organization [facility] Address [address] [place] [address] Phone Care Team Providers Care Freight Engineer Name Role Phone [facility] Unavailable Unavailable Advance Directives Directive Yes / No Effective Date File Name No Information Encounters Encounter Description Practice Location Reason(s) For Visit Diagnoses Date Provider Providers Copied on Encounter [facility], [address], [place], [place], [id number], [place] tel:[phone] [facility] No Information [facility]. [address] [facility], [address], [place], [place], [id number], [place]. tel:[phone] Referring Provider: Kamar Sparks, [address] [place] [address], [address]. tel:[phone] Family History Family Member Type Diagnosis Age [...]
--- OUTSIDE RECORDS SUMMARY | 2024-06-11 07:53 | XMS_ITS ---
Author Organization [facility] Online [facility]ing [facility] Address [facility] [address] [address] Care Team Providers Care Color Receiver Name Role Phone Kamar Almazan MD Primary Care Provider Lakeisha mehnazlinetteOmar Arias Unavailable [phone] REASON FOR VISIT Test result Social History Sex Assigned At : Social History Observation Description Sex Assigned At Male Encounters Encounter Location Date Provider Diagnosis [facility] [address] [address] 02/23/2024 Omar Hart Plan Of Treatment Next Appt Details Provider Name:Omar Hart , 06/17/2024 01:15:00 PM, [address] [place] [address], [address], [phone], Provider Name:Omar Hart , 08/21/2024 01:00:00 PM, [address] [place] [address], [phone], Progress Notes * NEFTALI BRITT RDOB: [birth year] (73 yo M)Acc No.[id number]:02/23/2024 Patient: Dana NAOMIARIENEFTALI Mccloud :1950 A ge:73 Y S ex:Male Address:[address] [place], [address] * true * Date: Generated for Printi ng/Faxing/eTransmitting on: 0 06/11/2024 07:52 AM CDT
--- NOTE | 2024-06-25 13:56 | P.SLEEP_ITS ---
Sleep Study Date of Study: 06/11/24 Ordering Provider: Elsa Cantrell, PRINCIPAL NETWORK ARCHITECT Interpreting Physician: Rufina Wiggins DO Sleep Study Type: Split Polysomnogram Height: 1.73 m Weight: 131.088 kg Body Mass Index: 43.9 Neck Circumference (inches): 21 Victoria: 3 Reason for Sleep Study Heart failure, lack of energy Sleep History The patient is a 73-year-old male that had a sleep study ordered by his public service officer for evaluation sleep apnea. The patient rarely awakens from sleep short of breath. He occasionally awakens at night with heartburn, belching or cough. He frequently snores but is rarely loud enough that others complain. He denies having trouble sleeping when he has a cold. He denies waking up gasping for air throughout the night. He denies having breathing problems at night observed by himself or others. He frequently sweats excessively at night. He denies having heart palpitations or irregular heartbeats during the night. He frequently falls asleep during the day but never while driving. He denies sleep paralysis and cataplexy. He denies having trouble at school or work due to sleepiness. He frequently experiences vivid dreamlike scenes upon awakening or falling asleep. He denies feeling afraid of going to sleep. He rarely has nightmares. He frequently remembers his dreams. He denies having thoughts racing through his mind. He occasionally feels sad or depressed. He frequently has anxiety. He denies having muscular tension. He rarely notices parts of his body jerk. He denies kicking during the night. He occasionally has crawling and aching feelings in his legs and occasionally has leg pain during the night. He denies grinding his teeth during sleep and denies awakening with morning jaw pain. He is occasionally bothered by pain during the day and occasionally awakened by pain during the night. He rarely wakes up feeling stiff the morning. He occasionally wakes up with sore or achy muscles. He rarely wakes up with pain in the neck, spine and other joints. He goes to bed at 9:30 p.m. on weekdays and at 10:00 p.m. on the weekends. He is able to fall asleep relatively quickly. He wakes up twice throughout the night to urinate and is able to fall back asleep quickly. He wakes up at 6:30 a.m. on weekdays and at 7:30 a.m. on the weekends. He typically gets 8 hours of sleep per night. He does not stay in bed long after waking up the morning. He currently lives with his and 3 adult children. He denies consuming any caffeinated beverages within 2 hours of bedtime. He denies engaging in physical exercise before bedtime. He will occasionally read before falling asleep. He will watch television before falling asleep. He will take naps in the afternoon or the evening and they are refreshing. He will consume caffeinated beverages throughout the day. He denies tobacco, alcohol and recreational drug use. [facility] Past Medical History Medical History Hemochromatosis Cerebrovascular accident Non-ischemic cardiomyopathy Poorly documented. Pulmonary embolism Deep venous thrombosis Shingles Depression Gout Hiatal hernia Hemorrhoids Colonic polyp Surgical History Surgical History History of tonsillectomy History of appendectomy History of hemorrhoidectomy History of right hip replacement Family History Family History Mother Lung cancer Diabetes mellitus Father Lung cancer Depression Social History Social History Social History: Surrogate medical decision maker: Natasha Mendoza, spouse. Code status: Full code. 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 Substance use: former Substance use type: former substance user Last use: 1994 Do You Feel Safe in your Home?: Yes Lack of Transportation: No Lack of Food: Never True Current Housing: I Have Housing Concerned About Future Housing: No Difficulty Paying Gas/Electric Bills: No Difficulty Paying for Meds: No Currently Unemployed: No Education: Associate Degree Difficulty w/ Childcare or Family Care: No Living arrangements: with family Additional living arrangements comments: Lives with in [place]. 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 Gender identity (if verbalized by the patient): Male Spiritual care concerns: No Agree to blood products: Yes Medications Home Medications ?Medication ?Instructions ?Recorded ?Confirmed ?Type carvedilol 6.25 mg tablet 6.25 mg PO BID 09/30/19 05/30/24 History losartan 100 mg tablet 100 mg PO DAILY 01/19/21 05/30/24 History buprenorphine 8 mg-naloxone 2 mg 0.5 tablet sublingual BID 11/16/21 05/30/24 History sublingual tablet bupropion HCl 150 mg 24 hr tablet, 300 mg PO DAILY 03/06/23 05/30/24 History extended release atorvastatin 20 mg tablet 20 mg PO DAILY 03/27/23 05/30/24 History compr.stocking,thigh,reg,x-lrg #2 ea 03/27/23 05/30/24 Rx ibuprofen 800 mg tablet 800 mg PO TID PRN pain #90 tabs 10/09/23 05/30/24 Rx semaglutide 1 mg/dose (4 mg/3 mL) 1 mg (0.75 mL) subcut WEEKLY #3 mL 11/02/23 05/30/24 Rx subcutaneous pen injector (Ozempic) lorazepam 1 mg tablet 1 mg PO TID PRN anxiety #90 tabs 03/09/24 05/30/24 Rx empagliflozin 10 mg tablet 10 mg PO DAILY 04/03/24 05/30/24 History (Jardiance) spironolactone 50 mg tablet 50 mg PO DAILY #90 tabs 04/27/24 05/30/24 Rx clopidogrel 75 mg tablet See Rx Instructions .Route 05/09/24 05/30/24 Rx .COMPLEX #90 tabs testosterone cypionate 200 mg/mL 300 mg (1.5 mL) IM .every 10 days 05/20/24 05/30/24 Rx intramuscular oil #9 mL ondansetron 4 mg disintegrating 4 mg PO Q8H PRN Nausea #30 tabs 05/30/24 05/30/24 Rx tablet pantoprazole 40 mg tablet,delayed 40 mg PO BID #180 tabs 05/30/24 05/30/24 Rx release Sleep Procedure A full night split study using the UrtheCast multi-channel system recorded the standard physiologic parameters including EEG, EOG, submentalis EMG, anterior tibialis EMG, EKG, body position, nasal and oral airflow using nasal pressure sensor and thermistor.? Respiratory parameters of chest and abdominal movements were recorded with Respiratory Inductance Plethysmography belts. Oxygen saturation was recorded by pulse oximetry. Video monitoring was also performed. Sleep stages, periodic limb movements, and EEG arousals were scored in 30 second epochs according to the criteria of the AASM Scoring Manual. The Apnea-Hypopnea Index was calculated using [facility] guidelines for definition of hypopnea with 4% O2 desaturations while scoring respiratory events. Sleep Architecture During the diagnostic portion of the study, the total recording time was 158.9 minutes. The total sleep time was 128.5 minutes. Sleep latency was 10.9 minutes.? REM latency was 80.5 minutes. Sleep Efficiency was 80.8%. The patient had 11 awakenings for an awakening index of 5.1. Wake after sleep onset time was 19.5 minutes. The patient spent 16.0 minutes, 12.5% of total sleep time in Stage N1. The patient spent 83.5 minutes, 65.0% in Stage N2. The patient spent 0.0 minutes, 0.0% in Stage N3. The patient spent 29.0 minutes, 22.6% in Stage REM sleep. At 12:25:28 AM the patient was placed on PAP treatment and was titrated at pressures ranging from 5 cm H20 up to 19 cm H20 with EPR of 1. During the treatment portion of the study, the total recording time was 262.1 minutes.? The total sleep time was 194.5 minutes. Sleep latency was 18.5 minutes. REM latency was 86.0 minutes. Sleep Efficiency was 74.2%. Wake after Sleep Onset time was 46.0 minutes. The patient spent 8.0 minutes, 4.1% of total sleep time in Stage N1. The patient spent 153.5 minutes, 78.9% in Stage N2. The patient spent 0.0 minutes, 0.0% in Stage N3. The patient spent 33.0 minutes, 17.0% in Stage REM. Respiratory Analysis During the diagnostic portion of the study, the patient had 121 hypopneas and 10 obstructive apneas for an overall Apnea Hypopnea Index of 60.7 events per hour. The REM Apnea Hypopnea Index was 47.6. The NREM Apnea Hypopnea Index was 64.5. The patient had a Central Apnea Hypopnea Index of 0. There was no evidence of Jermain-Kearney Respirations. During the treatment portion of the study, the patient had 141 hypopneas, 4 obstructive apneas, 7 mixed apneas, and 14 central apneas for an overall Apnea Hypopnea Index of 51.2 events per hour. The REM Apnea Hypopnea Index was 43.6. The NREM Apnea Hypopnea Index was 52.8. The patient had a Central Apnea Hypopnea Index of 4.3. There was no evidence of Jermain-Kearney Respirations. The patient was started on CPAP 5 cm H2O and titrated to CPAP 19 cm H2O with EPR of 1 before being switched to BPAP 16/11 cm H2O. The patient was then titrated to BPAP 19/14 cm H2O prior to ending the study. The patient was able to fall asleep starting on CPAP 7 cm H2O with EPR of 1. The patient was able to achieve REM sleep starting on CPAP 13 cm H2O with EPR of 1. The lowest residual AHI the patient was able to achieve during the titration portion of the study was 28.9 on 18/13 cm H2O. On BPAP 18/13 cm H2O, the patient spent 1 minute in NREM and 26 minutes in REM with 13 hypopneas, resulting in an AHI of 28.9. On BPAP 19/14 cm H2O, the patient spent 10.5 minutes in NREM and 6 minutes in REM with 2 central apneas and 7 hypopneas, resulting in an AHI of 29.1. The patient had a sleep efficiency of 94.7% on 18/13 cm H2O and 63.5% on 19/14 cm H2O. Arousals During the diagnostic portion of the study, there were a total of 33 arousals for an arousal index of 15.4.? There were 18 respiratory arousals for an index of 8.4. There were 0 periodic limb movement arousals for an index of 0.? There was 1 isolated limb movement arousal for an index of 0.5. There were 14 s pontaneous arousals for an index of 6.5. During the treatment portion of the study, there were a total of 34 arousals for an index of 10.5.? There were 11 respiratory arousals for an index of 3.4. There were 0 periodic limb movement arousals for an index of 0.? There was 1 isolated limb movement arousal for an index of 0.3. There were 22 spontaneous arousals for an index of 6.8. Periodic Limb Movements During the diagnostic portion of the study, the patient had 1 isolated limb movement with an index of 0.5. The patient had 0 periodic limb movements with an index of 0. The patient had a total of 1 limb movement with a total limb movement index of 0.5. During the treatment portion of the study, the patient had 6 isolated limb movements with an index of 1.9. The patient had 4 periodic limb movements with an index of 1.2. The patient had a total of 10 limb movements with a total limb movement index of 3.1. Oximetry Data During the diagnostic portion of the study, the patient had an average oxygen saturation of 90.7% in wake with a minimum oxygen saturation of 75% and a maximum oxygen saturation of 98%. The patient had an average oxygen saturation of 89.6% in sleep with a minimum oxygen saturation of 74.0% and a maximum oxygen saturation of 97.0%. The patient had 133 oxygen desaturations resulting in an Oxygen Desaturation Index of 62.1. The patient spent 44.4 minutes, 27.9% of total sleep time with an oxygen saturation less than 88%. During the treatment portion of the study, the patient had an average oxygen saturation of 92.7% in wake with a minimum oxygen saturation of 74.0% and a maximum oxygen saturation of 98.0%. The patient had an average oxygen saturation of 91.3% in sleep with a minimum oxygen saturation of 79.0% and a maximum oxygen saturation of 98.0%. The patient had 173 oxygen desaturations resulting in an Oxygen Desaturation Index of 53.4. The patient spent 47.6 minutes, 13.8% of total sleep time with an oxygen saturation less than 88%. Snoring Profile Moderate snoring was present in the baseline portion of the study. The snoring resolved once the patient was titrated to 19/14 cm H2O. Cardiac Profile The EKG lead showed normal sinus rhythm. No arrhythmias or premature beats were seen. During the diagnostic portion of the study, the average pulse rate was 76.4 bpm.? The minimum pulse rate was 62.0 bpm. The maximum pulse rate was 93.0 bpm. During the treatment portion of the study, the average pulse rate was 70.0 bpm.? The minimum pulse rate was 36.0 bpm. The maximum pulse rate was 86.0 bpm. EEG Profile No signs of seizure activity seen. Assessment and Plan Assessment and Plan (1) CLEMENCIA (obstructive sleep apnea): Code(s): G47.33 - Obstructive sleep apnea (adult) (pediatric) Status: Acute Assessment and Plan: In the baseline portion of the study, the patient had an overall AHI of 61.2 with desaturation down to 74%. This is consistent with severe sleep apnea. The patient was started on CPAP 5 cm H2O and titrated to CPAP 19 cm H2O with EPR of 1 before being switched to BPAP 16/11 cm H2O. The patient was then titrated to BPAP 19/14 cm H2O prior to ending the study. No optimal pressure setting was found during this study. I recommend that the patient have a BPAP Titration starting at 12/8 cm H2O using a size large Resmed AirTouch F20 full face mask. I also recommend that the patient have a hypnotic available on the night of the sleep study to ensure we obtain enough sleep data and find an optimal pressure setting. Data The data obtained during this sleep study is adequate for interpretation. Certification This sleep study has been reviewed by a board certified sleep medicine physician.
[2024-06-26 12:23] VITALS: BMI 43.9
== END 2024-06-12 07:19 | disposition home or self-care (01) ==
PROVIDERS: Visit Provider Nurse Practitioner Adult Health
DX: G47.9 Sleep disorder, unspecified (principal); I42.0 Dilated cardiomyopathy; G47.33 Obstructive sleep apnea (adult) (pediatric)
CPT/HCPCS: 95811

== ENCOUNTER 2024-07-29 08:46 | Outpatient (CLI) | payer MEDICARE, SELFPAY ==
--- OUTSIDE RECORDS SUMMARY | 2024-07-29 09:13 | XMS_ITS | Clinical Summary ---
Author Organization [facility] Address [address] [place] [address] Care Team Providers Care Chuck Wagon Driver Name Role Phone Kamar Almazan MD Primary Care Provider + Source Comments [facility],non-owned Affiliates and Associated Physician Practices is amultiple site organization consisting of ambulatory clinics and hospital sitesin [place], [place], [place] and [place]. This disclosure is being madepursuant to the Care Everywhere program and may not contain all information available regarding this patient. Last updated 17.[facility] Allergies Active Allergy Reactions Criticality Noted Date Comments Codeine Urticaria,Itching,Rash,GI Discomfort Medium 08/05/2010 Penicillins Nausea and/or Vomiti ng,Shortness of Breath,Dizziness,Vomiting High 08/05/2010 Medications * Be aware that medications may not be up to date on this document. Alwaysverify current medications with the patient. clopidogrel (plaVIX) 75 MG tablet Take 75 mg by mouth every morning 2 Active atorvastatin (Lipitor) 20 MG tablet Take 20 mg by mouth once daily 2 Active SM Aspirin Adult Low Strength 81 MG tablet Take 81 mg by mouth once daily 2 Active buPROPion XL 24hr (Wellbutrin-XL) 150 MG tablet Take 150 mg by mouth every morning 2 Active buPROPion XL 24hr (Wellbutrin-XL) 300 MG tablet Take 300 mg by mouth every morning 2 Active carvedilol (Coreg) 6.25 MG tablet Take 1 tablet by mouth 2 times daily with morning and evening meal 1 Active LORazepam (Ativan) 1 MG tablet Take 1 mg by mouth 3 times daily 2 Active ondansetron, disintegrating, (Zofran ODT) 4 MG tablet Take 4 mg by mouth once daily 2 Active meclizine (Antivert) 25 MG tablet Take [...] breath) 05/24/2018 Arthralgia of hip 08/05/2010 Immunizations Immunization Administration Dates Next Due INFLUENZA A [id number] VACCINE 01/25/2009 INFLUENZA VACCINE, QUADR. (A FLURIA, [...] at Not on file Legal Sex Male 8:12 AM CDT Gender Identity Not on file Sexual Orientation [...] VACCINE (1 - 2023-2 5 season) 2023 DEPRESSION SCREENING 03/27/2024 MEDICARE AWV CALENDAR YEAR 2024 INFLUENZA VACCINE (Season Ended) 2024 01/11/2019, 01/25/2009, 01/25/2009 HEPATITIS B VACCINE Aged Out No longe [...] on patient's age to complete this topic Insurance [facility] MEDICARE ADV Care Teams Chuck Wagon Driver Relationship Specialty Start Date End Date Kamar Almazan MD [address] [address] PCP - General 05/28/21
--- OUTSIDE RECORDS SUMMARY | 2024-07-29 09:13 | XMS_ITS | Encounter Summary ---
Author Organization [facility] Address [address] [place] [address] Care Team Providers Care Metal Machine Operator Name Role Phone Kamar Almazan MD Primary Care Provider [phone]- [phone] Encounter Details Date Type Department Care Team (Latest Contact Info) Description 10/01/2000 Outpatient Historical [facility] Conversion, History Unspecified drug dependence, unspecified (CMS/HCC) (Primary Dx) Social History Tobacco Use Types Packs/Day Years Used Date Smoking Tobacco: Never Assessed Sex and Gender Information Value Date Recorded Sex Assigned at Not on file Legal Sex Male 3:36 AM DRUG SAFETY COORDINATOR Gender Identity Not on file Sexual Orientation Not on file documented as of this encounter Plan of Treatment Upcoming Encounters Date Type Department Care Team (Late st Contact Info) Description 10/28/2024 1:15 PM CDT Office Visit [facility] Oncology and Hematology - [place] [address] [place] [address] [address] [place] [address] Rom Mcconnell MD [address] [place] [address] documented as of this encounter Visit Diagnoses Diagnosis Unspecified drug dependence, unspecified (CMS/HCC)- Primary Unspecified drug dependence, unspecified documented in this encounter Care Teams Metal Machine Operator Relationship Specialty Start Date End Date Kamar Almazan MD PCP - General Family Practice 04/05/24 documented as of this encounter
--- OUTSIDE RECORDS SUMMARY | 2024-07-29 09:13 | XMS_ITS | Encounter Summary ---
Author Organization [facility] Address [address] [place] [address] Care Team Providers Care Rotary Lithographic Press Operator Name Role Phone Kamar Almazan MD Primary Care Provider [phone]- [phone] Encounter Details Date Type Department Care Team (Latest Contact Info) Description 07/20/2000 Outpatient Historical [facility] Conversion, History Opioid type dependence, unspecified (CMS/HCC) (Primary Dx) Social History Tobacco Use Types Packs/Day Years Used Date Smoking Tobacco: Never Assessed Sex and Gender Information Value Date Recorded Sex Assigned at Not on file Legal Sex Male 3:36 AM CREDIT ANALYST Gender Identity Not on file Sexual Orientation Not on file documented as of this encounter Plan of Treatment Upcoming Encounters Date Type Department Care Team (Late st Contact Info) Description 10/28/2024 1:15 PM CDT Office Visit [facility] Oncology and Hematology - [place] [address] [place] [address] [address] [place] [address] Rom Mcconnell MD [address] [facility] [address] [place] [address] documented as of this encounter Visit Diagnoses Diagnosis Opioid type dependence, unspecified (CMS/HCC)- Primary Opioid type dependence, unspecified documented in this encounter Care Teams Rotary Lithographic Press Operator Relationship Specialty Start Date End Date Kamar Almazan MD PCP - General Family Practice 04/05/24 documented as of this encounter
--- OUTSIDE RECORDS SUMMARY | 2024-07-29 09:13 | XMS_ITS | Encounter Summary ---
Author Organization [facility] Address 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 IMAGING SYSTEM OPERATOR Gender Identity Not on file Sexual Orientation Not on file documented as of this encounter Plan of Treatment Upcoming Encounters Date Type Department Care Team (Late st Contact Info) Description 10/28/2024 1:15 PM CDT Office Visit [facility] Oncology and Hematology - [place] [address] [place] [address] [address] [place] [address] Rom Mcconnell MD [address] [facility] [address] [place] [address] documented as of this encounter Visit Diagnoses Not on filedocumented in this encounter Care Teams Counselling Psychologist Relationship Specialty Start Date End Date Kamar Almazan MD PCP - General Family Practice 04/05/24 documented as of this encounter
--- OUTSIDE RECORDS SUMMARY | 2024-07-29 09:13 | XMS_ITS | Encounter Summary ---
Author Organization [facility] Address [address] [place] [address] Care Team Providers Care Rn Complex Care Name Role Phone Kamar Almazan MD Primary Care Provider + Encounter Details Date Type Department Care Team (Late st Contact Info) Description 04/12/2024 Lab Requisition [facility] - Pathology Lab [address] [place] [id number] Castro Garza MD [address] [place] [address] [phone] Monoclonal gammopathy Social History Tobacco Use Types [...] CYTOMETRY BONE MARROW Routine 04/12/2024 9:45 AM MANAGER AUDIO Monoclonal gammopathy documented in this encounter Results * FLOW CYTOMETRY BONE MARROW (04/12/2024 9:45 AM MANAGER AUDIO) Case Report Flow Cytometry Case: [id number] Authorizing Provider: Castro Garza Collected: 04/12/2024 09:45 JONATHAN Marsh MD Ordering Location: [facility] - Received: 04/12/2024 01:16 PM Pathology Lab Pathologist: Jem Mora MD Specimen: Bone Marrow 04/12/2024 4:06 PM [facility] Final Diagnosis Bone marrow, flow cytometry: - No overtly clonal plasma cell, clonal B-cell, or increased blast population detected 04/12/2024 4:06 PM [facility] Flow Cytometry Interpretation Viability: 98% B-cells: polytypic, kappa:lambda ratio 2:1 T-cells: not increased Blasts: not increased, <2% of overall events. Plasma cells: polytypic, kappa:lambda ratio 2:1 no immunophenotypic aberrancy detected A bone marrow aspirate smear prepared from the flow cytometry specimen has been reviewed for assistant quality manager purposes. 04/12/2024 4:06 PM [facility] Flow Cytometry Results Differential Result Comment Flow Cell Count /uL 23,000 Total Viability % 98.0 Lymphocytes % 13 Dim CD45 Region % 5 Monocytes % 11 Granulocytes % 71 04/12/2024 4:06 PM [facility] Reason for test Monoclonal gammopathy 273.1 04/12/2024 4:06 PM [facility] Client Specimen ID # [id number] 04/12/2024 4:06 PM [facility] Number of markers 14 were performed. A-2 Flow CD10 A-3 Flow CD13 A-5 Flow CD20 A-13 Flow CD117 A-14 FLOW CD138 A-1 Flow CD5 A-4 Flow CD19 A-6 Flow CD33 A-7 Flow CD34 A-8 Flow CD45 A-11 Flow CD38 A-12 Flow CD56 A-9 [place]+CD19+ A-10 Lambda+CD19+ 04/12/2024 4:06 PM [facility] Pathologist Location at [facility] 04/12/2024 4:06 PM [facility] Disclaimer Test performed at [facility], [address] [place] [address], [id number]. *The established laboratory minimum viability is 70%. [...] high complexity clinical testing. 04/12/2024 4:06 PM MANAGER AUDIO [facility] Embedded Images 4:06 PM MANAGER AUDIO [facility] Pathology/Cytolo gy BONE MARROW SPECIMEN / Unknown 04/12/2024 9:45 AM MANAGER AUDIO 04/12/2024 1:16 PM MANAGER AUDIO Castro Garza MD LAB - PATHOLOGY/CYT OLOGY ORDERABLES Final Result Performing Organization Address City/State/[facility] Co de Phone Number [facility] [address] [phone] documented in this encounter Visit Diagnoses Diagnosis Monoclonal gammopathy Monoclonal paraproteinemia documented in this encounter Care Teams Rn Complex Care Relationship Specialty Start Date End Date Kamar Almazan MD [address] [place] [address] PCP - General 05/28/21 documented as of this encounter
--- OUTSIDE RECORDS SUMMARY | 2024-07-29 09:13 | XMS_ITS | Clinical Summary ---
Author Organization [facility] Yousuf Altamirano Address [address] [place] [address] Care Team Providers Care Honey Extractor Name Role Phone Kamar Almazan MD Primary Care Provider +1- [phone] Allergies Active Allergy Reactions Criticality Noted Date [...] Encounters Date Type Department Care Team Description 07/09/2024 External Device Data STL ABSTRACTION Provider, Abstract 07/02/2024 External Device Data [facility] ABSTRACTION Provider, Abstract 06/12/2024 External Device Data [facility] ABSTRACTION Provider, Abstract 06/03/2024 External Device Data [facility] ABSTRACTION Provider, Abstract 05/21/2024 External Device Data ST[facility] ABSTRACTION Provider, Abstract from Last 3 Months Family History Medical [...] on file Legal Sex Male 3:36 AM DIRECTOR 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 Gender Identity Not on file Sexual Orientation Not on file Last Filed Vital Signs Vital Sign Reading Time Taken Comments Blood Pressure 128/94 04/29/2024 2:34 PM DIRECTOR 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 Pulse 94 04/29/2024 2:34 PM DIRECTOR 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 Temperature 35.6 C (96 F) 04/29/2024 2:34 PM DIRECTOR 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 Respiratory Rate 16 04/29/2024 2:34 PM DIRECTOR 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 Oxygen Saturation 96% 04/29/2024 2:34 PM DIRECTOR 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 Inhaled Oxygen Concentration - - Weight 133.8 kg (295 lb) 04/29/2024 2:34 PM DIRECTOR 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 Height 175.3 cm (5' 9 ) 03/26/2024 10:39 AM DIRECTOR 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 Body Mass Index 43.56 03/26/2024 10:39 AM DIRECTOR 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 Plan of Treatment Upcoming Encounters Date Type Department Care Team (Late st Contact Info) Description 10/28/2024 1:15 PM CDT Office Visit [facility] Oncology and Hematology - [place] [address] [facility] [address] [place] [address] Rom Mcconnell MD [address] [facility] [address] [place] [address] Health Maintenance Due Date Last [...] 2011 INFLUENZA VACCINE (#1) 2023 01/11/2019, 2008 Insurance Care Teams Honey Extractor Relationship Specialty Start Date End Date Kamar Almazan MD PCP - General Family Practice 04/05/24
--- OUTSIDE RECORDS SUMMARY | 2024-07-29 09:13 | XMS_ITS | Encounter Summary ---
Author Organization [facility] Address 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 Gender Identity Not on file Sexual Orientation Not on file documented as of this encounter Plan of Treatment Upcoming Encounters Date Type Department Care Team (Late st Contact Info) Description 10/28/2024 1:15 PM CDT Office Visit [facility] Oncology and Hematology - [place] [address] [place] [address] [address] [place] [address] Rom Mcconnell MD [address] [facility] [address] [place] [address] documented as of this encounter Visit Diagnoses Diagnosis Unspecified drug dependence, unspecified (CMS/HCC)- Primary Unspecified drug dependence, unspecified documented in this encounter Care Teams Mortgage Counselor Relationship Specialty Start Date End Date Kamar Almazan MD PCP - General Family Practice 04/05/24 documented as of this encounter
--- OUTSIDE RECORDS SUMMARY | 2024-07-29 09:13 | XMS_ITS | Encounter Summary ---
Author Organization [facility] Address 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 Gender Identity Not on file Sexual Orientation Not on file documented as of this encounter Plan of Treatment Upcoming Encounters Date Type Department Care Team (Late st Contact Info) Description 10/28/2024 1:15 PM CDT Office Visit [facility] Oncology and Hematology - [place] [address] [place] [address] [address] [place] [address] Rom Mcconnell MD [address] [facility] [address] [place] [address] documented as of this encounter Visit Diagnoses Diagnosis Opioid type dependence, unspecified (CMS/HCC)- Primary Opioid type dependence, unspecified documented in this encounter Care Teams Intermediate Teacher Relationship Specialty Start Date End Date Kamar Almazan MD PCP - General Family Practice 04/05/24 documented as of this encounter
--- OUTSIDE RECORDS SUMMARY | 2024-07-29 09:13 | XMS_ITS | Encounter Summary ---
Author Organization [facility] Address [address] [place] [address] Care Team Providers Care Wire Chief Name Role Phone Kamar Almazan MD Primary Care Prov ider Encounter Details Date Type Department Care Team (Late st Contact Info) Description 06/26/2024 Results Follow-Up [facility] Cardiology [address] [phone] Elsa Cantrell NP [address] [facility] [address] [facility] [address] [place] [address] Social History Tobacco Use Types Packs/Day Years Used Date Smoking Tobacco: Never Smokeless Tobacco: Never Alcohol Use Standard Drinks/Week Comments No 0 (1 standard drink = 0.6 oz pur e alcohol) recovering Sex and Gender Information Value Date Recorded Sex Assigned at Not on file Legal Sex Male 1:23 AM AREA FIELD PERSON Gender Identity Not on file Sexual Orientation Not on file 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
--- OUTSIDE RECORDS SUMMARY | 2024-07-29 09:13 | XMS_ITS | Encounter Summary ---
Author Organization [facility] Address 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 Gender Identity Not on file Sexual Orientation Not on file documented as of this encounter Plan of Treatment Upcoming Encounters Date Type Department Care Team (Late st Contact Info) Description 10/28/2024 1:15 PM CDT Office Visit [facility] Oncology and Hematology - [place] [address] [place] [address] [address] [place] [address] Rom Mcconenll MD [address] [facility] [address] [place] [address] documented as of this encounter Visit Diagnoses Diagnosis Opioid type dependence, unspecified (CMS/HCC)- Primary Opioid type dependence, unspecified documented in this encounter Care Teams Combination Machine Tender Relationship Specialty Start Date End Date Kamar Almazan MD PCP - General Family Practice 04/05/24 documented as of this encounter
--- OUTSIDE RECORDS SUMMARY | 2024-07-29 09:13 | XMS_ITS | Encounter Summary ---
Author Organization [facility] Address 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 Gender Identity Not on file Sexual Orientation Not on file documented as of this encounter Plan of Treatment Upcoming Encounters Date Type Department Care Team (Late st Contact Info) Description 10/28/2024 1:15 PM CDT Office Visit [facility] Oncology and Hematology - [place] [address] [place] [address] [address] [place] [address] Rom Mcconnell MD [address] [facility] [address] [place] [address] documented as of this encounter Visit Diagnoses Diagnosis Opioid type dependence, unspecified (CMS/HCC)- Primary Opioid type dependence, unspecified documented in this encounter Care Teams Licensed Guide Relationship Specialty Start Date End Date Kamar Almazan MD PCP - General Family Practice 04/05/24 documented as of this encounter
--- OUTSIDE RECORDS SUMMARY | 2024-07-29 09:13 | XMS_ITS | Encounter Summary ---
Author Organization [facility] Address [address] [facility] [place] [address] Care Team Providers Care Outcomes Specialist Name Role Phone Kamar Almazan MD Primary Care Provider + Encounter Details Date Type Department Care Team (Late st Contact Info) Description 04/15/2024 Lab Requisition [facility] - Pathology Lab [address] [place] [phone] Castro Garza MD [address] [facility] [address] [place] [id number] Illness, unspecified Social History Tobacco Use Types [...] MARROW BIOPSY (STL) Routine 04/12/2024 9:45 AM COTTON DISPATCHER Illness, unspecified documented in this encounter Results * BONE MARROW BIOPSY (STL) (04/12/2024 9:45 AM COTTON DISPATCHER) Case Report Bone Marrow Patholog y Report Case: [id number] Authorizing Provider: Castro Garza Collected: 04/12/2024 09:45 AM MD Maximo Ordering Location: [facility] - Received: 04/15/2024 04:19 PM Pathology Lab Pathologist: Marylin Florez MD Specimens: A) - Bone Marrow Clot B) - Bone Marrow Core 04/17/2024 12:36 PM [facility] Final Diagnosis 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 04/17/2024 12:36 PM [facility] Peripheral Smear Description [...] not provided for review. 04/17/2024 12:36 PM [facility] Bone Marrow Aspirate [...] stain): no ring sideroblasts. 04/17/2024 12:36 PM [facility] Bone Marrow Core [...] similar to core biopsy. 04/17/2024 12:36 PM [facility] Flow Cytometry Summary Flow cytometry revealed no overtly clonal plasma cell, clonal B-cell, or increased blast population ([id number]). 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 [place] [address]. All original materials are returned to the referring institution, along with a copy of our final report. 04/17/2024 12:36 PM [facility] Microscopic Description Immunohistochemistry [...] sheets of plasma cells are not present. [place] and lambda in situ hybridization stains highlight [...] highlight markedly decreased stores. 04/17/2024 12:36 PM [facility] Pathologist Location at [facility] 04/17/2024 12:36 PM [facility] Disclaimer The performance characteristics of all immunohistochemical and indirect immunofluorescence stains (if any) cited in this report were determined by the Histopathology Laboratory of [facility]. Some of these tests were developed [...] the attending (teaching) pathologist. 04/17/2024 12:36 PM [facility] Embedded Images 04/17/2024 12:36 PM [facility] Pathology/Cytology BONE MARROW SPECIMEN / Unknown 04/12/2024 9:45 AM COTTON DISPATCHER 04/15/2024 4:19 PM COTTON DISPATCHER Miscellaneous samples (specimen) BONE MARROW SPECIMEN / Unknown 04/12/2024 9:45 AM COTTON DISPATCHER 04/15/2024 4:19 PM COTTON DISPATCHER Castro Garza MD LAB - PATHOLOGY/CYT OLOGY ORDERABLES Final Result Performing Organization Address City/State/[facility] Co de Phone Number [facility] [address] [phone] documented in this encounter Visit Diagnoses Diagnosis Illness, unspecified documented in this encounter Care Teams Outcomes Specialist Relationship Specialty Start Date End Date Kamar Almazan MD [address] [address] PCP - General 05/28/21 documented as of this encounter
--- OUTSIDE RECORDS SUMMARY | 2024-07-29 09:13 | XMS_ITS | Encounter Summary ---
Author Organization [facility] Address [address] [place] [address] Care Team Providers Care Herbarium Curator Name Role Phone Kamar Almazan MD Primary Care Provider +1- [phone] Encounter Details Date Type Department Care Team (Latest Contact Info) Description 02/08/1999 Outpatient Historical [facility] Jasvir Freed MD [address] [place] [address] [address] [place] [address] Opioid type dependence, unspecified (CMS/HCC) (Primary Dx) Social History Tobacco Use Types Packs/Day Years Used Date Smoking Tobacco: Never Assessed Sex and Gender Information Value Date Recorded Sex Assigned at Not on file Legal Sex Male 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 Gender Identity Not on file Sexual Orientation Not on file documented as of this encounter Plan of Treatment Upcoming Encounters Date Type Department Care Team (Late st Contact Info) Description 10/28/2024 1:15 PM CDT Office Visit [facility] Oncology and Hematology - [place] [address] [place] [address] [address] [place] [address] Rom Mcconnell MD [address] [facility] [address] [place] [address] documented as of this encounter Visit Diagnoses Diagnosis Opioid type dependence, unspecified (CMS/HCC)- Primary Opioid type dependence, unspecified documented in this encounter Care Teams Herbarium Curator Relationship Specialty Start Date End Date Kamar Almazan MD PCP - General Family Practice 04/05/24 documented as of this encounter
--- OUTSIDE RECORDS SUMMARY | 2024-07-29 09:13 | XMS_ITS | Encounter Summary ---
Author Organization [facility] Address 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 Oncology and Hematology - [place] [address] [place] [address] [address] [place] [address] Rom Mcconnell MD [address] [facility] [address] [place] [address] documented as of this encounter Visit Diagnoses Diagnosis Opioid type dependence, unspecified (CMS/HCC)- Primary Opioid type dependence, unspecified documented in this encounter Care Teams Roll On Worker Relationship Specialty Start Date End Date Kamar Almazan MD PCP - General Family Practice 04/05/24 documented as of this encounter
--- OUTSIDE RECORDS SUMMARY | 2024-07-29 09:13 | XMS_ITS | CONTINUITY OF CARE DOCUMENT ---
Author Name ramyandreahossein Address Unknown Organization [facility] Address [address] [facility] [address] [place] [address] Phone [phone] Care Team Providers Care Gate Watchman Name Role Phone Evonne ALICEA, Cecil Unavailable HOLLY KAPLAN MD Unavailable HOLLY KAPLAN MD Unavailable [phone] INSURANCE PROVIDERS Payer name Policy type / Coverage type [place] red republican ID [facility] [id number]
--- OUTSIDE RECORDS SUMMARY | 2024-07-29 09:13 | XMS_ITS | Clinical Summary ---
Author Organization [facility] [address] Address [address] [place] [address] Care Team Providers Care Hand I Blocker Name Role Phone Kamar Almazan MD Primary [...] total) by mouth daily 06/28/19 24 Active carvediloL (COREG) 6.25 mg tabletIndications: [...] 30 tablet 11 05/13/19 25 026 Active atorvastatin (LIPITOR) 40 mg tablet Take 1 tablet (40 mg total) by mouth daily 30 tablet 11 07/06/19 25 026 Active atorvastatin (LIPITOR) 20 mg tabletIndications: H/O: stroke Take 1 tablet (20 mg total) by mouth daily 90 tablet 3 10/23/19 24 025 Discontin ued(Alter zhao therapy) Active Problems Problem Noted Date Diagnosed Date Low testosterone 02/01/2023 History of DVT (deep vein thrombosis) 02/01/2023 H/O: stroke 08/01/2022 Muscle weakness 08/01/2022 Mixed hyperlipidemia 08/01/2022 Dizziness 07/17/2021 Chronic fatigue 01/04/2021 Excessive daytime sleepiness 01/04/2021 History of 2019 novel coronavirus disease (COVID -19) 04/07/2020 Malaise and fatigue 01/18/2020 GERD (gastroesophageal reflux disease) 10/24/202 0 Hypotension due to drugs 01/13/2020 Anxiety [...] Encounters Date Type Department Care Team Description 07/18/2024 Telephone [facility] Card[facility] [address] [place] [address] Elsa Cantrell NP 07/04/2024 12:40 PM CDT - 07/04/2024 11:59 PM CDT Hospital Encounter [facility] ([facility]) [address] [place] [address] Abnormal result of other cardiovascular function study; Abnormal findings on diagnostic imaging of heart and coronary circulation Discharge Disposition: Discharge to home or self care 07/03/2024 Telephone [facility] [address] [facility] [address] [place] [phone] Elsa Cantrell NP 07/02/2024 12:42 PM CDT - 07/02/2024 11:59 PM CDT Hospital Encounter [facility] ([facility]) [address] [place] [address] Dilated cardiomyopathy (HCC); Abnormal result of other cardiovascular function study Discharge Disposition: Discharge to home or self care 07/02/2024 Results Follow-Up [facility] [address] [place] [phone] Elsa Cantrell NP Abnormal result of other cardiovascular function study (Primary Dx); Abnormal findings on diagnostic imaging of heart and coronary circulation 06/26/2024 Results Follow-Up [facility] [address] [place] [phone] Elsa Cantrell NP 06/26/2024 Orders Only [facility] [address] [place] [address] Elsa Cantrell NP Dilated cardiomyopathy (HCC); Sleep disorder, unspecified 06/12/2024 Telephone [facility] [address] [facility] [address] [place] [phone] Ronak Flores MD 05/13/2024 Telephone [facility] [address] [place] [address] [address] [place] [phone] Ronak Flores MD Med Refill; samples from Last 3 Months Immunizations Immunization Administration [...] on file Legal Sex 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[employer] Gender Identity Not on file Sexual Orientation Not on file 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 on file Not on file Obstetrics History Last Filed Vital Signs Vital Sign Reading Time Taken Comments Blood Pressure 119/75 07/02/2024 1:45 PM CDT Pulse 72 07/02/2024 1:45 PM CDT Temperature 36.4 C (97.5 F) 04/02/2020 3:10 PM [employer] Respiratory Rate - - Oxygen Saturation 94% 04/30/2024 2:32 PM [employer] Inhaled Oxygen Concentration - - Weight 134.7 kg (297 lb) 04/30/2024 2:32 PM [employer] Height 172.7 cm (5' 8 ) 04/30/2024 2:32 PM [employer] Body Mass Index 45.16 04/30/2024 2:32 PM [employer] Plan of Treatment Health Maintenance Due Date Last Done Comments Colon Cancer Screening-Colonoscopy 1950 Depression Screening 1950 Fall Risk Assessment 1950 Hepatitis C Screening 1950 DTaP/Tdap/Td Vaccine (1 - Tdap) 07/13/1962 Hepatitis B Screening 07/13/1969 Pneumococcal vaccine 65+ (1 of 1 - PCV) 07/13/2001 Zoster Vaccine (1 of 2) 07/13/2001 Well Visit 65+ 07/13/2016 Influenza Vaccine (Season Ended) 2024 01/12/20 19, 01/25/2009 Procedures Procedure Name Priority Date/Time Associated Diagnosis Comments CT CORONARY FRACTIONAL FLOW RESERVE Schedule Routine, Read Routine (OP Routine) 07/05/2024 8:55 AM CDT Abnormal result of other cardiovascular function study Abnormal findings on diagnostic imaging of heart and coronary circulation CT HEART MORPHOLOGY AND CORONARY ARTERIES W CONTRAST Schedule Routine, Read Routine (OP Routine) 07/02/2024 2:02 PM CDT Dilated cardiomyopathy (HCC) Abnormal result of other cardiovascular function study POCT CREATININE - DEVICE Routine 07/02/2024 1:34 PM CDT PSG (SIMPLE) Routine 06/11/2024 Dilated cardiomyopathy (HCC) Sleep disorder, unspecified from Last 3 Months Results * CT Coronary Fractional Flow Reading (07/05/2024 8:55 AM CDT) Anatomical Region Laterality Modality Chest N/A Computed Tomogra phy 07/05/2024 10:5 2 AM CDT Impressions 07/05/2024 11:27 AM CDT ADDENDUM: Coronary CTA Fractional Flow Reading (FFR) The below FFR CT results are associated with the coronary CTA report at IMPRESSION: FFR CT Results: No hemodynamically significant lesions. No lesions with FFR CT d 0.8. Recommendation: No further coronary imaging recommended. Dictated by: Yojana Lora MD The radiology attending physician has personally reviewed this study, and had reviewed and/or edited this written report and agrees with it. Electronically signed by: Chidi Kidd M.D. Narrative Procedure Note Chidi Kidd MD - 07/05/2024 IMPRESSION: ADDENDUM: Coronary CTA Fractional Flow Reading (FFR) The below FFR CT results are associated with the coronary CTA report at IMPRESSION: FFR CT Results: No hemodynamically significant lesions. No lesions with FFR CT d 0.8. Recommendation: No further coronary imaging recommended. Dictated by: Yojana Lora MD The radiology attending physician has personally reviewed this study, and had reviewed and/or edited this written report and agrees with it. Electronically signed by: Chidi Kidd M.D. Elsa Cantrell NP IMG CT PROCEDURES Final R esult * CTA Heart and Coronary Arteries W Morphology when Performed (07/02/2024 2:02 PM CDT) Anatomical Region Laterality Modality Chest N/A Computed Tomogra phy 07/02/2024 2:38 PM CDT Impressions 07/02/2024 3:42 PM CDT 1. Mixed calcified plaque found in all 3 epicardial coronary arteries. The worst appears to be a moderate to severe mixed calcified plaque in the mid left circumflex coronary artery. 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 Recommend CT FFR for further evaluation. 2. Coronary artery calcium score of 634. Dictated by: Castro Escobar M.D. The radiology attending physician has personally reviewed this study, and had reviewed and/or edited this written report and agrees with it. Electronically signed by: Diann Torres M.D. Narrative 07/02/2024 3:42 PM CDT EXAMINATION: CORONARY CT ANGIOGRAM HISTORY: 73-year-old male with history of obesity and nonischemic cardiomyopathy presenting for evaluation of chest pain. TECHNIQUE: CT angiography of the coronary arteries was performed after the administration of 100 mL of Optiray 350. Images were also obtained precontrast for the purposes of calcium scoring. 10 mg of metoprolol was administered intravenously prior to the examination. The patient's heart rate and blood pressure at the time of the examination were 75 beats per minute. Images were transferred to a 3D workstation for additional post-processing. FINDINGS: The coronary arteries are right system dominant. There is no anomalous coronary origin or course. Right coronary system: There is a calcified plaque in the proximal right coronary artery leading to mild (less than 50%) stenosis. There is associated bridging of the right coronary artery into the wall of the right atrium. Left coronary system: The left main coronary artery bifurcates into a left anterior descending artery and a left circumflex artery. There is a mixed calcified plaque in the proximal left anterior descending artery leading to moderate (at least 50%) stenosis. After the bifurcation with the diagonal vessel there is a long (23 mm) and shallow myocardial bridge. The diagonal has a calcified plaque leading to mild stenosis. There is calcified plaque in the proximal left circumflex coronary artery leading to mild stenosis. In the mid left circumflex there is a mixed calcified plaque leading to moderate to severe stenosis though this may be overestimated due to calcium blooming. The calculated calcium score is 634. Other findings: Right atrium and right ventricle enlarged in keeping with history of pulmonary hypertension. Circumferential esophageal wall thickening. Cholelithiasis without cholecystitis. Diverticulosis without diverticulitis. Calcified mediastinal nodes. Mild degenerative changes of the spine. Procedure Note Diann Torres MD - 07/02/2024 EXAMINATION: CORONARY CT ANGIOGRAM HISTORY: 73-year-old male with history of obesity and nonischemic cardiomyopathy presenting for evaluation of chest pain. TECHNIQUE: CT angiography of the coronary arteries was performed after the administration of 100 mL of Optiray 350. Images were also obtained precontrast for the purposes of calcium scoring. 10 mg of metoprolol was administered intravenously prior to the examination. The patient's heart rate and blood pressure at the time of the examination were 75 beats per minute. Images were transferred to a 3D workstation for additional post-processing. FINDINGS: The coronary arteries are right system dominant. There is no anomalous coronary origin or course. Right coronary system: There is a calcified plaque in the proximal right coronary artery leading to mild (less than 50%) stenosis. There is associated bridging of the right coronary artery into the wall of the right atrium. Left coronary system: The left main coronary artery bifurcates into a left anterior descending artery and a left circumflex artery. There is a mixed calcified plaque in the proximal left anterior descending artery leading to moderate (at least 50%) stenosis. After the bifurcation with the diagonal vessel there is a long (23 mm) and shallow myocardial bridge. The diagonal has a calcified plaque leading to mild stenosis. There is calcified plaque in the proximal left circumflex coronary artery leading to mild stenosis. In the mid left circumflex there is a mixed calcified plaque leading to moderate to severe stenosis though this may be overestimated due to calcium blooming. The calculated calcium score is 634. Other findings: Right atrium and right ventricle enlarged in keeping with history of pulmonary hypertension. Circumferential esophageal wall thickening. Cholelithiasis without cholecystitis. Diverticulosis without diverticulitis. Calcified mediastinal nodes. Mild degenerative changes of the spine. IMPRESSION: 1. Mixed calcified plaque found in all 3 epicardial coronary arteries. The worst appears to be a moderate to severe mixed calcified plaque in the mid left circumflex coronary artery. 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 Recommend CT FFR for further evaluation. 2. Coronary artery calcium score of 634. Dictated by: Castro Escobar M.D. The radiology attending physician has personally reviewed this study, and had reviewed and/or edited this written report and agrees with it. Electronically signed by: Diann Torres M.D. Elsa Cantrell NP IMG CT PROCEDURES Final R esult * (ABNORMAL) POCT creatinine (07/02/2024 1:34 PM CDT) Creatinine POC 1.9(H) 0.8 - 1.3 mg/dL Blood 07/02/2024 1:34 PM CDT 07/02/2024 1:34 PM CDT us Kamar Almazan MD LAB POCT ORDERABLE S - DEVICE Final Result Performing Organization Address City/State/[facility] [place] mi Phone Number [facility] Department [place] [address] * PSG (06/11/2024) 06/11/2024 us Elsa Cantrell NP SLEEP CENTER ORDERABLES F inal Result from Last 3 Months Insurance [facility] MEDICARE ADVANTAGE MEDICARE [facility] MEDICARE ADVANTAGE [facility] MEDICARE ADVANTAGE Care Teams Hand I Blocker Relationship Specialty Start Date End Date Kamar Almazan MD [address] [place] [address] PCP - General Family Medicine 07/05/24
--- OUTSIDE RECORDS SUMMARY | 2024-07-29 09:13 | XMS_ITS | Encounter Summary ---
Author Organization Address 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 Gender Identity Not on file Sexual Orientation Not on file documented as of this encounter Plan of Treatment Upcoming Encounters Date Type Department Care Team (Late st Contact Info) Description 10/28/2024 1:15 PM CDT Office Visit [facility] Oncology and Hematology - [place] [address] [place] [address] [facility] [address] [place] [address] Rom Mcconnell MD [address] [facility] [address] [place] [address] documented as of this encounter Visit Diagnoses Diagnosis Opioid type dependence, continuous (CMS/HCC)- Primary Opioid type dependence, continuous documented in this encounter Care Teams Refinisher Relationship Specialty Start Date End Date Kamar Almazan MD PCP - General Family Practice 04/05/24 documented as of this encounter
--- OUTSIDE RECORDS SUMMARY | 2024-07-29 09:13 | XMS_ITS | Encounter Summary ---
Author Organization [facility] Address 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 Gender Identity Not on file Sexual Orientation Not on file documented as of this encounter Plan of Treatment Upcoming Encounters Date Type Department Care Team (Late st Contact Info) Description 10/28/2024 1:15 PM CDT Office Visit [facility] Oncology and Hematology - [place] [address] [place] [address] [address] [place] [address] Rom Mcconnell MD [address] [facility] [address] [place] [address] documented as of this encounter Visit Diagnoses Not on filedocumented in this encounter Care Teams Coagulating Operator Relationship Specialty Start Date End Date Kamar Almazan MD PCP - General Family Practice 04/05/24 documented as of this encounter
--- OUTSIDE RECORDS SUMMARY | 2024-07-29 09:13 | XMS_ITS | Encounter Summary ---
Author Organization [facility] Address 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 Gender Identity Not on file Sexual Orientation Not on file documented as of this encounter Plan of Treatment Upcoming Encounters Date Type Department Care Team (Late st Contact Info) Description 10/28/2024 1:15 PM CDT Office Visit [facility] Oncology and Hematology - [place] [address] [place] [address] [facility] [address] [place] [address] Rom Mcconnell MD [address] [facility] [address] [place] [address] documented as of this encounter Visit Diagnoses Diagnosis Opioid type dependence, continuous (CMS/HCC)- Primary Opioid type dependence, continuous documented in this encounter Care Teams Excellence Manager Relationship Specialty Start Date End Date Kamar Almazan MD PCP - General Family Practice 04/05/24 documented as of this encounter
--- OUTSIDE RECORDS SUMMARY | 2024-07-29 09:13 | XMS_ITS | Continuity of Care Document ---
Author Organization [facility] Address [address] [place] [address] Phone Care Team Providers Care News Intern Name Role Phone [facility] Unavailable Unavailable Advance Directives Directive Yes / No Effective Date File Name No Information Encounters Encounter Description Practice Location Reason(s) For Visit Diagnoses Date Provider Providers Copied on Encounter [facility], [address], [place], [place], [id number], [place] tel:[phone] [facility] No Information [facility]. [address] [facility], [place], [place], [id number], [place]. tel:[phone] Referring Provider: Kamar [place], [address] [place] [address], [address]. tel:[phone] Family History Family Member Type Diagnosis Age [...]
--- OUTSIDE RECORDS SUMMARY | 2024-07-29 09:13 | XMS_ITS | Encounter Summary ---
Author Organization [facility] Address 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 Gender Identity Not on file Sexual Orientation Not on file documented as of this encounter Plan of Treatment Upcoming Encounters Date Type Department Care Team (Late st Contact Info) Description 10/28/2024 1:15 PM CDT Office Visit [facility] Oncology and Hematology - [place] [address] [place] [address] [address] [place] [address] Rom Mcconnell MD [address] [facility] [address] [place] [address] documented as of this encounter Visit Diagnoses Diagnosis Opioid type dependence, unspecified (CMS/HCC)- Primary Opioid type dependence, unspecified documented in this encounter Care Teams Brass Wind Instrument Maker Relationship Specialty Start Date End Date Kamar Almazan MD PCP - General Family Practice 04/05/24 documented as of this encounter
--- OUTSIDE RECORDS SUMMARY | 2024-07-29 09:13 | XMS_ITS | Referral Summary ---
Author Organization [facility] [address] Address [address] [place] [address] Care Team Providers Care Retail Sales Merchandiser Name Role Phone Kamar Almazan MD Primary Care Prov ider Encounters Date Type Department Care Team Description 07/18/2024 Telephone [facility] Cardiology [address] [place] [address] Elsa Cantrell NP 07/04/2024 12:40 PM CDT - 07/04/2024 11:59 PM CDT Hospital Encounter [facility] ([facility]) [address] [place] [address] Abnormal result of other cardiovascular function study; Abnormal findings on diagnostic imaging of heart and coronary circulation Discharge Disposition: Discharge to home or self care 07/03/2024 Telephone [facility] Cardiology [address] [place] [address] Elsa Cantrell NP 07/02/2024 Results Follow-Up [facility] Cardiology [address] [place] [address] Elsa Cantrell NP Abnormal result of other cardiovascular function study (Primary Dx); Abnormal findings on diagnostic imaging of heart and coronary circulation 07/02/2024 12:42 PM CDT - 07/02/2024 11:59 PM CDT Hospital Encounter [facility] ([facility]) [address] [place] [address] Dilated cardiomyopathy (HCC); Abnormal result of other cardiovascular function study Discharge Disposition: Discharge to home or self care 06/26/2024 Results Follow-Up [facility] Cardiology [facility] [address] [place] [address] Elsa Cantrell NP 06/26/2024 Orders Only [facility] Cardiology [address] [place] [address] [address] [place] [address] Elsa Cantrell NP Dilated cardiomyopathy (HCC); Sleep disorder, unspecified 06/12/2024 Telephone [place] [address] [place] [address] Ronak Flores MD 05/13/2024 Telephone [place] [address] [place] [address] Ronak Flores MD Med Refill; samples from Last 3 Months Allergies Active Allergy [...] on file 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 Gender Identity Not on file Sexual Orientation Not on file 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 on file Not on file Last Filed Vital Signs Vital Sign Reading Time Taken Comments Blood Pressure 119/75 07/02/2024 1:45 PM CDT Pulse 72 07/02/2024 1:45 PM CDT Temperature 36.4 C (97.5 F) 04/02/2020 3:10 PM LAST TRIMMER Respiratory Rate - - Oxygen Saturation 94% 04/30/2024 2:32 PM LAST TRIMMER Inhaled Oxygen Concentration - - Weight 134.7 kg (297 lb) 04/30/2024 2:32 PM LAST TRIMMER Height 172.7 cm (5' 8 ) 04/30/2024 2:32 PM LAST TRIMMER Body Mass Index 45.16 04/30/2024 2:32 PM LAST TRIMMER Plan of Treatment Not on file Procedures [...] Months Results * CT Coronary Fractional Flow [place] (07/05/2024 8:55 AM CDT) Anatomical Region Laterality Modality Chest N/A Computed Tomogra phy 07/05/2024 10:5 2 AM CDT Impressions 07/05/2024 11:27 AM CDT ADDENDUM: Coronary CTA Fractional Flow [place] (FFR) The below FFR CT results are [...] Chidi Kidd M.D. Narrative Procedure Note Chidi iKdd MD - 07/05/2024 IMPRESSION: ADDENDUM: Coronary CTA Fractional Flow [place] (FFR) The below FFR CT results are [...] it. Electronically signed by: Diann Torres M.D. us Elsa Cantrell VIDEO PRODUCTION INTERN IMG CT PROCEDURES Final R esult * (ABNORMAL) POCT creatinine (07/02/2024 1:34 PM CDT) Creatinine POC 1.9(H) 0.8 - 1.3 mg/dL Blood 07/02/2024 1:34 PM CDT 07/02/2024 1:34 PM CDT Kamar Almazan MD LAB POCT ORDERABLE S - DEVICE Final Result [facility] [address] [facility] Department [place] [address] * PSG (06/11/2024) 06/11/2024 Elsa Cantrell NP [facility]ENTER ORDERABLES F inal Result from Last 3 Months Insurance [facility] MEDICARE [facility] Address: [address] [address] [place] [address] MEDICARE [facility] MEDICARE ADVANTAGE [facility] MEDICARE AD[facility] Address: [address] [address] [place] [address] Care Teams Retail Sales Merchandiser Relationship Specialty Start Date End Date Kamar Almazan MD [address] [place] [address] PCP - General Family Medicine 07/05/24
--- OUTSIDE RECORDS SUMMARY | 2024-07-29 09:13 | XMS_ITS | Encounter Summary ---
Author Organization [facility] Address 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 Gender Identity Not on file Sexual Orientation Not on file documented as of this encounter Plan of Treatment Upcoming Encounters Date Type Department Care Team (Late st Contact Info) Description 10/28/2024 1:15 PM CDT Office Visit [facility] Oncology and Hematology - [place] [address] [place] [address] [address] [place] [address] Rom Mcconnell MD [address] [facility] [address] [place] [address] documented as of this encounter Visit Diagnoses Not on filedocumented in this encounter Care Teams Human Resource Officer Relationship Specialty Start Date End Date Kamar Almazan MD PCP - General Family Practice 04/05/24 documented as of this encounter
--- NOTE | 2024-08-05 13:15 | WPDSLEEPSTUD ---
Sleep Study Date of Study: 07/29/24 Ordering Provider: Logan Chin APRN Interpreting Physician: Valery Anderson MD Sleep Study Type: BiPAP Titration Height: 1.73 m Weight: 131.088 kg Body Mass Index: 43.9 Neck Circumference (inches): 21 [place]: 3 Reason for Sleep Study * 06/11/2024 split night sleep study at [place] performed for nonischemic cardiomyopathy; Severe obstructive sleep apnea, AHI 61.2, erik 74%, titrated from CPAP 5 to CPAP 19 with 1 cm EPR, BiPAP / titrated to 19/14 without optimal pressure. Patient returns for a full night titration Sleep History History is from his June 11, 2024 study. The patient rarely awakens from sleep short of breath. He occasionally awakens at night with heartburn, belching or cough. He frequently snores but is rarely loud enough that others complain. He denies having trouble sleeping when he has a cold. He denies waking up gasping for air throughout the night. He denies having breathing problems at night observed by himself or others. He frequently sweats excessively at night. He denies having heart palpitations or irregular heartbeats during the night. He frequently falls asleep during the day but never while driving. He denies sleep paralysis and cataplexy. He denies having trouble at school or work due to sleepiness. He frequently experiences vivid dreamlike scenes upon awakening or falling asleep. He denies feeling afraid of going to sleep. He rarely has nightmares. He frequently remembers his dreams. He denies having thoughts racing through his mind. He occasionally feels sad or depressed. He frequently has anxiety. He denies having muscular tension. He rarely notices parts of his body jerk. He denies kicking during the night. He occasionally has crawling and aching feelings in his legs and occasionally has leg pain during the night. He denies grinding his teeth during sleep and denies awakening with morning jaw pain. He is occasionally bothered by pain during the day and occasionally awakened by pain during the night. He rarely wakes up feeling stiff the morning. He occasionally wakes up with sore or achy muscles. He rarely wakes up with pain in the neck, spine and other joints. He goes to bed at 9:30 p.m. on weekdays and at 10:00 p.m. on the weekends. He is able to fall asleep relatively quickly. He wakes up twice throughout the night to urinate and is able to fall back asleep quickly. He wakes up at 6:30 a.m. on weekdays and at 7:30 a.m. on the weekends. He typically gets 8 hours of sleep per night. He does not stay in bed long after waking up the morning. He currently lives with his and 3 adult children. He denies consuming any caffeinated beverages within 2 hours of bedtime. He denies engaging in physical exercise before bedtime. He will occasionally read before falling asleep. He will watch television before falling asleep. He will take naps in the afternoon or the evening and they are refreshing. He will consume caffeinated beverages throughout the day. He denies tobacco, alcohol and recreational drug use. [facility] Past Medical History Medical History CLEMENCIA (obstructive sleep apnea) Hemochromatosis Cerebrovascular accident Non-ischemic cardiomyopathy Poorly documented. Pulmonary embolism Deep venous thrombosis Shingles Depression Gout Hiatal hernia Hemorrhoids Colonic polyp Surgical History Surgical History History of tonsillectomy History of appendectomy History of hemorrhoidectomy History of right hip replacement Family History Family History Mother Lung cancer Diabetes mellitus Father Lung cancer Depression Social History Social History Social History: Surrogate medical decision maker: Natasha Mendoza, spouse. Code status: Full code. 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 Gender identity (if verbalized by the patient): Male Spiritual care concerns: No Agree to blood products: Yes Medications Home Medications ?Medication ?Instructions ?Recorded ?Confirmed ?Type carvedilol 6.25 mg tablet 6.25 mg PO BID 09/30/19 07/18/24 History losartan 100 mg tablet 100 mg PO DAILY 01/19/21 07/18/24 History buprenorphine 8 mg-naloxone 2 mg 0.5 tablet sublingual BID 11/16/21 07/18/24 History sublingual tablet bupropion HCl 150 mg 24 hr tablet, 300 mg PO DAILY 03/06/23 07/18/24 History extended release atorvastatin 20 mg tablet 20 mg PO DAILY 03/27/23 07/18/24 History compr.stocking,thigh,reg,x-lrg #2 ea 03/27/23 07/18/24 Rx semaglutide 1 mg/dose (4 mg/3 mL) 1 mg (0.75 mL) subcut WEEKLY #3 mL 11/02/23 07/18/24 Rx subcutaneous pen injector (Ozempic) lorazepam 1 mg tablet 1 mg PO TID PRN anxiety #90 tabs 03/09/24 07/18/24 Rx empagliflozin 10 mg tablet 10 mg PO DAILY 04/03/24 07/18/24 History (Jardiance) spironolactone 50 mg tablet 50 mg PO DAILY #90 tabs 04/27/24 07/18/24 Rx clopidogrel 75 mg tablet See Rx Instructions .Route 05/09/24 07/18/24 Rx .COMPLEX #90 tabs ondansetron 4 mg disintegrating 4 mg PO Q8H PRN Nausea #30 tabs 05/30/24 07/18/24 Rx tablet pantoprazole 40 mg tablet,delayed 40 mg PO BID #180 tabs 05/30/24 07/18/24 Rx release imiquimod 5 % topical cream packet 1 applic topical DAILY #12 ea 07/03/24 07/18/24 Rx furosemide 20 mg tablet 20 mg PO DAILY #90 tabs 07/05/24 07/18/24 Rx tamsulosin 0.4 mg capsule 0.4 mg PO DAILY #90 caps 07/05/24 07/18/24 Rx ibuprofen 800 mg tablet See Rx Instructions .Route 07/09/24 07/18/24 Rx .COMPLEX #90 tabs testosterone cypionate 200 mg/mL 300 mg (1.5 mL) IM .every 10 days 07/12/24 07/18/24 Rx intramuscular oil #9 mL eszopiclone 2 mg tablet 2 mg PO ONCE #1 tablet 07/18/24 07/18/24 Rx Sleep Procedure A full night split study using the [employer] multi-channel system recorded the standard physiologic parameters including EEG, EOG, submentalis EMG, anterior tibialis EMG, EKG, body position, nasal and oral airflow using nasal pressure sensor and thermistor.? Respiratory parameters of chest and abdominal movements were recorded with Respiratory Inductance Plethysmography belts. Oxygen saturation was recorded by pulse oximetry. Video monitoring was also performed. Sleep stages, periodic limb movements, and EEG arousals were scored in 30 second epochs according to the criteria of the AASM Scoring Manual. The Apnea-Hypopnea Index was calculated using CMS guidelines for definition of hypopnea with 4% O2 desaturations while scoring respiratory events. He self-administered Lunesta 2 mg at the start of the study. His initial pressure was BiPAP 8/4 using a large [employer] Sonendo Solo nasal mask and heated humidity. He preferred the nasal mask because he told the electrical instrument technician he had claustrophobia. During the study at lower pressures he had frequent central apneas and hypopneas,. At 2:40 a.m. he called out and wanted to try the fullface mask. He used a large Simplus fullface mask for the remainder of the study. Initial pressure was BiPAP 8/4 titrated up to BiPAP pressure 17/13. The best pressure is bilevel 14/10. At this pressure, she spent 50 minutes in bed, 30 minutes in non-REM and 20 minutes in REM. Sleep efficiency was 100%. The residual apnea-hypopnea index was 2.4 with a mean saturation of 90%. At higher pressures she spent limited time and the residual apnea hypopnea index was spuriously elevated. Another acceptable pressure was BIPAP 13/9 with a sleep efficiency 100 % but less REM. Sleep Architecture The total recording time was 455.7 minutes. The total sleep time was 343.5 minutes. Sleep latency was 30.3 minutes. REM latency was 83.5 minutes. Sleep efficiency was 75.4%. The patient had 31 awakenings for an awakening index of 5.4. Wake after Sleep Onset time was 81.5 minutes. The patient spent 30.0 minutes, 8.7% of total sleep time in Stage N1. The patient spent 263.5 minutes, 76.7% in Stage N2. The patient spent no time in Stage N3. The patient spent 50.0 minutes, 14.6% in Stage REM. Respiratory Analysis The patient had 98 hypopneas, 4 obstructive apneas, no mixed apneas, and 9 central apneas for an overall Apnea Hypopnea Index of 19.0 events per hour. The REM Apnea Hypopnea Index was 16.8. The NREM Apnea Hypopnea Index was 19.4. The patient had a Central Apnea Hypopnea Index of 1.6. There were no Respiratory Effort Related Arousals. The Respiratory Disturbance Index is 23.2 events per hour. There was no evidence of Jermain-Kearney Respirations. Arousals There were 85 total arousals for an arousal index of 14.8. There were 66 spontaneous arousals for an index of 11.5. There were 10 arousals due to respiratory events for an index of 1.7. There were 7 arousals due to periodic limb movements for an index of 1.2. There were 2 arousals due to isolated limb movements for an index of 0.3. Periodic Limb Movements The patient had 9 isolated limb movements with an index of 1.6. The patient had 53 periodic limb movements with index of 9.3. Patient had a total of 62 limb movements with a total limb movement index of 10.8. Oximetry Data The patient had an average oxygen saturation of 89.8% in sleep with a minimum oxygen saturation of 82.0% and a maximum oxygen saturation of 96%. The patient had 120 oxygen desaturations that were 4% or greater resulting in an Oxygen Desaturation Index of 21.0. The patient spent 53.8 minutes, 12% of total sleep time with an oxygen saturation below 88%. Snoring Profile During titration, snoring was mild, eliminated during the titration. Cardiac Profile The EKG showed normal sinus rhythm. The patient had an average pulse rate of 69.7 bpm with a minimum pulse rate of 59 bpm and a maximum pulse rate of 82 bpm. No arrhythmias noted. EEG Profile No signs of seizure activity seen. Assessment and Plan Assessment and Plan (1) CLEMENCIA (obstructive sleep apnea): Code(s): G47.33 - Obstructive sleep apnea (adult) (pediatric) Status: Acute Assessment and Plan: This full night titration on 07/29/2024 shows an optimal pressure of BiPAP 14/10 using a large Sheehan and [employer] Simplus full face mask and heated humidity. At this pressure, the patient spent 50 minutes in bed, 30 minutes in non-REM and 20 minutes in REM. Sleep efficiency was 100%. The residual apnea-hypopnea index was 2.4 with a mean saturation of 90%. REM occurred in the left lateral position. The patient should be prescribed this ResMed equipment as well as tubing, filters and reservoir. This should be used with all episodes of sleep. Compliance should be reviewed within 31-90 days of starting therapy for usage greater than 4 hours per night greater than 70% of the nights. The patient should be asked about symptoms such as excessive daytime sleepiness, quality of sleep, decreased nocturia, increased mental functioning such as memory, mood, and concentration. BMI is 43.9. Weight management is advised. Clinical data suggests that weight loss of 10% can reduce the severity of respiratory events and snoring and improve AHI by as much as 25%. (2) Positional sleep apnea: Code(s): G47.39 - Other sleep apnea Status: Acute Assessment and Plan: The patient had a much higher apnea-hypopnea index in the supine position compared to lateral position. The overall supine apnea-hypopnea index was 24.4, the non-supine index was 3.4. During this titration, BiPAP13/9 and 14/10 were tested while he was in the left lateral position. Thr rest of the night was spent supine. On his prior split night study 06/11/2024 without an optimal pressure, he was in the supine position all night. His AHI was high even at pressures as high as 19/14. There is not a satisfactory pressure that will sufficiently maintain airway patency if he sleeps on his back. I recommend that the patient tries to sleep in the lateral position any way possible. The left lateral hs been shown to be effective. Consider having him place pillows on his back and abdomen to prevent him from rolling onto his back. Tennis ball therapy has been recommended in the past however I am not certain anybody has really had success sewing a pocket on the back of the nightshirt and keeping a tennis ball or two in place to prevent rolling supine. I recommend having an overnight oximetry in a few weeks on treatment. Data The data obtained during this sleep study is adequate for interpretation. Certification This sleep study has been reviewed by a board certified sleep medicine physician.
[2024-08-05 14:36] VITALS: BMI 43.9
== END 2024-07-30 06:07 | disposition home or self-care (01) ==
LOC: ANHCSM 08:50
PROVIDERS: Visit Provider Nurse Practitioner Family
DX: G47.33 Obstructive sleep apnea (adult) (pediatric) (principal)
CPT/HCPCS: 95811

== ENCOUNTER 2024-08-02 09:13 | Outpatient (CLI) | payer MEDICARE, SELFPAY ==
--- NOTE | ~2024-08-02 | NM_ITS ---
EXAM: NM gastric emptying study DATE: 08/02/2024 14:24 INDICATION: Recurrent episodes of nausea TECHNIQUE: A gastric emptying study was performed using the methodology of Lillian TUCKER, et al. J Nucl Med 2007; 48:568-572. The patient was given a meal consisting of 2 scrambled eggs labeled with 1 mCi Tc-99m sulfur colloid, 2 slices of toast, two packages of jam, and approximately 120 mL of water. Si multaneous anterior and posterior 1-min images of the abdomen were obtained with the patient supine a t multiple time points over a total period of 4 hours. The geometric mean of anterior and posterior v iews was determined, and the percentage retention was calculated for each time point. COMPARISON: None. FINDINGS: Gastric retention of the radiotracer-labeled meal was 61%, 4%, and 1% at the 1-hour, 2-hour, and 4-ho ur time points, respectively. With this technique, apparent rapid gastric emptying is suggested by <3 0% gastric retention at 1 hour. Delayed gastric emptying is defined by gastric retention of >90% at 1 hour, >60% retention at 2 hours, or >10% retention at 4 hours. IMPRESSION: 1. Normal gastric emptying. Reviewed, dictated and finalized at location A. IMPRESSION: 1. Normal gastric emptying.
--- OUTSIDE RECORDS SUMMARY | 2024-08-02 09:17 | XMS_ITS | Encounter Summary ---
Author Organization [facility] Address 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 Gender Identity Not on file Sexual Orientation Not on file documented as of this encounter Plan of Treatment Upcoming Encounters Date Type Department Care Team (Late st Contact Info) Description 10/28/2024 1:15 PM CDT Office Visit [facility] Oncology and Hematology - [place] [address] [place] [address] [facility] [address] [place] [address] Rom Mcconnell MD [address] [facility] [address] [place] [address] documented as of this encounter Visit Diagnoses Diagnosis Opioid type dependence, continuous (CMS/HCC)- Primary Opioid type dependence, continuous documented in this encounter Care Teams Insulation Manager Relationship Specialty Start Date End Date Kamar Almazan MD PCP - General Family Practice 04/05/24 documented as of this encounter
--- OUTSIDE RECORDS SUMMARY | 2024-08-02 09:17 | XMS_ITS | Encounter Summary ---
Author Organization [facility] Healthcare Address [address] [place] [address] Care Team Providers Care Teacher'S Aide Name Role Phone Kamar Almazan MD Primary Care Prov ider Encounter Details Date Type Department Care Team (Late st Contact Info) Description 08/02/2024 Telephone [facility] Medical Group Cardiology [address] [facility] [address] [place] [address] Ronak Flores MD [facility] [place] [id number] Social History Tobacco Use Types Packs/Day Years Used Date Smoking Tobacco: Never Smokeless Tobacco: Never Alcohol Use Standard Drinks/Week Comments No 0 (1 standard drink = 0.6 oz pur e alcohol) recovering Sex and Gender Information Value Date Recorded Sex Assigned at Not on file Legal Sex Male 1:[address] Gender Identity Not on file Sexual Orientation Not on file 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 Please send to [facility] in [place]. Thank you. Contact: documented in this encounter Plan of Treatment Not on file documented as of this encounter Visit Diagnoses Not on filedocumented in this encounter Care Teams Teacher'S Aide Relationship Specialty Start Date End Date Kamar Almazan MD [address] [place] [address] PCP - General Family Medicine 07/05/24 documented as of this encounter
--- OUTSIDE RECORDS SUMMARY | 2024-08-02 09:17 | XMS_ITS | Encounter Summary ---
Author Organization [facility] Address [address] [place] [address] Care Team Providers Care Military Police Officer Name Role Phone Kamar Almazan MD Primary Care Provider +1- [phone] Encounter Details Date Type Department Care Team (Late st Contact Info) Description 08/21/2000 Outpatient Historical [facility] Conversion, History Social History Tobacco Use Types Packs/Day Years Used Date Smoking Tobacco: Never Assessed Sex and Gender Information Value Date Recorded Sex Assigned at Not on file Legal Sex Male 3:36 AM RECRUITMENT DIRECTOR Gender Identity Not on file Sexual Orientation Not on file documented as of this encounter Plan of Treatment Upcoming Encounters Date Type Department Care Team (Late st Contact Info) Description 10/28/2024 1:15 PM CDT Office Visit [facility] Oncology and Hematology - [place] [address] [place] [address] [address] [place] [address] Rom Mcconnell MD [address] [facility] [address] [place] [address] documented as of this encounter Visit Diagnoses Not on filedocumented in this encounter Care Teams Military Police Officer Relationship Specialty Start Date End Date Kamar Almazan MD PCP - General Family Practice 04/05/24 documented as of this encounter
--- OUTSIDE RECORDS SUMMARY | 2024-08-02 09:17 | XMS_ITS | Continuity of Care Document ---
Author Organization [facility] Address [address] [place] [address] Phone Care Team Providers Care Group Home Counselor Name Role Phone [facility] Unavailable Unavailable Advance Directives Directive Yes / No Effective Date File Name No Information Encounters Encounter Description Practice Location Reason(s) For Visit Diagnoses Date Provider Providers Copied on Encounter [facility], [address], [place], [place], [id number], [place] tel:[phone] [facility] No Information [facility]. [address], [place], [place], [id number], [place]. tel:[phone] Referring Provider: Kamar Sparks, [address] [place] [address], [address]. tel:[phone] Family History Family Member Type Diagnosis Age [...]
--- OUTSIDE RECORDS SUMMARY | 2024-08-02 09:17 | XMS_ITS | Encounter Summary ---
Author Organization [facility] Address [address] [place] [address] Care Team Providers Care Feed In Worker Name Role Phone Kamar Almazan MD Primary Care Provider + Encounter Details Date Type Department Care Team (Late st Contact Info) Description 04/12/2024 Lab Requisition [facility] - Pathology Lab [address] [place] [address] Castro Garza MD [address] [place] [id number] Monoclonal gammopathy Social History Tobacco Use Types [...] CYTOMETRY BONE MARROW Routine 04/12/2024 9:45 AM WOOD BOATBUILDER Monoclonal gammopathy documented in this encounter Results * FLOW CYTOMETRY BONE MARROW (04/12/2024 9:45 AM WOOD BOATBUILDER) Case Report Flow Cytometry Case: [id number] Authorizing Provider: Castro Garza Collected: 04/12/2024 09:45 JONATHAN Marsh MD Ordering Location: [facility] - Received: 04/12/2024 01:16 PM Pathology Lab Pathologist: Jem Mora MD Specimen: Bone Marrow 04/12/2024 4:06 PM [facility] Final Diagnosis Bone marrow, flow cytometry: - No overtly clonal plasma cell, clonal B-cell, or increased blast population detected 04/12/2024 4:06 PM [facility] Flow Cytometry Interpretation Viability: 98% B-cells: polytypic, kappa:lambda ratio 2:1 T-cells: not increased Blasts: not increased, <2% of overall events. Plasma cells: polytypic, kappa:lambda ratio 2:1 no immunophenotypic aberrancy detected A bone marrow aspirate smear prepared from the flow cytometry specimen has been reviewed for auditor/quality purposes. 04/12/2024 4:06 PM [facility] Flow Cytometry Results Differential Result Comment Flow Cell Count /uL 23,000 Total Viability % 98.0 Lymphocytes % 13 Dim CD45 Region % 5 Monocytes % 11 Granulocytes % 71 04/12/2024 4:06 PM [facility] Reason for test Monoclonal gammopathy 273.1 04/12/2024 4:06 PM [facility] Client Specimen ID # [id number] 04/12/2024 4:06 PM [facility] Number of markers 14 were performed. A-2 Flow CD10 A-3 Flow CD13 A-5 Flow CD20 A-13 Flow CD117 A-14 FLOW CD138 A-1 Flow CD5 A-4 Flow CD19 A-6 Flow CD33 A-7 Flow CD34 A-8 Flow CD45 A-11 Flow CD38 A-12 Flow CD56 A-9 [place]+CD19+ A-10 Lambda+CD19+ 04/12/2024 4:06 PM [facility] Pathologist Location at [facility] 04/12/2024 4:06 PM [facility] Disclaimer Test performed at [facility], [address] [place] [address], [address]. *The established laboratory minimum viability is 70%. [...] high complexity clinical testing. 04/12/2024 4:06 PM WOOD BOATBUILDER [facility] Embedded Images 4:06 PM WOOD BOATBUILDER [facility] Pathology/Cytolo gy BONE MARROW SPECIMEN / Unknown 04/12/2024 9:45 AM WOOD BOATBUILDER 04/12/2024 1:16 PM WOOD BOATBUILDER Castro Garza MD LAB - PATHOLOGY/CYT OLOGY ORDERABLES Final Result Performing Organization Address City/State/[facility] Co de Phone Number [facility] [address] [phone] documented in this encounter Visit Diagnoses Diagnosis Monoclonal gammopathy Monoclonal paraproteinemia documented in this encounter Care Teams Feed In Worker Relationship Specialty Start Date End Date Kamar Almazan MD [address] [place] [address] PCP - General 05/28/21 documented as of this encounter
--- OUTSIDE RECORDS SUMMARY | 2024-08-02 09:17 | XMS_ITS | Encounter Summary ---
Author Organization [facility] Address 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 Gender Identity Not on file Sexual Orientation Not on file documented as of this encounter Plan of Treatment Upcoming Encounters Date Type Department Care Team (Late st Contact Info) Description 10/28/2024 1:15 PM CDT Office Visit [facility] Oncology and Hematology - [place] [address] [place] [address] [address] [place] [address] Rom Mcconnell MD [address] [facility] [address] [place] [address] documented as of this encounter Visit Diagnoses Diagnosis Unspecified drug dependence, unspecified (CMS/HCC)- Primary Unspecified drug dependence, unspecified documented in this encounter Care Teams Barn Operator Relationship Specialty Start Date End Date Kamar Almazan MD PCP - General Family Practice 04/05/24 documented as of this encounter
--- OUTSIDE RECORDS SUMMARY | 2024-08-02 09:17 | XMS_ITS | Encounter Summary ---
Author Organization [facility] Address 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 Gender Identity Not on file Sexual Orientation Not on file documented as of this encounter Plan of Treatment Upcoming Encounters Date Type Department Care Team (Late st Contact Info) Description 10/28/2024 1:15 PM CDT Office Visit [facility] Oncology and Hematology - [place] [address] [place] [address] [address] [place] [address] Rom Mcconnell MD [address] [facility] [address] [place] [address] documented as of this encounter Visit Diagnoses Diagnosis Opioid type dependence, unspecified (CMS/HCC)- Primary Opioid type dependence, unspecified documented in this encounter Care Teams Adjunct Professor Relationship Specialty Start Date End Date Kamar Almazan MD PCP - General Family Practice 04/05/24 documented as of this encounter
--- OUTSIDE RECORDS SUMMARY | 2024-08-02 09:17 | XMS_ITS | Encounter Summary ---
Author Organization [facility] Address 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 Gender Identity Not on file Sexual Orientation Not on file documented as of this encounter Plan of Treatment Upcoming Encounters Date Type Department Care Team (Late st Contact Info) Description 10/28/2024 1:15 PM CDT Office Visit [facility] Oncology and Hematology - [place] [address] [place] [address] [address] [place] [address] Rom Mcconnell MD [address] [facility] [address] [place] [address] documented as of this encounter Visit Diagnoses Diagnosis Opioid type dependence, unspecified (CMS/HCC)- Primary Opioid type dependence, unspecified documented in this encounter Care Teams Flat Folding Machine Operator Relationship Specialty Start Date End Date Kamar Almazan MD PCP - General Family Practice 04/05/24 documented as of this encounter
--- OUTSIDE RECORDS SUMMARY | 2024-08-02 09:17 | XMS_ITS | Encounter Summary ---
Author Organization [facility] Address [address] [place] [address] Care Team Providers Care Ferris Wheel Operator Name Role Phone Kamar Almazan MD Primary Care Provider +1- [phone] Encounter Details Date Type Department Care Team (Late st Contact Info) Description 04/19/2000 Inpatient Historical HIS Jasvir Freed MD [address] [place] [address] [address] [place] [address] Opioid type dependence, unspecified (CMS/HCC) (Primary Dx) Social History Tobacco Use Types Packs/Day Years Used Date Smoking Tobacco: Never Assessed Sex and Gender Information Value Date Recorded Sex Assigned at Not on file Legal Sex Male 3:36 AM EVENT PLANNING INTERN Gender Identity Not on file Sexual Orientation Not on file documented as of this encounter Plan of Treatment Upcoming Encounters Date Type Department Care Team (Late st Contact Info) Description 10/28/2024 1:15 PM CDT Office Visit [facility] Oncology and Hematology - [place] [address] [place] [address] [address] [place] [address] Rom Mcconnell MD [address] [facility] [address] [place] [address] documented as of this encounter Visit Diagnoses Diagnosis Opioid type dependence, unspecified (CMS/HCC)- Primary Opioid type dependence, unspecified documented in this encounter Care Teams Ferris Wheel Operator Relationship Specialty Start Date End Date Kamar Almazan MD PCP - General Family Practice 04/05/24 documented as of this encounter
--- OUTSIDE RECORDS SUMMARY | 2024-08-02 09:17 | XMS_ITS | Encounter Summary ---
Author Organization [facility] Healthcare Address [address] [place] [address] Care Team Providers Care Lead Pourer Name Role Phone Kamar Almazan MD Primary Care Prov ider Encounter Details Date Type Department Care Team (Late st Contact Info) Description 06/26/2024 Results Follow-Up [facility] Medical [facility] Cardiology [address] [id number] Elsa Cantrell NP [address] [facility] [address] [facility] [address] [place] [address] Social History Tobacco Use Types Packs/Day Years Used Date Smoking Tobacco: Never Smokeless Tobacco: Never Alcohol Use Standard Drinks/Week Comments No 0 (1 standard drink = 0.6 oz pur e alcohol) recovering Sex and Gender Information Value Date Recorded Sex Assigned at Not on file Legal Sex Male 1:23 AM RADIUS GRINDER Gender Identity Not on file Sexual Orientation Not on file 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
--- OUTSIDE RECORDS SUMMARY | 2024-08-02 09:17 | XMS_ITS | Encounter Summary ---
Author Organization [facility] Address 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 Gender Identity Not on file Sexual Orientation Not on file documented as of this encounter Plan of Treatment Upcoming Encounters Date Type Department Care Team (Late st Contact Info) Description 10/28/2024 1:15 PM CDT Office Visit [facility] Oncology and Hematology - [place] [address] [place] [address] [address] [place] [address] Rom Mcconnell MD [address] [facility] [address] [place] [address] documented as of this encounter Visit Diagnoses Diagnosis Unspecified drug dependence, unspecified (CMS/HCC)- Primary Unspecified drug dependence, unspecified documented in this encounter Care Teams Merchandise Handler Relationship Specialty Start Date End Date Kamar Almazan MD PCP - General Family Practice 04/05/24 documented as of this encounter
--- OUTSIDE RECORDS SUMMARY | 2024-08-02 09:17 | XMS_ITS | Clinical Summary ---
Author Organization [facility] Yousuf Altamirano Address [address] [place] [address] Care Team Providers Care Die Caster Name Role Phone Kamar Almazan MD Primary Care Provider +1- [phone] Allergies Active Allergy Reactions Criticality Noted Date [...] on file Legal Sex Male 3:36 AM PRODUCTION CONTROL SPECIALIST Gender Identity Not on file Sexual Orientation Not on file Last Filed Vital Signs Vital Sign Reading Time Taken Comments Blood Pressure 128/94 04/29/2024 2:34 PM PRODUCTION CONTROL SPECIALIST Pulse 94 04/29/2024 2:34 PM PRODUCTION CONTROL SPECIALIST Temperature 35.6 C (96 F) 04/29/2024 2:34 PM PRODUCTION CONTROL SPECIALIST Respiratory Rate 16 04/29/2024 2:34 PM PRODUCTION CONTROL SPECIALIST Oxygen Saturation 96% 04/29/2024 2:34 PM PRODUCTION CONTROL SPECIALIST Inhaled Oxygen Concentration - - Weight 133.8 kg (295 lb) 04/29/2024 2:34 PM PRODUCTION CONTROL SPECIALIST Height 175.3 cm (5' 9 ) 03/26/2024 10:39 AM PRODUCTION CONTROL SPECIALIST Body Mass Index 43.56 03/26/2024 10:39 AM PRODUCTION CONTROL SPECIALIST Plan of Treatment Upcoming Encounters Date Type Department Care Team (Late st Contact Info) Description 10/28/2024 1:15 PM CDT Office Visit [facility] Oncology and Hematology - [place] [address] [facility] [address] [place] [address] Rom Mcconnell MD [address] [facility] [address] [place] [address] Health Maintenance Due Date Last [...] (#1) 2023 01/11/2019, 2008 Insurance Care Teams Die Caster Relationship Specialty Start Date End Date Kamar Almazan MD PCP - General Family Practice 04/05/24
--- OUTSIDE RECORDS SUMMARY | 2024-08-02 09:17 | XMS_ITS | Encounter Summary ---
Author Organization [facility] Address [address] [place] [address] Care Team Providers Care Director Of Casework Department Name Role Phone Kamar Almazan MD Primary Care Provider +1- [phone] Encounter Details Date Type Department Care Team (Latest Contact Info) Description 02/08/1999 Outpatient Historical [facility] Jasvir Freed MD [address] [place] [address] [address] [place] [address] Opioid type dependence, unspecified (CMS/HCC) (Primary Dx) Social History Tobacco Use Types Packs/Day Years Used Date Smoking Tobacco: Never Assessed Sex and Gender Information Value Date Recorded Sex Assigned at Not on file Legal Sex Male 3:36 AM RETIREMENT ACTUARY Gender Identity Not on file Sexual Orientation Not on file documented as of this encounter Plan of Treatment Upcoming Encounters Date Type Department Care Team (Late st Contact Info) Description 10/28/2024 1:15 PM CDT Office Visit [facility] Oncology and Hematology - [place] [address] [place] [address] [address] [place] [address] Rom Mcconnell MD [address] [facility] [address] [place] [address] documented as of this encounter Visit Diagnoses Diagnosis Opioid type dependence, unspecified (CMS/HCC)- Primary Opioid type dependence, unspecified documented in this encounter Care Teams Director Of Casework Department Relationship Specialty Start Date End Date Kamar Almazan MD PCP - General Family Practice 04/05/24 documented as of this encounter
--- OUTSIDE RECORDS SUMMARY | 2024-08-02 09:17 | XMS_ITS | Encounter Summary ---
Author Organization [facility] Address [address] [place] [address] Care Team Providers Care Healthcare Financial Analyst Name Role Phone Kamar Almazan MD Primary Care Provider [phone]- [phone] Encounter Details Date Type Department Care Team (Late st Contact Info) Description 02/03/1999 Inpatient Historical [facility] Jasvir Freed MD [address] [place] [address] [address] [place] [address] Opioid type dependence, continuous (CMS/HCC) (Primary Dx) Social History Tobacco Use Types Packs/Day Years Used Date Smoking Tobacco: Never Assessed Sex and Gender Information Value Date Recorded Sex Assigned at Not on file Legal Sex Male 3:36 AM STOCK PARTS 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 Gender Identity Not on file Sexual Orientation Not on file documented as of this encounter Plan of Treatment Upcoming Encounters Date Type Department Care Team (Late st Contact Info) Description 10/28/2024 1:15 PM CDT Office Visit [facility] Oncology and Hematology - [place] [address] [place] [address] [facility] [address] [place] [address] Rom Mcconnell MD [address] [facility] [address] [place] [address] documented as of this encounter Visit Diagnoses Diagnosis Opioid type dependence, continuous (CMS/HCC)- Primary Opioid type dependence, continuous documented in this encounter Care Teams Healthcare Financial Analyst Relationship Specialty Start Date End Date Kamar Almazan MD PCP - General Family Practice 04/05/24 documented as of this encounter
--- OUTSIDE RECORDS SUMMARY | 2024-08-02 09:17 | XMS_ITS | Encounter Summary ---
Author Organization [facility] Address [address] [place] [address] Care Team Providers Care Data Transcriber Name Role Phone Kamar Almazan MD Primary Care Provider [phone]- [phone] Encounter Details Date Type Department Care Team (Late st Contact Info) Description 11/02/2000 Outpatient Historical [facility] Conversion, History Social History Tobacco Use Types Packs/Day Years Used Date Smoking Tobacco: Never Assessed Sex and Gender Information Value Date Recorded Sex Assigned at Not on file Legal Sex Male 3:36 AM LINUX DEVELOPER Gender Identity Not on file Sexual Orientation Not on file documented as of this encounter Plan of Treatment Upcoming Encounters Date Type Department Care Team (Late st Contact Info) Description 10/28/2024 1:15 PM CDT Office Visit [facility] Oncology and Hematology - [place] [address] [place] [address] [address] [place] [address] Rom Mcconnell MD [address] [facility] [address] [place] [address] documented as of this encounter Visit Diagnoses Not on filedocumented in this encounter Care Teams Data Transcriber Relationship Specialty Start Date End Date Kamar Almazan MD PCP - General Family Practice 04/05/24 documented as of this encounter
--- OUTSIDE RECORDS SUMMARY | 2024-08-02 09:17 | XMS_ITS | CONTINUITY OF CARE DOCUMENT ---
Author Name ramyandreahossein Address Unknown Organization [facility] Address [address] [facility] [address] [place] [address] Phone [phone] Care Team Providers Care Dental Sales Representative Name Role Phone Evonne ALICEA, Cecil Unavailable [phone] HOLLY KAPLAN MD Unavailable HOLLY KAPLAN MD Unavailable [phone] INSURANCE PROVIDERS Payer name Policy type / Coverage type [place] red green party ID [facility] [id number]
--- OUTSIDE RECORDS SUMMARY | 2024-08-02 09:17 | XMS_ITS | Encounter Summary ---
Author Organization [facility] Address 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 Gender Identity Not on file Sexual Orientation Not on file documented as of this encounter Plan of Treatment Upcoming Encounters Date Type Department Care Team (Late st Contact Info) Description 10/28/2024 1:15 PM CDT Office Visit [facility] Oncology and Hematology - [place] [address] [place] [address] [address] [place] [address] Rom Mcconnell MD [address] [facility] [address] [place] [address] documented as of this encounter Visit Diagnoses Diagnosis Opioid type dependence, unspecified (CMS/HCC)- Primary Opioid type dependence, unspecified documented in this encounter Care Teams Tipping Machine Operator Relationship Specialty Start Date End Date Kamar Almazan MD PCP - General Family Practice 04/05/24 documented as of this encounter
--- OUTSIDE RECORDS SUMMARY | 2024-08-02 09:17 | XMS_ITS | Encounter Summary ---
Author Organization [facility] Address 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 Gender Identity Not on file Sexual Orientation Not on file documented as of this encounter Plan of Treatment Upcoming Encounters Date Type Department Care Team (Late st Contact Info) Description 10/28/2024 1:15 PM CDT Office Visit [facility] Oncology and Hematology - [place] [address] [place] [address] [address] [place] [address] Rom Mcconnell MD [address] [facility] [address] [place] [address] documented as of this encounter Visit Diagnoses Diagnosis Opioid type dependence, unspecified (CMS/HCC)- Primary Opioid type dependence, unspecified documented in this encounter Care Teams Project Planner Relationship Specialty Start Date End Date Kamar Almazan MD PCP - General Family Practice 04/05/24 documented as of this encounter
--- OUTSIDE RECORDS SUMMARY | 2024-08-02 09:17 | XMS_ITS | Encounter Summary ---
Author Organization [facility] Address 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 Gender Identity Not on file Sexual Orientation Not on file documented as of this encounter Plan of Treatment Upcoming Encounters Date Type Department Care Team (Late st Contact Info) Description 10/28/2024 1:15 PM CDT Office Visit [facility] Oncology and Hematology - [place] [address] [place] [address] [address] [place] [address] Rom Mcconnell MD [address] [facility] [address] [place] [address] documented as of this encounter Visit Diagnoses Not on filedocumented in this encounter Care Teams Fire Protection Engineering Technician Relationship Specialty Start Date End Date Kamar Almazan MD PCP - General Family Practice 04/05/24 documented as of this encounter
--- OUTSIDE RECORDS SUMMARY | 2024-08-02 09:17 | XMS_ITS | Encounter Summary ---
Author Organization [facility] Address [address] [place] [address] Care Team Providers Care Digital Field Service Technician Name Role Phone Kamar Almazan MD Primary Care Provider + Encounter Details Date Type Department Care Team (Late st Contact Info) Description 04/15/2024 Lab Requisition [facility] - Pathology Lab [address] [place] [address] Castro Garza MD [address] [facility] [address] [place] [address] Illness, unspecified Social History Tobacco Use [...] MARROW BIOPSY (STL) Routine 04/12/2024 9:45 AM LEARNING COORDINATOR Illness, unspecified documented in this encounter Results * BONE MARROW BIOPSY (STL) (04/12/2024 9:45 AM LEARNING COORDINATOR) Case Report Bone Marrow Patholog y Report Case: [id number] Authorizing Provider: Castro Garza Collected: 04/12/2024 09:45 AM MD Maximo Ordering Location: [facility] - Received: 04/15/2024 04:19 PM Pathology Lab Pathologist: Marylin Florez MD Specimens: A) - Bone Marrow Clot B) - Bone Marrow Core 04/17/2024 12:36 PM [facility] Final Diagnosis Bone marrow, 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 04/17/2024 12:36 PM [facility] Peripheral Smear Description The patient's [...] not provided for review. 04/17/2024 12:36 PM [facility] Bone Marrow Aspirate Differential count [...] stain): no ring sideroblasts. 04/17/2024 12:36 PM [facility] Bone Marrow Core Biopsy and [...] similar to core biopsy. 04/17/2024 12:36 PM [facility] Flow Cytometry Summary Flow cytometry revealed no overtly clonal plasma cell, clonal B-cell, or increased blast population ([id number]). 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 [place] [address]. All original materials are returned to the referring institution, along with a copy of our final report. 04/17/2024 12:36 PM [facility] Microscopic Description Immunohistochemistry and special [...] sheets of plasma cells are not present. [place] and lambda in situ hybridization stains highlight [...] highlight markedly decreased stores. 04/17/2024 12:36 PM [facility] Pathologist Location at [facility] 04/17/2024 12:36 PM [facility] Disclaimer The performance characteristics of all immunohistochemical and indirect immunofluorescence stains (if any) cited in this report were determined by the Histopathology Laboratory of [facility]. Some of these tests were developed [...] the attending (teaching) pathologist. 04/17/2024 12:36 PM [facility] Embedded Images 04/17/2024 12:36 PM [facility] Pathology/Cytology BONE MARROW SPECIMEN / Unknown 04/12/2024 9:45 AM LEARNING COORDINATOR 04/15/2024 4:19 PM LEARNING COORDINATOR Miscellaneous samples (specimen) BONE MARROW SPECIMEN / Unknown 04/12/2024 9:45 AM LEARNING COORDINATOR 04/15/2024 4:19 PM LEARNING COORDINATOR Castro Garza MD LAB - PATHOLOGY/CYT OLOGY ORDERABLES Final Result Performing Organization Address City/State/[facility] Co de Phone Number [facility] [address] [phone] documented in this encounter Visit Diagnoses Diagnosis Illness, unspecified documented in this encounter Care Teams Digital Field Service Technician Relationship Specialty Start Date End Date Kamar Almazan MD [address] [address] PCP - General 05/28/21 documented as of this encounter
--- OUTSIDE RECORDS SUMMARY | 2024-08-02 09:17 | XMS_ITS | Encounter Summary ---
Author Organization [facility] Address 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 Gender Identity Not on file Sexual Orientation Not on file documented as of this encounter Plan of Treatment Upcoming Encounters Date Type Department Care Team (Late st Contact Info) Description 10/28/2024 1:15 PM CDT Office Visit [facility] Oncology and Hematology - [place] [address] [place] [address] [address] [place] [address] Rom Mcconnell MD [address] [facility] [address] [place] [address] documented as of this encounter Visit Diagnoses Diagnosis Opioid type dependence, unspecified (CMS/HCC)- Primary Opioid type dependence, unspecified documented in this encounter Care Teams Asphalt Layer Relationship Specialty Start Date End Date Kamar Almazan MD PCP - General Family Practice 04/05/24 documented as of this encounter
--- OUTSIDE RECORDS SUMMARY | 2024-08-02 09:17 | XMS_ITS | Patient Health Record ---
Author Organization 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 Tool Grinder Set Up Operator Name Role Phone Kamar Almazan MD Primary Care Provider Lakeisha mehnazilamasood PeckMicheal grubbsjay Unavailable [phone] Migration, Provider Unavailable Unavailable Allergies Allergen (clinical drug ingredient) Drug/Non Drug Allergy documented on EMR Reaction Allergy Type Onset Date Status codeine Codeine Unknown Drug Allergy 06/28/2023 Active Substance with penicillin structure and antibacterial mechanism of action (substance) Penicillins Unknown Drug Allergy 06/28/2023 Active Results Component Value Reference Range Notes UDT Reviewed date:11/02/2023 01:11:37 PM Interpretation: Performing Lab: Notes/Report: THC N 0 - 50 ng/ml Cocaine N 0 - 300 ng/ml Amphetamine N 0 - 1000 ng/ml Buprenorphine (BUP) P 0 - 10 ng/ml Secobarbital (Bar) N 0 - 300 ng/ml Oxazepam (BZO) P 0 - 300 ng/ml 5-phaqtgdvvf-2,0-ppglcccr-1, 3-dipheny lpyrrolidine (EDDP) N 0 - 300 ng/ml Methamphetamine (MET) N 0 - 1000 ng/ml Methylenedioxymethamphetamine (MDMA) N 0 - 500 ng/ml Morphine (MOP 300/[id number]) N 0 - 300 ng/ml Methadone (MTD) N 0 - 300 ng/ml Phencyclidine (PCP) N 0 - 25 ng/ml Nortriptyline (TCA) N 0 - 1000 ng/ml Oxycodone N 0 - 300 ng/ml x N 0 - 300 ng/ml DRUG MONITOR, NALTREXONE, QN , URIN ([id number]) Reviewed date:12/02/2023 11:46:07 AM Interpretation: Performing Lab:AT, [id number] [facility] [address] Malachi Preston, Director - [id number] [facility] Notes/Report: FASTING: NO Naltrexone NEGATIVE <5 ng/mL 6 Beta Naltrexol NEGATIVE <5 ng/mL Naltrexone Comments See LDT Notes Notes and Comments This drug testing is for medical treatment only. Analysis was performed as non-forensic testing and these results should be used only by healthcare providers to render diagnosis or treatment, or to monitor progress of medical conditions. Benzodiazepines Notes: Lorazepam detected is consistent with the use of the drug Lorazepam. Buprenorphine Notes: Buprenorphine, Norbuprenorphine detected is consistent with the use of the drug(s) Buprenorphine or Buprenorphine with Naloxone. Naloxone may be negative due to poor oral bioavailability and/or short half-life. Buprenorphine, Norbuprenorphine, Naloxone detected is consistent with the use of the drug Buprenorphine and Naloxone. LDT Notes: Confirmation tests were developed and their analytical performance characteristics have been determined by [employer]. It has not been cleared or approved by the FDA. This assay has been validated pursuant to the CLIA regulations and is used for clinical purposes. Healthcare Providers needing Interpretation assistance, please contact us at [phone] ( ) M-F, 8am to 10pm EST DRUG MONITOR, BUP AND NALOXO NE,QN,URINE ([id number]) Reviewed date:12/02/2023 11:46:07 AM Interpretation: Performing Lab:J[facility] [address], [place] M[place] Simmons Notes/Report: FASTING: NO Buprenorphine 321 <2 ng/mL Norbuprenorphine 632 <2 ng/mL Naloxone 653 <2 ng/mL Buprenorphine Comments See B uprenorphine Notes, LDT Notes DRUG MONITOR, FENTANYL, QN, URINE ([id number]) Reviewed date:12/02/2023 11:46:07 AM Interpretation: Performing Lab:[facility] [id number], [place]olidarRfaqCG[address] [place] Simmons Notes/Report: FASTING: NO Fentanyl NEGATIVE <0.5 ng/mL Norfentanyl NEGATIVE <0.5 ng/mL Fentanyl Comments See LDT No gely DRUG MONITOR, OPIATES EXPAND ED, QN, URINE ([id number]) Reviewed date:12/02/2023 11:46:07 AM Interpretation: Performing Lab:JAME, [facility] [address], [place]E[address] M[place] Simmons Notes/Report: FASTING: NO Codeine NEGATIVE <50 ng/mL Hydrocodone NEGATIVE <50 ng/mL Hydromorphone NEGATIVE <50 ng/mL Morphine NEGATIVE <50 ng/mL Norhydrocodone NEGATIVE <50 ng/mL Opiates Comments See LDT Not es Noroxycodone NEGATIVE <50 ng/mL Oxycodone NEGATIVE <50 ng/mL Oxymorphone NEGATIVE <50 ng/mL Oxycodone Comments See LDT N otes DRUG MONITOR, METHADONE META B, QN, URINE ([id number]) Reviewed date:12/02/2023 11:46:07 AM Interpretation: Performing Lab:[facility] [address], [place] [place] Notes/Report: FASTING: NO EDDP NEGATIVE <100 ng/mL Methadone NEGATIVE <100 ng/mL Methadone Comments See LDT N otes DRUG MONITOR, BENZO, QN, URI NE ([id number]) Reviewed date:12/02/2023 11:46:07 AM Interpretation: Performing Lab:[facility] [address], [place]kdwTT[address] [place] Simmons Notes/Report: FASTING: NO Alphahydroxyalprazolam NEGATIVE <25 ng/mL Alphahydroxymidazolam NEGATIVE <50 ng/mL Alphahydroxytriazolam NEGATIVE <50 ng/mL Aminoclonazepam NEGATIVE <25 ng/mL Hydroxyethylflurazepam NEGATIVE <50 ng/mL Lorazepam 851 <50 ng/mL Nordiazepam NEGATIVE <50 ng/mL Oxazepam NEGATIVE <50 ng/mL Temazepam NEGATIVE <50 ng/mL Benzodiazepines Comments See Benzodiazepines Notes, LDT Notes DRUG MONITOR,AMPHETAMINE, QN , URINE ([id number]) Reviewed date:12/02/2023 11:46:06 AM Interpretation: Performing Lab:CB, [facility] [address], [facility] CenterSsanGV[address] Mango Simmons Notes/Report: FASTING: NO Amphetamine NEGATIVE <250 ng/mL Methamphetamine NEGATIVE <250 ng/mL Amphetamines Comments See LD T Notes Reason For Referral No Information Medications Medication SIG (Take, Route, Frequency, Duration) Notes Start Date End Date Status Clopidogrel Bisulfate 75 MG TAKE 1 TABLET BY MOUTH EVERY MORNING Oral for 90 Days Active Furosemide 20 MG TAKE 1 TABLET BY OK TH EVERY MORNING Oral for 30 Days Active Testosterone Cypionate 200 MG/ML INJECT 1.5 ML IN THE MUSCLE EVERY 10 DAYS A SINGLE DOSE Intramuscular for 30 Days Active buPROPion HCl ER (XL) 300 MG 1 tablet in the morning Orally Once a day for 90 days Active Carvedilol 6.25 MG TAKE 1 TABLET BY OK TH TWICE DAILY Oral for 90 Days Active buPROPion HCl ER (XL) 300 MG 1 tablet in the morning Orally Once a day for 90 days Active Social History Tobacco Use: Social History Observation Description Date Details (start date - stop date) Former Smoker NA - NA Sex Assigned At : Social History Observation Description Sex Assigned At Male Tobacco Control (Standard) Question Answer Notes Tobacco use: Former smoker Problems Problem Type SNOMED Code ICD Code Onset Dates Problem Status W/U Status Risk Notes Problem Mixed hyperlipidemia (379166004) Mixed hyperlipidemia (E78.2) 08/02/19 Active confirmed Problem 322327290 Major depressive disorder, recurrent, mild (F33.0) Active confirmed Problem Generalized anxiety disorder (99571041) SUE (generalized anxiety disorder) (F41.1) Active confirmed Problem Chronic fatigue syndrome (20120716) Chronic fatigue (R53.82) 12/18/19 Active confirmed Problem Gastroesophageal reflux disease (790620660) GERD (gastroesophageal reflux disease) (K21.9) 12/18/19 Active confirmed Problem Arthralgia of hip (3398013490) Arthralgia of hip (M25.559) 12/18/19 Active confirmed Problem Morbid obesity (287396561) Class 3 obesity (E66.01) 08/02/19 Active confirmed Problem H/O: stroke (432010515) H/O: stroke (Z86.73) 08/02/19 Active confirmed Problem Low testosterone (350342406) Low testosterone (R79.89) 02/02/20 23 Active confirmed Problem Opioid dependence in remission (400289870) Opioid use disorder, severe, in sustained remission (F11.21) Active confirmed Problem 05223933 Senile dementia (F03.90) Active confirmed Problem Mental disorder (13557638) 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 [employer] [place] [id number] [facility] [address] [address] 09/04/2023 Omar Hailey Opioid dependence on agonist therapy 304.00 [facility] [employer] [address] [address] 11/02/2023 Omar Hailey Opioid use disorder, severe, in sustained remission F11.21 ; Major depressive disorder, recurrent, mild F33.0 ; SUE (generalized anxiety disorder) F41.1 ; Mixed hyperlipidemia E78.2 and Low testosterone R79.89 [facility] [place] [place] [address] [facility] [address] [address] 12/27/2023 Omar Hailey Opioid use disorder, severe, in sustained remission F11.21 ; Major depressive disorder, recurrent, mild F33.0 ; SUE (generalized anxiety disorder) F41.1 ; Mixed hyperlipidemia E78.2 ; Low testosterone R79.89 ; Anxiety disorder due to multiple medical problems F06.8 and Senile dementia F03.90 [facility] [employer] [place] [address] [facility] [address] [facility] [address] [place] [address] 02/05/2024 Omar Hailey Senile dementia F03. 90 [facility] [employer] [place] [address] [facility] [address] [facility] [address] [place] [address] 02/23/2024 Omar Hailey Opioid use disorder, severe, in sustained remission F11.21 ; Major depressive disorder, recurrent, mild F33.0 ; SUE (generalized anxiety disorder) F41.1 ; Mixed hyperlipidemia E78.2 ; Low testosterone R79.89 ; Anxiety disorder due to multiple medical problems F06.8 and Senile dementia F03.[address] [address] 04/22/2024 Omar Hailey Opioid use disorder, severe, in sustained remission F11.21 ; Major depressive disorder, recurrent, mild F33.0 ; Cardiomyopathy I42.9 ; SUE (generalized anxiety disorder) F41.1 and Mixed hyperlipidemia E78.[address] [address] 06/17/2024 Omar Hailey Opioid use disorder, severe, in sustained remission F11.21 ; Major depressive disorder, recurrent, mild F33.0 ; Cardiomyopathy I42.9 ; SUE (generalized anxiety disorder) F41.1 ; Mixed hyperlipidemia E78.2 and Encounter for screening for depression Z13.[address] [address] 08/12/2023 Provider Migration [address] [address] 08/13/2023 Provider Migration [address] [address] 01/26/2024 Omar Hailey [address] [address] 02/23/[address] [address] 06/17/2024 Omar Hailey Opioid use disorder, severe, in sustained remission F11.21 Assessments Encounter Date Diagnosis (ICD Code) Assessment Notes Treatment Notes Treatment Clinical Notes Section Notes 09/04/2023 Opioid dependence on agonist therapy (ICD9-CM - 304.00) Depression and Anxiety - Assessment: Patient reports improvement in mood and anxiety levels, with ongoing concerns related to family situation and financial stress. - Plan: - Continue current treatment with bupropion XL 300 mg daily. - Encourage patient to maintain engagement in AA meetings and consider seeking additional support for managing stressors. Opioid Dependence - Assessment: Patient is stable on Suboxone 8 mg daily and requests a refill. - Plan: - Refill Suboxone 8 mg daily as prescribed. Weight Management - Assessment: Patient reports success with Ozempic for weight loss, having lost 12 pounds in six weeks. - Plan: - Continue Ozempic at the current dose of 0.5 mg weekly. - Encourage patient to continue physical therapy and return to regular exercise at the [facility]. Hypoglycemia - Assessment: Patient reports improvement in hypoglycemic symptoms since starting Ozempic. - Plan: - Continue monitoring blood sugar levels and maintain current treatment plan. Family and Relationship Issues - Assessment: Patient reports conflict with spouse and feelings of loneliness on weekends. - Plan: - Encourage patient to explore social activities and consider couples therapy or counseling to address relationship concerns. Medication Management - Assessment: Patient is taking lorazepam 3 times daily, prescribed by a different doctor. - Plan: - Coordinate care with the prescribing physician to ensure appropriate medication management and monitoring. 11/02/2023 Major depressive disorder, recurrent, mild (ICD-10 - F33.0) Opioid Use Disorder - Assessment: Patient is currently on Suboxone and Buprenorphine, and reports improvement in symptoms. Patient confirms taking Suboxone once daily. - Plan: Continue Suboxone and Buprenorphine as prescribed. Schedule follow-up appointments every two months to monitor progress and adjust treatment as needed. Testosterone Deficiency - Assessment: Patient reports significant improvement in physical strength and sexual function since starting testosterone replacement therapy. Recent test showed testosterone level of 850. - Plan: Continue testosterone injections (300 mg every 10 days) as prescribed. Monitor testosterone levels periodically to ensure appropriate dosing. Hypertension - Assessment: Blood pressure is elevated at 141/87. Patient reports feeling anxious during the visit, which may have contributed to the elevated reading. Patient mentions this is higher than usual for them. - Plan: Encourage lifestyle modifications, including a healthy diet, regular exercise, and stress management. Monitor blood pressure at follow-up appointments and consider initiating antihypertensive medication if consistently elevated. Alcohol Use Disorder (in remission) - Assessment: Patient has re-engaged with AA meetings and reports positive experiences and support from the community. Attends meetings on Tuesdays and . - Plan: Encourage continued participation in AA meetings and other support networks. Monitor for any signs of relapse during follow-up appointments. Interest in Meditation and Alternative Therapies - Assessment: Patient expressed interest in meditation for stress management and inquired about the use of psilocybin for depression. - Plan: Provide guidance on simple meditation techniques, focusing on breath awareness and mindfulness. Discuss the current state of research on psilocybin and its potential use in depression treatment, emphasizing that it is not yet a standard treatment option and should not be pursued without medical supervision. Overall Well-being - Assessment: Patient reports a current well-being score of 7-8 out of 10. - Plan: Continue to monitor overall mental and physical health during follow-up appointments, addressing any new concerns as they arise. Physical Therapy - Assessment: Patient reports improvement in strength, particularly in legs, due to ongoing physical therapy. - Plan: Encourage continued participation in physical therapy sessions. 11/02/2023 Opioid use disorder, severe, in sustained remission (ICD-10 - F11.21) Opioid Use Disorder - Assessment: Patient is currently on Suboxone and Buprenorphine, and reports improvement in symptoms. Patient confirms taking Suboxone once daily. - Plan: Continue Suboxone and Buprenorphine as prescribed. Schedule follow-up appointments every two months to monitor progress and adjust treatment as needed. Testosterone Deficiency - Assessment: Patient reports significant improvement in physical strength and sexual function since starting testosterone replacement therapy. Recent test showed testosterone level of 850. - Plan: Continue testosterone injections (300 mg every 10 days) as prescribed. Monitor testosterone levels periodically to ensure appropriate dosing. Hypertension - Assessment: Blood pressure is elevated at 141/87. Patient reports feeling anxious during the visit, which may have contributed to the elevated reading. Patient mentions this is higher than usual for them. - Plan: Encourage lifestyle modifications, including a healthy diet, regular exercise, and stress management. Monitor blood pressure at follow-up appointments and consider initiating antihypertensive medication if consistently elevated. Alcohol Use Disorder (in remission) - Assessment: Patient has re-engaged with AA meetings and reports positive experiences and support from the community. Attends meetings on Tuesdays and . - Plan: Encourage continued participation in AA meetings and other support networks. Monitor for any signs of relapse during follow-up appointments. Interest in Meditation and Alternative Therapies - Assessment: Patient expressed interest in meditation for stress management and inquired about the use of psilocybin for depression. - Plan: Provide guidance on simple meditation techniques, focusing on breath awareness and mindfulness. Discuss the current state of research on psilocybin and its potential use in depression treatment, emphasizing that it is not yet a standard treatment option and should not be pursued without medical supervision. Overall Well-being - Assessment: Patient reports a current well-being score of 7-8 out of 10. - Plan: Continue to monitor overall mental and physical health during follow-up appointments, addressing any new concerns as they arise. Physical Therapy - Assessment: Patient reports improvement in strength, particularly in legs, due to ongoing physical therapy. - Plan: Encourage continued participation in physical therapy sessions. 12/27/2023 Opioid use disorder, severe, in sustained remission (ICD-10 - F11.21) Irritability and Stress - Assessment: The patient reports increased irritability and stress due to the current political situation and financial concerns. The patient mentions being irritated by things on TV, including politics and game shows like Jeopardy. - Plan: - Encourage the patient to engage in stress-reducing activities such as exercise, meditation, or relaxation techniques. - Consider referral to a therapist for additional support if irritability and stress persist or worsen. Ozempic Cost and Insurance Issues - Assessment: The patient experienced a temporary lapse in Ozempic coverage due to the donut hole in insurance, but has since resolved the issue through an assistance program called Mil. The patient was off Ozempic for three weeks but has now resumed treatment. - Plan: - Continue Ozempic as prescribed. - Encourage the patient to maintain communication with the assistance program and insurance company to prevent future lapses in coverage. - Inform patient about potential assistance from local [facility] for medication costs if needed in the future. Mild Cognitive Impairment - Assessment: The patient scored 23 on a memory test, indicating mild cognitive impairment. The patient reports difficulty concentrating while reading and playing guitar. - Plan: - Order a computer-based cognitive assessment to establish a baseline and monitor progression annually. - Encourage the patient to engage in cognitively stimulating activities such as reading and playing the guitar. - If scores decline, consider medication to delay progression. Opioid Use Disorder - Assessment: The patient is currently on Suboxone for opioid use disorder. The patient reports having only one pill left. - Plan: - Maintain the current Suboxone regimen. - Send a refill for Suboxone immediately as the patient has only one pill left. - Monitor the patient's progress and adherence to the medication regimen. Depression - Assessment: The patient is currently on Bupropion 300 mg for depression. The patient reports having plenty of Wellbutrin left. - Plan: - Continue Bupropion at the current dosage. - Monitor the patient's mood and response to the medication. - Schedule a two-month follow-up appointment and ensure the patient has enough medication until the next visit. Age-related Concerns and Activities - Assessment: The patient is 73 years old and expresses concerns about dementia and dying, as well as needing to plan activities carefully. The patient reports still reading a lot and playing guitar. - Plan: - Encourage the patient to maintain a healthy lifestyle, including regular exercise, a balanced diet, and social engagement. - Support the patient's efforts to work on their spiritual life. - Reassure the patient that concerns about dementia and dying are normal and provide resources for further information and support if needed. 02/05/2024 Senile dementia (ICD-10 - F03.90) 02/23/2024 Opioid use disorder, severe, in sustained [...] Follow up with Elsa (Dr. Cantrell) at [facility]. Pre-diabetes - Assessment: Patient [...] from them is a normal cognitive process. 04/22/2024 Major depressive disorder, recurrent, mild (ICD-10 - F33.0) 04/22/2024 Cardiomyopathy (ICD-10 - I42.9) 04/22/2024 Opioid use disorder, severe, in sustained remission (ICD-10 - F11.21) 06/17/2024 Opioid use disorder, severe, in sustained remission (ICD-10 - F11.21) 06/17/2024 Opioid use disorder, severe, in sustained remission (ICD-10 - F11.21) 04/22/2024 SUE (generalized anxiety disorder) (ICD-10 - F41.1) 06/17/2024 Major depressive disorder, recurrent, mild (ICD-10 - F33.0) 02/23/2024 Major depressive disorder, recurrent, mild (ICD-10 [...] Follow up with Elsa (Dr. Cantrell) at [facility]io [facility]. Pre-diabetes - Assessment: Patient [...] from them is a normal cognitive process. 12/27/2023 Major depressive disorder, recurrent, mild (ICD-10 - F33.0) Irritability and Stress - Assessment: The patient reports increased irritability and stress due to the current political situation and financial concerns. The patient mentions being irritated by things on TV, including politics and game shows like Jeopardy. - Plan: - Encourage the patient to engage in stress-reducing activities such as exercise, meditation, or relaxation techniques. - Consider referral to a therapist for additional support if irritability and stress persist or worsen. Ozempic Cost and Insurance Issues - Assessment: The patient experienced a temporary lapse in Ozempic coverage due to the donut hole in insurance, but has since resolved the issue through an assistance program called Mil. The patient was off Ozempic for three weeks but has now resumed treatment. - Plan: - Continue Ozempic as prescribed. - Encourage the patient to maintain communication with the assistance program and insurance company to prevent future lapses in coverage. - Inform patient about potential assistance from local [facility] for medication costs if needed in the future. Mild Cognitive Impairment - Assessment: The patient scored 23 on a memory test, indicating mild cognitive impairment. The patient reports difficulty concentrating while reading and playing guitar. - Plan: - Order a computer-based cognitive assessment to establish a baseline and monitor progression annually. - Encourage the patient to engage in cognitively stimulating activities such as reading and playing the guitar. - If scores decline, consider medication to delay progression. Opioid Use Disorder - Assessment: The patient is currently on Suboxone for opioid use disorder. The patient reports having only one pill left. - Plan: - Maintain the current Suboxone regimen. - Send a refill for Suboxone immediately as the patient has only one pill left. - Monitor the patient's progress and adherence to the medication regimen. Depression - Assessment: The patient is currently on Bupropion 300 mg for depression. The patient reports having plenty of Wellbutrin left. - Plan: - Continue Bupropion at the current dosage. - Monitor the patient's mood and response to the medication. - Schedule a two-month follow-up appointment and ensure the patient has enough medication until the next visit. Age-related Concerns and Activities - Assessment: The patient is 73 years old and expresses concerns about dementia and dying, as well as needing to plan activities carefully. The patient reports still reading a lot and playing guitar. - Plan: - Encourage the patient to maintain a healthy lifestyle, including regular exercise, a balanced diet, and social engagement. - Support the patient's efforts to work on their spiritual life. - Reassure the patient that concerns about dementia and dying are normal and provide resources for further information and support if needed. 11/02/2023 SUE (generalized anxiety disorder) (ICD-10 - F41.1) Opioid Use Disorder - Assessment: Patient is currently on Suboxone and Buprenorphine, and reports improvement in symptoms. Patient confirms taking Suboxone once daily. - Plan: Continue Suboxone and Buprenorphine as prescribed. Schedule follow-up appointments every two months to monitor progress and adjust treatment as needed. Testosterone Deficiency - Assessment: Patient reports significant improvement in physical strength and sexual function since starting testosterone replacement therapy. Recent test showed testosterone level of 850. - Plan: Continue testosterone injections (300 mg every 10 days) as prescribed. Monitor testosterone levels periodically to ensure appropriate dosing. Hypertension - Assessment: Blood pressure is elevated at 141/87. Patient reports feeling anxious during the visit, which may have contributed to the elevated reading. Patient mentions this is higher than usual for them. - Plan: Encourage lifestyle modifications, including a healthy diet, regular exercise, and stress management. Monitor blood pressure at follow-up appointments and consider initiating antihypertensive medication if consistently elevated. Alcohol Use Disorder (in remission) - Assessment: Patient has re-engaged with AA meetings and reports positive experiences and support from the community. Attends meetings on Tuesdays and . - Plan: Encourage continued participation in AA meetings and other support networks. Monitor for any signs of relapse during follow-up appointments. Interest in Meditation and Alternative Therapies - Assessment: Patient expressed interest in meditation for stress management and inquired about the use of psilocybin for depression. - Plan: Provide guidance on simple meditation techniques, focusing on breath awareness and mindfulness. Discuss the current state of research on psilocybin and its potential use in depression treatment, emphasizing that it is not yet a standard treatment option and should not be pursued without medical supervision. Overall Well-being - Assessment: Patient reports a current well-being score of 7-8 out of 10. - Plan: Continue to monitor overall mental and physical health during follow-up appointments, addressing any new concerns as they arise. Physical Therapy - Assessment: Patient reports improvement in strength, particularly in legs, due to ongoing physical therapy. - Plan: Encourage continued participation in physical therapy sessions. 12/27/2023 SUE (generalized anxiety disorder) (ICD-10 - F41.1) Irritability and Stress - Assessment: The patient reports increased irritability and stress due to the current political situation and financial concerns. The patient mentions being irritated by things on TV, including politics and game shows like [employer]. - Plan: - Encourage the patient to engage in stress-reducing activities such as exercise, meditation, or relaxation techniques. - Consider referral to a therapist for additional support if irritability and stress persist or worsen. Ozempic Cost and Insurance Issues - Assessment: The patient experienced a temporary lapse in Ozempic coverage due to the donut hole in insurance, but has since resolved the issue through an assistance program called [employer]. The patient was off Ozempic for three weeks but has now resumed treatment. - Plan: - Continue Ozempic as prescribed. - Encourage the patient to maintain communication with the assistance program and insurance company to prevent future lapses in coverage. - Inform patient about potential assistance from local [facility] for medication costs if needed in the future. Mild Cognitive Impairment - Assessment: The patient scored 23 on a memory test, indicating mild cognitive impairment. The patient reports difficulty concentrating while reading and playing guitar. - Plan: - Order a computer-based cognitive assessment to establish a baseline and monitor progression annually. - Encourage the patient to engage in cognitively stimulating activities such as reading and playing the guitar. - If scores decline, consider medication to delay progression. Opioid Use Disorder - Assessment: The patient is currently on Suboxone for opioid use disorder. The patient reports having only one pill left. - Plan: - Maintain the current Suboxone regimen. - Send a refill for Suboxone immediately as the patient has only one pill left. - Monitor the patient's progress and adherence to the medication regimen. Depression - Assessment: The patient is currently on Bupropion 300 mg for depression. The patient reports having plenty of Wellbutrin left. - Plan: - Continue Bupropion at the current dosage. - Monitor the patient's mood and response to the medication. - Schedule a two-month follow-up appointment and ensure the patient has enough medication until the next visit. Age-related Concerns and Activities - Assessment: The patient is 73 years old and expresses concerns about dementia and dying, as well as needing to plan activities carefully. The patient reports still reading a lot and playing guitar. - Plan: - Encourage the patient to maintain a healthy lifestyle, including regular exercise, a balanced diet, and social engagement. - Support the patient's efforts to work on their spiritual life. - Reassure the patient that concerns about dementia and dying are normal and provide resources for further information and support if needed. 11/02/2023 Mixed hyperlipidemia (ICD-10 - E78.2) Opioid Use Disorder - Assessment: Patient is currently on Suboxone and Buprenorphine, and reports improvement in symptoms. Patient confirms taking Suboxone once daily. - Plan: Continue Suboxone and Buprenorphine as prescribed. Schedule follow-up appointments every two months to monitor progress and adjust treatment as needed. Testosterone Deficiency - Assessment: Patient reports significant improvement in physical strength and sexual function since starting testosterone replacement therapy. Recent test showed testosterone level of 850. - Plan: Continue testosterone injections (300 mg every 10 days) as prescribed. Monitor testosterone levels periodically to ensure appropriate dosing. Hypertension - Assessment: Blood pressure is elevated at 141/87. Patient reports feeling anxious during the visit, which may have contributed to the elevated reading. Patient mentions this is higher than usual for them. - Plan: Encourage lifestyle modifications, including a healthy diet, regular exercise, and stress management. Monitor blood pressure at follow-up appointments and consider initiating antihypertensive medication if consistently elevated. Alcohol Use Disorder (in remission) - Assessment: Patient has re-engaged with AA meetings and reports positive experiences and support from the community. Attends meetings on Tuesdays and . - Plan: Encourage continued participation in AA meetings and other support networks. Monitor for any signs of relapse during follow-up appointments. Interest in Meditation and Alternative Therapies - Assessment: Patient expressed interest in meditation for stress management and inquired about the use of psilocybin for depression. - Plan: Provide guidance on simple meditation techniques, focusing on breath awareness and mindfulness. Discuss the current state of research on psilocybin and its potential use in depression treatment, emphasizing that it is not yet a standard treatment option and should not be pursued without medical supervision. Overall Well-being - Assessment: Patient reports a current well-being score of 7-8 out of 10. - Plan: Continue to monitor overall mental and physical health during follow-up appointments, addressing any new concerns as they arise. Physical Therapy - Assessment: Patient reports improvement in strength, particularly in legs, due to ongoing physical therapy. - Plan: Encourage continued participation in physical therapy sessions. 02/23/2024 SUE (generalized anxiety disorder) (ICD-10 - [...] Follow up with Elsa (Dr. Cantrell) at [facility]. Pre-diabetes - Assessment: Patient [...] from them is a normal cognitive process. 04/22/2024 Mixed hyperlipidemia (ICD-10 - E78.2) 06/17/2024 Cardiomyopathy (ICD-10 - I42.9) 06/17/2024 SUE (generalized anxiety disorder) (ICD-10 - F41.1) 02/23/2024 Mixed hyperlipidemia (ICD-10 - E78.2) Cardiomyopathy [...] Follow up with Elsa (Dr. Cantrell) at [facility]. Pre-diabetes - Assessment: Patient [...] from them is a normal cognitive process. 11/02/2023 Low testosterone (ICD-10 - R79.89) Opioid Use Disorder - Assessment: Patient is currently on Suboxone and Buprenorphine, and reports improvement in symptoms. Patient confirms taking Suboxone once daily. - Plan: Continue Suboxone and Buprenorphine as prescribed. Schedule follow-up appointments every two months to monitor progress and adjust treatment as needed. Testosterone Deficiency - Assessment: Patient reports significant improvement in physical strength and sexual function since starting testosterone replacement therapy. Recent test showed testosterone level of 850. - Plan: Continue testosterone injections (300 mg every 10 days) as prescribed. Monitor testosterone levels periodically to ensure appropriate dosing. Hypertension - Assessment: Blood pressure is elevated at 141/87. Patient reports feeling anxious during the visit, which may have contributed to the elevated reading. Patient mentions this is higher than usual for them. - Plan: Encourage lifestyle modifications, including a healthy diet, regular exercise, and stress management. Monitor blood pressure at follow-up appointments and consider initiating antihypertensive medication if consistently elevated. Alcohol Use Disorder (in remission) - Assessment: Patient has re-engaged with AA meetings and reports positive experiences and support from the community. Attends meetings on Tuesdays and . - Plan: Encourage continued participation in AA meetings and other support networks. Monitor for any signs of relapse during follow-up appointments. Interest in Meditation and Alternative Therapies - Assessment: Patient expressed interest in meditation for stress management and inquired about the use of psilocybin for depression. - Plan: Provide guidance on simple meditation techniques, focusing on breath awareness and mindfulness. Discuss the current state of research on psilocybin and its potential use in depression treatment, emphasizing that it is not yet a standard treatment option and should not be pursued without medical supervision. Overall Well-being - Assessment: Patient reports a current well-being score of 7-8 out of 10. - Plan: Continue to monitor overall mental and physical health during follow-up appointments, addressing any new concerns as they arise. Physical Therapy - Assessment: Patient reports improvement in strength, particularly in legs, due to ongoing physical therapy. - Plan: Encourage continued participation in physical therapy sessions. 12/27/2023 Mixed hyperlipidemia (ICD-10 - E78.2) Irritability and Stress - Assessment: The patient reports increased irritability and stress due to the current political situation and financial concerns. The patient mentions being irritated by things on TV, including politics and game shows like [employer]opard[employer]. - Plan: - Encourage the patient to engage in stress-reducing activities such as exercise, meditation, or relaxation techniques. - Consider referral to a therapist for additional support if irritability and stress persist or worsen. Ozempic Cost and Insurance Issues - Assessment: The patient experienced a temporary lapse in Ozempic coverage due to the donut hole in insurance, but has since resolved the issue through an assistance program called [employer]. The patient was off Ozempic for three weeks but has now resumed treatment. - Plan: - Continue Ozempic as prescribed. - Encourage the patient to maintain communication with the assistance program and insurance company to prevent future lapses in coverage. - Inform patient about potential assistance from local [facility] for medication costs if needed in the future. Mild Cognitive Impairment - Assessment: The patient scored 23 on a memory test, indicating mild cognitive impairment. The patient reports difficulty concentrating while reading and playing guitar. - Plan: - Order a computer-based cognitive assessment to establish a baseline and monitor progression annually. - Encourage the patient to engage in cognitively stimulating activities such as reading and playing the guitar. - If scores decline, consider medication to delay progression. Opioid Use Disorder - Assessment: The patient is currently on Suboxone for opioid use disorder. The patient reports having only one pill left. - Plan: - Maintain the current Suboxone regimen. - Send a refill for Suboxone immediately as the patient has only one pill left. - Monitor the patient's progress and adherence to the medication regimen. Depression - Assessment: The patient is currently on Bupropion 300 mg for depression. The patient reports having plenty of Wellbutrin left. - Plan: - Continue Bupropion at the current dosage. - Monitor the patient's mood and response to the medication. - Schedule a two-month follow-up appointment and ensure the patient has enough medication until the next visit. Age-related Concerns and Activities - Assessment: The patient is 73 years old and expresses concerns about dementia and dying, as well as needing to plan activities carefully. The patient reports still reading a lot and playing guitar. - Plan: - Encourage the patient to maintain a healthy lifestyle, including regular exercise, a balanced diet, and social engagement. - Support the patient's efforts to work on their spiritual life. - Reassure the patient that concerns about dementia and dying are normal and provide resources for further information and support if needed. 12/27/2023 Low testosterone (ICD-10 - R79.89) Irritability and Stress - Assessment: The patient reports increased irritability and stress due to the current political situation and financial concerns. The patient mentions being irritated by things on TV, including politics and game shows like Jeopardy. - Plan: - Encourage the patient to engage in stress-reducing activities such as exercise, meditation, or relaxation techniques. - Consider referral to a therapist for additional support if irritability and stress persist or worsen. Ozempic Cost and Insurance Issues - Assessment: The patient experienced a temporary lapse in Ozempic coverage due to the donut hole in insurance, but has since resolved the issue through an assistance program called [employer]. The patient was off Ozempic for three weeks but has now resumed treatment. - Plan: - Continue Ozempic as prescribed. - Encourage the patient to maintain communication with the assistance program and insurance company to prevent future lapses in coverage. - Inform patient about potential assistance from local [facility] for medication costs if needed in the future. Mild Cognitive Impairment - Assessment: The patient scored 23 on a memory test, indicating mild cognitive impairment. The patient reports difficulty concentrating while reading and playing guitar. - Plan: - Order a computer-based cognitive assessment to establish a baseline and monitor progression annually. - Encourage the patient to engage in cognitively stimulating activities such as reading and playing the guitar. - If scores decline, consider medication to delay progression. Opioid Use Disorder - Assessment: The patient is currently on Suboxone for opioid use disorder. The patient reports having only one pill left. - Plan: - Maintain the current Suboxone regimen. - Send a refill for Suboxone immediately as the patient has only one pill left. - Monitor the patient's progress and adherence to the medication regimen. Depression - Assessment: The patient is currently on Bupropion 300 mg for depression. The patient reports having plenty of Wellbutrin left. - Plan: - Continue Bupropion at the current dosage. - Monitor the patient's mood and response to the medication. - Schedule a two-month follow-up appointment and ensure the patient has enough medication until the next visit. Age-related Concerns and Activities - Assessment: The patient is 73 years old and expresses concerns about dementia and dying, as well as needing to plan activities carefully. The patient reports still reading a lot and playing guitar. - Plan: - Encourage the patient to maintain a healthy lifestyle, including regular exercise, a balanced diet, and social engagement. - Support the patient's efforts to work on their spiritual life. - Reassure the patient that concerns about dementia and dying are normal and provide resources for further information and support if needed. 02/23/2024 Low testosterone (ICD-10 - R79.89) Cardiomyopathy [...] Follow up with Elsa (Dr. Cantrell) at [facility]. Pre-diabetes - Assessment: Patient [...] from them is a normal cognitive process. 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 The patient mentions being irritated by things on TV, including politics and game shows like Jeopardy. - Plan: - Encourage the patient to engage in stress-reducing activities such as exercise, meditation, or relaxation techniques. - Consider referral to a therapist for additional support if irritability and stress persist or worsen. Ozempic Cost and Insurance Issues - Assessment: The patient experienced a temporary lapse in Ozempic coverage due to the donut hole in insurance, but has since resolved the issue through an assistance program called [employer]. The patient was off Ozempic for three weeks but has now resumed treatment. - Plan: - Continue Ozempic as prescribed. - Encourage the patient to maintain communication with the assistance program and insurance company to prevent future lapses in coverage. - Inform patient about potential assistance from local [facility] for medication costs if needed in the future. Mild Cognitive Impairment - Assessment: The patient scored 23 on a memory test, indicating mild cognitive impairment. The patient reports difficulty concentrating while reading and playing guitar. - Plan: - Order a computer-based cognitive assessment to establish a baseline and monitor progression annually. - Encourage the patient to engage in cognitively stimulating activities such as reading and playing the guitar. - If scores decline, consider medication to delay progression. Opioid Use Disorder - Assessment: The patient is currently on Suboxone for opioid use disorder. The patient reports having only one pill left. - Plan: - Maintain the current Suboxone regimen. - Send a refill for Suboxone immediately as the patient has only one pill left. - Monitor the patient's progress and adherence to the medication regimen. Depression - Assessment: The patient is currently on Bupropion 300 mg for depression. The patient reports having plenty of Wellbutrin left. - Plan: - Continue Bupropion at the current dosage. - Monitor the patient's mood and response to the medication. - Schedule a two-month follow-up appointment and ensure the patient has enough medication until the next visit. Age-related Concerns and Activities - Assessment: The patient is 73 years old and expresses concerns about dementia and dying, as well as needing to plan activities carefully. The patient reports still reading a lot and playing guitar. - Plan: - Encourage the patient to maintain a healthy lifestyle, including regular exercise, a balanced diet, and social engagement. - Support the patient's efforts to work on their spiritual life. - Reassure the patient that concerns about dementia and dying are normal and provide resources for further information and support if needed. 02/23/2024 Anxiety disorder due to multiple medical [...] Follow up with Elsa (Dr. Cantrell) at [facility]. Pre-diabetes - Assessment: Patient [...] Follow up with Elsa (Dr. Cantrell) at [facility]. Pre-diabetes - Assessment: Patient [...] from them is a normal cognitive process. 12/27/2023 Senile dementia (ICD-10 - F03.90) Irritability and Stress - Assessment: The patient reports increased irritability and stress due to the current political situation and financial concerns. The patient mentions being irritated by things on TV, including politics and game shows like Jeopardy. - Plan: - Encourage the patient to engage in stress-reducing activities such as exercise, meditation, or relaxation techniques. - Consider referral to a therapist for additional support if irritability and stress persist or worsen. Ozempic Cost and Insurance Issues - Assessment: The patient experienced a temporary lapse in Ozempic coverage due to the donut hole in insurance, but has since resolved the issue through an assistance program called [employer]. The patient was off Ozempic for three weeks but has now resumed treatment. - Plan: - Continue Ozempic as prescribed. - Encourage the patient to maintain communication with the assistance program and insurance company to prevent future lapses in coverage. - Inform patient about potential assistance from local [employer] for medication costs if needed in the future. Mild Cognitive Impairment - Assessment: The patient scored 23 on a memory test, indicating mild cognitive impairment. The patient reports difficulty concentrating while reading and playing guitar. - Plan: - Order a computer-based cognitive assessment to establish a baseline and monitor progression annually. - Encourage the patient to engage in cognitively stimulating activities such as reading and playing the guitar. - If scores decline, consider medication to delay progression. Opioid Use Disorder - Assessment: The patient is currently on Suboxone for opioid use disorder. The patient reports having only one pill left. - Plan: - Maintain the current Suboxone regimen. - Send a refill for Suboxone immediately as the patient has only one pill left. - Monitor the patient's progress and adherence to the medication regimen. Depression - Assessment: The patient is currently on Bupropion 300 mg for depression. The patient reports having plenty of Wellbutrin left. - Plan: - Continue Bupropion at the current dosage. - Monitor the patient's mood and response to the medication. - Schedule a two-month follow-up appointment and ensure the patient has enough medication until the next visit. Age-related Concerns and Activities - Assessment: The patient is 73 years old and expresses concerns about dementia and dying, as well as needing to plan activities carefully. The patient reports still reading a lot and playing guitar. - Plan: - Encourage the patient to maintain a healthy lifestyle, including regular exercise, a balanced diet, and social engagement. - Support the patient's efforts to work on their spiritual life. - Reassure the patient that concerns about dementia and dying are normal and provide resources for further information and support if needed. 02/23/2024 Other referral to the local chapter or national office of the Alzheimer's Association (; http://www.coral barker.org), the Alzheimer's Disease Education [facility]erral [facility] (ADE[facility]) (; http://www.[facility].gov/Coral mckeon/), Cardiomyopathy and Reduced Ejection Fraction - Assessment: [...] Follow up with Elsa (Dr. Cantrell) at [facility]. Pre-diabetes - Assessment: Patient [...] from them is a normal cognitive process. 04/22/2024 Other Dilated Cardiomyopathy and Abnormal Echocardiogram - Plan: - Continue current medications for cardiomyopathy. - Follow up with engineering patternmaker, Elsa Cantrell, [facility]. - Complete tests recommended by engineering patternmaker, including MRI with contrast dye and sleep apnea test. - Monitor ejection fraction and consider device implantation if necessary. High Protein in Blood - Plan: - Follow up with hydraulic riveter, Dr. Riley, on the 3rd. - Continue blood work as needed. Low [...] in caregiving and maintaining his own health. 06/17/2024 Other Robinson Rockwelltamara, male patient with a history of substance use disorder, presents with increased anxiety, sleep apnea, and gastrointestinal upset for 3-4 days. Obstructive Sleep Apnea Assessment: Patient recently underwent a sleep study which confirmed the diagnosis of obstructive sleep apnea. During the study, a CPAP mask was applied after 3 hours, and the patient reported it seemed to work for the remaining 6 hours. The patient expresses eagerness to start treatment, anticipating improved energy levels. Sleep apnea is likely contributing to daytime fatigue and cognitive fog. The engineering patternmaker is reviewing the results to determine the appropriate apparatus for treatment. Plan: - Await engineering patternmaker's recommendation for specific CPAP apparatus - Encourage weight loss as a complementary treatment approach - Follow up with engineering patternmaker regarding sleep study results and treatment plan Anxiety Assessment: Patient reports feeling a little weird and more anxious than usual. This increase in anxiety may be related to recent sleep apnea diagnosis and ongoing gastrointestinal issues. Patient also mentions psychologically drifting back into my past too much, which could be contributing to anxiety symptoms. Plan: - Continue bupropion (dose and frequency not specified) - Patient encouraged to attend AA meetings for additional support - Offer availability for walk-in appointments if anxiety symptoms worsen Substance Use Disorder Assessment: Patient has a history of substance use disorder and is currently on Suboxone maintenance therapy. Patient has resumed attending AA meetings, indicating ongoing commitment to recovery. Plan: - Continue Suboxone: Prescribe 30-day supply with 2 refills (90 days total) - Encourage continued participation in AA meetings Gastrointestinal Upset Assessment: Patient reports stomach upset for the past 3-4 days. No further details provided regarding specific symptoms or potential causes. Plan: - Monitor symptoms - Patient instructed to follow up if symptoms persist or worsen Disclaimer: This note has been transcribed using speech recognition software and serves as a reflection of the patient's visit. While efforts have been made to ensure accuracy, there may be errors, including travel cota inaccuracies and misspellings of medication names. This document should not be considered a verbatim record, and any discrepancies should be verified with the provider. Plan Of Treatment Next Appt Details Provider Name:Omar Heena Hailey , 08/21/2024 01:00:00 PM, [address], [facility], [place], [address], Provider Name:Omar Hart , 09/13/2024 01:15:00 PM, [address], [facility], [place], [address], Insurance Providers Payer Name Payer Address Payer Phone Subscriber Number Group Number Insured Name Patient Relationship to Insured Coverage Start Date Coverage End Date [facility] Medicare Replacement/ Advantage - Ppo [address] [address] [place] [address] [id number] ROBINSON BRITT Self - patient is the insured [place] [address] [place] [address] [id number] ROBINSON BRITT Self - patient is the insured Medical (General) History Medical History History ICD Code Problems: Mild recurrent major depressio n Opioid dependence , Surgical History Surgery Date(Month/Year) Reconstructive surgery Cataract surgery (73220) 2020 Appendectomy (03951) 12/10/1979
--- OUTSIDE RECORDS SUMMARY | 2024-08-02 09:18 | XMS_ITS | Clinical Summary ---
Author Organization [facility] [address] Address [address] [place] [address] Care Team Providers Care Supervisor Plastic Sheets Name Role Phone Kamar Almazan MD Primary [...] Encounters Date Type Department Care Team Description 08/02/2024 Telephone [facility] Cardiology [address] [place] [address] [place] [phone] Ronak Flores MD 07/18/[address] [place] [phone] Elsa Cantrell NP 07/04/2024 12:40 PM CDT - 07/04/2024 11:59 PM CDT Hospital Encounter [facility] [address] [place] [address] Abnormal result of other cardiovascular function study; Abnormal findings on diagnostic imaging of heart and coronary circulation Discharge Disposition: Discharge to home or self care 07/03/[address] [place] [phone] Elsa Cantrell NP 07/02/2024 12:42 PM CDT - 07/02/2024 11:59 PM CDT Hospital Encounter [facility]) [address] [place] [address] Dilated cardiomyopathy (HCC); Abnormal result of other cardiovascular function study Discharge Disposition: Discharge to home or self care 07/02/2024 Results Follow-Up [facility] Cardiology [address] [place] [address] [address] [place] [phone] Elsa Cantrell NP Abnormal result of other cardiovascular function study (Primary Dx); Abnormal findings on diagnostic imaging of heart and coronary circulation 06/26/2024 Results Follow-Up [address] [place] [phone] Elsa Cantrell NP 06/26/2024 Orders Only [facility] Cardiology [address] [place] [address] [address] [place] [phone] Elsa Cantrell NP Dilated cardiomyopathy (HCC); Sleep disorder, unspecified 06/12/2024 Telephone [facility] Cardiology [address] [place] [address] [address] [place] [phone] Ronak Flores MD 05/13/2024 Telephone [facility] Cardiology [address] [place] [address] [place] [phone] Ronak Flores MD Med Refill; samples [...] on file Legal Sex Male 1:23 AM SHOT BLASTER Gender Identity Not on file Sexual Orientation Not on file 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 on file Not on file Obstetrics History Last Filed Vital Signs Vital Sign Reading Time Taken Comments Blood Pressure 119/75 07/02/2024 1:45 PM CDT Pulse 72 07/02/2024 1:45 PM CDT Temperature 36.4 C (97.5 F) 04/02/2020 3:10 PM SHOT BLASTER Respiratory Rate - - Oxygen Saturation 94% 04/30/2024 2:32 PM SHOT BLASTER Inhaled Oxygen Concentration - - Weight 134.7 kg (297 lb) 04/30/2024 2:32 PM SHOT BLASTER Height 172.7 cm (5' 8 ) 04/30/2024 2:32 PM SHOT BLASTER Body Mass Index 45.16 04/30/2024 2:32 PM SHOT BLASTER Plan of Treatment Health Maintenance Due Date [...] Months Results * CT Coronary Fractional Flow [place] (07/05/2024 8:55 AM CDT) Anatomical Region Laterality Modality Chest N/A Computed Tomogra phy 07/05/2024 10:5 2 AM CDT Impressions 07/05/2024 11:27 AM CDT ADDENDUM: Coronary CTA Fractional Flow [place]raim (FFR) The below FFR CT results are [...] 07/05/2024 IMPRESSION: ADDENDUM: Coronary CTA Fractional Flow [place] (FFR) The below FFR CT results are [...] by: Diann Torres M.D. us Elsa Cantrell COUPON AND BOND COLLECTION CLERK IMG CT PROCEDURES Final R esult * (ABNORMAL) POCT creatinine (07/02/2024 1:34 PM CDT) Creatinine POC 1.9(H) 0.8 - 1.3 mg/dL Blood 07/02/2024 1:34 PM CDT 07/02/2024 1:34 PM CDT Kamar Almazan MD LAB POCT ORDERABLE S - DEVICE Final Result [facility] Department [place] [address] * PSG (06/11/2024) 06/11/2024 Elsa Cantrell COUPON AND BOND COLLECTION CLERK SLEEP CENTER ORDERABLES F inal Result from Last 3 Months Insurance [facility] MEDICARE ADVANTAGE MEDICARE [facility] Address: [id number] [place] [address] [facility] MEDICARE ADVANTAGE [facility] MEDICARE ADVANTAGE Care Teams Supervisor Plastic Sheets Relationship Specialty Start Date End Date Kamar Almazan MD [address] [place] [address] PCP - General Family Medicine 07/05/24
--- OUTSIDE RECORDS SUMMARY | 2024-08-02 09:18 | XMS_ITS | Clinical Summary ---
Author Organization [facility] [employer] Address [address] [place] [address] Care Team Providers Care Building Cleaning Supervisor Name Role Phone Kamar Almazan MD Primary Care Provider + Source Comments [facility] [employer],non-owned Affiliates and Associated Physician Practices is amultiple site organization consisting of ambulatory clinics and hospital sitesin [place], [place], [place] and [place]. This disclosure is being madepursuant to the Care Everywhere program and may not contain all information available regarding this patient. Last updated 17.[facility] [employer] Allergies Active Allergy Reactions Criticality Noted Date [...] Immunization Administration Dates Next Due INFLUENZA A [id number] VACCINE 01/25/2009 INFLUENZA VACCINE, QUADR. (A FLURIA, [...] patient's age to complete this topic Insurance [facility] ADV Care Teams Building Cleaning Supervisor Relationship Specialty Start Date End Date Kamar Almazan MD [address] [address] PCP - General 05/28/21
--- OUTSIDE RECORDS SUMMARY | 2024-08-02 09:18 | XMS_ITS | Referral Summary ---
Author Organization [address] [place] [address] Care Team Providers Care Building Insulation Supervisor Name Role Phone Kamar Almazan MD Primary Care Prov ider Encounters Date Type Department Care Team Description 08/02/2024 Telephone [facility] Cardiology [address] [facility] [address] [place] [address] Ronak Flores MD 07/18/2024 Telephone [facility] [address] [facility] [address] [place] [address] Elsa Cantrell NP 07/04/2024 12:40 PM CDT - 07/04/2024 11:59 PM CDT Hospital Encounter [facility] [address] [place] [address] Abnormal result of other cardiovascular function study; Abnormal findings on diagnostic imaging of heart and coronary circulation Discharge Disposition: Discharge to home or self care 07/03/2024 Telephone [place] [address] [address] [facility] [address] [place] [address] Elsa Cantrell NP 07/02/2024 Results Follow-Up [facility] [address] [place] [address] Tamia, Elsa Soraya, [facility] [employer] Abnormal result of other cardiovascular function study (Primary Dx); Abnormal findings on diagnostic imaging of heart and coronary circulation 07/02/2024 12:42 PM CDT - 07/02/2024 11:59 PM CDT Hospital Encounter [facility] [address] [place] [address] Dilated cardiomyopathy (HCC); Abnormal result of other cardiovascular function study Discharge Disposition: Discharge to home or self care 06/26/2024 Results Follow-Up [facility] Cardiology [address] [place] [phone] Elsa Cantrell NP 06/26/2024 Orders Only [facility] Cardiology [address] [place] [address] [address] [place] [phone] Elsa Cantrell NP Dilated cardiomyopathy (HCC); Sleep disorder, unspecified 06/12/2024 Telephone [facility] Cardiology [address] [place] [address] [address] [place] [phone] Ronak Flores MD 05/13/2024 Telephone [facility] Cardiology [address] [place] [phone] Ronak Flores MD Med Refill; samples from [...] on file Legal Sex 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 Gender Identity Not on file Sexual Orientation Not on file 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 on file Not on file Last Filed Vital Signs Vital Sign Reading Time Taken Comments Blood Pressure 119/75 07/02/2024 1:45 PM CDT Pulse 72 07/02/2024 1:45 PM CDT Temperature 36.4 C (97.5 F) 04/02/2020 3:10 PM CHEMICAL COMPOUNDER Respiratory Rate - - Oxygen Saturation 94% 04/30/2024 2:32 PM CHEMICAL COMPOUNDER Inhaled Oxygen Concentration - - Weight 134.7 kg (297 lb) 04/30/2024 2:32 PM CHEMICAL COMPOUNDER Height 172.7 cm (5' 8 ) 04/30/2024 2:32 PM CHEMICAL COMPOUNDER Body Mass Index 45.16 04/30/2024 2:32 PM CHEMICAL COMPOUNDER Plan of Treatment Not on file Procedures [...] Months Results * CT Coronary Fractional Flow [place] (07/05/2024 8:55 AM CDT) Anatomical Region Laterality Modality Chest N/A Computed Tomogra phy 07/05/2024 10:5 2 AM CDT Impressions 07/05/2024 11:27 AM CDT ADDENDUM: Coronary CTA Fractional Flow [place] (FFR) The below FFR CT results are [...] 07/05/2024 IMPRESSION: ADDENDUM: Coronary CTA Fractional Flow [place] (FFR) The below FFR CT results are [...] POCT ORDERABLE S - DEVICE Final Result [facility] [place] [address] * PSG (06/11/2024) 06/11/2024 Elsa Cantrell NP SLEEP CENTER ORDERABLES F inal Result from Last 3 Months Insurance [facility] MEDICARE ADVANTAGE [facility] Address: [address] [address] [place] [address] MEDICARE [facility] MEDICARE ADVANTAGE [facility] MEDICARE ADVANTAGE [facility] MEDIC[facility] Address: [address] [address] Care Teams Building Insulation Supervisor Relationship Specialty Start Date End Date Kamar Almazan MD [address] [place] [address] PCP - General Family Medicine 07/05/24
== END 2024-08-02 09:14 | disposition home or self-care (01) ==
PROVIDERS: PCP Family Medicine Adolescent Medicine; Visit Provider Family Medicine Adolescent Medicine
DX: R11.0 Nausea (principal)
CPT/HCPCS: 78264; A9541

== ENCOUNTER 2024-10-23 08:06 | Outpatient (CLI) | payer MEDICARE, SELFPAY ==
--- NOTE | ~2024-10-23 | CT_ITS ---
CT of the Abdomen and Pelvis: Indication: Nausea Technique: 2.5 mm axial scans were obtained through the abdomen and pelvis following intravenous adm inistration of 100 cc of Omnipaque 350. Dose reduction technique was used on this scan by utilizing a utomated exposure control and iterative reconstruction technique. The dose-length product (DLP) was 1 150.44 mGy-cm. Findings: Scans through the lung bases are unremarkable. The liver, spleen, pancreas, adrenals and left kidney are within normal limits. Gallstones are presen t. Right renal cysts are present. No evidence of aortic aneurysm. No lymphadenopathy. No bowel obstruction or bowel wall thickening. There is no evidence to suggest acute appendicitis. Images through the pelvis were performed. Urinary bladder unremarkable. Prostate gland is mildly enla rged. No ascites. Impression: Cholelithiasis. Enlarged prostate gland. Reviewed, dictated and finalized at [facility]. Impression: Cholelithiasis. Enlarged prostate gland.
[2024-10-23 10:55] LABS: Estimated Glomerular Filt Rate 37
== END 2024-10-23 08:07 | disposition home or self-care (01) ==
LOC: MICIMG 08:07
PROVIDERS: PCP Family Medicine Adolescent Medicine; Visit Provider Family Medicine Adolescent Medicine
DX: R11.0 Nausea (principal); R10.84 Generalized abdominal pain; K80.20 Calculus of gallbladder without cholecystitis without obstruction; N40.0 Benign prostatic hyperplasia without lower urinary tract symptoms
CPT/HCPCS: 74177; Q9967

== ENCOUNTER 2024-12-03 08:51 | Outpatient (CLI) | payer MEDICARE, SELFPAY ==
--- OUTSIDE RECORDS SUMMARY | 2015-06-23 19:00 | XMS_ITS | Continuity of Care Document ---
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 [address], [address], [place], [place], [id number], [place]. tel:[phone] Referring Provider: Kamar Sparks, [address] [place] [address], [id number]. tel:[phone] Family History Family Member Type Diagnosis Age At Onset No Information Payers Payer name Insurance type Covered alliance party ID Authoriza tion(s) No Information Social History Type Description Quantity Date Captured Comments Sex Male Smoking Status No Information Chief Complaint And Reason For Visit No Information Reason For Referral Reason For Referral No Information History Of Present Illness Encounter Date Complaint History Of Prese nt Illness No Information Functional Status Date Functional Assessmen t No Information Instructions Date Instruction Additional Infor mation No Information Assessments Type Assessment Date No Information Patient Care Teams Name Effective Dates (start - stop) Status Members No Information
--- OUTSIDE RECORDS SUMMARY | 2024-09-19 08:00 | XMS_ITS ---
Author Organization [facility] [employer] [facility] Address [address] [facility] [address] [place] [address] Care Team Providers Care Hot Kettle Tender Name Role Phone Norah ALIECA, Kamar Primary Care Provider Lakeisha mehnazlinetteOmar Arias Unavailable [phone] REASON FOR VISIT CANS MCI TESTING Social History Sex Assigned At : Social History Observation Description Sex Assigned At Male Encounters Encounter Location Date Provider Diagnosis [facility] [email or web address] [facility] [address] [place] [address] 09/19/2024 Omar Upton Plan Of Treatment Next Appt Details Provider Name:Omar Upton , 01/17/2025 01:00:00 PM, [address], [address], [place], [address], Progress Notes * NEFTALI BRITT RDOB: [birth year] (74 yo M)Acc No.[id number]:09/19/2024 Patient: Dana NEFTALI DAVALOS Provider: Ruth UPTON MD :1950 A ge:74 Y S ex:Male Date:09/19/2024 [address]: [address] [facility] Pcp:Kamar Almazan MD Subjective: * Chief Complaints: * C ANS MCI TESTING * Active Problem List R53.82 Chronic fatigue Onset Date:8398-12-52Soeyuegf On:11/02/2023 Status:confirmed K21.9 GERD (gastroesophage al reflux disease) Onset Date:5496-34-45Eobzjcut On:11/02/2023 Status:confirmed M25.559 Arthralgia of hip Onset Date:9461-78-72Zeychyth On:11/02/2023 Status:confirmed E66.01 Class 3 obesity Onset Date:3300-31-13Zfkfrpgz On:11/02/2023 Status:confirmed Z86.73 H/O: stroke Onset Date:3079-84-24Yszhjljs On:11/02/2023 Status:confirmed R79.89 Low testosterone Onset Date:9795-74-54Qrgboylx On:11/02/2023 Status:confirmed E78.2 Mixed hyperlipidemia Onset Date:7636-90-72Zingxqys On:11/02/2023 Status:confirmed I42.9 Cardiomyopathy Onset Date:05/24/2018Modified On:04/22/2024 Status:confirmedClinical Status:active 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, recurrent, mild Modified On:11/02/2023 Status:confirmed F11.21 Opioid use disorder, severe, in sustained remission Modified On:12/27/2023 Status:confirmed F41.1 SUE (generalized anx iety disorder) Modified On:12/27/2023 Status:confirmed F03.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
--- OUTSIDE RECORDS SUMMARY | 2024-11-07 08:00 | XMS_ITS ---
Author Organization [facility] [employer] Address [address] [facility] [address] [place] [address] Care Team Providers Care Coffee Plantation Worker Name Role Phone Norah ALICEA, Kamar Primary Care Provider Lakeisha mehnazlinetteOmar Arias Unavailable [phone] REASON FOR VISIT Has stomach problem Social History Sex Assigned At : Social History Observation Description Sex Assigned At Male Encounters Encounter Location Date Provider Diagnosis [facility] [employer] [facility] [address] [place] [address] 11/07/2024 Omar Upton Plan Of Treatment Next Appt Details Provider Name:Omar Upton , 01/17/2025 01:00:00 PM, [address], [facility] [address], [place], [address], Progress Notes * NEFTALI BRITT RDOB: [birth year] (74 yo M)Acc No.[id number]:11/07/2024 Patient: Dana NEFTALI DAVALOS Provider: Ruth UPTON MD :1950 A ge:74 Y S ex:Male Date:11/07/2024 [facility] [facility] Pcp:Kamar Almazan MD Subjective: * Chief Complaints: * H as stomach problem * Active Problem List R53.82 Chronic fatigue Onset Date:0522-58-65Koklvkea On:08/08/2024W/U Status:confirmed K21.9 GERD (gastroesophage al reflux disease) Onset Date:3889-75-92Ipqezxhh On:11/02/2023 Status:confirmed M25.559 Arthralgia of hip Onset Date:9064-71-78Rfdukocg On:11/02/2023 Status:confirmed E66.01 Class 3 obesity Onset Date:3351-21-59Ppcpimmy On:11/02/2023 Status:confirmed Z86.73 H/O: stroke Onset Date:0513-64-73Ajjegtwr On:11/02/2023 Status:confirmed R79.89 Low testosterone Onset Date:5400-13-23Ywpkdfgv On:11/02/2023 Status:confirmed E78.2 Mixed hyperlipidemia Onset Date:0932-42-97Rztazykf On:11/02/2023 Status:confirmed I42.9 Cardiomyopathy Onset Date:05/24/2018Modified On:04/22/2024 [...] of He Upton MD on 12/03/2024 at 09:37 AM CDT Sign off status: Pending * Provider: Ruth UPTON MD Date: 0 11/07/2024 Generated for Latriciai ng/Famehdig/eTransmitting on: 12/03/2024 09:37 AM CDT
--- NOTE | ~2024-12-03 | NM_ITS ---
EXAMINATION: NM_HEPATWP_NM DATE: 12/03/2024 10:59 INDICATION: Chronic, recently worsening nausea. Cholelithiasis. COMPARISON: CT dated 10/23/2024 TECHNIQUE: 4.3 mCi Tc-99m mebrofenin (Choletec) was administered intravenously. Scintigraphic images of the abdomen were obtained for one hour. 2.5 mcg sincalide (Kinevac) was administered by slow intravenous infusion, and imaging was continued for 30 minutes. Gallbladder ejection fraction was calculated by the technologist. FINDINGS: There is normal clearance of radiotracer from the blood pool. There is homogeneous tracer uptake by the liver. Activity progresses to the gallbladder and bowel. The gallbladder ejection fraction (GBEF) is 93% (normal 10-90%, but most patient with gallbladder dysfunction have GBEF < 35% which does overlap with the normal range). IMPRESSION: 1. Hyperkinetic gallbladder with elevated ejection fraction of 93%. Reviewed, dictated and finalized at location A.
--- OUTSIDE RECORDS SUMMARY | 2024-12-03 09:36 | XMS_ITS | Encounter Summary ---
Author Organization [facility] Address 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 Gender Identity Not on file Sexual Orientation Not on file documented as of this encounter Plan of Treatment Upcoming Encounters Date Type Department Care Team (Late st Contact Info) Description 01/03/2025 12:45 PM CDT Office Visit [facility] Oncology and Hematology - [place] [address] [place] [address] [address] [place] [address] Rom Mcconnell MD [address] [facility] [address] [place] [address] documented as of this encounter Visit Diagnoses Diagnosis Opioid type dependence, unspecified (CMS/HCC)- Primary Opioid type dependence, unspecified documented in this encounter Care Teams Content Administrator Relationship Specialty Start Date End Date Kamar Almazan MD PCP - General Family Practice 04/05/24 documented as of this encounter
--- OUTSIDE RECORDS SUMMARY | 2024-12-03 09:36 | XMS_ITS | Encounter Summary ---
Author Organization [facility] Address 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 Gender Identity Not on file Sexual Orientation Not on file documented as of this encounter Plan of Treatment Upcoming Encounters Date Type Department Care Team (Late st Contact Info) Description 01/03/2025 12:45 PM CDT Office Visit [facility] Oncology and Hematology - [place]atoliy [address] [facility] [address] [place] [address] Rom Mcconnell MD [address] [facility] [address] [place] [address] documented as of this encounter Visit Diagnoses Diagnosis Unspecified drug dependence, unspecified (CMS/HCC)- Primary Unspecified drug dependence, unspecified documented in this encounter Care Teams Milk Truck Driver Relationship Specialty Start Date End Date Kamar Almazan MD PCP - General Family Practice 04/05/24 documented as of this encounter
--- OUTSIDE RECORDS SUMMARY | 2024-12-03 09:36 | XMS_ITS | Encounter Summary ---
Author Organization [facility] Address 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 Gender Identity Not on file Sexual Orientation Not on file documented as of this encounter Plan of Treatment Upcoming Encounters Date Type Department Care Team (Late st Contact Info) Description 01/03/2025 12:45 PM CDT Office Visit [facility] Oncology and Hematology - [place] [address] [place] [address] [address] [place] [address] Rom Mcconnell MD [address] [facility] [address] [place] [address] documented as of this encounter Visit Diagnoses Diagnosis Opioid type dependence, unspecified (CMS/HCC)- Primary Opioid type dependence, unspecified documented in this encounter Care Teams Cabin Cleaning Supervisor Relationship Specialty Start Date End Date aKmar Almazan MD PCP - General Family Practice 04/05/24 documented as of this encounter
--- OUTSIDE RECORDS SUMMARY | 2024-12-03 09:36 | XMS_ITS | Encounter Summary ---
Author Organization [facility] Address 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 Gender Identity Not on file Sexual Orientation Not on file documented as of this encounter Plan of Treatment Upcoming Encounters Date Type Department Care Team (Late st Contact Info) Description 01/03/2025 12:45 PM CDT Office Visit [facility] Oncology and Hematology - [place] [address] [place] [address] [facility] [address] [place] [address] Rom Mcconnell MD [address] [facility] [address] [place] [address] documented as of this encounter Visit Diagnoses Diagnosis Opioid type dependence, continuous (CMS/HCC)- Primary Opioid type dependence, continuous documented in this encounter Care Teams Business And Marketing Teacher Relationship Specialty Start Date End Date Kamar Almazan MD PCP - General Family Practice 04/05/24 documented as of this encounter
--- OUTSIDE RECORDS SUMMARY | 2024-12-03 09:36 | XMS_ITS | Patient Health Record ---
Author Organization [facility] [employer] Address [address] [facility] [address] [place] [address] Care Team Providers Care Dermatology Teacher Name Role Phone Kamar Almazan MD Primary Care Provider Lakeisha mehnaznabil Hailey Omar Unavailable [phone] Allergies Allergen (clinical drug ingredient) Drug/Non Drug Allergy documented on EMR Reaction Allergy Type Onset Date Status codeine Codeine Unknown Drug Allergy 06/28/2023 Active Substance with penicillin structure and antibacterial mechanism of action (substance) Penicillins Unknown Drug Allergy 06/28/2023 Active Results Component Value Reference Range Notes UDT Reviewed date:11/18/2024 05:15:13 PM Interpretation: Performing Lab: Notes/Report: THC n 0 - 50 ng/ml Cocaine n 0 - 300 ng/ml Amphetamine n 0 - 1000 ng/ml Buprenorphine (BUP) p 0 - 10 ng/ml Secobarbital (Bar) n 0 - 300 ng/ml Oxazepam (BZO) p 0 - 300 ng/ml 7-usllalpppq-2,1-snphfime-5,3-diphenylpyrrolidine (LORENZO P) n 0 - 300 ng/ml Methamphetamine (MET) n 0 - 1000 ng/ml Methylenedioxymethamphetamine (MDMA) n 0 - 500 ng/ml Morphine (MOP 300/[id number]) n 0 - 300 ng/ml Methadone (MTD) n 0 - 300 ng/ml Phencyclidine (PCP) n 0 - 25 ng/ml Nortriptyline (TCA) n 0 - 1000 ng/ml Oxycodone n 0 - 300 ng/ml UDT Reviewed date:09/11/2024 02:16:59 PM Interpretation: Performing Lab: Notes/Report: THC N 0 - 50 ng/ml Cocaine N 0 - 300 ng/ml Amphetamine N 0 - 1000 ng/ml Buprenorphine (BUP) P 0 - 10 ng/ml Secobarbital (Bar) N 0 - 300 ng/ml Oxazepam (BZO) P 0 - 300 ng/ml 3-isnwkxwtek-7,1-pptlvgsy-8,3-diphenylpyrrolidine (LORENZO P) N 0 - 300 ng/ml Methamphetamine (MET) N 0 - 1000 ng/ml Methylenedioxymethamphetamine (MDMA) N 0 - 500 ng/ml Morphine (MOP 300/[id number]) N 0 - 300 ng/ml Methadone (MTD) N 0 - 300 ng/ml Phencyclidine (PCP) N 0 - 25 ng/ml Nortriptyline (TCA) N 0 - 1000 ng/ml Oxycodone N 0 - 300 ng/ml x N 0 - 300 ng/ml Reason For Referral No Information Medications Medication SIG (Take, Route, Frequency, Duration) Notes Start Date End Date Status buPROPion HCl ER (XL) 300 MG Tablet Extended Release 24 Hour 1 tablet in the morning Orally Once a day; Duration: 90 days 11/18/2024 Active Buprenorphine HCl-Naloxone HCl 8-2 MG Tablet Sublingual 1 tablet under the tongue and allow to dissolve Sublingual once a day; Duration: 30 days 11/18/2024 01/17/2025 Active Buprenorphine HCl-Naloxone HCl 8-2 MG Tablet Sublingual DISSOLVE 1 TABLET UNDER THE TONGUE DAILY Sublingual; Duration: 30 Days Active DULoxetine HCl 30 MG Capsule Delayed Release Particles 1 capsule Orally Once a day; Duration: 90 days 11/18/2024 Active Testosterone Cypionate 200 MG/ML Solution INJECT 1.5 ML IN THE MUSCLE EVERY 10 DAYS A SINGLE DOSE Intramuscular; Duration: 30 Days Active Clopidogrel Bisulfate 75 MG Tablet TAKE 1 TABLET BY MOUTH EVERY MORNING Oral; Duration: 90 Days Active Carvedilol 6.25 MG Tablet TAKE 1 TABLET BY MOUTH TWICE DAILY Oral; Duration: 90 Days Active buPROPion HCl ER (XL) 300 MG Tablet Extended Release 24 Hour 1 tablet in the morning Orally Once a day; Duration: 90 days Active LORazepam 1 MG Tablet TAKE 1 TABLET BY M OUTH THREE TIMES DAILY NEEDED FOR ANXIETY Oral; Duration: 30 Days Active Furosemide 20 MG Tablet TAKE 1 TABLET BY MOUTH EVERY MORNING Oral; Duration: 30 Days Active Social History Tobacco Use: Social History Observation Description Date Details (start date - stop date) Never Smoker NA - NA Sex Assigned At : Social History Observation Description Sex Assigned At Male Social History Miscellaneous: Social Info Question Answer Notes Advance Care Planning Are you your own decision-maker Yes Do you have Power of Truck Chauffeur for Health or Medi ifrah? No Tobacco Use: Social Info Question Answer Notes Tobacco Control (Standard) Tobacco use: Nonsmoker Additional Details Category Social Info Options Details Migrated Social History Migrated Social History Alcohol Intake: None 12/01/2022,Tobacco Years: Never smoker 12/01/2022 Section Notes: Aa meetings: Attends Twice A Week Aa meetings: Attends Twice A Week Aa meetings: Attends Twice A Week Problems Problem Type SNOMED Code ICD Code Onset Dates Problem Status W/U Status Risk Notes Problem Mixed hyperlipidemia (347605298) Mixed hyperlipidemia (E78.2) 08/02/19 Active confirmed Problem Mild recurrent major depression (48527476) Major depressive disorder, recurrent, mild (F33.0) Active confirmed Problem Obstructive sleep apnea syndrome (disorder) (89833964) Obstructive sleep apnea (adult) (pediatric) (G47.33) Active confirmed Problem Generalized anxiety disorder (79260653) SUE (generalized anxiety disorder) (F41.1) Active confirmed Problem Chronic fatigue syndrome (47495413) Chronic fatigue (R53.82) 12/18/19 Active confirmed Problem Gastroesophageal reflux disease (979730354) GERD (gastroesophageal reflux disease) (K21.9) 12/18/19 Active confirmed Problem Arthralgia of hip (8891890876) Arthralgia of hip (M25.559) 12/18/19 Active confirmed Problem Morbid obesity (987086146) Class 3 obesity (E66.01) 08/02/19 Active confirmed Problem H/O: stroke (942994768) H/O: stroke (Z86.73) 08/02/19 Active confirmed Problem Low testosterone (307662312) Low testosterone (R79.89) 02/02/20 Active confirmed Problem Opioid dependence in remission (492204238) Opioid use disorder, severe, in sustained remission (F11.21) Active confirmed Problem Senile dementia (12249492) Senile dementia (F03.90) Active confirmed Problem Mental disorder (22888886) 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) Active confirmed Problem Cardiomyopathy (09472480) Cardiomyopathy (I42.9) 05/24/19 19 Active confirmed Vital Signs Heart Rate 91 /min 11/18/2024 Height-cm 175.26 cm 11/18/2024 Blood pressure diastolic 69 mm Hg 11/18/2024 Weight-kg 131.09 kg 11/18/2024 Height 69.00 in 11/18/2024 Blood pressure systolic 106 mm Hg 11/18/2024 Weight 289 lbs 11/18/2024 BMI 42.67 kg/m2 11/18/2024 Encounters Encounter Location Date Provider Diagnosis [facility] Alex and Ani [address] [address] 12/27/2023 Omar Hailey Opioid use disorder, severe, in sustained remission F11.21 ; Major depressive disorder, recurrent, mild F33.0 ; SUE (generalized anxiety disorder) F41.1 ; Mixed hyperlipidemia E78.2 ; Low testosterone R79.89 ; Anxiety disorder due to multiple medical problems F06.8 and Senile dementia F03.90 [facility] GEOLID [address] [address] 02/05/2024 Omar Hailey Senile dementia F03. 90 [facility] Alex and Ani [address] [address] 02/23/2024 Omar Hailey Opioid use disorder, severe, in sustained remission F11.21 ; Major depressive disorder, recurrent, mild F33.0 ; SUE (generalized anxiety disorder) F41.1 ; Mixed hyperlipidemia E78.2 ; Low testosterone R79.89 ; Anxiety disorder due to multiple medical problems F06.8 and Senile dementia F03.90 [facility] [place] [address] [facility] [address] [address] 04/22/2024 Omar Hailey Opioid use disorder, severe, in sustained remission F11.21 ; Major depressive disorder, recurrent, mild F33.0 ; Cardiomyopathy I42.9 ; SUE (generalized anxiety disorder) F41.1 and Mixed hyperlipidemia E78.2 [facility] Alex and Ani [place] 8[address] [facility] [address] [address] 06/17/2024 Omar Hailey Opioid use disorder, severe, in sustained remission F11.21 ; Major depressive disorder, recurrent, mild F33.0 ; Cardiomyopathy I42.9 ; SUE (generalized anxiety disorder) F41.1 ; Mixed hyperlipidemia E78.2 and Encounter for screening for depression Z13.[address] [address] 09/11/2024 Omar Hailey Encounter for screen ing for cardiovascular disorders Z13.6 ; Opioid use disorder, severe, in sustained remission F11.21 ; Major depressive disorder, recurrent, mild F33.0 ; Cardiomyopathy I42.9 ; SUE (generalized anxiety disorder) F41.1 ; Mixed hyperlipidemia E78.2 ; Negative depression screening Z13.31 ; Obstructive sleep apnea (adult) (pediatric) G47.33 ; Nausea R11.0 and Class 3 obesity E66.[address] [address] 11/18/2024 Omar Hailey Opioid use disorder, severe, in sustained remission F11.21 ; Major depressive disorder, recurrent, mild F33.0 ; SUE (generalized anxiety disorder) F41.1 ; Mixed hyperlipidemia E78.2 ; Generalized abdominal pain R10.84 and Obstructive sleep apnea (adult) (pediatric) G47.[address] [address] 01/26/2024 Omar Hailey [address] [address] 02/23/2024 Omar Hailey [address] [address] 06/17/2024 Omar Hailey Opioid use disorder, severe, in sustained remission F11.[address] [address] 08/20/2024 Omar Hailey [address] [address] 11/19/2024 Omar Hailey Assessments Encounter Date Diagnosis (ICD Code) Assessment Notes Treatment Notes Treatment Clinical Notes Section Notes 12/27/2023 Opioid use disorder, severe, in sustained [...] the issue through an assistance program called [employer]. The patient was off Ozempic for three weeks but has now resumed treatment. - Plan: - Continue Ozempic as prescribed. - Encourage the patient to maintain communication with the assistance program and insurance company to prevent future lapses in coverage. - Inform patient about potential assistance from local [facility] for medication costs if needed in the [...] Follow up with Elsa (Dr. Cantrell) at [facility] Cardio group. Pre-diabetes - Assessment: Patient is [...] severe, in sustained remission (ICD-10 - F11.21) 09/11/2024 Encounter for screening for cardiovascular disorders (ICD-10 - Z13.6) 11/18/2024 Opioid use disorder, severe, in sustained remission (ICD-10 - F11.21) Patient is in sustained remission. Currently taking Suboxone. - Continue Suboxone 8 mg tablet once daily. 11/18/2024 SUE (generalized anxiety disorder) (ICD-10 - F41.1) Mental and emotional symptoms worsen with physical illness. Patient denied major depression. Symptoms described as moments of debilitation tied to physical discomfort. 09/11/2024 Opioid use disorder, severe, in sustained remission (ICD-10 - F11.21) Patient is in sustained remission. Currently taking Suboxone. - Continue Suboxone 8 mg tablet once daily. 11/18/2024 Major depressive disorder, recurrent, mild (ICD-10 - F33.0) Patient prefers not to add more medications. - Continue Wellbutrin for depression management. 04/22/2024 SUE (generalized anxiety disorder) (ICD-10 - [...] - Follow up with Elsa Cantrell) at [facility] Cardio group. Pre-diabetes - Assessment: Patient is [...] Inform patient about potential assistance from local churches for medication costs if needed in the [...] further information and support if needed. 12/27/2023 SUE (generalized anxiety disorder) (ICD-10 - F41.1) Irritability and Stress - Assessment: The patient reports increased irritability and stress due to the current political situation and financial concerns. The patient mentions being irritated by things on TV, including politics and game shows like [employer]. - Plan: - Encourage the patient to [...] Inform patient about potential assistance from local church for medication costs if needed in the [...] further information and support if needed. 02/23/2024 SUE (generalized anxiety disorder) (ICD-10 - [...] Follow up with Elsa (Dr. Cantrell) at [facility] Cardio group. Pre-diabetes - Assessment: Patient is [...] process. 04/22/2024 Mixed hyperlipidemia (ICD-10 - E78.2) 11/18/2024 Mixed hyperlipidemia (ICD-10 - E78.2) 06/17/2024 Cardiomyopathy (ICD-10 - I42.9) 09/11/2024 Cardiomyopathy (ICD-10 - I42.9) 09/11/2024 Major depressive disorder, recurrent, mild (ICD-10 - F33.0) Patient prefers not to add more medications. - Continue Wellbutrin for depression management. 09/11/2024 SUE (generalized anxiety disorder) (ICD-10 - F41.1) 11/18/2024 Generalized abdominal pain (ICD-10 - R10.84) Persistent daily stomach discomfort, nausea, and weakness reported. Symptoms severe enough to disrupt appointments and daily activities. Extensive testing for stomach, nerves, and brain has not revealed a clear cause. 06/17/2024 SUE (generalized anxiety disorder) (ICD-10 - [...] Follow up with Elsa (Dr. Cantrell) at [facility] Cardio group. Pre-diabetes - Assessment: Patient is [...] them is a normal cognitive process. 12/27/2023 Mixed hyperlipidemia (ICD-10 - E78.2) Irritability [...] if irritability and stress persist or worsen. Anika Cost and Insurance Issues - Assessment: The [...] Inform patient about potential assistance from local [facility] for medication costs if needed in the [...] Inform patient about potential assistance from local [facility] for medication costs if needed in the [...] Follow up with Elsa (Dr. Cantrell) at [facility] Cardio group. Pre-diabetes - Assessment: Patient is [...] process. 06/17/2024 Mixed hyperlipidemia (ICD-10 - E78.2) 11/18/2024 Obstructive sleep apnea (adult) (pediatric) (ICD-10 - G47.33) Sleep apnea previously diagnosed and managed. Patient reports regular use of apnea machine. 09/11/2024 Mixed hyperlipidemia (ICD-10 - E78.2) 09/11/2024 Negative depression screening (ICD-10 - Z13.31) 06/17/2024 Encounter for screening for depression (ICD-10 [...] Inform patient about potential assistance from local [facility] for medication costs if needed in the [...] Follow up with Elsa (Dr. Cantrell) at [facility] Cardio group. Pre-diabetes - Assessment: Patient is [...] Follow up with Elsa (Dr. Cantrell) at [facility] Cardio group. Pre-diabetes - Assessment: Patient is [...] Inform patient about potential assistance from local [facility] for medication costs if needed in the [...] for further information and support if needed. 09/11/2024 Obstructive sleep apnea (adult) (pediatric) (ICD-10 - G47.33) Patient reports improved energy levels since starting CPAP therapy. Continues to experience afternoon naps. - Continue CPAP therapy as prescribed. - Ensure compliance with CPAP usage to prevent machine retrieval. 09/11/2024 Nausea (ICD-10 - R11.0) Persistent nausea managed with Zofran. - Continue Zofran as needed for nausea relief. 09/11/2024 Class 3 obesity (ICD-10 - E66.813) Patient is working on weight loss. Considering increasing Ozempic dose. - Consider discussing an increased Ozempic dose with your doctor. - Aim to lose 50 pounds through diet and exercise. 02/23/2024 Other referral to the local chapter or national office of the Alzheimer's Association (0-257-236-441 0; http://www.alz .org), the Alzheimer's Disease Education and Referral Center (ADEAR) (9-181-334-162 0; http://www.deo .nih.gov/Alzhe imers/), Cardiomyopathy and Reduced [...] Follow up with Elsa (Dr. Cantrell) at [facility] Cardio group. Pre-diabetes - Assessment: Patient is [...] medications for cardiomyopathy. - Follow up with button bradder, Elsa Cantrell [facility]. - Complete tests recommended by button bradder, including MRI with contrast dye and sleep apnea test. - Monitor ejection fraction and consider device implantation if necessary. High Protein in Blood - Plan: - Follow up with lan analyst, Dr. Riley, on the . - Continue [...] and maintaining his own health. 06/17/2024 Other Neftali Britt, male patient with a history of substance [...] to daytime fatigue and cognitive fog. The button bradder is reviewing the results to determine the appropriate apparatus for treatment. Plan: - Await button bradder's recommendation for specific CPAP apparatus - Encourage weight loss as a complementary treatment approach - Follow up with button bradder regarding sleep study results and treatment plan [...] ensure accuracy, there may be errors, including hotel guest service agent inaccuracies and misspellings of medication names. This document should not be considered a verbatim record, and any discrepancies should be verified with the provider. 11/18/2024 Other Testosterone deficiency managed with regular injections. Patient reports taking 300 mg every 10 days. Plan Of Treatment Next Appt Details Provider Name:Omar Hart , 01/17/2025 01:00:00 PM, [address] [facility] [address], [facility] [address], [place], [address], Insurance Providers Payer Name Payer Address Payer Phone Subscriber Number Group Number Insured Name Patient Relationship to Insured Coverage Start Date Coverage End Date [employer] Medicare Replacement/ Advantage - Ppo [address] [address] [place] [address] [id number] NEFTALI BRITT Self - patient is the insured Medical (General) History Medical History History ICD Code Problems: Mild recurrent major depressio n Opioid dependence , Obstructive sleep apnea Low testosterone Surgical History Surgery Date(Month/Year) Reconstructive surgery Cataract surgery (13119) 2020 Appendectomy (73398) 12/10/1979
--- OUTSIDE RECORDS SUMMARY | 2024-12-03 09:36 | XMS_ITS | Encounter Summary ---
Author Organization [facility] Address 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 Gender Identity Not on file Sexual Orientation Not on file documented as of this encounter Plan of Treatment Upcoming Encounters Date Type Department Care Team (Late st Contact Info) Description 01/03/2025 12:45 PM CDT Office Visit [facility] Oncology and Hematology - [place] [address] [place] [address] [address] [place] [address] Rom Mcconnell MD [address] [facility] [address] [place] [address] documented as of this encounter Visit Diagnoses Not on filedocumented in this encounter Care Teams Property Claims Adjuster Relationship Specialty Start Date End Date Kamar Almazan MD PCP - General Family Practice 04/05/24 documented as of this encounter
--- OUTSIDE RECORDS SUMMARY | 2024-12-03 09:36 | XMS_ITS | Encounter Summary ---
Author Organization [facility] Address 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 Gender Identity Not on file Sexual Orientation Not on file documented as of this encounter Plan of Treatment Upcoming Encounters Date Type Department Care Team (Late st Contact Info) Description 01/03/2025 12:45 PM CDT Office Visit [facility] Oncology and Hematology - [place] [address] [place] [address] [address] [place] [address] oRm Mcconnell MD [address] [facility] [address] [place] [address] documented as of this encounter Visit Diagnoses Diagnosis Opioid type dependence, unspecified (CMS/HCC)- Primary Opioid type dependence, unspecified documented in this encounter Care Teams Teletype Adjuster Relationship Specialty Start Date End Date Kamar Almazan MD PCP - General Family Practice 04/05/24 documented as of this encounter
--- OUTSIDE RECORDS SUMMARY | 2024-12-03 09:36 | XMS_ITS | Encounter Summary ---
Author Organization [facility] Address [address] [place] [address] Care Team Providers Care Bag End Sewer Name Role Phone Kamar Almazan MD Primary Care Provider +1- [phone] Encounter Details Date Type Department Care Team (Late st Contact Info) Description 11/02/2000 Outpatient Historical [facility] [place] Conversion, History Social History Tobacco Use Types Packs/Day Years Used Date Smoking Tobacco: Never Assessed Sex and Gender Information Value Date Recorded Sex Assigned at Not on file Legal Sex Male 3:36 AM CUTTER GAS Gender Identity Not on file Sexual Orientation Not on file documented as of this encounter Plan of Treatment Upcoming Encounters Date Type Department Care Team (Late st Contact Info) Description 01/03/2025 12:45 PM CDT Office Visit [facility] Oncology and Hematology - [place] [address] [place] [address] [address] [place] [address] Rom Mcconnell MD [address] [facility] [address] [place] [address] documented as of this encounter Visit Diagnoses Not on filedocumented in this encounter Care Teams Bag End Sewer Relationship Specialty Start Date End Date Kamar Almazan MD PCP - General Family Practice 04/05/24 documented as of this encounter
--- OUTSIDE RECORDS SUMMARY | 2024-12-03 09:36 | XMS_ITS | Encounter Summary ---
Author Organization [facility] Address 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 Gender Identity Not on file Sexual Orientation Not on file documented as of this encounter Plan of Treatment Upcoming Encounters Date Type Department Care Team (Late st Contact Info) Description 01/03/2025 12:45 PM CDT Office Visit [facility] Oncology and Hematology - [place] [address] [place] [address] [address] [place] [address] Rom Mcconnell MD [address] [facility] [address] [place] [address] documented as of this encounter Visit Diagnoses Not on filedocumented in this encounter Care Teams Heavy Equipment Technician Relationship Specialty Start Date End Date Kamar Almazan MD PCP - General Family Practice 04/05/24 documented as of this encounter
--- OUTSIDE RECORDS SUMMARY | 2024-12-03 09:36 | XMS_ITS | Encounter Summary ---
Author Organization [facility] Address 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 Gender Identity Not on file Sexual Orientation Not on file documented as of this encounter Plan of Treatment Upcoming Encounters Date Type Department Care Team (Late st Contact Info) Description 01/03/2025 12:45 PM CDT Office Visit [facility] Oncology and Hematology - [place] [address] [place] [address] [address] [place] [address] Rom Mcconnell MD [address] [facility] [address] [place] [address] documented as of this encounter Visit Diagnoses Diagnosis Opioid type dependence, unspecified (CMS/HCC)- Primary Opioid type dependence, unspecified documented in this encounter Care Teams Coffee Shop Attendant Relationship Specialty Start Date End Date Kamar Almazan MD PCP - General Family Practice 04/05/24 documented as of this encounter
--- OUTSIDE RECORDS SUMMARY | 2024-12-03 09:36 | XMS_ITS | Clinical Summary ---
Author Organization [facility] [address] Address [address] [place] [address] Care Team Providers Care E Commerce Solution Architect Name Role Phone Kamar Almazan MD Primary [...] (KENALOG) 0.1 % cream 10/09/19 19 Active nystatin-triamcin olone creamIndications: cutaneous candidiasis Apply topically as needed Active buprenorphine-nal oxone (SUBOXONE) 8-2 mg per SL tablet 01/01/20 22 Active clopidogreL (PLAVIX) 75 mg tablet 12/14/19 22 Active dicyclomine (BENTYL) 10 mg capsule 01/27/20 22 Active ondansetron ODT (ZOFRAN-ODT) 4 mg disintegrating tablet 01/27/20 22 Active testosterone cypionate (DEPO-TESTOTERONE ) 200 mg/mL injection INJECT 1.5 ML IN THE MUSCLE EVERY 21 DAYS 12/26/19 23 Active furosemide (LASIX) 20 mg tablet Take 1 tablet (20 mg total) by mouth every morning 07/22/[address] (PROTONIX) 40 mg EC tablet Take 1 tablet (40 mg total) by mouth daily 06/28/19 24 Active spironolactone (ALDACTONE) 50 mg tablet Take 1 tablet (50 mg total) by mouth daily 02/07/20 24 Active Ozempic 1 mg/dose (4 mg/3 mL) pen injector injection ADMINISTER 1 MG UNDER THE SKIN WEEKLY 11/02/19 24 Active atorvastatin (LIPITOR) 40 mg tablet Take 1 tablet (40 mg total) by mouth daily 30 tablet 11 07/06/192025 Active aspirin 81 mg enteric coated tabletIndications :prevention of thrombosis Take 1 tablet (81 mg total) by mouth daily 30 tablet 11 08/07/19 25 2025 Active carvediloL (COREG) 6.25 mg tabletIndications :Dilated cardiomyopathy (HCC) TAKE 1 TABLET BY MOUTH TWICE DAILY 180 tablet 1 10/03/19 25 Active losartan (COZAAR) 100 mg tabletIndications :Dilated cardiomyopathy (HCC) TAKE 1 TABLET(100 MG) BY MOUTH DAILY 90 tablet 2 11/05/19 25 Active Jardiance 10 mg tabletIndications :Dilated cardiomyopathy (HCC) TAKE 1 TABLET(10 MG) BY MOUTH DAILY 30 tablet 12/03/19 25 Active losartan (COZAAR) 100 mg tabletIndications :Dilated cardiomyopathy (HCC) Take 1 tablet (100 mg total) by mouth daily 90 tablet 1 05/13/19 25 2024 Discontinued empagliflozin (JARDIANCE) 10 mg tabletIndications :Dilated cardiomyopathy (HCC) Take 1 tablet (10 mg total) by mouth daily 30 tablet 08/03/19 25 2024 Discontinued Active Problems Problem Noted Date Diagnosed Date Coronary artery disease invo lving [place] coronary artery of [place] heart without angina pectoris 08/06/2024 Obstructive sleep apnea 08/06/2024 Low testosterone 02/01/2023 History of DVT (deep [...] on file Legal Sex Male 1:23 AM WIRE MESH FILTER FABRICATOR Gender Identity Not on file Sexual Orientation Not on file 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 on file Not on file Obstetrics History Last Filed Vital Signs Vital Sign Reading Time Taken Comments Blood Pressure 120/64 08/06/2024 1:11 PM CDT Pulse 84 08/06/2024 1:11 PM CDT Temperature 36.4 C (97.5 F) 04/02/2020 3:10 PM WIRE MESH FILTER FABRICATOR Respiratory Rate - - Oxygen Saturation 93% 08/06/2024 1:11 PM CDT Inhaled Oxygen Concentration - - Weight 132.9 kg (293 lb) 08/06/2024 1:11 PM CDT Height 172.7 cm (5' 8) 08/06/2024 1:11 PM CDT Body Mass Index 44.55 08/06/2024 1:11 PM CDT Plan of Treatment Health Maintenance Due Date Last Done Comments Colon Cancer Screening-Colonoscopy 1950 Depression Screening 1950 Fall Risk Assessment 1950 Hepatitis C Screening 1950 DTaP/Tdap/Td Vaccine (1 - Tdap) 07/13/1962 Hepatitis B Screening 07/13/1969 Pneumococcal vaccine 65+ (1 of 1 - PCV) 07/13/2001 Zoster Vaccine (1 of 2) 07/13/2001 Well Visit 65+ 07/13/2016 Influenza Vaccine (#1) 2024 01/11/2019, 2008 Insurance [facility] MEDICARE ADVANTAGE MEDICARE [facility] MEDICARE ADVANTAGE [employer] MEDICARE ADVANTAGE Care Teams E Commerce Solution Architect Relationship Specialty Start Date End Date Kamar Almazan MD PCP - General Family Medicine 07/05/24
--- OUTSIDE RECORDS SUMMARY | 2024-12-03 09:36 | XMS_ITS | Encounter Summary ---
Author Organization [facility] Address [address] [place] [address] Care Team Providers Care Control Chemist Name Role Phone Kamar Almazan MD Primary Care Provider +1- [phone] Encounter Details Date Type Department Care Team (Late st Contact Info) Description 08/16/2000 Inpatient Historical HIS Jasvir Freed MD [address] [place] [address] [address] [place] [address] Opioid type dependence, continuous (CMS/HCC) (Primary Dx) Social History Tobacco Use Types Packs/Day Years Used Date Smoking Tobacco: Never Assessed Sex and Gender Information Value Date Recorded Sex Assigned at Not on file Legal Sex Male 3:36 AM SALES PROFESSIONAL Gender Identity Not on file Sexual Orientation Not on file documented as of this encounter Plan of Treatment Upcoming Encounters Date Type Department Care Team (Late st Contact Info) Description 01/03/2025 12:45 PM CDT Office Visit [facility] Oncology and Hematology - [place] [address] [place] [address] [facility] [address] [place] [address] Rom Mcconnell MD [address] [facility] [address] [place] [address] documented as of this encounter Visit Diagnoses Diagnosis Opioid type dependence, continuous (CMS/HCC)- Primary Opioid type dependence, continuous documented in this encounter Care Teams Control Chemist Relationship Specialty Start Date End Date Kamar Almazan MD PCP - General Family Practice 04/05/24 documented as of this encounter
--- OUTSIDE RECORDS SUMMARY | 2024-12-03 09:36 | XMS_ITS | Encounter Summary ---
Author Organization [facility] Address [address] [place] [address] Care Team Providers Care Gi Physician Name Role Phone Kamar Almazan MD Primary Care Provider +1- [phone] Encounter Details Date Type Department Care Team (Latest Contact Info) Description 08/22/2000 Outpatient Historical [facility] Jasvir Freed MD [address] [place] [address] [address] [place] [address] Opioid type dependence, unspecified (CMS/HCC) (Primary Dx) Social History Tobacco Use Types Packs/Day Years Used Date Smoking Tobacco: Never Assessed Sex and Gender Information Value Date Recorded Sex Assigned at Not on file Legal Sex Male 3:36 AM RECYCLE COORDINATOR Gender Identity Not on file Sexual Orientation Not on file documented as of this encounter Plan of Treatment Upcoming Encounters Date Type Department Care Team (Late st Contact Info) Description 01/03/2025 12:45 PM CDT Office Visit [facility] Oncology and Hematology - [place] [address] [place] [address] [address] [place] [address] Rom Mcconnell MD [address] [facility] [address] [place] [address] documented as of this encounter Visit Diagnoses Diagnosis Opioid type dependence, unspecified (CMS/HCC)- Primary Opioid type dependence, unspecified documented in this encounter Care Teams Gi Physician Relationship Specialty Start Date End Date Kamar Almazan MD PCP - General Family Practice 04/05/24 documented as of this encounter
--- OUTSIDE RECORDS SUMMARY | 2024-12-03 09:36 | XMS_ITS | Encounter Summary ---
Author Organization [facility] Address [address] [place] [address] Care Team Providers Care Medical Case Manager Name Role Phone Kamar Almazan MD Primary Care Provider +1- [phone] Encounter Details Date Type Department Care Team (Latest Contact Info) Description 10/01/2000 Outpatient Historical [facility] [place] Conversion, History Unspecified drug dependence, unspecified (CMS/HCC) (Primary Dx) Social History Tobacco Use Types Packs/Day Years Used Date Smoking Tobacco: Never Assessed Sex and Gender Information Value Date Recorded Sex Assigned at Not on file Legal Sex Male 3:36 AM DOUBLE BOTTOM DRIVER Gender Identity Not on file Sexual Orientation Not on file documented as of this encounter Plan of Treatment Upcoming Encounters Date Type Department Care Team (Late st Contact Info) Description 01/03/2025 12:45 PM CDT Office Visit [facility] Oncology and Hematology - Anatoliy [address] [facility] [address] [place] [address] Rom Mcconnell MD [address] [facility] [address] [place] [address] documented as of this encounter Visit Diagnoses Diagnosis Unspecified drug dependence, unspecified (CMS/HCC)- Primary Unspecified drug dependence, unspecified documented in this encounter Care Teams Medical Case Manager Relationship Specialty Start Date End Date Kamar Almazan MD PCP - General Family Practice 04/05/24 documented as of this encounter
--- OUTSIDE RECORDS SUMMARY | 2024-12-03 09:36 | XMS_ITS | Encounter Summary ---
Author Organization [facility] Address [address] [place] [address] Care Team Providers Care Inspector Dials Name Role Phone Kamar Almazan MD Primary Care Provider +1- [phone] Encounter Details Date Type Department Care Team (Latest Contact Info) Description 02/08/1999 Outpatient Historical [facility] [place] Jasvir Freed MD [address] [place] [address] [address] [place] [address] Opioid type dependence, unspecified (CMS/HCC) (Primary Dx) Social History Tobacco Use Types Packs/Day Years Used Date Smoking Tobacco: Never Assessed Sex and Gender Information Value Date Recorded Sex Assigned at Not on file Legal Sex Male 3:36 AM DIRECTOR OF OPERATIONS HOME HEALTH Gender Identity Not on file Sexual Orientation Not on file documented as of this encounter Plan of Treatment Upcoming Encounters Date Type Department Care Team (Late st Contact Info) Description 01/03/2025 12:45 PM CDT Office Visit [facility] Oncology and Hematology - [place] [address] [place] [address] [address] [place] [address] Rom Mcconnell MD [address] [facility] [address] [place] [address] documented as of this encounter Visit Diagnoses Diagnosis Opioid type dependence, unspecified (CMS/HCC)- Primary Opioid type dependence, unspecified documented in this encounter Care Teams Inspector Dials Relationship Specialty Start Date End Date Kamar Almazan MD PCP - General Family Practice 04/05/24 documented as of this encounter
--- OUTSIDE RECORDS SUMMARY | 2024-12-03 09:36 | XMS_ITS | Clinical Summary ---
Author Organization [facility] Yousuf Altamirano Address [address] [place] [address] Care Team Providers Care Administrative Assistant Data Entry Name Role Phone Kamar Almazan MD Primary Care Provider +1- [phone] Allergies Active Allergy Reactions Criticality Noted Date [...] Encounters Date Type Department Care Team Description 11/26/2024 Abstract [facility] Oncology and Hematology [place] [address] [place] [address] Rom Mcconnell MD 11/12/2024 External Device Data STL ABSTRACTION Provider, Abstract 10/29/2024 External Device Data STL ABSTRACTION Provider, Abstract 10/25/2024 Telephone [facility] Oncology and Hematology [place] [address] [place] [address] Rom Mcconnell MD labs for appt 09/10/2024 External Device Data STL ABSTRACTION Provider, Abstract [...] on file Legal Sex Male 3:36 AM CAT DOG OR OTHER PET GROOMER Gender Identity Not on file Sexual Orientation Not on file Last Filed Vital Signs Vital Sign Reading Time Taken Comments Blood Pressure 128/94 04/29/2024 2:34 PM CAT DOG OR OTHER PET GROOMER Pulse 94 04/29/2024 2:34 PM CAT DOG OR OTHER PET GROOMER Temperature 35.6 C (96 F) 04/29/2024 2:34 PM CAT DOG OR OTHER PET GROOMER Respiratory Rate 16 04/29/2024 2:34 PM CAT DOG OR OTHER PET GROOMER Oxygen Saturation 96% 04/29/2024 2:34 PM CAT DOG OR OTHER PET GROOMER Inhaled Oxygen Concentration - - Weight 133.8 kg (295 lb) 04/29/2024 2:34 PM CAT DOG OR OTHER PET GROOMER Height 175.3 cm (5' 9) 03/26/2024 10:39 AM CAT DOG OR OTHER PET GROOMER Body Mass Index 43.56 03/26/2024 10:39 AM CAT DOG OR OTHER PET GROOMER Plan of Treatment Upcoming Encounters Date Type Department Care Team (Late st Contact Info) Description 01/03/2025 12:45 PM CDT Office Visit [facility] Oncology and Hematology - [place] [address] [facility] [address] [place] [address] Rom Mcconnell MD [address] [facility] [address] [place] [address] Health Maintenance Due Date Last [...] years 1-dose series) 2011 INFLUENZA VACCINE (#1) 2024 01/11/2019, 2008 Insurance Care Teams Administrative Assistant Data Entry Relationship Specialty Start Date End Date Kamar Almazan MD PCP - General Family Practice 04/05/24
--- OUTSIDE RECORDS SUMMARY | 2024-12-03 09:36 | XMS_ITS | Encounter Summary ---
Author Organization [facility] Address [address] [place] [address] Care Team Providers Care Packing Room Worker Name Role Phone Kamar Almazan MD Primary Care Provider + Encounter Details Date Type Department Care Team (Late st Contact Info) Description 04/15/2024 Lab Requisition [facility] - Pathology Lab [address] [place] [address] Castro Garza MD [address] [facility] [address] [place] [address] Illness, unspecified Social History Tobacco Use [...] MARROW BIOPSY (STL) Routine 04/12/2024 9:45 AM COMMERCIAL PLUMBER Illness, unspecified documented in this encounter Results * BONE MARROW BIOPSY (STL) (04/12/2024 9:45 AM COMMERCIAL PLUMBER) Case Report Bone Marrow Patholog y Report Case: [id number] Authorizing Provider: Castro Garza Collected: 04/12/2024 09:45 AM MD Maximo Ordering Location: [facility] - Received: 04/15/2024 04:19 PM Pathology Lab Pathologist: Marylin Florez MD Specimens: A) - Bone Marrow Clot B) - Bone Marrow Core 04/17/2024 12:36 PM [facility] Final Diagnosis Bone marrow, 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 04/17/2024 12:36 PM [facility] Peripheral Smear Description The patient's [...] not provided for review. 04/17/2024 12:36 PM [facility] Bone Marrow Aspirate Differential count [...] stain): no ring sideroblasts. 04/17/2024 12:36 PM [facility] Bone Marrow Core Biopsy and [...] similar to core biopsy. 04/17/2024 12:36 PM [facility] Flow Cytometry Summary Flow cytometry revealed no overtly clonal plasma cell, clonal B-cell, or increased blast population ([id number]). 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 [place] [address]. All original materials are returned to the referring institution, along with a copy of our final report. 04/17/2024 12:36 PM [facility] Microscopic Description Immunohistochemistry and special [...] sheets of plasma cells are not present. [place] and lambda in situ hybridization stains highlight [...] highlight markedly decreased stores. 04/17/2024 12:36 PM [facility] Pathologist Location at [facility] 04/17/2024 12:36 PM [facility] Disclaimer The performance characteristics of all immunohistochemical and indirect immunofluorescence stains (if any) cited in this report were determined by the Histopathology Laboratory of [facility]. Some of these tests were [...] the attending (teaching) pathologist. 04/17/2024 12:36 PM [facility] Embedded Images 04/17/2024 12:36 PM [facility] Pathology/Cytology BONE MARROW SPECIMEN / Unknown 04/12/2024 9:45 AM COMMERCIAL PLUMBER 04/15/2024 4:19 PM COMMERCIAL PLUMBER Miscellaneous samples (specimen) BONE MARROW SPECIMEN / Unknown 04/12/2024 9:45 AM COMMERCIAL PLUMBER 04/15/2024 4:19 PM COMMERCIAL PLUMBER Castro Garza MD LAB - PATHOLOGY/CYT OLOGY ORDERABLES Final Result Performing Organization Address City/State/[facility] Co de Phone Number [facility] [address] [phone] documented in this encounter Visit Diagnoses Diagnosis Illness, unspecified documented in this encounter Care Teams Packing Room Worker Relationship Specialty Start Date End Date Kamar Almazan MD [address] [place] [address] PCP - General 05/28/21 documented as of this encounter
--- OUTSIDE RECORDS SUMMARY | 2024-12-03 09:36 | XMS_ITS | Encounter Summary ---
Author Organization [facility] Address [address] [place] [address] Care Team Providers Care Mink Slicer Name Role Phone Kamar Almazan MD Primary Care Provider +1- [phone] Encounter Details Date Type Department Care Team (Late st Contact Info) Description 04/19/2000 Inpatient Historical HIS Jasvir Freed MD [address] [place] [address] [address] [place] [address] Opioid type dependence, unspecified (CMS/HCC) (Primary Dx) Social History Tobacco Use Types Packs/Day Years Used Date Smoking Tobacco: Never Assessed Sex and Gender Information Value Date Recorded Sex Assigned at Not on file Legal Sex Male 3:36 AM FIRST SAMPLER Gender Identity Not on file Sexual Orientation Not on file documented as of this encounter Plan of Treatment Upcoming Encounters Date Type Department Care Team (Late st Contact Info) Description 01/03/2025 12:45 PM CDT Office Visit [facility] Oncology and Hematology - [place] [address] [place] [address] 200 [place] [address] Rom Mcconnell MD [address] [facility] [address] [place] [address] documented as of this encounter Visit Diagnoses Diagnosis Opioid type dependence, unspecified (CMS/HCC)- Primary Opioid type dependence, unspecified documented in this encounter Care Teams Mink Slicer Relationship Specialty Start Date End Date Kamar Almazan MD PCP - General Family Practice 04/05/24 documented as of this encounter
--- OUTSIDE RECORDS SUMMARY | 2024-12-03 09:37 | XMS_ITS | Clinical Summary ---
Author Organization [facility] Address [address] [facility] [place] [address] Care Team Providers Care Panel Machine Setter Name Role Phone Kamar Almazan MD Primary Care Provider + Source Comments [facility],non-owned Affiliates and Associated Physician Practices is amultiple site organization consisting of ambulatory clinics and hospital sitesin [place], [place], [place] and [place]. This disclosure is being madepursuant to the Care Everywhere program and may not contain all information available regarding this patient. Last updated 17.[facility] Allergies Active Allergy Reactions Criticality Noted Date [...] Immunization Administration Dates Next Due INFLUENZA A [id number] VACCINE 01/25/2009 INFLUENZA VACCINE, QUADR. (A FLURIA, [...] 10:32 AM CDT Height 172.7 cm (5' 8) 12/17/2021 10:32 AM CDT Body Mass Index [...] MEDICARE AWV CALENDAR YEAR 2024 INFLUENZA VACCINE (#1) 2024 9, 01/25/2009, 01/25/2009 HEPATITIS B VACCINE Aged Out [...] patient's age to complete this topic Insurance [facility] MANAGED MEDICARE ADV Care Teams Panel Machine Setter Relationship Specialty Start Date End Date Kamar Almazan MD [address] [address] PCP - General 05/28/21
--- OUTSIDE RECORDS SUMMARY | 2024-12-03 09:37 | XMS_ITS | Encounter Summary ---
Author Organization [facility] Address [address] [place] [address] Care Team Providers Care Angle Shearer Name Role Phone Kamar Almazan MD Primary Care Provider + Encounter Details Date Type Department Care Team (Late st Contact Info) Description 04/12/2024 Lab Requisition [facility] - Pathology Lab [address] [place] [id number] Castro Garza MD [address] [place] [id number] Monoclonal gammopathy Social History Tobacco Use Types [...] CYTOMETRY BONE MARROW Routine 04/12/2024 9:45 AM HELP DESK REP Monoclonal gammopathy documented in this encounter Results * FLOW CYTOMETRY BONE MARROW (04/12/2024 9:45 AM HELP DESK REP) Case Report Flow Cytometry Case: [id number] Authorizing Provider: Castro Garza Collected: 04/12/2024 09:45 JONATHAN Marsh MD Ordering Location: [facility] - Received: 04/12/2024 01:16 PM Pathology Lab Pathologist: Jem Mora MD Specimen: Bone Marrow 04/12/2024 4:06 PM [facility] Final Diagnosis Bone marrow, flow cytometry: - No overtly clonal plasma cell, clonal B-cell, or increased blast population detected 04/12/2024 4:06 PM [facility] PATHOLOGY LAB at 1606 HELP DESK REP Flow Cytometry Interpretation Viability: 98% B-cells: polytypic, kappa:lambda ratio 2:1 T-cells: not increased Blasts: not increased, <2% of overall events. Plasma cells: polytypic, kappa:lambda ratio 2:1 no immunophenotypic aberrancy detected A bone marrow aspirate smear prepared from the flow cytometry specimen has been reviewed for senior quality technician purposes. 04/12/2024 4:06 PM [facility] Flow Cytometry Results Differential Result Comment Flow Cell Count /uL 23,000 Total Viability % 98.0 Lymphocytes % 13 Dim CD45 Region % 5 Monocytes % 11 Granulocytes % 71 04/12/2024 4:06 PM [facility] PATH[facility] Reason for test Monoclonal gammopathy 273.1 04/12/2024 4:06 PM [facility] Client Specimen ID # [id number] 04/12/2024 4:06 PM [facility] Number of markers 14 were performed. A-2 Flow CD10 A-3 Flow CD13 A-5 Flow CD20 A-13 Flow CD117 A-14 FLOW CD138 A-1 Flow CD5 A-4 Flow CD19 A-6 Flow CD33 A-7 Flow CD34 A-8 Flow CD45 A-11 Flow CD38 A-12 Flow CD56 A-9 [place]+CD19+ A-10 Lambda+CD19+ 04/12/2024 4:06 PM [facility] PATH[facility] Pathologist Location at [facility] 04/12/2024 4:06 PM [facility] PATH[facility] LAB Disclaimer Test performed at [facility], [address] [place] [address], [id number]. *The established laboratory minimum viability is 70%. [...] high complexity clinical testing. 04/12/2024 4:06 PM HELP DESK REP [facility] PATH[facility] LAB Embedded Images 4:06 PM HELP DESK REP [facility] Pathology/Cytolo gy BONE MARROW SPECIMEN / Unknown 04/12/2024 9:45 AM HELP DESK REP 04/12/2024 1:16 PM HELP DESK REP Castro Garza MD LAB - PATHOLOGY/CYT OLOGY ORDERABLES Final Result [facility] [address] [phone] documented in this encounter Visit Diagnoses Diagnosis Monoclonal gammopathy Monoclonal paraproteinemia documented in this encounter Care Teams Angle Shearer Relationship Specialty Start Date End Date Kamar Almazan MD [address] [address] PCP - General 05/28/21 documented as of this encounter
== END 2024-12-03 08:52 | disposition home or self-care (01) ==
PROVIDERS: PCP Family Medicine Adolescent Medicine; Visit Provider Family Medicine Adolescent Medicine
DX: K80.20 Calculus of gallbladder without cholecystitis without obstruction (principal)
CPT/HCPCS: 78227; A9537; J2805

== ENCOUNTER 2024-12-27 12:54 | Outpatient (CLI) | payer MEDICARE, SELFPAY ==
--- OUTSIDE RECORDS SUMMARY | 2015-06-23 19:00 | XMS_ITS | Continuity of Care Document ---
Author Organization [facility] Address 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 [address], [place], [place], [id number], [place]. tel:[phone] Referring Provider: Kamar Sparks, [address] [place] [address], [address]. tel:[phone] Family History Family Member Type Diagnosis Age [...]
--- OUTSIDE RECORDS SUMMARY | 2024-12-27 13:03 | XMS_ITS | Encounter Summary ---
Author Organization [facility] Address 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 Gender Identity Not on file Sexual Orientation Not on file documented as of this encounter Plan of Treatment Upcoming Encounters Date Type Department Care Team (Late st Contact Info) Description 01/03/2025 12:45 PM CDT Office Visit [facility] Oncology and Hematology - [place]y [address] [place] [address] [facility] [address] [place] [address] Rom Mcconnell MD [address] [facility] [address] [place] [address] documented as of this encounter Visit Diagnoses Diagnosis Opioid type dependence, continuous (CMS/HCC)- Primary Opioid type dependence, continuous documented in this encounter Care Teams Pipe Fittings Molder Relationship Specialty Start Date End Date Kamar Almazan MD PCP - General Family Practice 04/05/24 documented as of this encounter
--- OUTSIDE RECORDS SUMMARY | 2024-12-27 13:03 | XMS_ITS | Encounter Summary ---
Author Organization [facility] Address 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 Gender Identity Not on file Sexual Orientation Not on file documented as of this encounter Plan of Treatment Upcoming Encounters Date Type Department Care Team (Late st Contact Info) Description 01/03/2025 12:45 PM CDT Office Visit [facility] Oncology and Hematology - [place] [address] [place] [address] 200 [place] [address] Rom Mcconnell MD [address] [facility] [address] [place] [address] documented as of this encounter Visit Diagnoses Not on filedocumented in this encounter Care Teams In Home Nanny Relationship Specialty Start Date End Date Kamar Almazan MD PCP - General Family Practice 04/05/24 documented as of this encounter
--- OUTSIDE RECORDS SUMMARY | 2024-12-27 13:04 | XMS_ITS | Encounter Summary ---
Author Organization [facility] Address 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 Gender Identity Not on file Sexual Orientation Not on file documented as of this encounter Plan of Treatment Upcoming Encounters Date Type Department Care Team (Late st Contact Info) Description 01/03/2025 12:45 PM CDT Office Visit [facility] Oncology and Hematology - [place] [address] [place] [address] [address] [place] [address] Rom Mcconnell MD [address] [facility] [address] [place] [address] documented as of this encounter Visit Diagnoses Diagnosis Opioid type dependence, unspecified (CMS/HCC)- Primary Opioid type dependence, unspecified documented in this encounter Care Teams Dip Unit Operator Relationship Specialty Start Date End Date Kamar Almazan MD PCP - General Family Practice 04/05/24 documented as of this encounter
--- OUTSIDE RECORDS SUMMARY | 2024-12-27 13:04 | XMS_ITS | Clinical Summary ---
Author Organization [facility] [address] Address [address] [place] [address] Care Team Providers Care Linen Controller Name Role Phone Kamar Almazan MD Primary Care Prov ider Allergies Active Allergy Reactions Criticality Noted Date Comments Codeine Hives,Itching,Rash,Stomach upset Medium 02/2011 Duloxetine Nausea & Vomiting High 11/22/2024 Penicillins Shortness of breath, Stomach upset,Syncope,Nausea only,Vomiting High 08/05/2010 Sacubitril Nausea only High 11/22/2024 Valsartan Nausea only High 11/22/2024 Medications LORazepam (ATIVAN) 1 mg tablet take 1 tablet by oral route 3 times every day as needed 0 0 014 Active buPROPion XL (WELLBUTRIN XL) 300 mg 24 hr tablet take 1 tablet (300MG) by ORAL route every day 0 010 Active ibuprofen (ADVIL,MOTRIN) 800 mg tablet as needed 019 Active triamcinolone (KENALOG) 0.1 % cream 019 Active nystatin-triamcin olone creamIndications: cutaneous candidiasis Apply topically as needed Active buprenorphine-nal oxone (SUBOXONE) 8-2 mg per SL tablet 022 Active clopidogreL (PLAVIX) 75 mg tablet 022 Active ondansetron ODT (ZOFRAN-ODT) 4 mg disintegrating tablet Active testosterone cypionate (DEPO-TESTOTERONE ) 200 mg/mL injection INJECT 1.5 ML IN THE MUSCLE EVERY [address] (PROTONIX) 40 mg EC tablet Take 1 tablet (40 mg total) by mouth daily Active spironolactone (ALDACTONE) 50 mg tablet Take 1 tablet (50 mg total) by mouth daily Active Ozempic 1 mg/dose (4 mg/3 mL) pen injector injection ADMINISTER 1 MG UNDER THE SKIN WEEKLY Active atorvastatin (LIPITOR) 40 mg tablet Take 1 tablet (40 mg total) by mouth daily 30 tablet 11 2025 Active aspirin 81 mg enteric coated tabletIndications :prevention of thrombosis Take 1 tablet (81 mg total) by mouth daily 30 tablet 11 2025 Active losartan (COZAAR) 100 mg tabletIndications :Dilated cardiomyopathy (HCC) TAKE 1 TABLET(100 MG) BY MOUTH DAILY 90 tablet 2 Active Jardiance 10 mg tabletIndications :Dilated cardiomyopathy (HCC) TAKE 1 TABLET(10 MG) BY MOUTH DAILY 30 tablet Active carvediloL (COREG) 6.25 mg tabletIndications :Dilated cardiomyopathy (HCC) Take 1 tablet (6.25 mg total) by mouth 2 (two) times a day 180 tablet 3 Active dicyclomine (BENTYL) 10 mg capsule 2024 Discontinued(N o longer taking - Do not display on AVS) furosemide (LASIX) 20 mg tablet Take 1 tablet (20 mg total) by mouth every morning 2024 Discontinued(N o longer taking - Do not display on AVS) empagliflozin (JARDIANCE) 10 mg tabletIndications :Dilated cardiomyopathy (HCC) Take 1 tablet (10 mg total) by mouth daily 30 tablet 025 2024 Discontinued carvediloL (COREG) 6.25 mg tabletIndications :Dilated cardiomyopathy (HCC) TAKE 1 TABLET BY MOUTH TWICE DAILY 180 tablet 1 025 2024 Discontinued(R eorder) Active Problems Problem Noted Date Diagnosed Date Coronary artery disease invo lving caddo coronary artery of caddo heart without angina pectoris 08/06/2024 Obstructive sleep apnea 08/06/2024 Low testosterone 02/01/2023 History of DVT (deep vein thrombosis) 02/01/2023 H/O: stroke 08/01/2022 Muscle weakness 08/01/2022 Mixed hyperlipidemia 08/01/2022 Dizziness 07/17/2021 Chronic fatigue 01/04/2021 Excessive daytime sleepiness 01/04/2021 History of 2019 novel coronavirus disease (COVID -19) 04/07/2020 Malaise and fatigue 01/18/2020 GERD (gastroesophageal reflux disease) Hypotension due to drugs 01/13/2020 Anxiety 08/06/2018 [...] Encounters Date Type Department Care Team Description 12/26/2024 Telephone [facility] Cardiology [address] [place] [address] [place] [phone] Ronak Flores MD 12/23/2024 Telephone [facility] Cardiology [address] [place] [address] [place] [phone] Ronak Flores MD 12/12/2024 1:00 PM CDT Office Visit [facility] Cardiology [address] [place] [address] [place] [phone] Elsa Cantrell NP Dilated cardiomyopathy (HCC) (Primary Dx); Coronary artery disease involving caddo coronary artery of caddo heart without angina pectoris; Morbid obesity with BMI of 40.0-44.9, adult (HCC); Obstructive sleep apnea; Preoperative cardiovascular examination 12/05/2024 Telephone [facility] Cardiology [address] [place] [address] [place] [phone] Ronak Flores MD from Last 3 Months Immunizations Immunization Administration [...] on file Legal Sex Male 1:23 AM DIET CLERK Gender Identity Not on file Sexual Orientation Not on file 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 on file Not on file Obstetrics History Last Filed Vital Signs Vital Sign Reading Time Taken Comments Blood Pressure 132/72 12/12/2024 12:55 PM CDT Pulse 102 12/12/2024 12:55 PM CDT Temperature 36.4 C (97.5 F) 04/02/2020 3:10 PM DIET CLERK Respiratory Rate - - Oxygen Saturation 96% 12/12/2024 12: 55 PM CDT Inhaled Oxygen Concentration - - Weight 130.1 kg (286 lb 14.4 oz) 2024 12:55 PM CDT Height 172.7 cm (5' 8) 12/12/2024 12:5 5 PM CDT Body Mass Index 43.62 12/12/2024 12:55 PM CDT Plan of Treatment Health Maintenance Due Date Last Done Comments Colon Cancer Screening-Colonoscopy 1950 Depression Screening 1950 Fall Risk Assessment 1950 Hepatitis C Screening 1950 DTaP/Tdap/Td Vaccine (1 - Tdap) 07/13/1962 Hepatitis B Screening 07/13/1969 Pneumococcal vaccine 65+ (1 of 1 - PCV) 07/13/2001 Zoster Vaccine (1 of 2) 07/13/2001 Well Visit 65+ 07/13/2016 Influenza Vaccine (#1) 2024 , 01/11/2019, 01/25/2009 Procedures Procedure Name Priority Date/Time Associated Diagnosis Comments ELECTROCARDIOGRAM REPORT Routine 025 12:17 PM CDT Preoperative cardiovascular examination from Last 3 Months Results * Electrocardiogram Report (12/12/2024 12:17 PM CDT) us Elsa Cantrell NP ECG ORDERABLES Final Res ult from Last 3 Months Insurance [facility] MEDICARE [facility]ANT[facility] Address: [facility] [address] [place] [address] MEDICARE [facility] MEDICARE AD[facility]ANTAGE [facility] Address[facility] [address] [place] [address] [facility] MEDICARE AD[facility]ANTAGE [facility] Address: [address] [address] [place] [address] Care Teams Linen Controller Relationship Specialty Start Date End Date Kamar Almazan MD PCP - General Family Medicine 07/05/24
--- OUTSIDE RECORDS SUMMARY | 2024-12-27 13:04 | XMS_ITS | Encounter Summary ---
Author Organization [facility] Address 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 Gender Identity Not on file Sexual Orientation Not on file documented as of this encounter Plan of Treatment Upcoming Encounters Date Type Department Care Team (Late st Contact Info) Description 01/03/2025 12:45 PM CDT Office Visit [facility] Oncology and Hematology - [place] [address] [place] [address] 200 [place] [address] Rom Mcconnell MD [address] [facility] [address] [place] [address] documented as of this encounter Visit Diagnoses Diagnosis Opioid type dependence, unspecified (CMS/HCC)- Primary Opioid type dependence, unspecified documented in this encounter Care Teams Assessment Consultant Relationship Specialty Start Date End Date Kamar Almazan MD PCP - General Family Practice 04/05/24 documented as of this encounter
--- OUTSIDE RECORDS SUMMARY | 2024-12-27 13:04 | XMS_ITS | Encounter Summary ---
Author Organization [facility] Address 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 Gender Identity Not on file Sexual Orientation Not on file documented as of this encounter Plan of Treatment Upcoming Encounters Date Type Department Care Team (Late st Contact Info) Description 01/03/2025 12:45 PM CDT Office Visit [facility] Oncology and Hematology - [place]atoliy [address] [facility] [address] [place] [address] Rom Mcconnell MD [address] [facility] [address] [place] [address] documented as of this encounter Visit Diagnoses Diagnosis Unspecified drug dependence, unspecified (CMS/HCC)- Primary Unspecified drug dependence, unspecified documented in this encounter Care Teams Wood Cutter Relationship Specialty Start Date End Date Kamar Almazan MD PCP - General Family Practice 04/05/24 documented as of this encounter
--- OUTSIDE RECORDS SUMMARY | 2024-12-27 13:04 | XMS_ITS | Encounter Summary ---
Author Organization [facility] Address 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 Gender Identity Not on file Sexual Orientation Not on file documented as of this encounter Plan of Treatment Upcoming Encounters Date Type Department Care Team (Late st Contact Info) Description 01/03/2025 12:45 PM CDT Office Visit [facility] Oncology and Hematology - [place] [address] [place] [address] [address] [place] [address] Rom Mcconnell MD [address] [facility] [address] [place] [address] documented as of this encounter Visit Diagnoses Diagnosis Opioid type dependence, unspecified (CMS/HCC)- Primary Opioid type dependence, unspecified documented in this encounter Care Teams Liquor Department Manager Relationship Specialty Start Date End Date Kamar Almazan MD PCP - General Family Practice 04/05/24 documented as of this encounter
--- OUTSIDE RECORDS SUMMARY | 2024-12-27 13:04 | XMS_ITS | Encounter Summary ---
Author Organization [facility] Address 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 Gender Identity Not on file Sexual Orientation Not on file documented as of this encounter Plan of Treatment Upcoming Encounters Date Type Department Care Team (Late st Contact Info) Description 01/03/2025 12:45 PM CDT Office Visit [facility] Oncology and Hematology - [place] [address] [place] [address] [address] [place] [address] Rom Mcconnell MD [address] [facility] [address] [place] [address] documented as of this encounter Visit Diagnoses Diagnosis Opioid type dependence, unspecified (CMS/HCC)- Primary Opioid type dependence, unspecified documented in this encounter Care Teams Multimedia Author Relationship Specialty Start Date End Date Kamar Almazan MD PCP - General Family Practice 04/05/24 documented as of this encounter
--- OUTSIDE RECORDS SUMMARY | 2024-12-27 13:04 | XMS_ITS | Encounter Summary ---
Author Organization [facility] Address 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 Gender Identity Not on file Sexual Orientation Not on file documented as of this encounter Plan of Treatment Upcoming Encounters Date Type Department Care Team (Late st Contact Info) Description 01/03/2025 12:45 PM CDT Office Visit [facility] Oncology and Hematology - [place] [address] [place] [address] [address] [place] [address] Rom Mcconnell MD [address] [facility] [address] [place] [address] documented as of this encounter Visit Diagnoses Not on filedocumented in this encounter Care Teams Spareribs Trimmer Relationship Specialty Start Date End Date Kamar Almazan MD PCP - General Family Practice 04/05/24 documented as of this encounter
--- OUTSIDE RECORDS SUMMARY | 2024-12-27 13:04 | XMS_ITS | Encounter Summary ---
Author Organization [facility] Healthcare Address [address] [place] [address] Care Team Providers Care Physiotherapy Aide Name Role Phone Kamar Almazan MD Primary Care Prov ider Encounter Details Date Type Department Care Team (Late st Contact Info) Description 12/23/2024 Telephone [facility] Medical Group Cardiology [address] [facility] [address] [place] [address] Ronak Flores MD [address] [facility] [address] [place] [address] [facility] C, [place] [address] [place], [place] [id number] Social History Tobacco Use Types Packs/Day Years Used Date Smoking Tobacco: Never Smokeless Tobacco: Never Alcohol Use Standard Drinks/Week Comments No 0 (1 standard drink = 0.6 oz pur e alcohol) recovering Sex and Gender Information Value Date Recorded Sex Assigned at Not on file Legal Sex Male 1:23 AM PLUG MAKER Gender Identity Not on file Sexual Orientation Not on file 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 He received his first 90 day shipment on Monday. * Telephone Encounter - Keri Mercado RN - 12/24/2024 9:20 AM CDT Spoke with pt, pt would like to speak with Tamie. Will forward to Tamie. * Telephone Encounter - Carlyn Vila - 12/23/2024 9:51 AM CDT Patient called in and is wanting to speak with Tamie about his heart. She told me to task it. Please advise. Thank you. Contact : [phone] documented in this encounter Plan of Treatment Not on file documented as of this encounter Visit Diagnoses Not on filedocumented in this encounter Care Teams Physiotherapy Aide Relationship Specialty Start Date End Date Kamar Almazan MD PCP - General Family Medicine 07/05/24 documented as of this encounter
--- OUTSIDE RECORDS SUMMARY | 2024-12-27 13:04 | XMS_ITS | Encounter Summary ---
Author Organization [facility] Healthcare Address [address] [place] [address] Care Team Providers Care Clip Wrapper Name Role Phone Kamar Almazan MD Primary Care Prov ider Encounter Details Date Type Department Care Team (Late st Contact Info) Description 12/26/2024 Telephone [facility] Medical Group Cardiology [address] [place] [address] Ronak Flores MD [address] [facility] C [place] [address] [facility] C, [place] [address] [place], [place] [id number] Social History Tobacco Use Types Packs/Day Years Used Date Smoking Tobacco: Never Smokeless Tobacco: Never Alcohol Use Standard Drinks/Week Comments No 0 (1 standard drink = 0.6 oz pur e alcohol) recovering Sex and Gender Information Value Date Recorded Sex Assigned at Not on file Legal Sex Male 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 documented in this encounter Plan of Treatment Not on file documented as of this encounter Visit Diagnoses Not on filedocumented in this encounter Care Teams Clip Wrapper Relationship Specialty Start Date End Date Kamar Almazan MD PCP - General Family Medicine 07/05/24 documented as of this encounter
--- OUTSIDE RECORDS SUMMARY | 2024-12-27 13:04 | XMS_ITS | Encounter Summary ---
Author Organization [facility] Address [address] [facility] [place] [address] Care Team Providers Care Windows Support Engineer Name Role Phone Kamar Almazan MD Primary Care Provider + Encounter Details Date Type Department Care Team (Late st Contact Info) Description 04/15/2024 Lab Requisition [facility] - Pathology Lab [address] [place] [id number] Castro Garza MD [address] [facility] [address] [place] [address] Illness, unspecified Social History Tobacco Use [...] MARROW BIOPSY (STL) Routine 04/12/2024 9:45 AM SKI BASE TRIMMER Illness, unspecified documented in this encounter Results * BONE MARROW BIOPSY (STL) (04/12/2024 9:45 AM SKI BASE TRIMMER) Case Report Bone Marrow Patholog y Report Case: [id number] Authorizing Provider: Castro Garza Collected: 04/12/2024 09:45 AM MD Maximo Ordering Location: [facility] - Received: 04/15/2024 04:19 PM Pathology Lab Pathologist: Marylin Florez MD Specimens: A) - Bone Marrow Clot B) - Bone Marrow Core 04/17/2024 12:36 PM [facility] Final Diagnosis 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 04/17/2024 12:36 PM [facility] Peripheral Smear Description [...] not provided for review. 04/17/2024 12:36 PM [facility] Bone Marrow Aspirate [...] stain): no ring sideroblasts. 04/17/2024 12:36 PM [facility] Bone Marrow Core [...] similar to core biopsy. 04/17/2024 12:36 PM [facility] Flow Cytometry Summary Flow cytometry revealed no overtly clonal plasma cell, clonal B-cell, or increased blast population ([id number]). 04/17/2024 12:36 PM [facility] Clinical History Monoclonal gammopathy. [place] lambda light chain ratio normal at 1.3 04/17/2024 12:36 PM [facility] Materials Received Received are 18 slide(s) labeled and 3 block(s) AB25-1 along with a copy of the outside pathology report. [place] [address]. All original materials are returned to the referring institution, along with a copy of our final report. 04/17/2024 12:36 PM [facility] Microscopic Description Immunohistochemistry [...] sheets of plasma cells are not present. [place] and lambda in situ hybridization stains highlight [...] highlight markedly decreased stores. 04/17/2024 12:36 PM [facility] Pathologist Location at [facility] 04/17/2024 12:36 PM [facility] Disclaimer The performance characteristics of all immunohistochemical and indirect immunofluorescence stains (if any) cited in this report were determined by the Histopathology Laboratory of [facility]. Some of these tests were [...] the attending (teaching) pathologist. 04/17/2024 12:36 PM [facility] Embedded Images 04/17/2024 12:36 PM [facility] Pathology/Cytology BONE MARROW SPECIMEN / Unknown 04/12/2024 9:45 AM SKI BASE TRIMMER 04/15/2024 4:19 PM SKI BASE TRIMMER Miscellaneous samples (specimen) BONE MARROW SPECIMEN / Unknown 04/12/2024 9:45 AM SKI BASE TRIMMER 04/15/2024 4:19 PM SKI BASE TRIMMER Castro Garza MD LAB - PATHOLOGY/CYT OLOGY ORDERABLES Final Result Performing Organization Address City/State/[facility] Co de Phone Number [facility] [address] [phone] documented in this encounter Visit Diagnoses Diagnosis Illness, unspecified documented in this encounter Care Teams Windows Support Engineer Relationship Specialty Start Date End Date Kamar Almazan MD [address] [place] [address] PCP - General 05/28/21 documented as of this encounter
--- OUTSIDE RECORDS SUMMARY | 2024-12-27 13:04 | XMS_ITS | Encounter Summary ---
Author Organization [facility] Address [address] [place] [address] Care Team Providers Care Terrazzo Journeyman Name Role Phone Kamar Almazan MD Primary Care Provider +1- [phone] Encounter Details Date Type Department Care Team (Late st Contact Info) Description 04/19/2000 Inpatient Historical HIS Jasvir Freed MD [address] [place] [address] [address] [place] [address] Opioid type dependence, unspecified (CMS/HCC) (Primary Dx) Social History Tobacco Use Types Packs/Day Years Used Date Smoking Tobacco: Never Assessed Sex and Gender Information Value Date Recorded Sex Assigned at Not on file Legal Sex Male 3:36 AM DISABILITY SPECIALIST Gender Identity Not on file Sexual Orientation Not on file documented as of this encounter Plan of Treatment Upcoming Encounters Date Type Department Care Team (Late st Contact Info) Description 01/03/2025 12:45 PM CDT Office Visit [facility] Oncology and Hematology - [place] [address] [place] [address] [address] [place] [address] Rom Mcconnell MD [address] [facility] [address] [place] [address] documented as of this encounter Visit Diagnoses Diagnosis Opioid type dependence, unspecified (CMS/HCC)- Primary Opioid type dependence, unspecified documented in this encounter Care Teams Terrazzo Journeyman Relationship Specialty Start Date End Date Kamar Almazan MD PCP - General Family Practice 04/05/24 documented as of this encounter
--- OUTSIDE RECORDS SUMMARY | 2024-12-27 13:04 | XMS_ITS | Encounter Summary ---
Author Organization [facility] Address 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 Gender Identity Not on file Sexual Orientation Not on file documented as of this encounter Plan of Treatment Upcoming Encounters Date Type Department Care Team (Late st Contact Info) Description 01/03/2025 12:45 PM CDT Office Visit [facility] Oncology and Hematology - [place] [address] [place] [address] [address] [place] [address] Rom Mcconnell MD [address] [facility] [address] [place] [address] documented as of this encounter Visit Diagnoses Diagnosis Opioid type dependence, unspecified (CMS/HCC)- Primary Opioid type dependence, unspecified documented in this encounter Care Teams Casino Floorperson Relationship Specialty Start Date End Date Kamar Almazan MD PCP - General Family Practice 04/05/24 documented as of this encounter
--- OUTSIDE RECORDS SUMMARY | 2024-12-27 13:04 | XMS_ITS | Clinical Summary ---
Author Organization [facility] Yousuf Altamirano Address [address] [place] [address] Care Team Providers Care Network Operations Center Engineer Name Role Phone Kamar Almazan MD Primary Care Provider +1- [phone] Allergies Active Allergy Reactions Criticality Noted Date [...] Encounters Date Type Department Care Team Description 12/10/2024 External Device Data STL ABSTRACTION Provider, Abstract 12/03/2024 External Device Data STL ABSTRACTION Provider, Abstract 11/26/2024 Abstract [facility] Oncology and Hematology [facility] [address] [place] [address] Rom Mcconnell MD 11/12/2024 External Device Data STL ABSTRACTION Provider, Abstract 10/29/2024 External Device Data STL ABSTRACTION Provider, Abstract 10/25/2024 Telephone [facility] Oncology and Hematology [facility] [address] [place] [address] Rom Mcconnell MD labs for appt from Last 3 Months Family History Medical [...] on file Legal 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 Male 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 Gender Identity Not on file Sexual Orientation Not on file Last Filed Vital Signs Vital Sign Reading Time Taken Comments Blood Pressure 128/94 04/29/2024 2:34 PM PRIMER WATERPROOFING MACHINE ADJUSTER Pulse 94 04/29/2024 2:34 PM PRIMER WATERPROOFING MACHINE ADJUSTER Temperature 35.6 C (96 F) 04/29/2024 2:34 PM PRIMER WATERPROOFING MACHINE ADJUSTER Respiratory Rate 16 04/29/2024 2:34 PM PRIMER WATERPROOFING MACHINE ADJUSTER Oxygen Saturation 96% 04/29/2024 2:34 PM PRIMER WATERPROOFING MACHINE ADJUSTER Inhaled Oxygen Concentration - - Weight 133.8 kg (295 lb) 04/29/2024 2:34 PM PRIMER WATERPROOFING MACHINE ADJUSTER Height 175.3 cm (5' 9) 03/26/2024 10:39 AM PRIMER WATERPROOFING MACHINE ADJUSTER Body Mass Index 43.56 03/26/2024 10:39 AM PRIMER WATERPROOFING MACHINE ADJUSTER Plan of Treatment Upcoming Encounters Date Type Department Care Team (Late st Contact Info) Description 01/03/2025 12:45 PM CDT Office Visit [facility] Oncology and Hematology - Anatoliy [address] [facility] [address] [place] [address] Rom Mcconnell MD [address] [facility] [address] [place] [address] Health Maintenance Due Date Last [...] INFLUENZA VACCINE (#1) 2024 01/11/2019, 2008 [facility] [id number] Care Teams Network Operations Center Engineer Relationship Specialty Start Date End Date Kamar Almazan MD PCP - General Family Practice 04/05/24
--- OUTSIDE RECORDS SUMMARY | 2024-12-27 13:04 | XMS_ITS | Encounter Summary ---
Author Organization [facility] Address 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 Gender Identity Not on file Sexual Orientation Not on file documented as of this encounter Plan of Treatment Upcoming Encounters Date Type Department Care Team (Late st Contact Info) Description 01/03/2025 12:45 PM CDT Office Visit [facility] Oncology and Hematology - [place]y [address] [place] [address] [address] [place] [address] Rom Mcconnell MD [address] [facility] [address] [place] [address] documented as of this encounter Visit Diagnoses Not on filedocumented in this encounter Care Teams Circus Supervisor Relationship Specialty Start Date End Date Kamar Alamzan MD PCP - General Family Practice 04/05/24 documented as of this encounter
--- OUTSIDE RECORDS SUMMARY | 2024-12-27 13:04 | XMS_ITS | Encounter Summary ---
Author Organization [facility] Address 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 Gender Identity Not on file Sexual Orientation Not on file documented as of this encounter Plan of Treatment Upcoming Encounters Date Type Department Care Team (Late st Contact Info) Description 01/03/2025 12:45 PM CDT Office Visit [facility] Oncology and Hematology - [place]y [address] [place] [address] [facility] [address] [place] [address] Rom Mcconnell MD [address] [facility] [address] [place] [address] documented as of this encounter Visit Diagnoses Diagnosis Opioid type dependence, continuous (CMS/HCC)- Primary Opioid type dependence, continuous documented in this encounter Care Teams Project Development Manager Relationship Specialty Start Date End Date Kamar Almazan MD PCP - General Family Practice 04/05/24 documented as of this encounter
--- OUTSIDE RECORDS SUMMARY | 2024-12-27 13:04 | XMS_ITS | Clinical Summary ---
Author Organization [facility] [employer] Address [address] [facility] [place] [address] Care Team Providers Care Butadiene Converter Utility Operator Name Role Phone Kamar Almazan MD Primary Care Provider + Source Comments [facility] [employer],non-owned Affiliates and Associated Physician Practices is amultiple site organization consisting of ambulatory clinics and hospital sitesin [place], [place], [place] and [place]. This disclosure is being madepursuant to the Care Everywhere program and may not contain all information available regarding this patient. Last updated 17.[facility] [employer] Allergies Active Allergy Reactions Criticality Noted Date [...] Immunization Administration Dates Next Due INFLUENZA A [id number] VACCINE 01/25/2009 INFLUENZA VACCINE, QUADR. (A FLURIA, [...] 1-dose series) 2011 SCREENING FOR DIABETES 12/17/2021 DEPRESSION SCREENING 03/27/2024 MEDICARE AWV CALENDAR YEAR 2024 COVID-19 VACCINE (1 - 2023-2 5 season) 2024 INFLUENZA VACCINE (#1) 2024 9, 01/25/2009, [...] patient's age to complete this topic Insurance [facility] MANAGED MEDICARE ADV Care Teams Butadiene Converter Utility Operator Relationship Specialty Start Date End Date Kamar Almazan MD [address] [address] PCP - General 05/28/21
--- OUTSIDE RECORDS SUMMARY | 2024-12-27 13:04 | XMS_ITS | Encounter Summary ---
Author Organization [facility] Address 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 Gender Identity Not on file Sexual Orientation Not on file documented as of this encounter Plan of Treatment Upcoming Encounters Date Type Department Care Team (Late st Contact Info) Description 01/03/2025 12:45 PM CDT Office Visit [facility] Oncology and Hematology - [place]y [address] [facility] [address] [place] [address] Rom Mcconnell MD [address] [facility] [address] [place] [address] documented as of this encounter Visit Diagnoses Diagnosis Unspecified drug dependence, unspecified (CMS/HCC)- Primary Unspecified drug dependence, unspecified documented in this encounter Care Teams Cloth Desizing Range Tender Relationship Specialty Start Date End Date Kamar Almazan MD PCP - General Family Practice 04/05/24 documented as of this encounter
--- OUTSIDE RECORDS SUMMARY | 2024-12-27 13:04 | XMS_ITS | Encounter Summary ---
Author Organization [facility] Address [address] [place] [address] Care Team Providers Care Tso Name Role Phone Kamar Almazan MD Primary Care Provider +1- [phone] Encounter Details Date Type Department Care Team (Latest Contact Info) Description 04/25/2000 Outpatient Historical [facility] Jasvir Freed MD [address] [place] [address] [address] [place] [address] Opioid type dependence, unspecified (CMS/HCC) (Primary Dx) Social History Tobacco Use Types Packs/Day Years Used Date Smoking Tobacco: Never Assessed Sex and Gender Information Value Date Recorded Sex Assigned at Not on file Legal Sex Male 3:36 AM 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 Gender Identity Not on file Sexual Orientation Not on file documented as of this encounter Plan of Treatment Upcoming Encounters Date Type Department Care Team (Late st Contact Info) Description 01/03/2025 12:45 PM CDT Office Visit [facility] Oncology and Hematology - [place] [address] [place] [address] [address] [place] [address] Rom Mcconnell MD [address] [facility] [address] [place] [address] documented as of this encounter Visit Diagnoses Diagnosis Opioid type dependence, unspecified (CMS/HCC)- Primary Opioid type dependence, unspecified documented in this encounter Care Teams Tso Relationship Specialty Start Date End Date Kamar Almazan MD PCP - General Family Practice 04/05/24 documented as of this encounter
--- OUTSIDE RECORDS SUMMARY | 2024-12-27 13:04 | XMS_ITS | Encounter Summary ---
Author Organization [facility] Address [address] [place] [address] Care Team Providers Care Casino Worker Name Role Phone Kamar Almazan MD Primary Care Provider + Encounter Details Date Type Department Care Team (Late st Contact Info) Description 04/12/2024 Lab Requisition [facility] - Pathology Lab [address] [place] [id number] Castro Garza MD [address] [place] [address] [id number] Monoclonal gammopathy Social History Tobacco Use Types [...] CYTOMETRY BONE MARROW Routine 04/12/2024 9:45 AM ERECTING CRANE OPERATOR Monoclonal gammopathy documented in this encounter Results * FLOW CYTOMETRY BONE MARROW (04/12/2024 9:45 AM ERECTING CRANE OPERATOR) Case Report Flow Cytometry Case: [id number] Authorizing Provider: Castro Garza Collected: 04/12/2024 09:45 JONATHAN Marsh MD Ordering Location: [facility] - Received: 04/12/2024 01:16 PM Pathology Lab Pathologist: Jem Mora MD Specimen: Bone Marrow 04/12/2024 4:06 PM [facility] Final Diagnosis Bone marrow, flow cytometry: - No overtly clonal plasma cell, clonal B-cell, or increased blast population detected 04/12/2024 4:06 PM [facility] at [address] ERECTING CRANE OPERATOR Flow Cytometry Interpretation Viability: 98% B-cells: polytypic, kappa:lambda ratio 2:1 T-cells: not increased Blasts: not increased, <2% of overall events. Plasma cells: polytypic, kappa:lambda ratio 2:1 no immunophenotypic aberrancy detected A bone marrow aspirate smear prepared from the flow cytometry specimen has been reviewed for quality lead purposes. 04/12/2024 4:06 PM [facility] Flow Cytometry Results Differential Result Comment Flow Cell Count /uL 23,000 Total Viability % 98.0 Lymphocytes % 13 Dim CD45 Region % 5 Monocytes % 11 Granulocytes % 71 04/12/2024 4:06 PM [facility] Reason for test Monoclonal gammopathy 273.1 04/12/2024 4:06 PM [facility] Client Specimen ID # [id number] 04/12/2024 4:06 PM [facility] Number of markers 14 were performed. A-2 Flow CD10 A-3 Flow CD13 A-5 Flow CD20 A-13 Flow CD117 A-14 FLOW CD138 A-1 Flow CD5 A-4 Flow CD19 A-6 Flow CD33 A-7 Flow CD34 A-8 Flow CD45 A-11 Flow CD38 A-12 Flow CD56 A-9 Luke+CD19+ A-10 Lambda+CD19+ 04/12/2024 4:06 PM [facility] Pathologist Location at [facility] 04/12/2024 4:06 PM [facility] Disclaimer Test performed at [facility], [address] [place] [address], [address]. *The established laboratory minimum viability is 70%. [...] high complexity clinical testing. 04/12/2024 4:06 PM ERECTING CRANE OPERATOR [facility] Embedded Images 4:06 PM ERECTING CRANE OPERATOR [facility] Pathology/Cytolo gy BONE MARROW SPECIMEN / Unknown 04/12/2024 9:45 AM ERECTING CRANE OPERATOR 04/12/2024 1:16 PM ERECTING CRANE OPERATOR Castro Garza MD LAB - PATHOLOGY/CYT OLOGY ORDERABLES Final Result [facility] [address] [phone] documented in this encounter Visit Diagnoses Diagnosis Monoclonal gammopathy Monoclonal paraproteinemia documented in this encounter Care Teams Casino Worker Relationship Specialty Start Date End Date Kamar Almazan MD [address] [address] PCP - General 05/28/21 documented as of this encounter
[2024-12-27 13:40] LABS: Alanine Aminotransferase 36 U/L (6-50); Albumin Level 4.2 g/dL (3.5-5.1); Alkaline Phosphatase 84 U/L (38-126); Amylase 81 U/L (30-110); Aspartate Amino Transferase 36 U/L (17-59); Bilirubin,Total 0.9 mg/dL (0.2-1.3); Lipase 96 U/L (23-300); Total Protein 7.3 g/dL (6.3-8.2)
[2024-12-27 13:41] LABS: Anion Gap 9 mmol/L (4-12); Blood Urea Nitrogen 18 mg/dL (9-20); Calcium 8.7 mg/dL (8.4-10.2); Carbon Dioxide 26 mmol/L (22-30); Chloride 101 mmol/L (98-107); Estimated Glomerular Filt Rate 55; Glucose 185 mg/dL (65-110); Potassium 4.7 mmol/L (3.4-5.0); Sodium 136 mmol/L (137-145)
== END 2024-12-27 12:55 | disposition home or self-care (01) ==
LOC: ANHSURGERY 12:58
PROVIDERS: Anesthesiology; PCP Family Medicine Adolescent Medicine; Visit Provider Surgery
DX: K80.20 Calculus of gallbladder without cholecystitis without obstruction (principal); I10 Essential (primary) hypertension; Z01.818 Encounter for other preprocedural examination
CPT/HCPCS: 36415; 80048; 80076; 82150; 83690; 86850; 86900; 86901

== ENCOUNTER 2024-12-31 00:48 | Day surgery (SDC) | payer MEDICARE, SELFPAY ==
--- OUTSIDE RECORDS SUMMARY | 2015-06-23 19:00 | XMS_ITS | Continuity of Care Document ---
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, [address], [place], [place], [id number], [place] tel:[phone] [facility] No Information [facility]. [address], [address], [place], [place], [id number], [place]. tel:[phone] Referring Provider: Kamar Sparks, [address] [place] [address], [id number]. tel:[phone] Family History Family Member Type Diagnosis Age At Onset No Information Payers Payer name Insurance type Covered republican ID Authoriza tion(s) No Information Social History [...]
--- OUTSIDE RECORDS SUMMARY | 2024-09-19 08:00 | XMS_ITS ---
Author Organization [facility] [employer] [facility] Address [address] [facility] [address] [place] [address] Care Team Providers Care Decorative Greens Cutter Name Role Phone Norah ALICEA, Kamar Primary Care Provider Lakeisha mehnazlinetteOmar Arias Unavailable [phone] REASON FOR VISIT CANS MCI TESTING Social History Sex Assigned At : Social History Observation Description Sex Assigned At Male Encounters Encounter Location Date Provider Diagnosis [facility] [employer] [facility] [address] [place] [address] 09/19/2024 Omar Upton Plan Of Treatment Next Appt Details Provider Name:Omar Upton , 01/17/2025 01:00:00 PM, [address], [address], [place], [address], Progress Notes * NEFTALI BRITT RDOB: [birth year] (74 yo M)Acc No.[id number]:09/19/2024 Patient: Dana NEFTALI DAVALOS Provider: Ruth UPTON MD :1950 A ge:74 Y S ex:Male Date:09/19/2024 [facility] [address] [facility] Pcp:Kamar Almazan MD Subjective: * Chief Complaints: * C ANS MCI TESTING * Active Problem List R53.82 Chronic fatigue Onset Date:7952-59-09Cfpnccoi On:11/02/2023 Status:confirmed K21.9 GERD (gastroesophage al reflux disease) Onset Date:2976-22-53Jxllvtpm On:11/02/2023 Status:confirmed M25.559 Arthralgia of hip Onset Date:5626-39-92Likegxhm On:11/02/2023 Status:confirmed E66.01 Class 3 obesity Onset Date:5248-65-02Mbebwnvz On:11/02/2023 Status:confirmed Z86.73 H/O: stroke Onset Date:9029-45-56Zmwfammx On:11/02/2023 Status:confirmed R79.89 Low testosterone Onset Date:0535-04-16Wmfzijtx On:11/02/2023 Status:confirmed E78.2 Mixed hyperlipidemia Onset Date:1069-43-30Dgenmxwc On:11/02/2023 Status:confirmed I42.9 Cardiomyopathy Onset Date:05/24/2018Modified On:04/22/2024 [...] Electronic signature of He Upton MD on 12/31/2024 at 12:51 AM CDT Sign off status: Pending * Provider: Ruth UPTON MD Date: 0 09/19/2024 Generated for Latriciai ng/Famehdig/eTransmitting on: 1 12:51 AM CDT
--- OUTSIDE RECORDS SUMMARY | 2024-11-07 08:00 | XMS_ITS ---
Author Organization [facility] [employer] Address [address] [facility] [address] [place] [address] Care Team Providers Care Optometrist/Practice Owner Name Role Phone Norah ALICEA, Kamar Primary Care Provider Lakeisha mehnazlinetteOmar Arias Unavailable [phone] REASON FOR VISIT Has stomach problem Social History Sex Assigned At : Social History Observation Description Sex Assigned At Male Encounters Encounter Location Date Provider Diagnosis [facility] [employer] [facility] [address] [facility] [address] [place] [address] 11/07/2024 Omar Upton Plan Of Treatment Next Appt Details Provider Name:Omar Upton , 01/17/2025 01:00:00 PM, [address], [facility] [address], [place], [address], Progress Notes * NEFTALI BRITT RDOB: [birth year] (74 yo M)Acc No.[id number]:11/07/2024 Patient: Dana NEFTALI DAVALOS Provider: Ruth UPTON MD :1950 A ge:74 Y S ex:Male Date:11/07/2024 [facility] [address] [facility] Pcp:Kamar Almazan MD Subjective: * Chief Complaints: * H as stomach problem * Active Problem List R53.82 Chronic fatigue Onset Date:6864-23-46Skxenclj On:08/08/2024W/U Status:confirmed K21.9 GERD (gastroesophage al reflux disease) Onset Date:8639-62-31Qqxrdtib On:11/02/2023 Status:confirmed M25.559 Arthralgia of hip Onset Date:9318-44-08Lvcfnipg On:11/02/2023 Status:confirmed E66.01 Class 3 obesity Onset Date:1467-45-49Ijsyuqww On:11/02/2023 Status:confirmed Z86.73 H/O: stroke Onset Date:2444-34-15Dcqdqhov On:11/02/2023 Status:confirmed R79.89 Low testosterone Onset Date:7682-83-69Qdngclas On:11/02/2023 Status:confirmed E78.2 Mixed hyperlipidemia Onset Date:0406-84-87Vpwjmmag On:11/02/2023 Status:confirmed I42.9 Cardiomyopathy Onset Date:05/24/2018Modified On:04/22/2024 [...] ap evi (adult) (pediatric) Modified On:09/11/2024 Status:confirmed Billing Information: * Procedure Codes: * Electronic signature of He Upton MD on 12/31/2024 at 12:52 AM CDT Sign off status: Pending * Provider: Ruth UPTON MD Date: 0 11/07/2024 Generated for Latriciai ng/Keving/eTransmitting on: 1 12:52 AM CDT
--- NOTE | 2024-12-25 15:09 | PC.NURSE ---
[facility] has started construction of its new state of the art ER which will open Spring 2026. With this, we anticipate parking may be a challenge for some our surgical patients and families. Parking spaces are limited but are available for all Surgical, obstetrics, and ER patients sharing this lot. If you arrive and find you are having a hard time finding a parking space, please note that we understand the challenges, please drive around the hospital and park near Hospital Entrance 1. When you enter this entrance, you can ask a volunteer to direct or take you back to the surgical waiting area to check in. We appreciate everyone?s understanding of these expected challenges while we build for your future. Report to the Outpatient Waiting Room, entrance under the green pavilion located off [address], at time __1200 NOON on date _12/31/24 . Planned Procedure Time: ___2 PM .? Time changes happen often and if your time is changed the preop area will call you the afternoon before. - You and your visitor will be asked to self-screen and do not enter if you have any COVID symptoms. Please call surgeon if you need to reschedule. - A mask is optional within the hospital at this time. Patients may have clear liquids (water, carbonated beverages, clear teas, apple juice) until 3 hours prior to surgery( 11AM) with a maximum of 20 ounces. - No food from midnight until time of surgery and no smoking, or chewing tobacco (or any form of nicotine). No chewing gum, candy or mints. - Take only the following medications with a SIP of water on the morning of surgery: ____BUPROPION,CARVEDILOL,,LORAZEPAM DO NOT STOP ANY OF YOUR OTHER PRESCRIPTION MEDICATIONS PRIOR TO SURGERY EXCEPT THE FOLLOWING Hold all vitamins and supplements for 3 days per anesthesiologist.LAST DOSE 12/27/24 Medications to discontinue per physician ___PT STATES PLAVIX HOLD 7 DAYS PRE OP Date to take last dose___12/24/24 Please no make-up, nail telugu, hairspray, perfume, deodorant, or body powder the day of surgery.? No jewelry (including any body piercings) or valuables the day of surgery, leave them at home.? Please take a shower or bath the night before, or the morning of, surgery with an antibacterial soap.? Wear comfortable, loose fitting clothing.? Children are encouraged to wear pajamas. - Jewelry must be removed prior to entering the operating room.? Rings and piercings that are not removed may be cut off. - The hospital will not accept responsibility for valuables.? - Please leave all valuables, including medications, at home the day of surgery. If you are going home after surgery, a licensed local company refrigerated truck driver must drive you home.? - NO public transportation without another adult if you receive anesthesia. - We recommend that an adult stay with you for 24 hours following discharge. - We also recommend that you do not drive, make important decision, drink alcoholic beverages, or take any drugs that were not prescribed by your health care provider for at least 24 hours after your discharge time. For Pediatric surgeries, we recommend two adults accompany the child home. Follow any additional instructions given to you from your surgeon. Telephone instructions given to ___PATIENT and asked if any additional questions and then verbalized understanding. Patient advised to call surgeon office or pre surgery nurse liaison [phone] if any additional questions.
[2024-12-25 15:32] VITALS: BMI 42.0
[2024-12-31] VITALS (8 sets, daily range): BP systolic 118–158; BP diastolic 62–96; PULSE 73–87; RESP 12–20; TEMP 36.3–36.4; O2SAT 96–100; BMI 42.6
--- OUTSIDE RECORDS SUMMARY | 2024-12-31 00:51 | XMS_ITS | Encounter Summary ---
Author Organization [facility] Address [address] [place] [address] Care Team Providers Care Information Security Associate Name Role Phone Kamar Almazan MD Primary Care Provider +1- [phone] Encounter Details Date Type Department Care Team (Late st Contact Info) Description 04/19/2000 Outpatient Historical [facility] [place] Social History Tobacco Use Types Packs/Day Years Used Date Smoking Tobacco: Never Assessed Sex and Gender Information Value Date Recorded Sex Assigned at Not on file Legal Sex Male 3:36 AM EARLY CHILDHOOD Gender Identity Not on file Sexual Orientation Not on file documented as of this encounter Plan of Treatment Upcoming Encounters Date Type Department Care Team (Late st Contact Info) Description 01/03/2025 12:45 PM CDT Office Visit [facility] Oncology and Hematology - [place] [address] [place] [address] [address] [place] [address] Rom Mcconnell MD [address] [facility] [address] [place] [address] documented as of this encounter Visit Diagnoses Not on filedocumented in this encounter Care Teams Information Security Associate Relationship Specialty Start Date End Date Kamar Almazan MD PCP - General Family Practice 04/05/24 documented as of this encounter
--- OUTSIDE RECORDS SUMMARY | 2024-12-31 00:51 | XMS_ITS | Encounter Summary ---
Author Organization [facility] Address 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 Gender Identity Not on file Sexual Orientation Not on file documented as of this encounter Plan of Treatment Upcoming Encounters Date Type Department Care Team (Late st Contact Info) Description 01/03/2025 12:45 PM CDT Office Visit [facility] Oncology and Hematology - [place] [address] [place] [address] [address] [place] [address] Rom Mcconnell MD [address] [facility] [address] [place] [address] documented as of this encounter Visit Diagnoses Diagnosis Opioid type dependence, unspecified (CMS/HCC)- Primary Opioid type dependence, unspecified documented in this encounter Care Teams Police Shift Commander Relationship Specialty Start Date End Date Kamar Almazan MD PCP - General Family Practice 04/05/24 documented as of this encounter
--- OUTSIDE RECORDS SUMMARY | 2024-12-31 00:51 | XMS_ITS | Encounter Summary ---
Author Organization [facility] Address 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 Gender Identity Not on file Sexual Orientation Not on file documented as of this encounter Plan of Treatment Upcoming Encounters Date Type Department Care Team (Late st Contact Info) Description 01/03/2025 12:45 PM CDT Office Visit [facility] Oncology and Hematology - [place] [address] [place] [address] [address] [place] [address] Rom Mcconnell MD [address] [facility] [address] [place] [address] documented as of this encounter Visit Diagnoses Diagnosis Opioid type dependence, unspecified (CMS/HCC)- Primary Opioid type dependence, unspecified documented in this encounter Care Teams Manager Regional Sales Relationship Specialty Start Date End Date Kamar Almazan MD PCP - General Family Practice 04/05/24 documented as of this encounter
--- OUTSIDE RECORDS SUMMARY | 2024-12-31 00:51 | XMS_ITS | Encounter Summary ---
Author Organization [facility] Address 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 Gender Identity Not on file Sexual Orientation Not on file documented as of this encounter Plan of Treatment Upcoming Encounters Date Type Department Care Team (Late st Contact Info) Description 01/03/2025 12:45 PM CDT Office Visit [facility] Oncology and Hematology - [place]at[place]y [address] [facility] [address] [place] [address] Rom Mcconnell MD [address] [facility] [address] [place] [address] documented as of this encounter Visit Diagnoses Diagnosis Unspecified drug dependence, unspecified (CMS/HCC)- Primary Unspecified drug dependence, unspecified documented in this encounter Care Teams Packaging Associate Relationship Specialty Start Date End Date Kamar Almazan MD PCP - General Family Practice 04/05/24 documented as of this encounter
--- OUTSIDE RECORDS SUMMARY | 2024-12-31 00:51 | XMS_ITS | Encounter Summary ---
Author Organization [facility] Address [address] [place] [address] Care Team Providers Care Warehouse Incentive Selector Name Role Phone Kaamr Almazan MD Primary Care Provider +1- [phone] Encounter Details Date Type Department Care Team (Late st Contact Info) Description 04/19/2000 Inpatient Historical [facility] Jasvir Freed MD [address] [place] [address] [address] [place] [address] Opioid type dependence, unspecified (CMS/HCC) (Primary Dx) Social History Tobacco Use Types Packs/Day Years Used Date Smoking Tobacco: Never Assessed Sex and Gender Information Value Date Recorded Sex Assigned at Not on file Legal Sex Male 3:36 AM TECHNICAL CONSULTANT Gender Identity Not on file Sexual Orientation Not on file documented as of this encounter Plan of Treatment Upcoming Encounters Date Type Department Care Team (Late st Contact Info) Description 01/03/2025 12:45 PM CDT Office Visit [facility] Oncology and Hematology - [place] [address] [place] [address] [address] [place] [address] Rom Mcconnell MD [address] [facility] [address] [place] [address] documented as of this encounter Visit Diagnoses Diagnosis Opioid type dependence, unspecified (CMS/HCC)- Primary Opioid type dependence, unspecified documented in this encounter Care Teams Warehouse Incentive Selector Relationship Specialty Start Date End Date Kamar Almazan MD PCP - General Family Practice 04/05/24 documented as of this encounter
--- OUTSIDE RECORDS SUMMARY | 2024-12-31 00:51 | XMS_ITS | Encounter Summary ---
Author Organization [facility] Address 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 Gender Identity Not on file Sexual Orientation Not on file documented as of this encounter Plan of Treatment Upcoming Encounters Date Type Department Care Team (Late st Contact Info) Description 01/03/2025 12:45 PM CDT Office Visit [facility] Oncology and Hematology - [place] [address] [place] [address] [facility] [address] [place] [address] Rom Mcconnell MD [address] [facility] [address] [place] [address] documented as of this encounter Visit Diagnoses Diagnosis Opioid type dependence, continuous (CMS/HCC)- Primary Opioid type dependence, continuous documented in this encounter Care Teams Strategic Planning Manager Relationship Specialty Start Date End Date Kamar Almazan MD PCP - General Family Practice 04/05/24 documented as of this encounter
--- OUTSIDE RECORDS SUMMARY | 2024-12-31 00:51 | XMS_ITS | Encounter Summary ---
Author Organization [facility] Address [address] [place] [address] Care Team Providers Care Water Safety Teacher Name Role Phone Kamar Almazan MD Primary Care Provider +1- [phone] Encounter Details Date Type Department Care Team (Late st Contact Info) Description 08/21/2000 Outpatient Historical [facility] Conversion, History Social History Tobacco Use Types Packs/Day Years Used Date Smoking Tobacco: Never Assessed Sex and Gender Information Value Date Recorded Sex Assigned at Not on file Legal Sex Male 3:36 AM EDUCATION LIAISON Gender Identity Not on file Sexual Orientation Not on file documented as of this encounter Plan of Treatment Upcoming Encounters Date Type Department Care Team (Late st Contact Info) Description 01/03/2025 12:45 PM CDT Office Visit [facility] Oncology and Hematology - [place] [address] [place] [address] [address] [place] [address] Rom Mcconnell MD [address] [facility] [address] [place] [address] documented as of this encounter Visit Diagnoses Not on filedocumented in this encounter Care Teams Water Safety Teacher Relationship Specialty Start Date End Date Kamar Almazan MD PCP - General Family Practice 04/05/24 documented as of this encounter
--- OUTSIDE RECORDS SUMMARY | 2024-12-31 00:51 | XMS_ITS | Encounter Summary ---
Author Organization [facility] Address 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 Gender Identity Not on file Sexual Orientation Not on file documented as of this encounter Plan of Treatment Upcoming Encounters Date Type Department Care Team (Late st Contact Info) Description 01/03/2025 12:45 PM CDT Office Visit [facility] Oncology and Hematology - [place] [address] [place] [address] 200 [place] [address] Rom Mcconnlel MD [address] [facility] [address] [place] [address] documented as of this encounter Visit Diagnoses Diagnosis Opioid type dependence, unspecified (CMS/HCC)- Primary Opioid type dependence, unspecified documented in this encounter Care Teams Ground Wirer Relationship Specialty Start Date End Date Kamar Almazan MD PCP - General Family Practice 04/05/24 documented as of this encounter
--- OUTSIDE RECORDS SUMMARY | 2024-12-31 00:51 | XMS_ITS | Encounter Summary ---
Author Organization [facility] Address [address] [place] [address] Care Team Providers Care Comparative Sociology Professor Name Role Phone Kamar Almazan MD Primary Care Provider +1- [phone] Encounter Details Date Type Department Care Team (Latest Contact Info) Description 07/20/2000 Outpatient Historical [facility] [place] Conversion, History Opioid type dependence, unspecified (CMS/HCC) (Primary Dx) Social History Tobacco Use Types Packs/Day Years Used Date Smoking Tobacco: Never Assessed Sex and Gender Information Value Date Recorded Sex Assigned at Not on file Legal Sex Male 3:36 AM RN OSTOMY Gender Identity Not on file Sexual Orientation Not on file documented as of this encounter Plan of Treatment Upcoming Encounters Date Type Department Care Team (Late st Contact Info) Description 01/03/2025 12:45 PM CDT Office Visit [facility] Oncology and Hematology - [place] [address] [place] [address] [address] [place] [address] Rom Mcconnell MD [address] [facility] [address] [place] [address] documented as of this encounter Visit Diagnoses Diagnosis Opioid type dependence, unspecified (CMS/HCC)- Primary Opioid type dependence, unspecified documented in this encounter Care Teams Comparative Sociology Professor Relationship Specialty Start Date End Date Kamar Almazan MD PCP - General Family Practice 04/05/24 documented as of this encounter
--- OUTSIDE RECORDS SUMMARY | 2024-12-31 00:51 | XMS_ITS | Clinical Summary ---
Author Organization 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 08/06/2024 Obstructive sleep [...] Type Department Care Team Description 12/26/2024 Telephone [facility] [address] [place] [address] [place] [phone] Ronak Flores MD 12/23/2024 Telephone [facility] [address] [place] [address] [address] [place] [phone] Ronak Flores MD 12/12/2024 1:00 PM CDT Office Visit [facility] [address] [place] [address] [address] [place] [phone] Elsa Cantrell NP Dilated cardiomyopathy (HCC) (Primary Dx); 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; Morbid obesity with BMI of 40.0-44.9, adult (HCC); Obstructive sleep apnea; Preoperative cardiovascular examination 12/05/2024 Telephone [facility] [address] [place] [address] [address] [place] [phone] Ronak Flores MD from Last 3 [...] on file Legal Sex Male 1:23 AM RADIO REPAIRMAN Gender Identity Not on file Sexual Orientation Not on file 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 on file Not on file Obstetrics History Last Filed Vital Signs Vital Sign Reading Time Taken Comments Blood Pressure 132/72 12/12/2024 12:55 PM CDT Pulse 102 12/12/2024 12:55 PM CDT Temperature 36.4 C (97.5 F) 04/02/2020 3:10 PM RADIO REPAIRMAN Respiratory Rate - - Oxygen Saturation 96% [...] Res ult from Last 3 Months Insurance [facility] MEDICARE ADVANTAGE MEDICARE [facility] Address: [facility] [address] [place] [address] [facility] MEDICARE ADVANTAGE [facility] MEDICARE ADVANTAGE Care Teams Flux Core Welder Relationship Specialty Start Date End Date Kamar Almazan MD PCP - General Family Medicine 07/05/24
--- OUTSIDE RECORDS SUMMARY | 2024-12-31 00:51 | XMS_ITS | Patient Health Record ---
Author Organization [facility] [employer] Address [address] [facility] [address] [place] [address] Care Team Providers Care Retail Analyst Name Role Phone Kamar Almazan MD Primary Care Provider Lakeisha mehnaznabil Omar Hart Unavailable [phone] Allergies Allergen (clinical drug ingredient) Drug/Non Drug Allergy documented on EMR Reaction Allergy Type Onset Date Status codeine Codeine Unknown Drug Allergy 06/28/2023 Active Substance with penicillin structure and antibacterial mechanism of action (substance) Penicillins Unknown Drug Allergy 06/28/2023 Active Results Component Value Reference Range Notes UDT Reviewed date:09/11/2024 02:16:59 PM Interpretation: Performing Lab: Notes/Report: THC N 0 - 50 ng/ml Cocaine N 0 - 300 ng/ml Amphetamine N 0 - 1000 ng/ml Buprenorphine (BUP) P 0 - 10 ng/ml Secobarbital (Bar) N 0 - 300 ng/ml Oxazepam (BZO) P 0 - 300 ng/ml 0-hdsduyiwns-1,9-bvmkgugx-5,3-diphenylpyrrolidine (LORENZO P) N 0 - 300 ng/ml Methamphetamine (MET) N 0 - 1000 ng/ml Methylenedioxymethamphetamine (MDMA) N 0 - 500 ng/ml Morphine (MOP 300/RQH8802) N 0 - 300 ng/ml Methadone (MTD) N 0 - 300 ng/ml Phencyclidine (PCP) N 0 - 25 ng/ml Nortriptyline (TCA) N 0 - 1000 ng/ml Oxycodone N 0 - 300 ng/ml x N 0 - 300 ng/ml UDT Reviewed date:11/18/2024 05:15:13 PM Interpretation: Performing Lab: Notes/Report: THC n 0 - 50 ng/ml Cocaine n 0 - 300 ng/ml Amphetamine n 0 - 1000 ng/ml Buprenorphine (BUP) p 0 - 10 ng/ml Secobarbital (Bar) n 0 - 300 ng/ml Oxazepam (BZO) p 0 - 300 ng/ml 7-syaujmqltd-3,8-cqtvdgpo-7,3-diphenylpyrrolidine (LORENZO P) n 0 - 300 ng/ml Methamphetamine (MET) n 0 - 1000 ng/ml Methylenedioxymethamphetamine (MDMA) n 0 - 500 ng/ml Morphine (MOP 300/FBB2409) n 0 - 300 ng/ml Methadone (MTD) n 0 - 300 ng/ml Phencyclidine (PCP) n 0 - 25 ng/ml Nortriptyline (TCA) n 0 - 1000 ng/ml Oxycodone n 0 - 300 ng/ml Reason For Referral [...] decision-maker Yes Do you have Power of Kiln Feeder for Health or Medi ifrah? No Tobacco [...] W/U Status Risk Notes Problem Mixed hyperlipidemia (616762032) Mixed hyperlipidemia (E78.2) 08/02/19 Active confirmed Problem Mild recurrent major depression (23956468) Major depressive disorder, recurrent, mild (F33.0) Active confirmed Problem Obstructive sleep apnea syndrome (disorder) (46549797) Obstructive sleep apnea (adult) (pediatric) (G47.33) Active confirmed Problem Generalized anxiety disorder (89915315) SUE (generalized anxiety disorder) (F41.1) Active confirmed Problem Chronic fatigue syndrome (08794604) Chronic fatigue (R53.82) 12/18/19 Active confirmed Problem Gastroesophageal reflux disease (278533477) GERD (gastroesophageal reflux disease) (K21.9) 12/18/19 Active confirmed Problem Arthralgia of hip (6744185692) Arthralgia of hip (M25.559) 12/18/19 Active confirmed Problem Morbid obesity (077878488) Class 3 obesity (E66.01) 08/02/19 Active confirmed Problem H/O: stroke (907984231) H/O: stroke (Z86.73) 08/02/19 Active confirmed Problem Low testosterone (842167055) Low testosterone (R79.89) 02/02/20 Active confirmed Problem Opioid dependence in remission (697276921) Opioid use disorder, severe, in sustained remission (F11.21) Active confirmed Problem Senile dementia (09832148) Senile dementia (F03.90) Active confirmed Problem Mental disorder (02481617) 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 [address] [address] 02/23/2024 Omar Hailey Opioid use disorder, severe, in sustained remission F11.21 ; Major depressive disorder, recurrent, mild F33.0 ; SUE (generalized anxiety disorder) F41.1 ; Mixed hyperlipidemia E78.2 ; Low testosterone R79.89 ; Anxiety disorder due to multiple medical problems F06.8 and Senile dementia F03.90 [facility] [employer] [address] 04/22/2024 Omar Hailey Opioid use disorder, severe, in sustained remission F11.21 ; Major depressive disorder, recurrent, mild F33.0 ; Cardiomyopathy I42.9 ; SUE (generalized anxiety disorder) F41.1 and Mixed hyperlipidemia E78.2 [facility] [employer] [address] 06/17/2024 Omar Hailey Opioid use disorder, severe, in sustained remission F11.21 ; Major depressive disorder, recurrent, mild F33.0 ; Cardiomyopathy I42.9 ; SUE (generalized anxiety disorder) F41.1 ; Mixed hyperlipidemia E78.2 and Encounter for screening for depression Z13.31 [facility] [employer] [address] 09/11/2024 Omar Hailey Encounter for screen ing for cardiovascular disorders Z13.6 ; Opioid use disorder, severe, in sustained remission F11.21 ; Major depressive disorder, recurrent, mild F33.0 ; Cardiomyopathy I42.9 ; SUE (generalized anxiety disorder) F41.1 ; Mixed hyperlipidemia E78.2 ; Negative depression screening Z13.31 ; Obstructive sleep apnea (adult) (pediatric) G47.33 ; Nausea R11.0 and Class 3 obesity E66.813 [facility] [employer] [address] [address] 11/18/2024 Omar Hailey Opioid use disorder, severe, in sustained remission F11.21 ; Major depressive disorder, recurrent, mild F33.0 ; SUE (generalized anxiety disorder) F41.1 ; Mixed hyperlipidemia E78.2 ; Generalized abdominal pain R10.84 and Obstructive sleep apnea (adult) (pediatric) G47.33 [facility] [employer] [address] [address] [facility] [address] [address] [facility]/23[facility]2024 [facility] [address] [address] 06/17/2024 Omar Hailey Opioid use disorder, severe, in sustained remission F11.[address] [address] 08/20/[address] [facility] [address] [address] 11/19/2024 Omar Hailey Assessments Encounter Date Diagnosis (ICD Code) Assessment Notes Treatment Notes Treatment Clinical Notes Section Notes 09/11/2024 Encounter for screening for cardiovascular disorders (ICD-10 - Z13.6) 11/18/2024 Opioid use disorder, severe, in sustained remission (ICD-10 - F11.21) Patient is in sustained remission. Currently taking Suboxone. - Continue Suboxone 8 mg tablet once daily. 06/17/2024 Opioid use disorder, severe, in sustained remission (ICD-10 - F11.21) 06/17/2024 Opioid use disorder, severe, in sustained remission (ICD-10 - F11.21) 04/22/2024 Major depressive disorder, recurrent, mild (ICD-10 - F33.0) 04/22/2024 Cardiomyopathy (ICD-10 - I42.9) 04/22/2024 Opioid use disorder, severe, in sustained remission (ICD-10 - F11.21) 02/23/2024 Opioid use disorder, severe, in sustained [...] Follow up with Elsa (Dr. Cantrell) at [facility]. Pre-diabetes - Assessment: Patient [...] from them is a normal cognitive process. 02/05/2024 Senile dementia (ICD-10 - F03.90) 02/23/2024 Major depressive disorder, recurrent, mild (ICD-10 [...] Follow up with Elsa (Dr. Cantrell) at [facility]io group. Pre-diabetes - Assessment: Patient [...] them is a normal cognitive process. 04/22/2024 SUE (generalized anxiety disorder) (ICD-10 - F41.1) 06/17/2024 Major depressive disorder, recurrent, mild (ICD-10 - F33.0) 11/18/2024 Major depressive disorder, recurrent, mild (ICD-10 - F33.0) Patient prefers not to add more medications. - Continue Wellbutrin for depression management. 11/18/2024 SUE (generalized anxiety disorder) (ICD-10 - F41.1) Mental and emotional symptoms worsen with physical illness. Patient denied major depression. Symptoms described as moments of debilitation tied to physical discomfort. 09/11/2024 Opioid use disorder, severe, in sustained remission (ICD-10 - F11.21) Patient is in sustained remission. Currently taking Suboxone. - Continue Suboxone 8 mg tablet once daily. 09/11/2024 Cardiomyopathy (ICD-10 - I42.9) 11/18/2024 Mixed hyperlipidemia (ICD-10 - E78.2) 09/11/2024 Major depressive disorder, recurrent, mild (ICD-10 - F33.0) Patient prefers not to add more medications. - Continue Wellbutrin for depression management. 04/22/2024 Mixed hyperlipidemia (ICD-10 - E78.2) 06/17/2024 Cardiomyopathy (ICD-10 - I42.9) 02/23/2024 SUE (generalized anxiety disorder) (ICD-10 - [...] Follow up with Elsa (Dr. Cantrell) at [facility] Cardio group. Pre-diabetes - Assessment: Patient [...] them is a normal cognitive process. 06/17/2024 SUE (generalized anxiety disorder) (ICD-10 - [...] Follow up with Elsa (Dr. Cantrell) at [facility] Cardio group. Pre-diabetes - Assessment: Patient [...] from them is a normal cognitive process. 11/18/2024 Generalized abdominal pain (ICD-10 - R10.84) Persistent daily stomach discomfort, nausea, and weakness reported. Symptoms severe enough to disrupt appointments and daily activities. Extensive testing for stomach, nerves, and brain has not revealed a clear cause. 09/11/2024 SUE (generalized anxiety disorder) (ICD-10 - F41.1) 09/11/2024 Mixed hyperlipidemia (ICD-10 - E78.2) 11/18/2024 Obstructive sleep apnea (adult) (pediatric) (ICD-10 - G47.33) Sleep apnea previously diagnosed and managed. Patient reports regular use of apnea machine. 06/17/2024 Mixed hyperlipidemia (ICD-10 - E78.2) 02/23/2024 Low testosterone (ICD-10 - R79.89) Cardiomyopathy [...] Follow up with Elsa (Dr. Cantrell) at [facility] Cardio group. Pre-diabetes - Assessment: Patient [...] Follow up with Elsa (Dr. Cantrell) at [facility]. Pre-diabetes - Assessment: Patient [...] them is a normal cognitive process. 06/17/2024 Encounter for screening for depression (ICD-10 - Z13.31) 09/11/2024 Negative depression screening (ICD-10 - Z13.31) 09/11/2024 Obstructive sleep apnea (adult) (pediatric) (ICD-10 - G47.33) Patient reports improved energy levels since starting CPAP therapy. Continues to experience afternoon naps. - Continue CPAP therapy as prescribed. - Ensure compliance with CPAP usage to prevent machine retrieval. 02/23/2024 Senile dementia (ICD-10 - F03.90) Cardiomyopathy [...] Follow up with Elsa (Dr. Cantrell) at [facility] Cardio group. Pre-diabetes - Assessment: Patient [...] from them is a normal cognitive process. 09/11/2024 Nausea (ICD-10 - R11.0) Persistent nausea [...] or national office of the Alzheimer's Association (7-808-130-658 0; http://www.alz .org), the Alzheimer's Disease Education and Referral Center (ADEAR) (7-655-373-494 0; http://www.deo .nih.gov/Alzhe imers/), Cardiomyopathy and Reduced [...] blood pressure regularly. - Follow up with Elas (Dr. Cantrell) at [facility] Cardio group. Pre-diabetes - Assessment: Patient [...] medications for cardiomyopathy. - Follow up with decorative engraver, Elsa Cantrell [facility]. - Complete tests recommended by decorative engraver, including MRI with contrast dye and sleep apnea test. - Monitor ejection fraction and consider device implantation if necessary. High Protein in Blood - Plan: - Follow up with financial assistance specialist, Dr. Riley, on the . - Continue [...] to daytime fatigue and cognitive fog. The decorative engraver is reviewing the results to determine the appropriate apparatus for treatment. Plan: - Await decorative engraver's recommendation for specific CPAP apparatus - Encourage weight loss as a complementary treatment approach - Follow up with decorative engraver regarding sleep study results and treatment plan [...] ensure accuracy, there may be errors, including crusher machine operator inaccuracies and misspellings of medication names. This document should not be considered a verbatim record, and any discrepancies should be verified with the provider. 11/18/2024 Other Testosterone deficiency managed with regular injections. Patient reports taking 300 mg every 10 days. Plan Of Treatment Next Appt Details Provider Name:Omar Naik Hailey , 01/17/2025 01:00:00 PM, [address], [facility] [address], [place], [address], Insurance Providers Payer Name Payer Address Payer Phone Subscriber Number Group Number Insured Name Patient Relationship to Insured Coverage Start Date Coverage End Date [facility] Medicare Replacement/ Advantage - Ppo [address] [address] [place] [address] [id number] NEFTALI BRITT Self - patient is the insured Medical (General) History Medical History History ICD Code Problems: Mild recurrent major depressio n Opioid dependence , Obstructive sleep apnea Low testosterone Surgical History Surgery Date(Month/Year) Reconstructive surgery Cataract surgery (72564) 2020 Appendectomy (62450) 12/10/1979
--- OUTSIDE RECORDS SUMMARY | 2024-12-31 00:51 | XMS_ITS | Encounter Summary ---
Author Organization [facility] Address [address] [place] [address] Care Team Providers Care Protohistorian Name Role Phone Kamar Almazan MD Primary Care Prov ider Encounter Details Date Type Department Care Team (Late st Contact Info) Description 12/23/2024 Telephone [facility] Cardiology [address] [facility] [address] [place] [address] Ronak Flores MD [address] 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 Please advise. Thank you. Contact : [phone] documented in this encounter Plan of Treatment Not on file documented as of this encounter Visit Diagnoses Not on filedocumented in this encounter Care Teams Protohistorian Relationship Specialty Start Date End Date Kamar Almazan MD PCP - General Family Medicine 07/05/24 documented as of this encounter
--- OUTSIDE RECORDS SUMMARY | 2024-12-31 00:51 | XMS_ITS | Encounter Summary ---
Author Organization [facility] Address 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 Gender Identity Not on file Sexual Orientation Not on file documented as of this encounter Plan of Treatment Upcoming Encounters Date Type Department Care Team (Late st Contact Info) Description 01/03/2025 12:45 PM CDT Office Visit [facility] Oncology and Hematology - [place] [address] [place] [address] [address] [place] [address] Rom Mcconnell MD [address] [facility] [address] [place] [address] documented as of this encounter Visit Diagnoses Diagnosis Opioid type dependence, unspecified (CMS/HCC)- Primary Opioid type dependence, unspecified documented in this encounter Care Teams Crabber Relationship Specialty Start Date End Date Kamar Amlazan MD PCP - General Family Practice 04/05/24 documented as of this encounter
--- OUTSIDE RECORDS SUMMARY | 2024-12-31 00:51 | XMS_ITS | Encounter Summary ---
Author Organization [facility] Address 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 Gender Identity Not on file Sexual Orientation Not on file documented as of this encounter Plan of Treatment Upcoming Encounters Date Type Department Care Team (Late st Contact Info) Description 01/03/2025 12:45 PM CDT Office Visit [facility] Oncology and Hematology - [place] [address] [place] [address] [facility] [address] [place] [address] Rom Mcconnell MD [address] [facility] [address] [place] [address] documented as of this encounter Visit Diagnoses Diagnosis Opioid type dependence, continuous (CMS/HCC)- Primary Opioid type dependence, continuous documented in this encounter Care Teams Technology Analyst Relationship Specialty Start Date End Date Kamar Almazan MD PCP - General Family Practice 04/05/24 documented as of this encounter
--- OUTSIDE RECORDS SUMMARY | 2024-12-31 00:51 | XMS_ITS | Encounter Summary ---
Author Organization [facility] Address 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 [address] [place] [address] Rom Mcconnell MD [address] [facility] [address] [place] [address] documented as of this encounter Visit Diagnoses Diagnosis Unspecified drug dependence, unspecified (CMS/HCC)- Primary Unspecified drug dependence, unspecified documented in this encounter Care Teams Shop Hand Relationship Specialty Start Date End Date Kamar Almazan MD PCP - General Family Practice 04/05/24 documented as of this encounter
--- OUTSIDE RECORDS SUMMARY | 2024-12-31 00:51 | XMS_ITS | Clinical Summary ---
Author Organization [facility]ousuf Altamirano Address [address] [place] [address] Care Team Providers Care Contract Assistant Name Role Phone Kamar Almazan MD Primary Care Provider +1- [phone] Allergies Active Allergy Reactions Criticality Noted Date [...] Data STL ABSTRACTION Provider, Abstract 11/26/2024 Abstract [facility] Oncology and Hematology [facility] [address] [place] [address] Rom Mcconnell MD 11/12/2024 External Device Data STL ABSTRACTION Provider, Abstract 10/29/2024 External Device Data STL ABSTRACTION Provider, Abstract 10/25/2024 Telephone [facility] Oncology and Hematology [facility] [address] [place] [address] Rom Mcconnell MD labs for appt from [...] on file Legal 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 Male 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 BRAND 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 Gender Identity Not on file Sexual Orientation Not on file Last Filed Vital Signs Vital Sign [place] Time Taken Comments Blood Pressure 128/94 04/29/2024 2:34 PM BRAND DIRECTOR Pulse 94 04/29/2024 2:34 PM BRAND DIRECTOR Temperature 35.6 C (96 F) 04/29/2024 2:34 PM BRAND DIRECTOR Respiratory Rate 16 04/29/2024 2:34 PM BRAND DIRECTOR Oxygen Saturation 96% 04/29/2024 2:34 PM BRAND DIRECTOR Inhaled Oxygen Concentration - - Weight 133.8 kg (295 lb) 04/29/2024 2:34 PM BRAND DIRECTOR Height 175.3 cm (5' 9) 03/26/2024 10:39 AM BRAND DIRECTOR Body Mass Index 43.56 03/26/2024 10:39 AM BRAND DIRECTOR Plan of Treatment Upcoming Encounters Date Type Department Care Team (Late st Contact Info) Description 01/03/2025 12:45 PM CDT Office Visit [facility] Oncology and Hematology - [place] [address] [facility] [address] [place] [address] Rom Mcconnell MD [address] [facility] [address] [place] [address] Health Maintenance Due Date Last [...] INFLUENZA VACCINE (#1) 2024 01/11/2019, 2008 [facility] [id number] Care Teams Contract Assistant Relationship Specialty Start Date End Date Kamar Almazan MD PCP - General Family Practice 04/05/24
--- OUTSIDE RECORDS SUMMARY | 2024-12-31 00:51 | XMS_ITS | Encounter Summary ---
Author Organization [facility] Address 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 Gender Identity Not on file Sexual Orientation Not on file documented as of this encounter Plan of Treatment Upcoming Encounters Date Type Department Care Team (Late st Contact Info) Description 01/03/2025 12:45 PM CDT Office Visit [facility] Oncology and Hematology - [place] [address] [place] [address] [address] [place] [address] Rom Mcconnell MD [address] [facility] [address] [place] [address] documented as of this encounter Visit Diagnoses Diagnosis Opioid type dependence, unspecified (CMS/HCC)- Primary Opioid type dependence, unspecified documented in this encounter Care Teams Fire Eater Relationship Specialty Start Date End Date Kamar Almazan MD PCP - General Family Practice 04/05/24 documented as of this encounter
--- OUTSIDE RECORDS SUMMARY | 2024-12-31 00:51 | XMS_ITS | Encounter Summary ---
Author Organization [facility] Address 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 Gender Identity Not on file Sexual Orientation Not on file documented as of this encounter Plan of Treatment Upcoming Encounters Date Type Department Care Team (Late st Contact Info) Description 01/03/2025 12:45 PM CDT Office Visit [facility] Oncology and Hematology - [place] [address] [place] [address] [address] [place] [address] Rom Mcconnell MD [address] [facility] [address] [place] [address] documented as of this encounter Visit Diagnoses Not on filedocumented in this encounter Care Teams Transportation Mechanic Relationship Specialty Start Date End Date Kamar Almazan MD PCP - General Family Practice 04/05/24 documented as of this encounter
--- OUTSIDE RECORDS SUMMARY | 2024-12-31 00:52 | XMS_ITS | Encounter Summary ---
Author Organization [facility] Address [address] [facility] [place] [address] Care Team Providers Care Photostat Operator Name Role Phone Kamar Almazan MD Primary Care Provider + Encounter Details Date Type Department Care Team (Late st Contact Info) Description 04/15/2024 Lab Requisition [facility] - Pathology Lab [address] [place] [phone] Castro Garza MD [address] [facility] [address] [place] [id number] Illness, unspecified Social History Tobacco Use [...] MARROW BIOPSY (STL) Routine 04/12/2024 9:45 AM RUBBER FLAP CUTTER Illness, unspecified documented in this encounter Results * BONE MARROW BIOPSY (STL) (04/12/2024 9:45 AM RUBBER FLAP CUTTER) Case Report Bone Marrow Patholog y Report Case: [id number] Authorizing Provider: Castro Garza Collected: 04/12/2024 09:45 AM MD Maximo Ordering Location: [facility] - Received: 04/15/2024 04:19 PM Pathology Lab Pathologist: Marylin Florez MD Specimens: A) - Bone Marrow Clot B) - Bone Marrow Core 04/17/2024 12:36 PM [facility] Final Diagnosis Bone [...] reticulin fibrosis (MF-1) 04/17/2024 12:36 PM [facility] at [address]36 RUBBER FLAP CUTTER AP Comment Please correlate wit h relevant cytogenetic, FISH, and molecular data. 04/17/2024 12:36 PM [facility] Peripheral Smear Description [...] provided for review. 04/17/2024 12:36 PM [facility] Bone Marrow Aspirate [...] no ring sideroblasts. 04/17/2024 12:36 PM [facility] Bone Marrow Core [...] to core biopsy. 04/17/2024 12:36 PM [facility] Flow Cytometry Summary Flow cytometry revealed no overtly clonal plasma cell, clonal B-cell, or increased blast population ([id number]). 04/17/2024 12:36 PM [facility] Clinical History Monoclonal gammopathy. [place] lambda light chain ratio normal at 1.3 04/17/2024 12:36 PM [facility] Materials Received Received are 18 slide(s) labeled and 3 block(s) [id number] along with a copy of the outside pathology report. [place] [address]. All original materials are returned to the referring institution, along with a copy of our final report. 04/17/2024 12:36 PM [facility] Microscopic Description Immunohistochemistry [...] of plasma cells are not present. [place] and lambda in situ hybridization stains highlight [...] markedly decreased stores. 04/17/2024 12:36 PM [facility] Pathologist Location at [facility] 04/17/2024 12:36 PM [facility] Disclaimer The performance [...] attending (teaching) pathologist. 04/17/2024 12:36 PM [facility] Embedded Images 04/17/2024 12:36 PM [facility] Pathology/Cytology BONE MARROW SPECIMEN / Unknown 04/12/2024 9:45 AM RUBBER FLAP CUTTER 04/15/2024 4:19 PM RUBBER FLAP CUTTER Miscellaneous samples (specimen) BONE MARROW SPECIMEN / Unknown 04/12/2024 9:45 AM RUBBER FLAP CUTTER 04/15/2024 4:19 PM RUBBER FLAP CUTTER Castro Garza MD LAB - PATHOLOGY/CYT OLOGY ORDERABLES Final Result Performing Organization Address City/State/[facility] Co de Phone Number [facility] [address] [phone] documented in this encounter Visit Diagnoses Diagnosis Illness, unspecified documented in this encounter Care Teams Photostat Operator Relationship Specialty Start Date End Date Kamar Almazan MD [address] [place] [address] PCP - General 05/28/21 documented as of this encounter
--- OUTSIDE RECORDS SUMMARY | 2024-12-31 00:52 | XMS_ITS | Clinical Summary ---
Author Organization [facility] Address [address] [place] [address] Care Team Providers Care Spudder Name Role Phone Kamar Almazan MD Primary Care Provider + Source Comments [facility],non-owned Affiliates and Associated Physician Practices is amultiple site organization consisting of ambulatory clinics and hospital sitesin [place], [place], [place] and [place]. This disclosure is being madepursuant to the Care Everywhere program and may not contain all information available regarding this patient. Last updated 17.[facility] Allergies Active Allergy Reactions Criticality Noted Date [...] Immunization Administration Dates Next Due INFLUENZA A [id number] VACCINE 01/25/2009 INFLUENZA VACCINE, QUADR. (A FLURIA, [...] patient's age to complete this topic Insurance [facility] MANAGED MEDICARE ADV Care Teams Spudder Relationship Specialty Start Date End Date Kamar Almazan MD [address] [address] PCP - General 05/28/21
--- OUTSIDE RECORDS SUMMARY | 2024-12-31 00:52 | XMS_ITS | Encounter Summary ---
Author Organization [facility] Address [address] [place] [address] Care Team Providers Care Cross Country Truck Driver Name Role Phone Kamar Almazan MD Primary Care Provider + Encounter Details Date Type Department Care Team (Late st Contact Info) Description 04/12/2024 Lab Requisition [facility] - Pathology Lab [address] [place] [phone] Castro Garza MD [address] [place] [id number] Monoclonal gammopathy Social History Tobacco Use Types [...] CYTOMETRY BONE MARROW Routine 04/12/2024 9:45 AM BASKET BOTTOM MACHINE OPERATOR Monoclonal gammopathy documented in this encounter Results * FLOW CYTOMETRY BONE MARROW (04/12/2024 9:45 AM BASKET BOTTOM MACHINE OPERATOR) Case Report Flow Cytometry Case: [id number] Authorizing Provider: Castro Garza Collected: 04/12/2024 09:45 JONATHAN Marsh MD Ordering Location: [facility] - Received: 04/12/2024 01:16 PM Pathology Lab Pathologist: Jem Mora MD Specimen: Bone Marrow 04/12/2024 4:06 PM [facility] Final Diagnosis Bone marrow, flow cytometry: - No overtly clonal plasma cell, clonal B-cell, or increased blast population detected 04/12/2024 4:06 PM [facility] at [address]6 BASKET BOTTOM MACHINE OPERATOR Flow Cytometry Interpretation Viability: 98% B-cells: polytypic, kappa:lambda ratio 2:1 T-cells: not increased Blasts: not increased, <2% of overall events. Plasma cells: polytypic, kappa:lambda ratio 2:1 no immunophenotypic aberrancy detected A bone marrow aspirate smear prepared from the flow cytometry specimen has been reviewed for manager quality purposes. 04/12/2024 4:06 PM [facility] Flow Cytometry Results Differential Result Comment Flow Cell Count /uL 23,000 Total Viability % 98.0 Lymphocytes % 13 Dim CD45 Region % 5 Monocytes % 11 Granulocytes % 71 04/12/2024 4:06 PM [facility] Reason for test Monoclonal gammopathy 273.1 04/12/2024 4:06 PM [facility] Client Specimen ID # [id number] 04/12/2024 4:06 PM [facility] Number of markers 14 were performed. A-2 Flow CD10 A-3 Flow CD13 A-5 Flow CD20 A-13 Flow CD117 A-14 FLOW CD138 A-1 Flow CD5 A-4 Flow CD19 A-6 Flow CD33 A-7 Flow CD34 A-8 Flow CD45 A-11 Flow CD38 A-12 Flow CD56 A-9 Carlin+CD19+ A-10 Lambda+CD19+ 04/12/2024 4:06 PM [facility] Pathologist Location at [facility] 04/12/2024 4:06 PM [facility] Disclaimer Test performed at [facility], [address] [place] [address], [id number]. *The established laboratory minimum viability is 70%. [...] high complexity clinical testing. 04/12/2024 4:06 PM BASKET BOTTOM MACHINE OPERATOR [facility] Embedded Images 4:06 PM BASKET BOTTOM MACHINE OPERATOR [facility] Pathology/Cytolo gy BONE MARROW SPECIMEN / Unknown 04/12/2024 9:45 AM BASKET BOTTOM MACHINE OPERATOR 04/12/2024 1:16 PM BASKET BOTTOM MACHINE OPERATOR Castro Garza MD LAB - PATHOLOGY/CYT OLOGY ORDERABLES Final Result [facility] [address] [phone] documented in this encounter Visit Diagnoses Diagnosis Monoclonal gammopathy Monoclonal paraproteinemia documented in this encounter Care Teams Cross Country Truck Driver Relationship Specialty Start Date End Date Kamar Almazan MD [address] [address] PCP - General 05/28/21 documented as of this encounter
[2024-12-31] MEDS: LACTATED RINGERS 1,000 ML 30 ML IV CONT (12:50)
[2024-12-31] MEDS: KETOROLAC 15 MG/ML VIAL (*BKC) IV PUSH (12:53)
[2024-12-31] MEDS: ACETAMINOPHEN 500 MG TABLET 1000 MG PO (12:53)
[2024-12-31] MEDS: INDOCYANINE GREEN 25 MG VIAL WITH DILUENT 3.75 MG IV PUSH (13:00)
--- NOTE | 2024-12-31 14:58 | WPDHPUPDATE1 ---
History and Physical Update Update Date/Time: 12/31/24 14:58 History and Physical has been reviewed, including an updated exam of the patient. There are NO changes in the patient's condition. Risks, benefits, and alternatives have been discussed and questions answered. Patient agrees to proceed with procedure.
--- NOTE | 2024-12-31 15:13 | WPDANESEPPF ---
Anes - Initial Pre Proc Eval Procedure: Operation Date: 12/31/24 14:00 Proposed Procedures p Robotic Laparoscopic Cholecystectomy - Kirill Elkins DO Date/Time: 12/31/24 15:13 Surgeon: Kirill Elkins DO Pre Op Diagnosis: symptomatic cholelithiasis Patient Data Age: 74 Gender: M Height: 1.75 m Weight: 131 kg Last Vital Signs Temp 36.3 C L 12/31/24 12:00 Pulse 79 12/31/24 12:00 Resp 14 12/31/24 12:00 BP 123/65 12/31/24 12:00 Pulse Ox 96 12/31/24 12:00 O2 Del Method Room Air 12/31/24 12:00 Allergies Allergy/AdvReac Type Severity Reaction Status Date / Time Penicillins Allergy Severe PASSED Verified 12/27/24 10:47 OUT codeine Allergy Unknown SEVERE Verified 12/27/24 10:47 ITCHING duloxetine AdvReac Intermediate Nausea Verified 12/27/24 10:47 sacubitril (From Entresto) AdvReac Intermediate Nausea Verified 12/27/24 10:47 valsartan (From Entresto) AdvReac Intermediate Nausea Verified 12/27/24 10:47 Home Medications ?Medication ?Instructions ?Recorded ?Confirmed ?Type carvedilol 6.25 mg tablet 6.25 mg PO BID 09/30/19 12/31/24 History losartan 100 mg tablet 100 mg PO DAILY 01/19/21 12/27/24 History buprenorphine 8 mg-naloxone 2 mg 0.5 tablet sublingual BID 11/16/21 12/27/24 History sublingual tablet bupropion HCl 150 mg 24 hr tablet, 300 mg PO DAILY 03/06/23 12/31/24 History extended release atorvastatin 20 mg tablet 20 mg PO DAILY 03/27/23 12/27/24 History empagliflozin 10 mg tablet 10 mg PO DAILY 04/03/24 12/27/24 History (Jardiance) spironolactone 50 mg tablet 50 mg PO DAILY #90 tabs 04/27/24 12/27/24 Rx clopidogrel 75 mg tablet See Rx Instructions .Route 05/09/24 12/31/24 Rx .COMPLEX #90 tabs pantoprazole 40 mg tablet,delayed 40 mg PO BID #180 tabs 05/30/24 12/27/24 Rx release lorazepam 1 mg tablet 1 mg PO TID PRN anxiety #90 tabs 09/03/24 12/31/24 Rx testosterone cypionate 200 mg/mL 300 mg (1.5 mL) IM .every 10 days 09/03/24 12/27/24 Rx intramuscular oil #9 mL semaglutide 2 mg/dose (8 mg/3 mL) 2 mg (0.75 mL) subcut WEEKLY #3 mL 10/15/24 12/31/24 Rx subcutaneous pen injector (Ozempic) ibuprofen 800 mg tablet See Rx Instructions .Route 11/24/24 12/27/24 Rx .COMPLEX #90 tabs ondansetron 4 mg disintegrating 4 mg PO Q8H PRN Nausea #30 tabs 12/13/24 12/27/24 Rx tablet multivitamin (Daily Value tablet) 1 tablet PO DAILY 12/25/24 12/27/24 History turmeric 400 mg capsule 400 mg PO DAILY 12/25/24 12/27/24 History Laboratory Tests 12/31/24 12:45 POC Capillary Glucose 125 H mg/dl (65-105) Patient hx anesthesia problems: none Family hx anesthesia problems: none Results Review: All pre-operative results and documents have been reviewed as part of the pre-operative evaluation. [facility] Past Medical History Medical History CLEMENCIA (obstructive sleep apnea) Hemochromatosis Cerebrovascular accident Non-ischemic cardiomyopathy Poorly documented. Pulmonary embolism Deep venous thrombosis Shingles Depression Gout Hiatal hernia Hemorrhoids Colonic polyp Surgical History Surgical History History of tonsillectomy History of appendectomy History of hemorrhoidectomy History of right hip replacement Family History Family History Mother Lung cancer Diabetes mellitus Father Lung cancer Depression Sibling No problems noted. Social History Social History Social History: Surrogate medical decision maker: Natasha Mendoza, spouse. Code status: Full code. Smoking status: Never smoker Second hand tobacco smoke exposure: Yes Alcohol intake: former Alcohol use details: QUIT DRINKING 1994 Substance use: former Substance use type: marijuana, crack/cocaine, amphetamines and hallucinogens Last use: 1994 Do You Feel Safe in your Home?: Yes Lack of Transportation: No Lack of Food: Never True Current Housing: I Have Housing Concerned About Future Housing: No Difficulty Paying Gas/Electric Bills: No Difficulty Paying for Meds: No Currently Unemployed: No Education: Associate Degree Difficulty w/ Childcare or Family Care: No Living arrangements: with family Additional living arrangements comments: Lives with in [place] [phone] Occupation/Education: retired Additional occupation/education comments: [employer] Gender identity (if verbalized by the patient): Male Spiritual care concerns: No Agree to blood products: Yes Anes - Eval Final PreProcedure Day of Procedure 12/31/24 15:13 Patient weight: morbidly obese Heart: regular rate and rhythm Lungs: decreased breath sounds Airway: Mallampati scale class II Neurological: alert and oriented Last oral intake: >/= 8 hours ASA classification: III Emergent: no Anesthetic plan: proceed Anesthesia type and monitoring: general ETT and standard monitoring Results Review: All pre-operative results and documents have been reviewed as part of the pre-operative evaluation. Informed Consent: The patient's anesthetic plan and its attendant risks and benefits were discussed with the patient/family/POA. Questions were solicited and answers provided to the satisfaction of the patient/family/POA.
[2024-12-31] MEDS: ceFAZolin 3 GM/D5W 100 ML 100 ML IVPB (15:32)
--- NOTE | 2024-12-31 15:40 | S_PTH ---
PATIENT: Robinson Mendoza LOC: [facility] U#:[id number] AGE/SX: 74/M ROOM: RE12/31/[address]: Kirill Elkins DO : 1950 BED: DIS: 12/31/2024 SPEC #: [id number] RECD: 01/01/25 11:44 STATUS: SHIRLENE REQ #: [id number] RODOLFO: 12/31/24 15:[address]: Kirill Elkins DEPT: [facility] Surgical RECD BY: Dia Herrera ENTERED: 01/01/25 11:44 SP TYPE: Surgical OTHR DR: Kamar Almazan MD Tissues: A - Gallbladder Procedures: Hematoxylin and Eosin Stain Gross and Microscopic Level 3
[2024-12-31] MEDS: fentaNYL CITRATE INJ (*CRX) 100 MCG/2 ML VIAL 25 MCG IV PUSH ×8 (17:40→17:55)
--- NOTE | 2024-12-31 17:41 | P.OP_ITS ---
Procedure Note - Detailed Date of Procedure 12/31/24 Pre-op Diagnosis symptomatic cholelithiasis Post-op Diagnosis Same Procedure Performed 1. Laparoscopic cholecystectomy with cholangiography, da Floyd assisted 2. Interpretation of cholangiography Surgeon Kirill Elkins, DO Anesthesia General and Local (0.5% bupivacaine) Indications This is a 74-year-old man who presented with nausea for the past couple years. He does get intermittent abdominal discomfort also. This was not tied to any particular high fat foods. The prior CT was obtained which showed evidence of cholelithiasis. He then also had a HIDA scan which showed evidence of a hyperfunctioning gallbladder with a gallbladder ejection fraction of 93%. Discussions were made with the patient about treatment options and decision was made to proceed with robotic assisted laparoscopic cholecystectomy with cholangiography. Findings Robotic assisted laparoscopic cholecystectomy with cholangiography was performed. 1.5 mL of indocyanine green was administered intravenously in preop. Near infrared fluorescence imaging was utilized intraoperatively to visualize the biliary anatomy. I was able to identify the cystic duct and dissect this in an area where I was far enough lateral to the common hepatic duct and common bile duct. There appeared to be normal filling of the cystic duct and gallbladder. The cystic duct appeared normal in size. There were 2 large gallstones within the gallbladder. While dissecting the gallbladder off of the liver bed, there was a branch vessel of the cystic duct that started bleeding. I was able to control this using a no other hemoclip once the vessel was adequately dissected out. The gallbladder was removed and sent to the lab for pathology. Description of Procedure Procedure as well as risks, benefits, and alternatives were discussed with the patient. Written consent was obtained and placed in chart prior to procedure. 1.5 mL of indocyanine green was given intravenously in preop. Patient was brought back to surgical suite. He was placed supine on operating table. Time- out was done to confirm patient and procedure. He was then intubated by the anesthesia department. His abdomen was then prepped and draped in sterile fashion using chlorhexidine prep. 0.5% bupivacaine was infiltrated locally at the site of each port placement. An 8 mm incision was made in the left upper quadrant and a 5 mm Optiview trocar was then advanced through the abdominal layers under direct visualization. Once inside the abdominal cavity, carbon dioxide insufflation was used to create a pneumoperitoneum. The camera was inserted and the abdomen was inspected. No mediated abnormalities were noted. The patient was placed in 12? reverse Trendelenburg position and rotated 6? to the left. Two 8 mm incisions were made in the right lateral abdomen and 2 8 mm trocars were inserted under direct visualization. An 8 mm incision was made in the supraumbilical region and an 8 mm trocar was inserted under direct visualization. The 5 mm Optiview trocar was then removed and another 8 mm trocar was inserted in its place. The robotic arms were then brought up to the patient's bedside and secured to each port. The camera and instruments were inserted. I then moved over to the robotic consult to take control of the camera and instruments. The gallbladder was grasped at the fundus and retracted cephalad. The infundibulum of the gallbladder was then grasped and retracted laterally. Hook electrocautery was then used to carefully dissect around the neck of the gallbladder. The cystic duct was identified and a window was created around it using hook electrocautery. The cystic artery was also identified and a window was created behind it using hook electrocautery. Critical view of safety was identified visualizing the cystic duct running directly into the neck of the gallbladder and the cystic artery running directly into the wall the gallbladder. The camera view was switched to firefly mode and the indocyanine green within the gallbladder and cystic duct was clearly visualized. No other structures were noted running into this region and there did not appear to be any obstruction of the cystic duct impeding flow of bile into the gallbladder. The camera mode was switched back to regular mode. Hemo lock clips were placed on both the cystic duct and cystic artery. Two clips were placed proximally and 1 distally. Hook electrocautery was then used to transect in between the clips. Once safely away from the miguel hepatus, hook electrocautery was used to dissect the gallbladder off of the liver bed. There was a branch vessel of the cystic duct between the gallbladder and gallbladder fossa that began bleeding while I was dissecting the gallbladder free. I was able to the control the bleeding with my cautery a grasper I then used the hook to carefully dissect out a window around this vessel. A hemoclip was then placed across this vessel to aid with hemostasis. I then continued dissecting the gallbladder off of the liver bed and no other bleeding was noted. Once the gallbladder was completely dissected free it was then placed in an Endo-Catch bag and removed through the left upper quadrant port site. The liver bed was carefully inspected. Hemostasis appeared adequate under clips appeared secure. No other intra-abdominal abnormalities were noted. The left upper quadrant port site had to be extended to about a 3 cm incision at the skin in order to extract the gallbladder and the fascia had been dilated. The fascia of this incision was reapproximated using 0 Vicryl [id number] sutures. A total of 2 sutures were placed to approximate the fascia The remaining instruments and camera were removed and the robotic arms were disengaged from the ports. Pneumoperitoneum was released and the ports were removed. The skin of each of the incisions was then approximated using 4-0 Monocryl subcuticular suture. Exofin glue was then applied on top. Patient was then awakened from anesthesia, extubated, and transferred to recovery. Estimated Blood Loss 40 Pathology Yes (Gallbladder) Complications No immediate complications Condition Stable Disposition Same day [facility] Billing Surgery - Charge Forward: Surgery Billing
[2024-12-31] MEDS: HYDROmorphone HCL INJ (*CRX) 1 MG/ML SYR 0.5 MG IV PUSH ×4 (18:05→18:20)
[2024-12-31] MEDS: oxyCODONE HCL (*CRX) 5 MG TAB IR PO (18:45)
== END 2024-12-31 19:15 | disposition home or self-care (01) ==
PROVIDERS: PCP Family Medicine Adolescent Medicine; Visit Provider Surgery
PROC: 0FT44ZZ Resection of Gallbladder, Percutaneous Endoscopic Approach (ICD-10-PCS; CPT 47562; principal; 2024-12-31 14:00)
DX: K80.10 Calculus of gallbladder with chronic cholecystitis without obstruction (principal); E11.9 Type 2 diabetes mellitus without complications; G47.33 Obstructive sleep apnea (adult) (pediatric); I42.8 Other cardiomyopathies; F32.A Depression, unspecified; E83.119 Hemochromatosis, unspecified; F12.90 Cannabis use, unspecified, uncomplicated; F14.90 Cocaine use, unspecified, uncomplicated; E66.01 Morbid (severe) obesity due to excess calories; Z68.41 Body mass index [BMI] 40.0-44.9, adult; Z79.84 Long term (current) use of oral hypoglycemic drugs; Z79.02 Long term (current) use of antithrombotics/antiplatelets; Z79.85 Long-term (current) use of injectable non-insulin antidiabetic drugs; Z79.1 Long term (current) use of non-steroidal anti-inflammatories (NSAID); Z98.890 Other specified postprocedural states; Z86.0100 Personal history of colon polyps, unspecified; Z86.711 Personal history of pulmonary embolism; Z86.79 Personal history of other diseases of the circulatory system; Z86.718 Personal history of other venous thrombosis and embolism; Z80.1 Family history of malignant neoplasm of trachea, bronchus and lung
CPT/HCPCS: 47563; 74300; S2900; 82948; 88304; A9270; J0690; J1171; J1885; J2003; J2405; J2704; J3010; J7120

== ENCOUNTER 2025-02-25 12:24 | Outpatient (CLI) | payer MEDICARE, SELFPAY ==
--- NOTE | 2025-02-25 13:00 | NEURO_ITS ---
Impression: # Diabetic complaining of increasing pain/numbness of right hand. ? # Moderate to severe right Carpal Tunnel Syndrome. ? 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 ? # Needle/ EMG exam not ordered. Nerve Conduction Studies ?Stim Site NR Peak (ms) P-T Amp (?V) Site1 Site2 Delta-P (ms) Dist (cm) Santy (m/s) Right Median Anti Sensory (2-3nd Digit) Wrist ? 10.9 13.3 Wrist 2-3nd Digit 10.9 14.0 13 Wrist ? 8.1 15.9 Wrist 2-3nd Digit 10.9 14.0 13 Right Radial Anti Sensory (Base 1st Digit) Wrist ? 2.6 17.7 Wrist Base 1st Digit 2.6 0.0 Right Ulnar Anti Sensory (5th Digit) Wrist ? 3.5 0.8 Wrist 5th Digit 3.5 14.0 40 ?Stim Site NR Onset (ms) O-P Amp (mV) Site1 Site2 Delta-0 (ms) Dist (cm) Santy (m/s) Right Median Motor (Abd Poll Brev) Wrist ? 5.6 4.3 Elbow Wrist 2.7 27.0 100 Elbow ? 8.3 2.3 Right Ulnar Motor (Abd Dig Minimi) Wrist ? 2.6 6.3 A Elbow Wrist 5.0 28.0 56 A Elbow ? 7.6 6.8 B Elbow Wrist 3.7 22.0 59 B Elbow ? 6.3 6.0 F Wave Studies ?NR F-Lat (ms) L-R F-Lat (ms) Right Median (Mrkrs) (Abd Poll Brev) ? 34.45 Right Ulnar (Mrkrs) (Abd Dig Min) ? 30.74
--- OUTSIDE RECORDS SUMMARY | 2025-02-25 13:05 | XMS_ITS | Encounter Summary ---
Author Organization [facility] Address 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
--- OUTSIDE RECORDS SUMMARY | 2025-02-25 13:05 | XMS_ITS | Encounter Summary ---
Author Organization [facility] Address [address] [place] [address] Care Team Providers Care Bike Technician Name Role Phone Kamar Almazan MD Primary Care Provider +1- [phone] Encounter Details Date Type Department Care Team (Latest Contact Info) Description 08/22/2000 Outpatient Historical [facility] [place] Jasvir Alvarez MD [address] [place] [address] Opioid type dependence, unspecified (CMS/HCC) (Primary Dx) Social History Tobacco Use Types Packs/Day Years Used Date Smoking Tobacco: Never Assessed Sex and Gender Information Value Date Recorded Sex Assigned at Not on file Legal Sex Male 3:36 AM ACTUARIAL INTERNSHIP Gender Identity Not on file Sexual Orientation Not on file documented as of this encounter Plan of Treatment Not on file documented as of this encounter Visit Diagnoses Diagnosis Opioid type dependence, unspecified (CMS/HCC)- Primary Opioid type dependence, unspecified documented in this encounter Care Teams Bike Technician Relationship Specialty Start Date End Date Kamar Almazan MD PCP - General Family Practice 04/05/24 documented as of this encounter
--- OUTSIDE RECORDS SUMMARY | 2025-02-25 13:05 | XMS_ITS | Encounter Summary ---
Author Organization [facility] Address 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
--- OUTSIDE RECORDS SUMMARY | 2025-02-25 13:05 | XMS_ITS | Encounter Summary ---
Author Organization [facility] Address 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
--- OUTSIDE RECORDS SUMMARY | 2025-02-25 13:05 | XMS_ITS | Encounter Summary ---
Author Organization [facility] Address 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
--- OUTSIDE RECORDS SUMMARY | 2025-02-25 13:05 | XMS_ITS | Encounter Summary ---
Author Organization [facility] Address 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
--- OUTSIDE RECORDS SUMMARY | 2025-02-25 13:05 | XMS_ITS | Encounter Summary ---
Author Organization [employer] Address 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
--- OUTSIDE RECORDS SUMMARY | 2025-02-25 13:05 | XMS_ITS | Encounter Summary ---
Author Organization [facility] Address [address] [place] [address] Care Team Providers Care Hogshead Cooper Name Role Phone Kamar Almazan MD Primary Care Provider + Encounter Details Date Type Department Care Team (Late st Contact Info) Description 04/12/2024 Lab Requisition [facility] - Pathology Lab [address] [place] [id number] Castro Garza MD [address] [place] [address] [id number] Monoclonal gammopathy Social History Tobacco Use Types [...] CYTOMETRY BONE MARROW Routine 04/12/2024 9:45 AM ANTENNA DESIGN ENGINEER Monoclonal gammopathy documented in this encounter Results * FLOW CYTOMETRY BONE MARROW (04/12/2024 9:45 AM ANTENNA DESIGN ENGINEER) Case Report Flow Cytometry Case: [id number] Authorizing Provider: Castro Garza Collected: 04/12/2024 09:45 JONATHAN Marsh MD Ordering Location: [facility] - Received: 04/12/2024 01:16 PM Pathology Lab Pathologist: Jem Mora MD Specimen: Bone Marrow 04/12/2024 4:06 PM [facility] Final Diagnosis Bone marrow, flow cytometry: - No overtly clonal plasma cell, clonal B-cell, or increased blast population detected 04/12/2024 4:06 PM [facility] at [address] ANTENNA DESIGN ENGINEER Flow Cytometry Interpretation Viability: 98% B-cells: polytypic, kappa:lambda ratio 2:1 T-cells: not increased Blasts: not increased, <2% of overall events. Plasma cells: polytypic, kappa:lambda ratio 2:1 no immunophenotypic aberrancy detected A bone marrow aspirate smear prepared from the flow cytometry specimen has been reviewed for quality improvement coordinator purposes. 04/12/2024 4:06 PM [facility] Flow Cytometry Results Differential Result Comment Flow Cell Count /uL 23,000 Total Viability % 98.0 Lymphocytes % 13 Dim CD45 Region % 5 Monocytes % 11 Granulocytes % 71 04/12/2024 4:06 PM [facility] Reason for test Monoclonal gammopathy 273.1 04/12/2024 4:06 PM [facility] Client Specimen ID # [id number] 04/12/2024 4:06 PM [facility] Number of markers 14 were performed. A-2 Flow CD10 A-3 Flow CD13 A-5 Flow CD20 A-13 Flow CD117 A-14 FLOW CD138 A-1 Flow CD5 A-4 Flow CD19 A-6 Flow CD33 A-7 Flow CD34 A-8 Flow CD45 A-11 Flow CD38 A-12 Flow CD56 A-9 [place]+CD19+ A-10 Lambda+CD19+ 04/12/2024 4:06 PM [facility] Pathologist Location at [facility] 04/12/2024 4:06 PM [facility] Disclaimer Test performed at [facility], [address] [place] [address], [address]. *The established laboratory minimum viability is 70%. [...] high complexity clinical testing. 04/12/2024 4:06 PM ANTENNA DESIGN ENGINEER [facility] Embedded Images 4:06 PM ANTENNA DESIGN ENGINEER [facility] Pathology/Cytolo gy BONE MARROW SPECIMEN / Unknown 04/12/2024 9:45 AM ANTENNA DESIGN ENGINEER 04/12/2024 1:16 PM ANTENNA DESIGN ENGINEER Castro Garza MD LAB - PATHOLOGY/CYT OLOGY ORDERABLES Final Result [facility] [address] [phone] documented in this encounter Visit Diagnoses Diagnosis Monoclonal gammopathy Monoclonal paraproteinemia documented in this encounter Care Teams Hogshead Cooper Relationship Specialty Start Date End Date Kamar Almazan MD [address] [address] PCP - General 05/28/21 documented as of this encounter
--- OUTSIDE RECORDS SUMMARY | 2025-02-25 13:05 | XMS_ITS | Encounter Summary ---
Author Organization [facility] Address [address] [place] [address] Care Team Providers Care Securities Broker Name Role Phone Kamar Almazan MD Primary Care Provider +1- [phone] Encounter Details Date Type Department Care Team (Latest Contact Info) Description 06/18/2000 Outpatient Historical [facility] Conversion, History Opioid type dependence, unspecified (CMS/HCC) (Primary Dx) Social History Tobacco Use Types Packs/Day Years Used Date Smoking Tobacco: Never Assessed Sex and Gender Information Value Date Recorded Sex Assigned at Not on file Legal Sex Male 3:36 AM BILINGUAL MANAGER Gender Identity Not on file Sexual Orientation Not on file documented as of this encounter Plan of Treatment Not on file documented as of this encounter Visit Diagnoses Diagnosis Opioid type dependence, unspecified (CMS/HCC)- Primary Opioid type dependence, unspecified documented in this encounter Care Teams Securities Broker Relationship Specialty Start Date End Date Kamar Almazan MD PCP - General Family Practice 04/05/24 documented as of this encounter
--- OUTSIDE RECORDS SUMMARY | 2025-02-25 13:05 | XMS_ITS | Encounter Summary ---
Author Organization [facility] Address 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
--- OUTSIDE RECORDS SUMMARY | 2025-02-25 13:05 | XMS_ITS | Clinical Summary ---
Author Organization [facility] [address] Address [address] [place] [address] Care Team Providers Care National Sales Manager Name Role Phone Kamar Almazan MD [...] clopidogreL (PLAVIX) 75 mg tablet 2 Active ondansetron ODT (ZOFRAN-ODT) 4 mg disintegrating tablet 2 Active testosterone cypionate (DEPO-TESTOTERONE) 200 mg/mL injection INJECT 1.5 ML IN THE MUSCLE EVERY 21 DA[address] (PROTONIX) 40 mg EC tablet Take 1 tablet (40 mg total) by mouth daily 4 Active spironolactone (ALDACTONE) 50 mg tablet Take 1 tablet (50 mg total) by mouth daily 4 Active Ozempic 1 mg/dose (4 mg/3 mL) pen injector injection ADMINISTER 1 MG UNDER THE SKIN WEEKLY 4 Active atorvastatin (LIPITOR) 40 mg tablet Take 1 tablet (40 mg total) by mouth daily 30 tablet 11 5 026 Active aspirin 81 mg enteric coated tabletIndications: prevention of thrombosis Take 1 tablet (81 mg total) by mouth daily 30 tablet 11 5 026 Active losartan (COZAAR) 100 mg tabletIndications: Dilated cardiomyopathy (HCC) TAKE 1 TABLET(100 MG) BY MOUTH DAILY 90 tablet 2 5 Active Jardiance 10 mg tabletIndications: Dilated cardiomyopathy (HCC) TAKE 1 TABLET(10 MG) BY MOUTH DAILY 30 tablet 5 Active carvediloL (COREG) 6.25 mg tabletIndications: Dilated cardiomyopathy (HCC) Take 1 tablet (6.25 mg total) by mouth 2 (two) times a day 180 tablet 3 5 Active Active Problems Problem Noted Date Diagnosed Date Coronary artery disease invo lving [place] coronary artery of [place] heart without angina pectoris 08/06/2024 Obstructive sleep [...] Type Department Care Team Description 12/26/2024 Telephone [facility] [address] [facility] [address] [place] [phone] Ronak Flores MD 12/23/2024 Telephone [facility] [address] [facility] [address] [place] [phone] Ronak Flores MD 12/12/2024 1:00 PM CDT Office Visit [facility] [address] [place] [address] [address] [place] [phone] Elsa Cantrell NP Dilated cardiomyopathy (HCC) (Primary Dx); Coronary artery disease involving [place] coronary artery of [place] heart without angina pectoris; Morbid obesity with BMI of 40.0-44.9, adult (HCC); Obstructive sleep apnea; Preoperative cardiovascular examination 12/05/2024 Telephone [facility] [address] [facility] [address] [place] [phone] Ronak Flores MD from Last 3 Months [...] Cataracts, bilateral Arthritis Deep vein thrombosis (HCC) 2014 Pulmonary emboli (HCC) 2014 Caused pu lmonary hypertension Addiction to drug [...] on file Legal Sex Male 1:23 AM MANAGER RESORT Gender Identity Not on file Sexual Orientation Not on file 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 on file Not on file Last Filed Vital Signs Vital Sign Reading Time Taken Comments Blood Pressure 132/72 12/12/2024 12:55 PM CDT Pulse 102 12/12/2024 12:55 PM CDT Temperature 36.4 C (97.5 F) 04/02/2020 3:10 PM MANAGER RESORT Respiratory Rate - - Oxygen Saturation 96% [...] Visit 65+ 07/13/2016 Influenza Vaccine (#1) 2024 4, 01/11/2019, 01/25/2009 Procedures Procedure Name Priority Date/Time Associated Diagnosis Comments ELECTROCARDIOGRAM REPORT Routine 025 12:17 PM CDT Preoperative cardiovascular examination from Last 3 Months Results * Electrocardiogram Report (12/12/2024 12:17 PM CDT) Elsa Cantrell NP ECG ORDERABLES Final Res ult from Last 3 Months Insurance [facility] MEDICARE [facility]ANT[facility] Address: [address] [address] [place] [address] MEDICARE [facility] MEDICARE ADVANTAGE [facility] Address: [facility] [address] [place] [address] [facility] MEDICARE ADVANTAGE [facility] Address: [facility] [address] [place] [address] Care Teams National Sales Manager Relationship Specialty Start Date End Date Kamar Almazan MD PCP - General Family Medicine 07/05/24
--- OUTSIDE RECORDS SUMMARY | 2025-02-25 13:05 | XMS_ITS | Encounter Summary ---
Author Organization [facility] Address 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
--- OUTSIDE RECORDS SUMMARY | 2025-02-25 13:05 | XMS_ITS | Encounter Summary ---
Author Organization [facility] Address [address] [place] [address] Care Team Providers Care Qa Analyst Name Role Phone Kamar Almazan MD Primary Care Provider +1- [phone] Encounter Details Date Type Department Care Team (Latest Contact Info) Description 07/20/2000 Outpatient Historical [facility] Conversion, History Opioid type dependence, unspecified (CMS/HCC) (Primary Dx) Social History Tobacco Use Types Packs/Day Years Used Date Smoking Tobacco: Never Assessed Sex and Gender Information Value Date Recorded Sex Assigned at Not on file Legal Sex Male 3:36 AM COMPUTER AIDED DESIGN DRAFTER Gender Identity Not on file Sexual Orientation Not on file documented as of this encounter Plan of Treatment Not on file documented as of this encounter Visit Diagnoses Diagnosis Opioid type dependence, unspecified (CMS/HCC)- Primary Opioid type dependence, unspecified documented in this encounter Care Teams Qa Analyst Relationship Specialty Start Date End Date Kamar Almazan MD PCP - General Family Practice 04/05/24 documented as of this encounter
--- OUTSIDE RECORDS SUMMARY | 2025-02-25 13:05 | XMS_ITS | Encounter Summary ---
Author Organization [facility] Address [address] [place] [address] Care Team Providers Care Supervisor Ordnance Truck Installation Name Role Phone Kamar Almazan MD Primary Care Provider + Encounter Details Date Type Department Care Team (Late st Contact Info) Description 04/15/2024 Lab Requisition [facility] - Pathology Lab [address] [place] [id number] Castro Garza MD [address] [facility] [address] [place] [id number] Illness, unspecified Social History Tobacco Use [...] MARROW BIOPSY (STL) Routine 04/12/2024 9:45 AM HEALTH POLICY MANAGER Illness, unspecified documented in this encounter Results * BONE MARROW BIOPSY (STL) (04/12/2024 9:45 AM HEALTH POLICY MANAGER) Case Report Bone Marrow Patholog y Report Case: [id number] Authorizing Provider: Castro Garza Collected: 04/12/2024 09:45 AM MD Maximo Ordering Location: [facility] - Received: 04/15/2024 04:19 PM Pathology Lab Pathologist: Marylin Florez MD Specimens: A) - Bone Marrow Clot B) - Bone Marrow Core 04/17/2024 12:36 PM [facility] Final Diagnosis Bone marrow, iliac [...] in reticulin fibrosis (MF-1) 04/17/2024 12:36 PM [facility] PATHOLOGY [facility] at [address] HEALTH POLICY MANAGER AP Comment Please correlate wit h relevant cytogenetic, FISH, and molecular data. 04/17/2024 12:36 PM [facility] Peripheral Smear Description The patient's [...] not provided for review. 04/17/2024 12:36 PM [facility] Bone Marrow Aspirate Differential count [...] stain): no ring sideroblasts. 04/17/2024 12:36 PM [facility] Bone Marrow Core Biopsy and [...] similar to core biopsy. 04/17/2024 12:36 PM [facility] Flow Cytometry Summary Flow cytometry revealed no overtly clonal plasma cell, clonal B-cell, or increased blast population ([id number]). 04/17/2024 12:36 PM [facility] Clinical History Monoclonal gammopathy. Arbuckle lambda light chain ratio normal at 1.3 04/17/2024 12:36 PM [facility] Materials Received Received are 18 slide(s) labeled and 3 block(s) [id number] along with a copy of the outside pathology report. [place] [address]. All original materials are returned to the referring institution, along with a copy of our final report. 04/17/2024 12:36 PM [facility] Microscopic Description Immunohistochemistry and special [...] sheets of plasma cells are not present. Arbuckle and lambda in situ hybridization stains highlight [...] highlight markedly decreased stores. 04/17/2024 12:36 PM [facility] Pathologist Location at [facility] 04/17/2024 12:36 PM [facility] Disclaimer The performance characteristics of all immunohistochemical and indirect immunofluorescence stains (if any) cited in this report were determined by the Histopathology Laboratory of [facility]. Some of these tests were developed [...] the attending (teaching) pathologist. 04/17/2024 12:36 PM [facility] Embedded Images 04/17/2024 12:36 PM [facility] Pathology/Cytology BONE MARROW SPECIMEN / Unknown 04/12/2024 9:45 AM HEALTH POLICY MANAGER 04/15/2024 4:19 PM HEALTH POLICY MANAGER Miscellaneous samples (specimen) BONE MARROW SPECIMEN / Unknown 04/12/2024 9:45 AM HEALTH POLICY MANAGER 04/15/2024 4:19 PM HEALTH POLICY MANAGER Castro Garza MD LAB - PATHOLOGY/CYT OLOGY ORDERABLES Final Result Performing Organization Address City/State/[facility] Co de Phone Number [facility] [address] [phone] documented in this encounter Visit Diagnoses Diagnosis Illness, unspecified documented in this encounter Care Teams Supervisor Ordnance Truck Installation Relationship Specialty Start Date End Date Kamar Almazan MD [address] [place] [id number] PCP - General 05/28/21 documented as of this encounter
--- OUTSIDE RECORDS SUMMARY | 2025-02-25 13:05 | XMS_ITS | Encounter Summary ---
Author Organization [facility] Address [address] [place] [address] Care Team Providers Care Steel Hanger Name Role Phone Kamar Almazan MD Primary Care Provider +1- [phone] Encounter Details Date Type Department Care Team (Late st Contact Info) Description 04/19/2000 Outpatient Historical [facility] Social History Tobacco Use Types Packs/Day Years Used Date Smoking Tobacco: Never Assessed Sex and Gender Information Value Date Recorded Sex Assigned at Not on file Legal Sex Male 3:36 AM INTERSTATE PLANNER Gender Identity Not on file Sexual Orientation Not on file documented as of this encounter Plan of Treatment Not on file documented as of this encounter Visit Diagnoses Not on filedocumented in this encounter Care Teams Steel Hanger Relationship Specialty Start Date End Date Kamar Almazan MD PCP - General Family Practice 04/05/24 documented as of this encounter
--- OUTSIDE RECORDS SUMMARY | 2025-02-25 13:05 | XMS_ITS | Clinical Summary ---
Author Organization [facility] Address [address] [facility] [place] [address] Care Team Providers Care Information Systems Audit Manager Name Role Phone Kamar Almazan MD Primary Care Provider + Source Comments [facility],non-owned Affiliates and Associated Physician Practices is amultiple site organization consisting of ambulatory clinics and hospital sitesin [place], [place], [place] and [place]. This disclosure is being madepursuant to the Care Everywhere program and may not contain all information available regarding this patient. Last updated 17.[facility] Allergies Active Allergy Reactions Criticality Noted Date [...] Immunization Administration Dates Next Due INFLUENZA A M2S5-40 VACCINE 01/25/2009 INFLUENZA VACCINE, QUADR. (A FLURIA, [...] 50+ (1 of 1 - PCV) 07/13/2001 Respiratory Syncytial Virus (RSV) Vaccine Pt: or over 60 yrs (1 - Risk 50-74 years 1-dose series) 07/13/2001 ZOSTER VACCINE (1 of 2) 07/13/2001 SCREENING FOR DIABETES 12/17/2021 DEPRESSION SCREENING 03/27/2024 MEDICARE AWV CALENDAR YEAR 2024 COVID-19 VACCINE (1 - 2024-2 6 season) 2024 INFLUENZA VACCINE (#1) 2024 9, [...] to complete this topic Insurance [facility] MANAGED MEDICARE ADV [facility] MANAGED MEDICARE ADV SELF PAY NO INSURANCE Member Subscriber Plan / Payer (Ef fective for All Dates) Name:Neftali Britt Member ID:Not on file Relation to Subscriber:Not on file Name:NEFTALI BRITT Subscriber ID:Not on file (Home) Address: [address] [place] [address] Payer ID:Not on file Group ID:Not on file Type:Self Pay Address: [place], [place] Care Teams Information Systems Audit Manager Relationship Specialty Start Date End Date Kamar Almazan MD [address] [place] [address] PCP - General 05/28/21
--- OUTSIDE RECORDS SUMMARY | 2025-02-25 13:05 | XMS_ITS | Encounter Summary ---
Author Organization [facility] Address 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
--- OUTSIDE RECORDS SUMMARY | 2025-02-25 13:05 | XMS_ITS | Encounter Summary ---
Author Organization [facility] Address 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
--- OUTSIDE RECORDS SUMMARY | 2025-02-25 13:05 | XMS_ITS | Clinical Summary ---
Author Organization [facility] Address [address] [place] [address] Care Team Providers Care Leaf Sorter Name Role Phone Kamar Almazan MD Primary Care Provider +1- [phone] Allergies Active Allergy Reactions Criticality Noted Date [...] Encounters Date Type Department Care Team Description 12/31/2024 External Device Data ST[facility] ABSTRACTION Provider, Abstract 12/10/2024 External Device Data [facility] ABSTRA[facility] Provider, Abstract 12/03/2024 External Device Data [facility] [place]STRA[place] Provider, Abstract 11/26/2024 Abstract [facility] [place] [address] [place] [id number] Rom Mcconnell MD from Last 3 Months Family History Medical [...] file 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 Gender Identity Not on file Sexual Orientation Not on file Last Filed Vital Signs Vital Sign Reading Time Taken Comments Blood Pressure 128/94 04/29/2024 2:34 PM LAUNDRY OR DRY CLEANERS COUNTER CLERK Pulse 94 04/29/2024 2:34 PM LAUNDRY OR DRY CLEANERS COUNTER CLERK Temperature 35.6 C (96 F) 04/29/2024 2:34 PM LAUNDRY OR DRY CLEANERS COUNTER CLERK Respiratory Rate 16 04/29/2024 2:34 PM LAUNDRY OR DRY CLEANERS COUNTER CLERK Oxygen Saturation 96% 04/29/2024 2:34 PM LAUNDRY OR DRY CLEANERS COUNTER CLERK Inhaled Oxygen Concentration - - Weight 133.8 kg (295 lb) 04/29/2024 2:34 PM LAUNDRY OR DRY CLEANERS COUNTER CLERK Height 175.3 cm (5' 9) 03/26/2024 10:39 AM LAUNDRY OR DRY CLEANERS COUNTER CLERK Body Mass Index 43.56 03/26/2024 10:39 AM LAUNDRY OR 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 CLEANERS 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 CLERK Plan of Treatment Health Maintenance Due Date Last Done Comments DTAP/TDAP/TD VACCINES (1 - Tdap) 07/13/1970 COLORECTAL SCREENING 07/13/1996 Colorectal Cancer Screening 07/13/1996 FIT-DNA Q 3 years 07/13/1996 FIT/FOBT Q 1 year 07/13/1996 Flex Sig/CT Colonography Q 5 years 07/13/1996 PNEUMOCOCCAL VACCINE 50+ YEA RS (1 of 1 - PCV) 07/13/2001 RSV VACCINE (60+ or ) (1 - Risk 50-74 years 1-dose series) 07/13/2001 ZOSTER VACCINE (1 of 2) 07/13/2001 INFLUENZA VACCINE (#1) 2024 01/11/2019, 2008 Insurance [facility] [id number] Care Teams Leaf Sorter Relationship Specialty Start Date End Date Kamar Almazan MD PCP - General Family Practice 04/05/24
== END 2025-02-25 12:25 | disposition home or self-care (01) ==
LOC: ANHNEURO 12:25
PROVIDERS: PCP Family Medicine Adolescent Medicine; Visit Provider Family Medicine Adolescent Medicine
DX: G56.01 Carpal tunnel syndrome, right upper limb (principal); G56.21 Lesion of ulnar nerve, right upper limb
CPT/HCPCS: 95909